=== PATIENT | female | born 1955 | race Caucasian/White ===

== ENCOUNTER 2017-05-03 20:48 | Emergency (ER) | payer BC, MEDICARE, SELFPAY ==
[2017-05-03 21:38] VITALS: BP 104/63; PULSE 71; RESP 20; TEMP 36.6; O2SAT 100; BMI 19.3
--- NOTE | 2017-05-03 21:42 | XR_ITS ---
XR forearm LT 2V HISTORY: ITS.REASON: FELL ON WOODEN TOY AT HOME ORDERING PHYSICIAN: Stacey Sung PATIENT AGE: 61 years COMPARISON: None FINDINGS: No obvious fracture, dislocation, lytic change or blastic change. Normal mineralization. Unremarkable soft tissues IMPRESSION: Negative forearm
--- NOTE | 2017-05-03 22:21 | HMH.EDUTC ---
[facility] [place] Clinical Impression: Wrist contusion Qualifiers: Encounter type: initial encounter Laterality: left Qualified Code(s): S60.212A - Contusion of left wrist, initial encounter Clinical Impression: (Ruled Out): Wrist sprain Disposition: Home, Self-Care Condition on Discharge: Good Instructions: How To Perform RICE (Rest, Ice, Compress, Elevate), Contusion, DI for Wrist Pain Additional Instructions: *RICE, Rest the extremity, Ice 15-20 minutes 3-4 times daily, Compress- wear the song wrap as discussed as much as possible to help reduce swelling and pain, Elevate the extremity when at rest *Song wrap is for support and help control swelling, use it except in the shower. Be sure that is not to tight but not to loose either *Elevate when resting *Ibuprofen 600-800mg every 6-8 hours as needed for pain an inflammation. If need something more can take Tylenol in between doses of Ibuprofen to help Immediately follow up for new or worsening of symptoms, or no noticeable improvement over the next 3-5 days Follow up with family doctor for referal to Orthopedics if warrented Referrals: Cornelio Chan [Primary Care Provider] - Time of Disposition: 22:26 Medical Decision Making - Medical Records Medical records reviewed: Yes: I reviewed the patient's medical records. Vital Signs: 05/03/17 21:38 Temperature 97.9 F Temperature Source Temporal Artery Scan Pulse Rate [Left] 71 Respiratory Rate 20 Blood Pressure [Left Arm] 104/63 Blood Pressure Mean [Left Arm] 76 Blood Pressure Source [Left Arm] Automatic Cuff Blood Pressure Position [Left Arm] Sitting 02 Sat by Pulse Oximetry 100 Oxygen Delivery Method Room Air Orders (Tests/Meds): ORDERS Category Date Time Status Forearm XR left 2 views [XR forearm LT 2V] Stat Exams 05/03/17 21:42 Taken - Radiology Data #1 Image(s): Forearm Image Reviewed: Yes I reviewed the patient's radiology image Preliminary Findings: No Fracture Seen - Steven Inquiry Pt receiving controlled substance: No Steven was queried for this patient: No - Reevaluation(s) Time: 22:24 (Patient state that she did not need any medication for pain) [facility] [place] - General Stated complaint: ao [id number] injured left arm Mode of Arrival: Ambulatory Source of Information: Patient Limitations: No Limitations Description of Symptoms (Recalled from Triage Doc. by RN): BRUISE ON RIGHT WRIST, TRIPPED FELL EARLIER HEENT Symptoms (Recalled from RN notes): No Resp Symptoms (Recalled from RN notes): No Skin Symptoms (Recalled from RN notes): No MS Symptoms (Recalled from RN notes): Yes Functional Status (Recalled from RN notes): N - History of Present Illness Provider Complaint: Patient state that she was walking through her house when she tripped and fell on wooden toy and now having pain and bruising to the inside of her left wrist area State that she was worried that she may have broken something so she came in to get checked out - Related Data Allergies Allergy/AdvReac Type Severity Reaction Status Date / Time Penicillins Allergy Verified 05/03/17 21:48 Penicillin Allergy Intermediate PATIENT Uncoded 05/03/17 21:48 THROAT SWELL AND DEVELOPS RASH - Worker's Comp Is this a Worker's Comp case?: No [facility] History I have reviewed the patient's past medical history: Yes - *Social History Smoking Status: Current every day smoker Tobacco Type: cigarettes Alcohol Intake: never - Psychiatric History Expresses thoughts of harming self/others: None Suicide Plan Description: No Plan ROS Obtained: Yes All systems reviewed & no additional complaints Physical Exam - General General appearance: alert, in no apparent distress - Respiratory Respiratory exam: Present: normal lung sounds bilaterally. Absent: respiratory distress - Cardiovascular Cardiovascular exam: Present: regular rate, normal rhythm. Absent: JVD - Expanded Upper Extremity Exam
--- NOTE | 2017-05-03 22:24 | ED_ITS ---
[facility] – [place] Clinical Impression: Wrist contusion Qualifiers: Encounter type: initial encounter Laterality: left Qualified Code(s): S60.212A - Contusion of left wrist, initial encounter Clinical Impression: (Ruled Out): Wrist sprain Disposition: Home, Self-Care Condition on Discharge: Good Instructions: How To Perform RICE (Rest, Ice, Compress, Elevate), Contusion, DI for Wrist Pain Additional Instructions: *RICE, Rest the extremity, Ice 15-20 minutes 3-4 times daily, Compress- wear the song wrap as discussed as much as possible to help reduce swelling and pain, Elevate the extremity when at rest *Song wrap is for support and help control swelling, use it except in the shower. Be sure that is not to tight but not to loose either *Elevate when resting *Ibuprofen 600-800mg every 6-8 hours as needed for pain an inflammation. If need something more can take Tylenol in between doses of Ibuprofen to help Immediately follow up for new or worsening of symptoms, or no noticeable improvement over the next 3-5 days Follow up with family doctor for referal to Orthopedics if warrented Referrals: Cornelio Chan [Primary Care Provider] - Time of Disposition: 22:26 Medical Decision Making - Medical Records Medical records reviewed: Yes: I reviewed the patient's medical records. Vital Signs: 05/03/17 21:38 Temperature 97.9 F Temperature Source Temporal Artery Scan Pulse Rate [Left] 71 Respiratory Rate 20 Blood Pressure [Left Arm] 104/63 Blood Pressure Mean [Left Arm] 76 Blood Pressure Source [Left Arm] Automatic Cuff Blood Pressure Position [Left Arm] Sitting 02 Sat by Pulse Oximetry 100 Oxygen Delivery Method Room Air Orders (Tests/Meds): ORDERS Category Date Time Status Forearm XR left 2 views [XR forearm LT 2V] Stat Exams 05/03/17 21:42 Taken - Radiology Data #1 Image(s): Forearm Image Reviewed: Yes I reviewed the patient's radiology image Preliminary Findings: No Fracture Seen - Steven Inquiry Pt receiving controlled substance: No Steven was queried for this patient: No - Reevaluation(s) Time: 22:24 (Patient state that she did not need any medication for pain) [facility] [place] HPI - General Stated complaint: ao [id number] injured left arm Mode of Arrival: Ambulatory Source of Information: Patient Limitations: No Limitations Description of Symptoms (Recalled from Triage Doc. by RN): BRUISE ON RIGHT WRIST , TRIPPED FELL EARLIER HEENT Symptoms (Recalled from RN notes): No Resp Symptoms (Recalled from RN notes): No Skin Symptoms (Recalled from RN notes): No MS Symptoms (Recalled from RN notes): Yes Functional Status (Recalled from RN notes): N - History of Present Illness Provider Complaint: Patient state that she was walking through her house when she tripped and fell on wooden toy and now having pain and bruising to the inside of her left wrist area State that she was worried that she may have broken something so she came in to get checked out - Related Data Allergies Allergy/AdvReac Type Severity Reaction Status Date / Time Penicillins Allergy Verified 05/03/17 21:48 Penicillin Allergy Intermediate PATIENT Uncoded 05/03/17 21:48 THROAT SWELL AND DEVELOPS RASH - Worker's Comp Is this a Worker's Comp case?: No H History I have reviewed the patient's pa
== END 2017-05-03 22:27 | disposition home or self-care (01) ==
PROVIDERS: Emergency Provider Nurse Practitioner; Family Provider Internal Medicine; PCP Internal Medicine
DX: S60.212A Contusion of left wrist, initial encounter (principal); W18.09XA Striking against other object with subsequent fall, initial encounter; Y93.9 Activity, unspecified; Y92.009 Unspecified place in unspecified non-institutional (private) residence as the place of occurrence of the external cause; F17.210 Nicotine dependence, cigarettes, uncomplicated; Z88.0 Allergy status to penicillin
CPT/HCPCS: 73090; 99202

== ENCOUNTER → 2017-07-31 14:19 | Outpatient (CLI) | payer BC, MEDICARE, SELFPAY ==
--- NOTE | 2017-07-31 14:26 | XR_ITS ---
XR foot RT min 3V HISTORY: Pain following injury ITS.REASON: S/P INJURY,HORSE STEPPED ON RT FOOT ORDERING PHYSICIAN: Cornelio Chan PATIENT AGE: 61 years COMPARISON: None FINDINGS: There is a mildly distracted fracture involving the distal phalanx of the second toe. It is uncertain as to where the injury occurred. This could represent an old ununited fracture or an acute mildly displaced fracture. Fracture fragments are distracted by approximately 2 mm with good alignment Please correlate with patient's area of pain and tenderness. IMPRESSION: Mildly distracted fracture of the distal phalanx of the second toe
--- NOTE | 2017-07-31 14:28 | XR_ITS ---
XR ankle RT min 3V HISTORY: Pain following injury ITS.REASON: S/P INJURY, HORSE STEPPED ON FOOT/ANKLE ORDERING PHYSICIAN: Cornelio Chan PATIENT AGE: 61 years COMPARISON: FINDINGS: No fracture or dislocation. No lytic or blastic change. There is normal mineralization.. The joint spaces are well-preserved. No significant degenerative/arthritic changes. No erosive changes evident. IMPRESSION: Negative ankle, no acute finding
== END ==
PROVIDERS: PCP Internal Medicine; Visit Provider Internal Medicine
DX: M79.671 Pain in right foot (principal); M25.571 Pain in right ankle and joints of right foot
CPT/HCPCS: 73610; 73630

== ENCOUNTER → 2017-12-15 15:48 | Outpatient (CLI) | payer BC, SELFPAY ==
--- NOTE | 2017-12-15 15:52 | XR_ITS ---
XR shoulder RT min 2V HISTORY: Posttraumatic pain ITS.REASON: S/P FALL 12/12 RT SHOULDER PAIN ORDERING PHYSICIAN: Cornelio Chan PATIENT AGE: 62 years Comparison: None FINDINGS: No fracture or dislocation. No lytic or blastic change. There is normal mineralization. The joint spaces are well-preserved. No significant degenerative/arthritic changes. No erosive changes evident. IMPRESSION: Negative, no acute finding
== END ==
PROVIDERS: PCP Internal Medicine; Visit Provider Internal Medicine
DX: M25.511 Pain in right shoulder (principal)
CPT/HCPCS: 73030

== ENCOUNTER → 2018-03-20 10:26 | Outpatient (CLI) | payer BC, SELFPAY | PROVIDERS: Visit Provider Internal Medicine | DX: L97.329 Non-pressure chronic ulcer of left ankle with unspecified severity (principal); L03.116 Cellulitis of left lower limb | CPT/HCPCS: 87070; 87077; 87186; 87205 ==

== ENCOUNTER → 2018-04-11 14:43 | Outpatient (CLI) | payer BC, SELFPAY | PROVIDERS: PCP Internal Medicine; Visit Provider Internal Medicine | DX: S91.001A Unspecified open wound, right ankle, initial encounter (principal); L08.9 Local infection of the skin and subcutaneous tissue, unspecified | CPT/HCPCS: 87070; 87077; 87186; 87205 ==

== ENCOUNTER 2018-08-31 15:31 | Inpatient (IN) | payer BC, MEDICARE, SELFPAY ==
[2018-08-31] VITALS (10 sets, daily range): BP systolic 91–131; BP diastolic 40–81; PULSE 80–129; RESP 18–38; TEMP 36.9–37.6; O2SAT 87–98; BMI 19.3; BMI 19.5
--- NOTE | 2018-08-31 15:47 | XR_ITS ---
XR chest 2V HISTORY: Dyspnea. Cough. Smoker. Patient on O2 at night. COPD ITS.REASON: sob ORDERING PHYSICIAN: Rashid Matias MD PATIENT AGE: 63 years Technique: PA and lateral chest COMPARISON: PA and lateral chest 420 04/26 and 11/16/2015 and May 2015 FINDINGS: Today's study compared to 05/29/2015 & July 2016 CXR. Hyperexpansion. Flattening diaphragm. COPD with Emphysematous changes background with mild fibrotic changes. There is increased mainly interstitial markings bilaterally on today's exam compared to previous studies. Slightly more evident central I suspect there is mild diffuse interstitial edema noting septal lines seen at the periphery of left lung base, more so than right. This may be on the basis of mild CHF or fluid overload.... A diffuse subtle interstitial infiltrate considered alternatively However in this context would note heart is not enlarged, upper normal in size but would suggest correlation with BNP. And/or consider possible echocardiogram for EF evaluation. No pleural effusions evident, only perhaps scant fluid outlining fissures. The mild prominence of central bronchovascular markings noted as well which could reflect element of bronchitis... No focal consolidation. Only question possible minimal streaky infiltrate right infrahilar region, towards RLL. If symptoms progress or do not improve,, recommend follow-up 2 view CXR. Chest wall impression T-spine unremarkable. .... IMPRESSION...... Is underlying COPD & emphysematous changes. Diffuse interstitial prominence seen today.-Suspect mild diffuse interstitial infiltrate or edema.. Subtle septal lines seen towards bases, could reflect mild vascular congestion/mild CHF. However the heart is not enlarged but suggest correlation with BNP. Mild prominence of central bronchovascular markings also noted With Question possible subtle minimal streaky infiltrate right infrahilar region towards RLL If respiratory symptoms do not improve or progress, follow-up 2 view CXR recommended
--- NOTE | 2018-08-31 15:48 | HMH.EDGENADL ---
ED Disposition Clinical Impression: Acute respiratory failure with hypoxia, COPD exacerbation Urinary tract infection Qualifiers: Urinary tract infection type: site unspecified Hematuria presence: without hematuria Qualified Code(s): N39.0 - Urinary tract infection, site not specified Acute bronchitis Qualifiers: Bronchitis organism: unspecified organism Qualified Code(s): J20.9 - Acute bronchitis, unspecified Disposition: Admitted As Inpatient Condition on Discharge: [facility] - Critical Care Critical Care Time: Yes Attestation: On 08/31/18, the high probability of a clinically significant, sudden or life threatening deterioration of the following system(s) required my full and direct attention, intervention and personal management. The time I documented below is in addition to time spent performing reported procedures but includes the following listed in this critical care notation. Vital system(s) involved:: Respiratory Failure My critical care processes included: Assessment & monitoring of V/S, Initial and Re-exams, Data Review/Interpretation, Coordinating Care, Medication Orders and management, Documentation Medical Decision Making - Steven Inquiry Pt receiving controlled substance: No Vital Signs: 08/31/18 15:41 08/31/18 15:46 08/31/18 16:29 Temperature 99.6 F Temperature Source Oral Pulse Rate 113 H Pulse Rate [Left Radial] 129 H Respiratory Rate 38 H Blood Pressure [Right Arm] 125/72 109/63 L Blood Pressure Mean [Right Arm] 89 78 Blood Pressure Source [Right Arm] Automatic Cuff Automatic Cuff Blood Pressure Position [Right Arm] Sitting Sitting 02 Sat by Pulse Oximetry 87 L 94 L 98 Oxygen Delivery Method Room Air Nasal Cannula Nasal Cannula Oxygen Flow Rate (LPM) 3 2 08/31/18 18:20 08/31/18 18:56 Temperature Temperature Source Pulse Rate Pulse Rate [Left Radial] 105 H 100 H Respiratory Rate Blood Pressure [Right Arm] 112/79 125/80 Blood Pressure Mean [Right Arm] 90 95 Blood Pressure Source [Right Arm] Automatic Cuff Automatic Cuff Blood Pressure Position [Right Arm] Sitting 02 Sat by Pulse Oximetry 96 94 L Oxygen Delivery Method Nasal Cannula Nasal Cannula Oxygen Flow Rate (LPM) 2 2 - Lab Data Lab Results 08/31/18 15:32: Total Bilirubin 0.5, Direct Bilirubin 0.2, Indirect Bilirubin 0.3, AST 9 L, ALT 17, Alkaline Phosphatase 111, Total Protein 6.9, Albumin 2.7 L 08/31/18 15:48: Specimen Source Left radial, O2 % 28%, ABG pH 7.36, ABG pCO2 55.2 H, ABG pO2 80.4, ABG HCO3 30.6 H, ABG Total CO2 32.3 H, ABG O2 Saturation 95, ABG Base Excess 5.2 H, Davie Test Acceptable 08/31/18 15:56: WBC 21.6 H*, RBC 4.95, Hgb 12.9, Hct 40.9, MCV 82.6, MCH 26.0 L, MCHC 31.5 L, RDW 14.6, Plt Count 283, MPV 8.0, Neut % (Auto) 91.8 H, Lymph % (Auto) 3.4 L, [place] % (Auto) 2.7, Eos % (Auto) 1.8, Baso % (Auto) 0.2, Neut # (Auto) 19.6 H, Lymph # (Auto) 0.7, [place] # (Auto) 0.6, Eos # (Auto) 0.4, Baso # (Auto) 0.0, Total Counted 100, Neutrophils % (Manual) 75, Band Neutrophils % 7.0, Lymphocytes % (Manual) 5 L, Atypical Lymphs % 3.0, Monocytes % (Manual) 6, Eosinophils % (Manual) 3, Metamyelocytes % 1.0, Platelet Estimate Normal, RBC Morphology Not Reportable, Hypochromasia 1+, Stomatocytes 1+ 08/31/18 15:56: Sodium 142, Potassium 3.9, Chloride 103, Carbon Dioxide 28, Anion Gap 14.9, BUN 16, Creatinine 0.69, Estimated Creat Clear 54, Estimated GFR 86, Est GFR ( Amer) 105, Glucose 95, Calcium 8.6, Troponin I 0.13 H 08/31/18 15:56: Lactate 1.4 08/31/18 16:44: Chlamy pneumoniae PCR Not detected, Adenovirus (PCR) Not detected, B. pertussis DNA (PCR) Not detected, Coronavirus OC43 (PCR) Not detected, Coronavirus HKU1 (PCR) Not detected, Coronavirus 229E (PCR) Not detected, Coronavirus NL63 (PCR) Not detected, Human Metapneumovir PCR Not detected, Influenza A (H1) PCR Not detected, Influ A (H1N1/09) PCR Not detected, Influenza A (H3) PCR Not detected, Influenza Type A (PCR) Not detected, Influenza Type B (PCR) Not detected,
[2018-08-31 16:17] LABS: Basophils % 0.2 % (0.1-2.0); Eosinophils # 0.4 K/mm3 (0.0-0.4); Eosinophils % 1.8 % (0.1-12.0); Hematocrit 40.9 % (37.0-47.0); Hemoglobin 12.9 g/dL (12.2-16.2); Lymphocytes # 0.7 K/mm3 (0.7-4.5); Lymphocytes % 3.4 % (10-50); Mean Corpuscular HGB Conc 31.5 g/dL (31.8-35.4); Mean Corpuscular Volume 82.6 fl (81-99); Monocytes # 0.6 K/mm3 (0.1-1.0); Monocytes % 2.7 % (1.7-9.3); Neutrophils # 19.6 K/mm3 (1.8-7.8); Neutrophils % 91.8 % (37.0-80.0); Platelet Count 283 K/mm3 (142-424); Red Blood Count 4.95 M/mm3 (4.20-5.40); Red Cell Distribution Width 14.6 % (11.5-17.5)
[2018-08-31 16:19] LABS: MANUAL DIFFERENTIAL MANUAL DIFFERENTIAL (MANUAL DIFF)
[2018-08-31 16:22] LABS: ABG Base Excess 5.2 mmol/L (-2.4-2.3); ABG HCO3 30.6 mmhg (22.0-26.0); ABG Oxygen Saturation 95 % (90-100); ABG PH 7.36 mmol/L (7.35-7.45); ABG PO2 80.4 mmhg (80-100); ABG TCO2 32.3 mmhg (23-27)
[2018-08-31 16:24] LABS: White Blood Count 21.6 K/mm3 (4.8-10.8)
[2018-08-31 16:25] LABS: Allen's Test Acceptable; Oxygen 28% %; Source Left Radial
[2018-08-31 16:27] LABS: ABG PCO2 55.2 mmhg (35.0-45.0)
[2018-08-31 16:32] LABS: Lactic Acid 1.4 mmol/L (0.4-2.0)
[2018-08-31 16:33] LABS: Anion Gap 14.9 mEq/L (5-15); Blood Urea Nitrogen 16 mg/dL (7-18); Calcium 8.6 mg/dL (8.5-10.1); Carbon Dioxide 28 mmol/L (21.0-32.0); Chloride 103 mmol/L (98-107); Creatinine Clearance Estimated 54 mL/min (50-200); Creatinine,Serum 0.69 mg/dL (0.55-1.02); Estimated Glomerular Filt Rate 86 ml/min (>60); GFR (African American) 105 ML/MIN (>60); Glucose 95 mg/dL (74-106); Potassium 3.9 mmoL/L (3.5-5.1); Sodium 142 mmol/L (136-145); Troponin I 0.13 ng/ml (0.00-0.06)
[2018-08-31 16:52] LABS: Adenovirus,PCR Not Detected (NotDetected); Bordetella Pertussis Not Detected (NotDetected); Chlamydophila Pneumoniae, PCR Not Detected (NotDetected); Coronavirus 229E Not Detected (NotDetected); Coronavirus NL63 Not Detected (NotDetected); Coronavirus OC43 Not Detected (NotDetected); Coronovirus HKU1,PCR Not Detected (NotDetected); Human Metapneumovirus Not Detected (NotDetected); Influenza A, PCR Not Detected (NotDetected); Influenza AH1, 2009 Not Detected (NotDetected); Influenza AH1, PCR Not Detected (NotDetected); Influenza AH3,PCR Not Detected (NotDetected); Influenza B, PCR Not Detected (NotDetected); Mycoplasma Pneumoniae, PCR Not Detected (NotDetected); Parainfluenza 1, PCR Not Detected (NotDetected); Parainfluenza 2, PCR Not Detected (NotDetected); Parainfluenza 3, PCR Not Detected (NotDetected); Parainfluenza 4, PCR Not Detected (NotDetected); Respiratory Syncytial Virus Not Detected (NotDetected); Rhinovirus/Enterovirus Not Detected (NotDetected)
[2018-08-31 16:55] LABS: Eosinophils % 3 % (0-3); Lymphocytes % 5 % (10-50); Monocytes % 6 % (2-9); Neutrophils % 75 % (42-76); Total Cells Counted 100
[2018-08-31 16:56] LABS: Hypochromasia 1+
[2018-08-31 16:57] LABS: Platelet Estimate Normal; Stomatocytes 1+
[2018-08-31 17:29] LABS: Microscopic, Urine URINE MICROSCOPIC (MICROSCOPIC)
[2018-08-31 17:31] LABS: Appearance,Urine SL CLOUDY (Clear); Blood, Urine Negative (Negative); Color,Urine DK YELLOW (Yellow); Glucose,Urine (UA) Negative (Negative); Ketones,Urine 3+ (Negative); Leukocyte Esterase,Urine Negative (Negative); Nitrate,Urine POSITIVE (Negative); Protein,Urine 2+ (Negative); Specific Gravity, Urine 1.025 (1.005-1.030)
[2018-08-31 17:46] LABS: Bilirubin,Urine 2+ (Negative)
[2018-08-31 17:46] LABS: Alanine Aminotransferase 17 U/L (12-78); Albumin Level 2.7 gm/dL (3.4-5.0); Alkaline Phosphatase 111 U/L (46-116); Aspartate Amino Transferase 9 U/L (15-37); Bilirubin,Direct 0.2 mg/dL (0.0-0.2); Bilirubin,Indirect 0.3 mg/dL (0.0-0.9); Bilirubin,Total 0.5 mg/dL (0.2-1.0); Total Protein,Serum 6.9 gm/dL (6.4-8.2)
[2018-08-31 18:04] LABS: Bacteria,Urine 4+ /lpf; Fine Granular Casts,Urine Occasional #/lpf (0); Mucus,Urine 3+ /lpf; Other Casts,Urine Occasional #/lpf (0); RBC,Urine Occasional #/hpf (0-3); Renal Epithelial Cells,Urine Occasional #/lpf (0)
--- NOTE | 2018-08-31 18:18 | PC.NURSE ---
Dr. Pinedo paged and returned call
--- NOTE | 2018-08-31 18:51 | PC.NURSE ---
report called to dianna banda
[2018-08-31 19:10] LABS: Troponin I 0.13 ng/ml (0.00-0.06)
--- NOTE | 2018-08-31 20:24 | PC.NURSE ---
LATE ENTRY: @ 2008 ARRIVED TO FLOOR, PER W/C, FROM ED
[2018-08-31 22:14] LABS: Troponin I 0.07 ng/ml (0.00-0.06)
[2018-09-01] VITALS: PULSE 80
--- NOTE | 2018-09-01 02:04 | PC.NURSE ---
Pt is a 63 year old white female admitted for Acute Resp failure, hypoxia, copd exacerbation. Pt is on 2 L 02 per NC. Resp has labored. SOA with exertion. Lung sounds had Wheezing throughout. Reports feeling short of air for several days and weak. Went to Dr Chan office and was sent to Hospital for low 02 Sat. States she is not in any pain. Has a rash related to Had been taking Macrobid for UTI. Had a reaction to Macrobid. Pt has not been up to restroom since being admitted, denies the need to urinate. Bad is soft and non tender, Bowel sounds x 4 quads. IV is patent, no s/sx of infiltration. Educated pt on Deep breathing exercises and use of call light. Bed locked in low position, side rails up x 2, call light within reach. Will continue to monitor.
[2018-09-01 04:00] VITALS: BP 110/73; PULSE 85; PULSE 87; RESP 19; TEMP 37.1; O2SAT 93
[2018-09-01 06:47] VITALS: PULSE 68; O2SAT 81
--- NOTE | 2018-09-01 07:25 | PC.NURSE ---
REPORTED TO Johnathon WORTHY
[2018-09-01 07:27] VITALS: BMI 19.8
[2018-09-01 07:47] VITALS: BP 121/76; PULSE 101; RESP 16; TEMP 36.8; O2SAT 91
--- NOTE | 2018-09-01 08:37 | HMH.HPDC ---
General - General Admission date:: 08/31/18 Discharge date: 09/01/18 *Admission Date: 08/31/18 *Chief complaint: Shortness of breath *History of present illness: Ms. Corona is a pleasant 63-year-old female with history of nighttime oxygen use, severe COPD, who recently saw her primary care due to worsening respiratory symptoms. States that she saw him yesterday and was sent from his office to the ER due to documented hypoxemia. Upon arriving to the ER was noted to have continued hypoxemia that resolved with 2 L nasal cannula. As well felt very fatigued, had productive cough, and was noted to have concern for early infiltrate on chest x-ray. Patient's labs also noted to have significant elevation in her white cell count. Was admitted to the hospital for sepsis, acute on chronic hypoxemic respiratory failure due to presumed pneumonia, and chronic hypercarbia. Initiated on antibiotics and steroids. [facility] History I have reviewed the patient's past medical history: Yes Medical History: Reports:: Anxiety, Chronic Obstructive Pulmonary Disease (COPD), Home Oxygen Denies:: Diabetes Mellitus Type 1, Diabetes Mellitus Type 2 *Have you ever received a pneumonia vaccine?: No *Have you received a flu vaccine this season?: No Other Medical History: Reports: Arthritis, Fibromyalgia, Thyroid Disease Other Surgeries: Yes: Appendectomy, Cancer Surgery (HX OF CERVICAL CANCER), Hysterectomy-Total Fractures: Yes - *Social History Educational Level: Completed High School Smoking Status: Current every day smoker Tobacco Type: cigarettes # Packs/Day (cigarettes): 2 Alcohol Intake: never *Occupational Status:: other Housing: house Household Members: spouse *Travel in the last 8 weeks: Inside the [facility] - Psychiatric History Expresses thoughts of harming self/others: None Suicide Plan Description: No Plan Pschychiatric History:: Reports:: Anxiety Family Hx:: Cancer, Diabetes Review of Systems - Review of Systems Review of systems:: pertinent systems reviewed and negative unless documented below Exam Vital signs and Labs for Last 24 Hours: Temp Pulse Resp BP Pulse Ox 98.3 F 101 H 16 121/76 91 L 09/01/18 07:47 09/01/18 07:47 09/01/18 07:47 09/01/18 07:47 09/01/18 07:47 Laboratory Results - last 24 hr 08/31/18 15:32: Total Bilirubin 0.5, Direct Bilirubin 0.2, Indirect Bilirubin 0.3, AST 9 L, ALT 17, Alkaline Phosphatase 111, Total Protein 6.9, Albumin 2.7 L 08/31/18 15:48: Specimen Source Left radial, O2 % 28%, ABG pH 7.36, ABG pCO2 55.2 H, ABG pO2 80.4, ABG HCO3 30.6 H, ABG Total CO2 32.3 H, ABG O2 Saturation 95, ABG Base Excess 5.2 H, Davie Test Acceptable 08/31/18 15:56: WBC 21.6 H*, RBC 4.95, Hgb 12.9, Hct 40.9, MCV 82.6, MCH 26.0 L, MCHC 31.5 L, RDW 14.6, Plt Count 283, MPV 8.0, Neut % (Auto) 91.8 H, Lymph % (Auto) 3.4 L, [place] % (Auto) 2.7, Eos % (Auto) 1.8, Baso % (Auto) 0.2, Neut # (Auto) 19.6 H, Lymph # (Auto) 0.7, [place] # (Auto) 0.6, Eos # (Auto) 0.4, Baso # (Auto) 0.0, Total Counted 100, Neutrophils % (Manual) 75, Band Neutrophils % 7.0, Lymphocytes % (Manual) 5 L, Atypical Lymphs % 3.0, Monocytes % (Manual) 6, Eosinophils % (Manual) 3, Metamyelocytes % 1.0, Platelet Estimate Normal, RBC Morphology Not Reportable, Hypochromasia 1+, Stomatocytes 1+ 08/31/18 15:56: Sodium 142, Potassium 3.9, Chloride 103, Carbon Dioxide 28, Anion Gap 14.9, BUN 16, Creatinine 0.69, Estimated Creat Clear 54, Estimated GFR 86, Est GFR ( Amer) 105, Glucose 95, Calcium 8.6, Troponin I 0.13 H 08/31/18 15:56: Lactate 1.4 08/31/18 16:44: Chlamy pneumoniae PCR Not detected, Adenovirus (PCR) Not detected, B. pertussis DNA (PCR) Not detected, Coronavirus OC43 (PCR) Not detected, Coronavirus HKU1 (PCR) Not detected, Coronavirus 229E (PCR) Not detected, Coronavirus NL63 (PCR) Not detected, Human Metapneumovir PCR Not detected, Influenza A (H1) PCR Not detected, Influ A (H1N1/09) PCR Not detected, Influenza A (H3) PCR Not detected, Influenza Type A (PCR) Not
--- NOTE | 2018-09-01 09:45 | HMH.PHAINT ---
DISCHARGE COUNSELING--DISCUSSED WITH PATIENT GOING HOME ON LEVAQUIN AND PREDNISONE. CALLED [facility] WHERE SCRIPT WAS SENT TO AND HAD THEM TRANSFER TO [facility] FOR PATIENT.
== END 2018-09-01 09:45 | disposition home or self-care (01) | DRG 189 ==
LOC: ER 18:33 → 2ND 18:35
PROVIDERS: Admitting Provider Internal Medicine Adolescent Medicine; Emergency Provider Emergency Medicine; PCP Internal Medicine; Visit Provider Internal Medicine Adolescent Medicine
DX: J96.22 Acute and chronic respiratory failure with hypercapnia (principal); N39.0 Urinary tract infection, site not specified; F17.210 Nicotine dependence, cigarettes, uncomplicated; F41.9 Anxiety disorder, unspecified; E07.9 Disorder of thyroid, unspecified; R21 Rash and other nonspecific skin eruption; J96.21 Acute and chronic respiratory failure with hypoxia; J44.9 Chronic obstructive pulmonary disease, unspecified; Z79.890 Hormone replacement therapy; Z88.0 Allergy status to penicillin; Z88.8 Allergy status to other drugs, medicaments and biological substances; Z79.52 Long term (current) use of systemic steroids; Z79.899 Other long term (current) drug therapy; Z99.81 Dependence on supplemental oxygen; Z85.41 Personal history of malignant neoplasm of cervix uteri; Z90.710 Acquired absence of both cervix and uterus
CPT/HCPCS: 36415; 71046; 80048; 80076; 81001; 82803; 83605; 84484; 85007; 85025; 87040; 87086; 87205; 87486; 87581; 87633; 87798; 93005; 94640; 94761; 96365; 96375; 99284; J1956; J2405

== ENCOUNTER → 2019-11-06 15:37 | Outpatient (CLI) | payer BC, MEDICARE, SELFPAY ==
--- NOTE | 2019-11-06 | XR_ITS ---
PROCEDURE: XR FOOT LT MIN 3V CLINICAL INDICATION: Persistent left ankle and left foot pain. Fall 3 weeks ago. COMPARISON: [id number] XR foot RT min 3V from 07/31/2017 FINDINGS: No fracture or dislocation. No lytic or blastic change. There is normal mineralization. The joint spaces are well-preserved. No significant degenerative/arthritic changes. No erosive changes evident. Other findings:Mild soft tissue swelling of the left ankle and mid/hindfoot.. IMPRESSION: 1. No demonstrated acute osseous injury or dislocation. 2. Mild soft tissue swelling of the ankle and hind/midfoot. Dictated by: Elyse Vega 11/06/2019 16:10 Electronically signed by Elyse Vega in [place] 11/06/2019 16:10
--- NOTE | 2019-11-06 | XR_ITS ---
PROCEDURE: XR ANKLE LT MIN 3V CLINICAL INDICATION: PERSISTING L ANKLE AND FOOT PAIN AFTER FALL 3 WKS AGO COMPARISON: ANKL3 ANKLE-LT-3 VIEWS from 12/09/2015 ANKL3 ANKLE-LT-3 VIEWS from 02/08/2016 FINDINGS: The visualized distal left tibia and fibula appears intact. Normal medial and lateral malleoli. The ankle mortise is anatomic. The talar dome and calcaneus appear intact. There is normal talonavicular and calcaneocuboid articulations. Soft tissue edema/swelling is seen of the ankle more over the lateral malleolus. IMPRESSION: 1. No demonstrated acute fracture or dislocation. 2. Soft tissue edema/swelling of the left ankle. Dictated by: Elyse Vega 11/06/2019 16:07 Electronically signed by Elyse Vega in [place] 11/06/2019 16:07
== END ==
PROVIDERS: PCP Internal Medicine; Visit Provider Internal Medicine
DX: M79.672 Pain in left foot (principal); M25.572 Pain in left ankle and joints of left foot
CPT/HCPCS: 73610; 73630

== ENCOUNTER → 2020-03-23 11:34 | Outpatient (CLI) | payer OTHER, SELFPAY ==
--- NOTE | 2020-03-23 11:42 | XR_ITS ---
PROCEDURE: XR CHEST 2V CLINICAL HISTORY: CHEST PAIN COMPARISON: CT CTAC CTA-CHEST from 12/23/2014 CR CXR CHEST(2 VIEWS-NOT PORTABLE) from 11/16/2015 CR CXR CHEST(2 VIEWS-NOT PORTABLE) from 07/29/2016 CR Chest from 08/31/2018 FINDINGS: The cardiomediastinal silhouette and pulmonary vascularity are within normal limits. The lungs are clear without infiltrates, suspicious nodules, or pleural effusions. No acute bony abnormalities. IMPRESSION: No acute findings. Dictated by: Davie Goff MD 03/23/2020 13:48 Davie Goff MD in [place] 03/23/2020 13:48
--- NOTE | 2020-03-23 11:45 | CT_ITS ---
PROCEDURE: CT ABDOMEN PELVIS WO CON CLINICAL INDICATION: ABD PAIN, ABD BRUISE/HEMATURIA Blunt trauma with injury and pain, contusion/abrasion or hematoma following injury COMPARISON: No exams were available for comparison TECHNIQUE: Axial images obtained with sagittal and coronal reformats. All CT scans at the facility use one or more dose reduction, viz: automated exposure control, ma/kV adjustment per patient size (including targeted exams where dose is matched to indication, i.e. head), or iterative reconstruction technique. FINDINGS: LOWER THORAX: There are mild atelectatic changes in the lung bases. There is mild coronary artery calcification. ABDOMEN & PELVIS: Evaluation of solid organs limited especially in the setting of trauma without IV contrast. The spleen, adrenal glands, pancreas, have an unremarkable appearance. There are 2 calcifications in the upper pole of the right kidney and may actually be within the cortex. There is a moderate amount of retained colonic feces. There is increased subcutaneous density within the anterior abdominal wall which is greater on the left. Part of the left abdominal wall laterally is excluded on the image. There is increased density noted just medial to this region suggesting hematoma/hemorrhage. There is a moderate amount of retained colonic feces. There is mildly distended urinary bladder. There are post hysterectomy changes. Reported prior appendectomy. There is mild anterolisthesis of L3 on L4 of 6 mm IMPRESSION: 1. Increased density within the left anterior abdominal wall consistent with contusion/hemorrhage. 2. Solid organ evaluation limited without IV contrast. No obvious acute finding. 3. Constipation Dictated by: Davie Goff MD 03/23/2020 12:44 Davie Goff MD in [facility] 03/23/2020 12:44
== END ==
PROVIDERS: PCP Internal Medicine; Visit Provider Internal Medicine
DX: R07.9 Chest pain, unspecified (principal); R10.9 Unspecified abdominal pain; S30.1XXA Contusion of abdominal wall, initial encounter; V89.2XXA Person injured in unspecified motor-vehicle accident, traffic, initial encounter
CPT/HCPCS: 71046; 74176

== ENCOUNTER → 2020-05-08 13:41 | Outpatient (CLI) | payer BC, SELFPAY ==
--- NOTE | 2020-05-08 14:23 | CT_ITS ---
PROCEDURE: CT HEAD/BRAIN WO/W CON CLINICAL INDICATION: POSTURAL INSTABILITY TRUNK LEANING TO LEFT SIDE Iso 320 COMPARISON: CT HDWO CT HEAD W/O CONTRAST from 12/22/2015 TECHNIQUE: IV Contrast: 100ML Isovue 370 Axial images obtained. All CT scans at the facility use one or more dose reduction, viz: automated exposure control, ma/kV adjustment per patient size (including targeted exams where dose is matched to indication, i.e. head), or iterative reconstruction technique. FINDINGS: No midline shift, mass effect, intracranial hemorrhage, hydrocephalus, or extra-axial fluid collection is evident. No enhancing lesions are evident. The calvarium has an unremarkable appearance. No mastoid effusion. No sinus air-fluid level IMPRESSION: Negative CT head without and with contrast Dictated by: Davie Goff MD 05/09/2020 07:13 Davie Goff MD in [facility] 05/09/2020 07:13
[2020-05-08 14:40] LABS: Blood Urea Nitrogen 13 mg/dl (7-17); Estimated Glomerular Filt Rate 85 ml/min (>60); GFR (African American) 103 ML/MIN (>60)
== END ==
PROVIDERS: PCP Internal Medicine; Visit Provider Internal Medicine
DX: R29.3 Abnormal posture (principal)
CPT/HCPCS: 36415; 70470; 82565; 84520; Q9967

== ENCOUNTER → 2020-08-19 15:27 | Outpatient (CLI) | payer BC, SELFPAY | PROVIDERS: Visit Provider Internal Medicine | DX: L97.321 Non-pressure chronic ulcer of left ankle limited to breakdown of skin (principal); L98.429 Non-pressure chronic ulcer of back with unspecified severity | CPT/HCPCS: 87070; 87077; 87205 ==

== ENCOUNTER 2020-08-28 11:18 | Inpatient (IN) | payer BC, SELFPAY ==
[2020-08-28] VITALS (12 sets, daily range): BP systolic 104–134; BP diastolic 58–77; PULSE 64–106; RESP 16–22; TEMP 36.4–36.9; O2SAT 94–100; BMI 24.7; BMI 23.5
--- NOTE | 2020-08-28 11:45 | XR_ITS ---
PROCEDURE: XR FOOT RT MIN 3V CLINICAL INDICATION: r/o osteo Pain and swelling COMPARISON: CR [id number] XR foot RT min 3V from 07/31/2017 CR XR FOOT LT MIN 3V from 11/06/2019 FINDINGS: No fracture or dislocation. No lytic or blastic change. There is normal mineralization. The joint spaces are well-preserved. No significant degenerative/arthritic changes. No erosive changes evident. Other findings:None. IMPRESSION: No acute findings. Dictated by: Davie Goff MD 08/28/2020 12:36 Davie Goff MD in [facility] 08/28/2020 12:36
--- NOTE | 2020-08-28 11:45 | XR_ITS ---
PROCEDURE: XR ELBOW LT MIN 3V CLINICAL INDICATION: r/o osteo Pain and swelling COMPARISON: No exams were available for comparison FINDINGS: No fracture or dislocation. No lytic or blastic change. There is normal mineralization. The joint spaces are well-preserved. No significant degenerative/arthritic changes. No erosive changes evident. Other findings:There is a lucency within the subcutaneous tissues along the dorsal and medial aspect of the elbow and may be due to a wound. Please correlate with physical exam. No underlying bony destruction. IMPRESSION: No acute bony findings. Suspect open wound along the dorsal and medial aspect of the elbow Dictated by: Davie Goff MD 08/28/2020 12:34 Davie Goff MD in [facility] 08/28/2020 12:34
--- NOTE | 2020-08-28 11:54 | XR_ITS ---
PROCEDURE: XR ANKLE RT MIN 3V CLINICAL INDICATION: infection COMPARISON: CR ANKL3 ANKLE-LT-3 VIEWS from 12/09/2015 CR ANKL3 ANKLE-LT-3 VIEWS from 02/08/2016 CR ANKCMRT XR ankle RT min 3V from 07/31/2017 CR XR ANKLE LT MIN 3V from 11/06/2019 FINDINGS: No fracture or dislocation. No lytic or blastic change. There is normal mineralization. The joint spaces are well-preserved. No significant degenerative/arthritic changes. No erosive changes evident. Other findings:Soft tissue gas is present along the lateral malleolar region and along the distal fibular area laterally suggesting open wounds. No underlying bony destruction IMPRESSION: Soft tissue swelling laterally with suspected open wounds Dictated by: Davie Goff MD 08/28/2020 12:35 Davie Goff MD in [facility] 08/28/2020 12:35
--- NOTE | 2020-08-28 11:54 | HMH.EDGENADL ---
ED Disposition Clinical Impression: Cellulitis, Acute anemia Disposition: Admitted As Inpatient Condition on Discharge: Good Instructions: DI for Skin Abscess Referrals: Cornelio Chan [Primary Care Provider] - - Critical Care Critical Care Time: No Attestation: On 08/28/20, the high probability of a clinically significant, sudden or life threatening deterioration of the following system(s) required my full and direct attention, intervention and personal management. The time I documented below is in addition to time spent performing reported procedures but includes the following listed in this critical care notation. Medical Decision Making - Medical Records Medical records reviewed: Yes: I reviewed the patient's medical records. - Steven Inquiry Pt receiving controlled substance: No Vital Signs: 08/28/20 11:19 Temperature 98.4 F Temperature Source Oral Pulse Rate [Right Radial] 106 H Respiratory Rate 22 Blood Pressure [Right Arm] 104/61 L Blood Pressure Mean [Right Arm] 75 02 Sat by Pulse Oximetry 95 Oxygen Delivery Method Nasal Cannula - Lab Data Lab Results 08/28/20 11:35: WBC 12.6 H, RBC 3.96 L, Hgb 7.4 L*, Hct 27.6 L, MCV 69.8 L, MCH 18.7 L, MCHC 26.8 L, RDW 19.4 H, Plt Count 366, MPV 7.9, Neut % (Auto) 93.6 H, Lymph % (Auto) 3.6 L, [place] % (Auto) 2.7, Eos % (Auto) 0.0 L, Baso % (Auto) 0.2, Neut # (Auto) 11.8 H, Lymph # (Auto) 0.4 L, [place] # (Auto) 0.3, Eos # (Auto) 0.0, Baso # (Auto) 0.0, Total Counted 100, Neutrophils % (Manual) 96 H, Lymphocytes % (Manual) 3 L, Monocytes % (Manual) 1 L, Platelet Estimate Normal, Hypochromasia 3+, Poikilocytosis 2+, Anisocytosis 2+, Microcytosis 2+, Stomatocytes 2+ 08/28/20 11:35: Sodium 140, Potassium 3.8, Chloride 97 L, Carbon Dioxide 36 H, Anion Gap 10.8, BUN 17, Creatinine 0.90, Estimated Creat Clear 65, Estimated GFR 63, Est GFR ( Amer) 77, Glucose 132 H, Calcium 8.3 L, Total Bilirubin 0.3, AST 25, ALT 21, Alkaline Phosphatase 113, C-Reactive Protein 105.2 H, Total Protein 6.9, Albumin 3.4 L, Globulin 3.5 H, Albumin/Globulin Ratio 1.0 L 08/28/20 11:35: Lactate 2.0 08/28/20 12:05: Stool Occult Blood Negative 08/28/20 12:27: Crossmatch (AHG) See Detail Result diagrams: 08/28/20 11:35 08/28/20 11:35 Orders (Tests/Meds): ED MEDICATIONS Generic Name Dose Route Start Last Admin Trade Name Freq PRN Reason Stop Dose Admin Acetaminophen 650 mg 08/28/20 12:38 Acetaminophen 325mg Tab PO 09/27/20 12:37 Q4HP PRN Fever or Mild Pain Hydrocodone Bitart/Acetaminophen 1 tab 08/28/20 12:38 Hydrocodone/Apap 5/325 Mg Tablet PO 09/27/20 12:37 Q4HP PRN Mild to Moderate Pain Sodium Chloride 250 mls @ 25 mls/hr 08/28/20 12:45 Sod Chlor 0.9% 250ml Bag IV 08/29/20 12:44 .Q10H KIERAN Ceftriaxone Sodium 1 gm/ 50 mls @ 100 mls/hr 08/28/20 12:45 Sodium Chloride IV 09/11/20 12:44 Q24H KIERAN Protocol Pantoprazole Sodium 40 mg 08/29/20 09:00 Pantoprazole 40mg Tablet PO 09/28/20 08:59 DAILY KIERAN Discontinued Medications Generic Name Dose Route Start Last Admin Trade Name Freq PRN Reason Stop Dose Admin Hydrocodone Bitart/Acetaminophen 1 tab 08/28/20 11:57 Hydrocodone/Apap 5/325 Mg Tablet PO 08/28/20 11:58 ONCE ONE Hydrocodone Bitart/Acetaminophen 1 tab 08/28/20 12:02 08/28/20 12:11 Apap/Hydrocodone 325mg/7.5mg Tab PO 08/28/20 12:03 1 tab ONCE ONE Administration ORDERS Category Date Time Status Transfuse RBC's [Red Blood Cells] Stat [facility] 08/28/20 12:27 Results Type and Screen Stat K 08/28/20 12:27 Results Basic Metabolic Panel [facility] 08/29/20 06:00 Ordered Complete Blood Count Auto Diff [facility] 08/29/20 06:00 Ordered Covid-19 Nasal PCR ([facility]) Routine Lab 08/28/20 12:15 Received Lipid Panel [facility] 08/29/20 06:00 Ordered Magnesium [facility] 08/29/20 06:00 Ordered Phosphorous [facility] 08/29/20 06:00 Ordered Blood Culture Stat Micro 08/28/20 12:27 Recei
[2020-08-28 12:03] LABS: Monocytes # 0.3 K/mm3 (0.1-1.0)
[2020-08-28 12:04] LABS: Chloride 97 mmol/L (98-107); Potassium 3.8 mmoL/L (3.5-5.1); Sodium 140 mmol/L (136-145)
[2020-08-28 12:07] LABS: Alanine Aminotransferase 21 U/L (12-78); Albumin Level 3.4 g/dl (3.5-5.0); Alkaline Phosphatase 113 U/L (38-126); Anion Gap 10.8 mEq/L (5-15); Aspartate Amino Transferase 25 U/L (14-36); Basophils % 0.2 % (0.1-2.0); Bilirubin,Total 0.3 mg/dl (0.2-1.3); Blood Urea Nitrogen 17 mg/dl (7-17); Carbon Dioxide 36 mmol/L (22.0-30.0); Creatinine Clearance Estimated 65 mL/min (50-200); Estimated Glomerular Filt Rate 63 ml/min (>60); GFR (African American) 77 ML/MIN (>60); Globulin 3.5 g/dL (1.3-3.2); Hematocrit 27.6 % (37.0-47.0); Hemoglobin 7.4 g/dL (12.2-16.2); Lymphocytes # 0.4 K/mm3 (0.7-4.5); Lymphocytes % 3.6 % (10-50); MANUAL DIFFERENTIAL MANUAL DIFFERENTIAL (MANUAL DIFF); Mean Corpuscular HGB Conc 26.8 g/dL (31.8-35.4); Mean Corpuscular Hemoglobin 18.7 pg (27.0-31.2); Mean Corpuscular Volume 69.8 fl (81-99); Mean Platelet Volume 7.9 fl (7.4-10.4); Monocytes % 2.7 % (1.7-9.3); Neutrophils # 11.8 K/mm3 (1.8-7.8); Neutrophils % 93.6 % (37.0-80.0); Platelet Count 366 K/mm3 (142-424); Red Blood Count 3.96 M/mm3 (4.20-5.40); Red Cell Distribution Width 19.4 % (11.5-17.5); Total Protein,Serum 6.9 g/dl (6.3-8.2); White Blood Count 12.6 K/mm3 (4.8-10.8)
[2020-08-28 12:08] LABS: Calcium 8.3 mg/dl (8.4-10.2); Glucose 132 mg/dl (74-100)
--- NOTE | 2020-08-28 12:08 | PC.NURSE ---
NOTIFIED OF CRITICAL HEMOGLOBIN
[2020-08-28 12:14] LABS: C-Reactive Protein 105.2 mg/L (0-4)
[2020-08-28 12:17] LABS: Anisocytosis 2+; Hypochromasia 3+; Lymphocytes % 3 % (10-50); Microcytosis 2+; Monocytes % 1 % (2-9); Neutrophils % 96 % (42-76); Platelet Estimate Normal; Poikilocytosis 2+; Stomatocytes 2+; Total Cells Counted 100
[2020-08-28 12:25] LABS: Occult Blood,Stool Negative (Negative)
--- NOTE | 2020-08-28 12:33 | PC.NURSE ---
MD Latham speaking w/ Dr Chan at this time.
--- NOTE | 2020-08-28 13:32 | PC.NURSE ---
LAB REPORTED TO FARNK TATUM THAT THE UNIT OF BLOOD WAS AVAILABLE. DAVINA TATUM MADE AWARE
--- NOTE | 2020-08-28 15:28 | P.CONPHA_ITS ---
[facility] Pharmacy VTE Monitoring - Patient Demographics Admission date: 08/28/20 Report Date: 08/28/20 Time: 15:28 Allergies/Adverse Reactions: Patient Allergies nitrofurantoin Allergy (Intermediate, Verified 08/28/20 15:27) Unknown allergy reaction Penicillins Allergy (Intermediate, Verified 08/28/20 15:27) Swelling of Lip/Tongue/Throat Height: 1.7 m Weight: 71.668 kg Patient Problems: Current Active Problems Cellulitis (Acute) Acute anemia (Acute) - VTE Risk Labs: VTE Related Lab Results Hgb 7.4 g/dL (12.2-16.2) L* 08/28/20 11:35 Hct 27.6 % (37.0-47.0) L 08/28/20 11:35 Plt Count 366 K/mm3 (142-424) 08/28/20 11:35 BUN 17 mg/dl (7-17) 08/28/20 11:35 Creatinine 0.90 mg/dl (0.52-1.04) 08/28/20 11:35 Estimated Creat Clear 65 mL/min (50-200) 08/28/20 11:35 - Prophylaxis VTE Prophylaxis Ordered?: Yes Types of VTE Prophylaxis: TEDS Knee High Location of Applied Device: Left Leg
--- NOTE | 2020-08-28 15:47 | HMH.PHAINT ---
MEDICATION RECONCILIATION COMPLETED ON PATIENT USING EXTERNAL FILL HISTORY FROM PHARMACY AND AYDEN REPORT. -TAMELA CORTEZD
--- NOTE | 2020-08-28 16:22 | PC.WOUNDNOTE ---
RT ankle LT ankle LT elbow LT buttock
[2020-08-28 16:47] LABS: Hemoglobin 7.9 g/dL (12.2-16.2)
--- NOTE | 2020-08-28 18:30 | PC.NURSE ---
DECREASED O2 TO 2L N/C
--- NOTE | 2020-08-28 18:46 | HMH.HP ---
*Admission Date: 08/28/20 *Chief complaint: Nonhealing Wounds *History of present illness: 65-year-old female patient presents [facility] with reports of purulent drainage from right lower extremity ulcer. She was instructed to come to emergency from home health nurse for increased drainage, redness and warmth. Home health nurses been tending to wounds and PCP has had frequent appointments evaluating nonhealing wounds with minocycline. She denies any nausea/vomiting/diarrhea, fever/chills/body aches, abdomen, chest pain, or increased shortness of breath she reports she is on oxygen at home 2 L per nasal cannula. She does report pain is dull and nonradiating. After reviewing her med list, ferrous sulfate was indicated which she denied taking. She did receive 1 unit of packed red blood cells. Lab work reveals elevated white count of 12.6, H/H 7.9/30, CRP 105 Sodium was 140, potassium 3.8, BUN 17, creatinine 0.90 Occult blood was negative, she denies observing any blood in urine or stool Blood cultures x2 and wound cultures obtained. In emergency room she received ceftriaxone IV 08/28/20 L Elbow, R Foot, R Ankle XR revealed no acute findings [facility] History I have reviewed the patient's past medical history: Yes Medical History: Reports:: Anxiety, Cancer (CERVICAL), Chronic Obstructive Pulmonary Disease (COPD), Home Oxygen Denies:: Diabetes Mellitus Type 1, Diabetes Mellitus Type 2 *Have you ever received a pneumonia vaccine?: No *Have you received a flu vaccine this season?: No Other Medical History: Reports: Anemia, Arthritis, Fibromyalgia, Thyroid Disease Other Surgeries: Yes: Appendectomy, Hysterectomy-Total Fractures: Yes - *Social History Last grade of school completed: High school graduate Smoking Status: Current every day smoker Tobacco Type: cigarettes # Packs/Day (cigarettes): 2 Alcohol Intake: never *Occupational Status:: disabled Housing: house Household Members: spouse, children *Travel in the last 8 weeks: None - Psychiatric History Pschychiatric History:: Reports:: Anxiety Family Hx:: Cancer, Diabetes Review of Systems - Review of Systems Review of systems:: pertinent systems reviewed and negative unless documented below - Constitutional Reports fatigue, Reports lack of energy, Denies anorexia - Eyes Denies blind spots, Denies change in vision - ENT Denies ear discharge, Denies facial pain - *Cardiovascular Reports shortness of breath, Denies chest pain - *Respiratory Reports cough, Reports shortness of breath, Denies chest congestion - *Gastrointestinal Denies abdominal pain, Denies change in bowel habits - *Musculoskeletal Reports joint swelling, Denies joint pain - Integumentary/Breasts Reports lesions, Reports skin ulcer, Reports sores, Reports wounds - *Neurologic Denies dizziness, Denies headache(s) - Psychiatric Denies difficulty concentrating, Denies panic attacks - Endocrine Denies cold intolerance, Denies heat intolerance - Hematologic/Lymphatic Denies easy bleeding, Denies easy bruising - Allergic/Immunologic Reports GI upset with certain foods, Denies tongue swelling Meds Home Medications Medication Instructions Recorded Confirmed Type alprazolam 1 mg tablet 0.5 - 1 mg PO TIDP PRN 08/03/17 08/28/20 History duloxetine 60 mg capsule,delayed 60 mg PO DAILY 08/03/17 08/28/20 History release linaclotide 145 mcg capsule 145 mcg PO DAILY 08/03/17 08/28/20 History methylprednisolone 4 mg tablet 4 mg PO DIRECTED 08/03/17 08/28/20 History montelukast 10 mg tablet 10 mg PO PM 08/03/17 08/28/20 History pregabalin 150 mg capsule 150 mg PO BID 08/03/17 08/28/20 History Levothyroxine Sodium [Synthroid 50 mcg PO DAILY 09/01/18 08/28/20 History 50mcg (0.05mg) tab] ARIPiprazole [Aripiprazole 10mg 10 mg PO DAILY 08/28/20 08/28/20 History Tablet] Albuterol Sulfate [Albuterol 2 puffs IH QIDP PRN 08/28/20 08/28/20 History Sulfate Hfa] D
--- NOTE | 2020-08-28 20:13 | PC.NURSE ---
JAIME SKINNER FROM PT WAS NOTIFIED OF WOUND EVAL.JAIME STATED WILL BE IN THE A.AM TO SEE PATIENT IN THE MORNING.
--- NOTE | 2020-08-28 22:02 | PC.NURSE ---
Correction to pain assessment: Assessment performed stated did not feel nauseated anymore should state Pt states Pain feels a little better, 4 .
[2020-08-29] VITALS (16 sets, daily range): BP systolic 96–116; BP diastolic 55–72; PULSE 79–93; RESP 16–24; TEMP 36.3–36.8; O2SAT 93–100; BMI 23.9
--- NOTE | 2020-08-29 04:11 | PC.NURSE ---
Patient admitted for BLE Cellulitis and ALESHA. Patient oriented times 3. Patient has many wounds, BLE ankles and Left buttock/sacral area. Patient required pain medication times 1. Will continue to monitor for any acute changes.
[2020-08-29 06:55] LABS: Basophils % 0.3 % (0.1-2.0); Eosinophils # 0.1 K/mm3 (0.0-0.4); Eosinophils % 0.8 % (0.1-12.0); Hematocrit 28.5 % (37.0-47.0); Lymphocytes % 17.9 % (10-50); Mean Corpuscular HGB Conc 27.2 g/dL (31.8-35.4); Mean Corpuscular Hemoglobin 19.8 pg (27.0-31.2); Mean Corpuscular Volume 72.9 fl (81-99); Mean Platelet Volume 7.6 fl (7.4-10.4); Monocytes # 0.5 K/mm3 (0.1-1.0); Monocytes % 4.8 % (1.7-9.3); Neutrophils # 8.4 K/mm3 (1.8-7.8); Neutrophils % 76.2 % (37.0-80.0); Platelet Count 312 K/mm3 (142-424); Red Cell Distribution Width 19.8 % (11.5-17.5)
[2020-08-29 07:09] LABS: Blood Urea Nitrogen 11 mg/dl (7-17); Calcium 7.8 mg/dl (8.4-10.2); Chloride 99 mmol/L (98-107); Chol/HDL Ratio 3.4 (1-3.5); Cholesterol 110 mg/dl (140-200); Creatinine Clearance Estimated 63 mL/min (50-200); Estimated Glomerular Filt Rate 101 ml/min (>60); GFR (African American) 122 ML/MIN (>60); Glucose 90 mg/dl (74-100); HDL Cholesterol 32 mg/dl (40-60); Magnesium 1.9 mg/dl (1.6-2.3); Phosphorous 3.1 mg/dl (2.5-4.5); Potassium 3.5 mmoL/L (3.5-5.1); Sodium 140 mmol/L (136-145); Triglycerides 97 mg/dl (30-150); VLDL Cholesterol 19 mg/dL (0-40)
[2020-08-29 07:14] LABS: Hemoglobin 7.7 g/dL (12.2-16.2)
[2020-08-29 07:20] LABS: Anion Gap 4.5 mEq/L (5-15); Carbon Dioxide > 40 mmol/L (22.0-30.0)
[2020-08-29 07:46] LABS: Direct LDL Cholesterol 56.98 mg/dL (100-129)
[2020-08-29 10:09] LABS: Basophils % 0.3 % (0.1-2.0); Eosinophils # 0.1 K/mm3 (0.0-0.4); Eosinophils % 0.9 % (0.1-12.0); Lymphocytes # 1.6 K/mm3 (0.7-4.5); Lymphocytes % 16.3 % (10-50); Mean Corpuscular HGB Conc 27.4 g/dL (31.8-35.4); Mean Corpuscular Hemoglobin 19.9 pg (27.0-31.2); Mean Corpuscular Volume 72.7 fl (81-99); Mean Platelet Volume 8.7 fl (7.4-10.4); Monocytes # 0.4 K/mm3 (0.1-1.0); Monocytes % 4.4 % (1.7-9.3); Neutrophils # 7.7 K/mm3 (1.8-7.8); Neutrophils % 78.1 % (37.0-80.0); Platelet Count 296 K/mm3 (142-424); Red Blood Count 3.99 M/mm3 (4.20-5.40); Red Cell Distribution Width 19.7 % (11.5-17.5); White Blood Count 9.9 K/mm3 (4.8-10.8)
[2020-08-29 10:11] LABS: Hemoglobin 7.9 g/dL (12.2-16.2)
[2020-08-29 10:15] LABS: Chloride 97 mmol/L (98-107); Sodium 138 mmol/L (136-145)
[2020-08-29 10:16] LABS: Potassium 3.4 mmoL/L (3.5-5.1)
[2020-08-29 10:18] LABS: Blood Urea Nitrogen 11 mg/dl (7-17); Creatinine Clearance Estimated 63 mL/min (50-200); Estimated Glomerular Filt Rate 85 ml/min (>60); GFR (African American) 102 ML/MIN (>60)
[2020-08-29 10:19] LABS: Anion Gap 5.4 mEq/L (5-15); Calcium 7.9 mg/dl (8.4-10.2); Carbon Dioxide 39 mmol/L (22.0-30.0); Glucose 113 mg/dl (74-100)
[2020-08-29 14:28] LABS: Hematocrit 25.6 % (37.0-47.0); Hemoglobin 8.4 g/dL (12.2-16.2)
--- NOTE | 2020-08-29 14:46 | HMH.ACPN2 ---
Internal Medicine - PN: Subj *Date: 08/29/20 *Time: 14:47 Interval history: Patient is a 65-year-old female, her primary is Dr. Chan. She has a complex history characterized by poorly healing skin lesions. He was transfused 2 units. Her initial hemoglobin was 7.4. Is a longstanding history of Medardo's disease, is on chronic prednisone treatment. She has several skin lesions, a total of 3 on her left buttock, 3 on her right ankle 1 on her left elbow 1 on her left ankle. Skin lesion on the right ankle associated with redness warmth and purulent drainage. 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 She is currently being treated with IV Rocephin. Physical therapy for wound management has been ordered. Patient has a history of COPD. Will reinstitute her nebulizer treatment. Exam Vital signs and Labs for Last 24 Hours: Temp Pulse Resp BP Pulse Ox 97.9 F 93 H 24 105/67 L 96 08/29/20 12:30 08/29/20 12:30 08/29/20 12:30 08/29/20 12:30 08/29/20 12:30 Laboratory Results - last 24 hr 08/28/20 12:27: Blood Type O Positive, Antibody Screen Negative, Crossmatch (AHG) See Detail 08/28/20 16:27: Hgb 7.9 L*, Hct 30.0 L 08/29/20 06:30: WBC 11.0 H, RBC 3.90 L, Hgb 7.7 L*, Hct 28.5 L, MCV 72.9 L, MCH 19.8 L, MCHC 27.2 L, RDW 19.8 H, Plt Count 312, MPV 7.6, Neut % (Auto) 76.2, Lymph % (Auto) 17.9, [place] % (Auto) 4.8, Eos % (Auto) 0.8, Baso % (Auto) 0.3, Neut # (Auto) 8.4 H, Lymph # (Auto) 2.0, [place] # (Auto) 0.5, Eos # (Auto) 0.1, Baso # (Auto) 0.0 08/29/20 06:30: Sodium 140, Potassium 3.5, Chloride 99, Carbon Dioxide > 40 H*, Anion Gap 4.5 L, BUN 11 D, Creatinine 0.60 D, Estimated Creat Clear 63, Estimated GFR 101, Est GFR ( Amer) 122 D, Glucose 90 D, Calcium 7.8 L, Phosphorus 3.1, Magnesium 1.9, Triglycerides 97, Cholesterol 110 L, LDL Cholesterol Direct 56.98 L, VLDL Cholesterol 19, HDL Cholesterol 32 L, Cholesterol/HDL Ratio 3.4 08/29/20 09:52: WBC 9.9, RBC 3.99 L, Hgb 7.9 L*, Hct 29.0 L, MCV 72.7 L, MCH 19.9 L, MCHC 27.4 L, RDW 19.7 H, Plt Count 296, MPV 8.7, Neut % (Auto) 78.1, Lymph % (Auto) 16.3, [place] % (Auto) 4.4, Eos % (Auto) 0.9, Baso % (Auto) 0.3, Neut # (Auto) 7.7, Lymph # (Auto) 1.6, [place] # (Auto) 0.4, Eos # (Auto) 0.1, Baso # (Auto) 0.0 08/29/20 09:52: Sodium 138, Potassium 3.4 L, Chloride 97 L, Carbon Dioxide 39 H, Anion Gap 5.4, BUN 11, Creatinine 0.70, Estimated Creat Clear 63, Estimated GFR 85, Est GFR ( Amer) 102, Glucose 113 H D, Calcium 7.9 L 08/29/20 14:18: Hgb 8.4 L, Hct 25.6 L I & O for Last 24 hours: Intake & Output 08/26/20 08/27/20 08/28/20 08/29/20 23:59 23:59 23:59 23:59 Intake Total 750 / 1250 2083 Balance 750 / 1250 2083 Weight 150 lb 152 lb 8 oz Microbiology Reports for the Last 24 Hours: Microbiology 08/28/20 11:35 Ankle,Right Gram Stain - Final 08/28/20 11:35 Ankle,Right Wound Culture - Preliminary Gram Positive Cocci 08/28/20 12:15 Nasopharyngeal Coronavirus COVID-19 PCR - Final - Constitutional chronically ill appearing - *Routine HEENT Exam Head: Present: normocephalic Eye: Present: EOMI, PERRL ENT: Present: mucous membranes moist - *Routine Neck Exam Present: supple. Absent: lymphadenopathy - *Routine Respiratory Exam Present: decreased breath sounds. Absent: accessory muscle use, wheezes - *Routine Cardiovascular Exam Present: RRR - *Routine Abdominal Exam Present: soft, normoactive bowel sounds. Absent: tenderness - *Routine Extremities Exam Absent: cyanosis, extremity cold to touch - *Routine Skin Exam Present: erythema, petechiae, warm, lesions, wounds, ecchymosis. Absent: intact, jaundice - *Routine Neurological Exam Present: alert, oriented X3 Assessment and Plan (1) Cellulitis Status: Acute Category: Medical Code(s): L03.90 - Cellulitis, unspecified (2) Acute anemia Status: Acute Category: Medical Code(s): D64.9 - Anemia, unspecified (3) Non-healing
--- NOTE | 2020-08-29 15:11 | HMH.PHACONS ---
- Pharmacy Consult Date: 08/29/20 Time: 15:11 Referring provider: DR. DANG Reason for Consult:: VANCOMYCIN DOSING Allergies and ADEs:: Allergies Allergy/AdvReac Type Severity Reaction Status Date / Time nitrofurantoin Allergy Intermediate Unknown Verified 08/28/20 15:27 allergy reaction Penicillins Allergy Intermediate Swelling Verified 08/28/20 15:27 of Lip/Tongue/Throat Home Medications:: Home Medications Medication Instructions Recorded Confirmed Type alprazolam 1 mg tablet 0.5 - 1 mg PO TIDP PRN 08/03/17 08/28/20 History duloxetine 60 mg capsule,delayed 60 mg PO DAILY 08/03/17 08/28/20 History release linaclotide 145 mcg capsule 145 mcg PO DAILY 08/03/17 08/28/20 History methylprednisolone 4 mg tablet 4 mg PO DIRECTED 08/03/17 08/28/20 History montelukast 10 mg tablet 10 mg PO PM 08/03/17 08/28/20 History pregabalin 150 mg capsule 150 mg PO BID 08/03/17 08/28/20 History Levothyroxine Sodium [Synthroid 50 mcg PO DAILY 09/01/18 08/28/20 History 50mcg (0.05mg) tab] ARIPiprazole [Aripiprazole 10mg 10 mg PO DAILY 08/28/20 08/28/20 History Tablet] Albuterol Sulfate [Albuterol 2 puffs IH QIDP PRN 08/28/20 08/28/20 History Sulfate Hfa] Diclofenac Sodium [Diclofenac 100 mg PO BIDP PRN 08/28/20 08/28/20 History Sodium ER] Estrogen,Shanell/Me-Testosterone 1 each PO DAILY 08/28/20 08/28/20 History [Estrogen-Methyltestos H.s. Tab] Furosemide [Furosemide 40MG tAB*] 80 mg PO DAILY 08/28/20 08/28/20 History Ipratropium/Albuterol Sulfate 3 ml IH QID 08/28/20 08/28/20 History [Duoneb 3mL neb] Nicotine [Nicotine Patch 21 mg TD DAILY 08/28/20 08/28/20 History 21mg/24hrs] Oxycodone HCl 10 mg PO Q6HP PRN 08/28/20 08/28/20 History Pantoprazole Sodium 40 mg PO DAILY 08/28/20 08/28/20 History Potassium Chloride 20 meq PO DAILY 08/28/20 08/28/20 History Tiotropium [place] [Spiriva 2 spray IH DAILY 08/28/20 08/28/20 History Respimat] Trazodone HCl [Desyrel 50mg tablet] 50 mg PO TID 08/28/20 08/28/20 History Height: 1.7 m Weight: 69.173 kg Laboratory Results:: Laboratory Results - last 24 hr 08/28/20 12:27: Blood Type O Positive, Antibody Screen Negative, Crossmatch (AHG) See Detail 08/28/20 16:27: Hgb 7.9 L*, Hct 30.0 L 08/29/20 06:30: WBC 11.0 H, RBC 3.90 L, Hgb 7.7 L*, Hct 28.5 L, MCV 72.9 L, MCH 19.8 L, MCHC 27.2 L, RDW 19.8 H, Plt Count 312, MPV 7.6, Neut % (Auto) 76.2, Lymph % (Auto) 17.9, [place] % (Auto) 4.8, Eos % (Auto) 0.8, Baso % (Auto) 0.3, Neut # (Auto) 8.4 H, Lymph # (Auto) 2.0, [place] # (Auto) 0.5, Eos # (Auto) 0.1, Baso # (Auto) 0.0 08/29/20 06:30: Sodium 140, Potassium 3.5, Chloride 99, Carbon Dioxide > 40 H*, Anion Gap 4.5 L, BUN 11 D, Creatinine 0.60 D, Estimated Creat Clear 63, Estimated GFR 101, Est GFR ( Amer) 122 D, Glucose 90 D, Calcium 7.8 L, Phosphorus 3.1, Magnesium 1.9, Triglycerides 97, Cholesterol 110 L, LDL Cholesterol Direct 56.98 L, VLDL Cholesterol 19, HDL Cholesterol 32 L, Cholesterol/HDL Ratio 3.4 08/29/20 09:52: WBC 9.9, RBC 3.99 L, Hgb 7.9 L*, Hct 29.0 L, MCV 72.7 L, MCH 19.9 L, MCHC 27.4 L, RDW 19.7 H, Plt Count 296, MPV 8.7, Neut % (Auto) 78.1, Lymph % (Auto) 16.3, [place] % (Auto) 4.4, Eos % (Auto) 0.9, Baso % (Auto) 0.3, Neut # (Auto) 7.7, Lymph # (Auto) 1.6, [place] # (Auto) 0.4, Eos # (Auto) 0.1, Baso # (Auto) 0.0 08/29/20 09:52: Sodium 138, Potassium 3.4 L, Chloride 97 L, Carbon Dioxide 39 H, Anion Gap 5.4, BUN 11, Creatinine 0.70, Estimated Creat Clear 63, Estimated GFR 85, Est GFR ( Amer) 102, Glucose 113 H D, Calcium 7.9 L 08/29/20 14:18: Hgb 8.4 L, Hct 25.6 L Medical History: Reports:: Anxiety, Cancer (CERVICAL), Chronic Obstructive Pulmonary Disease (COPD), Home Oxygen Denies:: Diabetes Mellitus Type 1, Diabetes Mellitus Type 2 Assessment and Plan (1) Cellulitis Status: Acute Category: Medical Code(s): L03.90 - Cellulitis, unspecified (2) Acute anemia Status: Acute Category: Medical Code(s): D64.9 - Anemia, u
--- NOTE | 2020-08-29 16:35 | PC.NURSE ---
Pt has been pleasant and cooperative this shift. A&O X4. Pt has complained of pain X2 thus far and has received [place] per MAR with favorable results. Pt is currently receiving O2 via NC @ 2 LPM with sats. >90%. Lungs CTA. No edema noted. RT ankle ulcer X3 noted and covered with dressing per PT. LT ankle ulceration open to air. LT elbow ulceration covered with Polymem. LT buttock ulcerations X3 covered with an Allevyn dressing. Pt ambulates to/from the bathroom and throughout the room independently. Pt voids clear, yellow urine without issue. No BM this shift. Appetite is fair and pt eats about 50% of all meals. Pt received 1 unit of PRBC's today. 20 G peripheral IV in the RT AC is patent and SL. VSS. Call light within reach. Will continue to monitor.
--- NOTE | 2020-08-29 18:11 | HMH.PTWOUND ---
Rehab Inpt Wound Evaluation Rehab IP Wound Evaluation Start: 08/28/20 19:35 Freq: ONCE Status: Active Protocol: Document 08/29/20 17:46 [email or web address] (Rec: 08/29/20 18:11 [email or web address] [id number]) Rehab PT Wound Assessment Patient Status Premedicated Prior to Dressing Change No Subjective Subjective Pt reports her wounds have been on going for months and years. Pt reports she has home health doing wound care for her. Pt reports wound on lateral RLE is very painful. Wound Left Lateral Buttock Wound Type Pressure Ulcer Wound Staging Stage II Query Text:Stage I - Unbroken, red skin, no blanching. Stage II - Skin broken, superficial skin loss involving epidermis alone or also dermis. Partial loss of skin layers. Stage III - Pressure area involves epidermis, dermis and subcutaneous tissue, full thickness skin loss. Stage IV - Pressure area involves epidermis, subcutaneous tissue, bone and other supportive tissue. Full thickness skin loss with extensive destruction of underlying tissue and structures. Wound Length (cm) 2 Wound Width (cm) 2 Wound Bed Appearance Yellow Percentage of Slough (%) 100 Percentage of Eschar (Yellow) (%) 100 Primary Dressing Absorbant Pad Comment optifoam sacrum Left Buttock Wound Type Pressure Ulcer Wound Staging Stage II Query Text:Stage I - Unbroken, red skin, no blanching. Stage II - Skin broken, superficial skin loss involving epidermis alone or also dermis. Partial loss of skin layers. Stage III - Pressure area involves epidermis, dermis and subcutaneous tissue, full thickness skin loss. Stage IV - Pressure area involves epidermis, subcutaneous tissue, bone and other supportive tissue. Full thickness skin loss with extensive destruction of underlying tissue and structures. Wound Length (cm) 3.0 Wound Width (cm) 3.0 Wound Bed Appearance Yellow Percentage of Slough (%) 100 Percentage of Eschar (Yellow) (%) 100 Surrounding Tissue Appearance [place] Primary Dressing Absorbant Pad Comment optifoam sacrum Left Elbow Wound Type Pressure Ulcer Wound Staging Stage III
[2020-08-30] VITALS (8 sets, daily range): BP systolic 101–119; BP diastolic 58–73; PULSE 64–93; RESP 17–19; TEMP 36.6–37.1; O2SAT 90–96; BMI 22.8
[2020-08-30 06:49] LABS: Basophils % 0.4 % (0.1-2.0); Eosinophils % 0.4 % (0.1-12.0); Hematocrit 31.9 % (37.0-47.0); Hemoglobin 9.2 g/dL (12.2-16.2); Lymphocytes # 1.8 K/mm3 (0.7-4.5); Lymphocytes % 19.6 % (10-50); Mean Corpuscular HGB Conc 28.7 g/dL (31.8-35.4); Mean Corpuscular Hemoglobin 20.7 pg (27.0-31.2); Mean Corpuscular Volume 72.2 fl (81-99); Mean Platelet Volume 7.4 fl (7.4-10.4); Monocytes # 0.4 K/mm3 (0.1-1.0); Monocytes % 4.4 % (1.7-9.3); Neutrophils # 6.9 K/mm3 (1.8-7.8); Neutrophils % 75.2 % (37.0-80.0); Platelet Count 314 K/mm3 (142-424); Red Blood Count 4.43 M/mm3 (4.20-5.40); Red Cell Distribution Width 19.8 % (11.5-17.5); White Blood Count 9.2 K/mm3 (4.8-10.8)
[2020-08-30 07:12] LABS: Alanine Aminotransferase 16 U/L (12-78); Albumin/Globulin Ratio 0.9 (1.1-1.8); Alkaline Phosphatase 94 U/L (38-126); Anion Gap 0.7 mEq/L (5-15); Aspartate Amino Transferase 24 U/L (14-36); Bilirubin,Total 0.4 mg/dl (0.2-1.3); Blood Urea Nitrogen 5 mg/dl (7-17); Calcium 8.3 mg/dl (8.4-10.2); Chloride 103 mmol/L (98-107); Creatinine Clearance Estimated 63 mL/min (50-200); Estimated Glomerular Filt Rate 101 ml/min (>60); GFR (African American) 122 ML/MIN (>60); Globulin 3.3 g/dL (1.3-3.2); Glucose 90 mg/dl (74-100); Potassium 3.7 mmoL/L (3.5-5.1); Sodium 140 mmol/L (136-145); Total Protein,Serum 6.3 g/dl (6.3-8.2)
[2020-08-30 07:22] LABS: Carbon Dioxide 40 mmol/L (22.0-30.0)
[2020-08-30 07:42] LABS: Thyroid Stimulating Hormone 3.93 uIU/mL (0.465-4.68)
[2020-08-30 08:17] LABS: Hemoglobin A1C 5.3 % (4.0-6.0)
--- NOTE | 2020-08-30 08:55 | CT_ITS ---
PROCEDURE INFORMATION: Exam: CT Right Lower Extremity Without Contrast, Ankle Exam date and time: 08/30/20 08:55 AM Age: 65 years old Clinical indication: Other: Open sores; Additional info: Possible osteomyelitis TECHNIQUE: Imaging protocol: CT of the Right lower extremity without contrast was performed. Exam focused on the ankle. Radiation optimization: All CT scans at this facility use at least one of these dose optimization techniques: automated exposure control; mA and/or kV adjustment per patient size (includes targeted exams where dose is matched to clinical indication); or iterative reconstruction. COMPARISON: CR XR ANKLE RT MIN 3V 08/28/20 11:55 AM FINDINGS: Bones/joints: No CT evidence of osteomyelitis or periostitis. No acute fracture or dislocation. Soft tissues: Cellulitis with some subcutaneous gas noted. Infection with a gas-forming organism is not excluded. IMPRESSION: 1. No CT evidence of osteomyelitis. 2. Cellulitis with some subcutaneous gas noted. Consider infection with a gas-forming organism versus multiple open wounds.
--- NOTE | 2020-08-30 08:55 | XR_ITS ---
PROCEDURE INFORMATION: Exam: XR Chest Exam date and time: 08/30/20 08:55 AM Age: 65 years old Clinical indication: Shortness of breath; Additional info: SOB TECHNIQUE: Imaging protocol: XR of the chest. Views: 1 view. COMPARISON: CR XR CHEST 2V 03/23/20 11:49 AM FINDINGS: Lungs: Minimal left lower lobe atelectasis near the costophrenic angle. Pleural spaces: Unremarkable. No pleural effusion. No pneumothorax. Heart/Mediastinum: Unremarkable. No cardiomegaly. Bones/joints: Unremarkable. IMPRESSION: Minimal left lower lobe atelectasis near the costophrenic angle.
--- NOTE | 2020-08-30 08:57 | HMH.ACPN2 ---
Internal Medicine - PN: Subj *Date: 08/31/20 *Time: 07:14 Interval history: feels better but still with sig reddness to rt ankle Exam Vital signs and Labs for Last 24 Hours: Temp Pulse Resp BP Pulse Ox 98.7 F 92 H 17 119/70 96 08/30/20 08:00 08/30/20 08:00 08/30/20 08:00 08/30/20 08:00 08/30/20 08:00 Laboratory Results - last 24 hr 08/28/20 12:27: Blood Type O Positive, Antibody Screen Negative, Crossmatch (AHG) See Detail 08/29/20 09:52: WBC 9.9, RBC 3.99 L, Hgb 7.9 L*, Hct 29.0 L, MCV 72.7 L, MCH 19.9 L, MCHC 27.4 L, RDW 19.7 H, Plt Count 296, MPV 8.7, Neut % (Auto) 78.1, Lymph % (Auto) 16.3, [place] % (Auto) 4.4, Eos % (Auto) 0.9, Baso % (Auto) 0.3, Neut # (Auto) 7.7, Lymph # (Auto) 1.6, [place] # (Auto) 0.4, Eos # (Auto) 0.1, Baso # (Auto) 0.0 08/29/20 09:52: Sodium 138, Potassium 3.4 L, Chloride 97 L, Carbon Dioxide 39 H, Anion Gap 5.4, BUN 11, Creatinine 0.70, Estimated Creat Clear 63, Estimated GFR 85, Est GFR ( Amer) 102, Glucose 113 H D, Calcium 7.9 L 08/29/20 14:18: Hgb 8.4 L, Hct 25.6 L 08/30/20 06:28: WBC 9.2, RBC 4.43, Hgb 9.2 L, Hct 31.9 L, MCV 72.2 L, MCH 20.7 L, MCHC 28.7 L, RDW 19.8 H, Plt Count 314, MPV 7.4, Neut % (Auto) 75.2, Lymph % (Auto) 19.6, [place] % (Auto) 4.4, Eos % (Auto) 0.4, Baso % (Auto) 0.4, Neut # (Auto) 6.9, Lymph # (Auto) 1.8, [place] # (Auto) 0.4, Eos # (Auto) 0.0, Baso # (Auto) 0.0 08/30/20 06:28: Sodium 140, Potassium 3.7, Chloride 103, Carbon Dioxide 40 H, Anion Gap 0.7 L, BUN 5 L D, Creatinine 0.60, Estimated Creat Clear 63, Estimated GFR 101, Est GFR ( Amer) 122, Glucose 90 D, Calcium 8.3 L, Total Bilirubin 0.4, AST 24, ALT 16, Alkaline Phosphatase 94, Total Protein 6.3, Albumin 3.0 L, Globulin 3.3 H, Albumin/Globulin Ratio 0.9 L, TSH 3.93 08/30/20 06:28: Hemoglobin A1c 5.3 I & O for Last 24 hours: Intake & Output 08/27/20 08/28/20 08/29/20 08/30/20 11:59 11:59 11:59 11:59 Intake Total 2324 / 2324 2361 / 2361 Balance 2324 / 2324 2361 / 2361 Weight 158 lb 152 lb 8 oz 152 lb 4 oz Microbiology Reports for the Last 24 Hours: Microbiology 08/28/20 11:35 Ankle,Right Gram Stain - Final 08/28/20 11:35 Ankle,Right Wound Culture - Final Staphylococcus aureus - Constitutional no acute distress - *Routine HEENT Exam Head: Present: normocephalic Eye: Present: EOMI, PERRL ENT: Present: mucous membranes dry - *Routine Neck Exam Present: supple - *Routine Respiratory Exam Present: rhonchi - *Routine Cardiovascular Exam Present: RRR, murmur - *Routine Abdominal Exam Present: soft - *Routine Extremities Exam Absent: calf tenderness - *Routine Skin Exam Present: intact - *Routine Neurological Exam Present: alert, CN II-XII intact - Routine Psychiatric Exam Present: normal affect Assessment and Plan (1) Cellulitis Status: Acute Category: Medical Code(s): L03.90 - Cellulitis, unspecified (2) Acute anemia Status: Acute Category: Medical Code(s): D64.9 - Anemia, unspecified (3) Non-healing non-surgical wound Status: Acute Category: Medical Code(s): T14.8XXA - Other injury of unspecified body region, initial encounter (4) Open ankle wound Status: Acute Category: Medical Code(s): S91.009A - Unspecified open wound, unspecified ankle, initial encounter (5) Pressure ulcer of left buttock, stage 2 Status: Acute Category: Medical Code(s): L89.322 - Pressure ulcer of left buttock, stage 2 (6) Wound, open, elbow Status: Acute Category: Medical Code(s): S51.009A - Unspecified open wound of unspecified elbow, initial encounter (7) Penetrating ankle wound Status: Acute Category: Medical Code(s): S91.039A - Puncture wound without foreign body, unspecified ankle, initial encounter
[2020-08-30 09:29] LABS: Erythrocyte Sedimentation Rate 115 mm/hr (0-30)
[2020-08-30 09:33] LABS: Procalcitonin 0.057 ng/mL (0.0-2.0)
--- NOTE | 2020-08-30 16:51 | PC.NURSE ---
updated picture of rt ankle taken on 08/30/20
--- NOTE | 2020-08-30 17:31 | PC.NURSE ---
Pt has slept majority of this shift. Dressing change performed to pt's rt ankle, buttocks, and lt elbow after her shower. Pt has been on RA majority of this shift w/ o2 sats >95%. Pt has c/o rt ankle pain x1 this shift. Pt medicated per JUN w/ favorable results. No other acute changes or complaints at this time. Will continue to monitor.
[2020-08-31] VITALS (20 sets, daily range): BP systolic 108–145; BP diastolic 58–94; PULSE 75–113; RESP 17–20; TEMP 36.6–37.3; O2SAT 91–99; BMI 22.6
--- NOTE | 2020-08-31 | XR_ITS ---
PROCEDURE: XR ANKLE RT MIN 3V CLINICAL INDICATION: Post op I D COMPARISON: CR ANKL3 ANKLE-LT-3 VIEWS from 02/08/2016 CR ANKCMRT XR ankle RT min 3V from 07/31/2017 CR XR ANKLE LT MIN 3V from 11/06/2019 CR XR ANKLE RT MIN 3V from 08/28/2020 FINDINGS: Status post debridement of the soft tissues in the right lower leg laterally with soft tissue gas and bandage artifact noted. No bony abnormalities. The joint spaces are well-preserved. No significant degenerative/arthritic changes. No erosive changes evident. Other findings:None. IMPRESSION: Status post debridement right lower extremity laterally Dictated by: Davie Goff MD 09/01/2020 12:51 Davie Goff MD in [place] 09/01/2020 12:51
--- NOTE | 2020-08-31 03:51 | PC.NURSE ---
During assessment it was noted that patient did not have an IV in place. When asked what happened to her IV she stated I took it out when I took a shower. New 20g placed in LFA.
[2020-08-31 07:37] LABS: Anion Gap 6.7 mEq/L (5-15); Blood Urea Nitrogen 2 mg/dl (7-17); Calcium 8.1 mg/dl (8.4-10.2); Carbon Dioxide 29 mmol/L (22.0-30.0); Chloride 106 mmol/L (98-107); Creatinine Clearance Estimated 59 mL/min (50-200); Estimated Glomerular Filt Rate 101 ml/min (>60); GFR (African American) 122 ML/MIN (>60); Glucose 69 mg/dl (74-100); Potassium 3.7 mmoL/L (3.5-5.1); Sodium 138 mmol/L (136-145)
[2020-08-31 07:47] LABS: Basophils # 0.1 K/mm3 (0-0.2); Basophils % 0.7 % (0.1-2.0); Eosinophils # 0.1 K/mm3 (0.0-0.4); Eosinophils % 0.7 % (0.1-12.0); Hematocrit 32.6 % (37.0-47.0); Hemoglobin 9.3 g/dL (12.2-16.2); Lymphocytes # 2.2 K/mm3 (0.7-4.5); Lymphocytes % 24.7 % (10-50); Mean Corpuscular HGB Conc 28.4 g/dL (31.8-35.4); Mean Corpuscular Hemoglobin 20.5 pg (27.0-31.2); Mean Corpuscular Volume 72.3 fl (81-99); Mean Platelet Volume 7.3 fl (7.4-10.4); Monocytes # 0.5 K/mm3 (0.1-1.0); Monocytes % 5.3 % (1.7-9.3); Neutrophils % 68.6 % (37.0-80.0); Platelet Count 329 K/mm3 (142-424); Red Blood Count 4.51 M/mm3 (4.20-5.40); Red Cell Distribution Width 20.3 % (11.5-17.5); White Blood Count 8.8 K/mm3 (4.8-10.8)
--- NOTE | 2020-08-31 08:10 | HMH.ORTHOCON ---
*Admission Date: 08/28/20 *Reason for consult:: Right ankle ulcer, gas *History of present illness: Ms. Corona is a 65-year-old female who presented to ED for right ankle pain and cellulitis. Her PCP is Dr. Chan who has been managing her outpatient with minocycline. She does have home health care come once weekly. Reports since Monday an increase in pain and nausea. Denies fever chills, shortness of breath and chest pain this morning. [facility] History I have reviewed the patient's past medical history: Yes Medical History: Reports:: Anxiety, Cancer (CERVICAL), Chronic Obstructive Pulmonary Disease (COPD), Home Oxygen Denies:: Diabetes Mellitus Type 1, Diabetes Mellitus Type 2 *Have you ever received a pneumonia vaccine?: No *Have you received a flu vaccine this season?: No Other Medical History: Reports: Anemia, Arthritis, Fibromyalgia, Thyroid Disease Other Surgeries: Yes: Appendectomy, Cancer Surgery (HX OF CERVICAL CANCER), Hysterectomy-Total Fractures: Yes - *Social History Last grade of school completed: High school graduate Smoking Status: Current every day smoker Tobacco Type: cigarettes # Packs/Day (cigarettes): 2 Alcohol Intake: never *Occupational Status:: disabled Housing: house Household Members: spouse, children *Travel in the last 8 weeks: None - Psychiatric History Pschychiatric History:: Reports:: Anxiety Family Hx:: Cancer, Diabetes Review of Systems - Review of Systems Review of systems:: pertinent systems reviewed and negative unless documented below - Constitutional Reports weakness, Denies chills - Eyes Denies blind spots - ENT Denies abnormal hearing - *Cardiovascular Denies chest pain, Denies shortness of breath - *Respiratory Denies shortness of breath - *Gastrointestinal Reports nausea, Denies vomiting - *Genitourinary Denies abnormal periods - *Musculoskeletal Reports radiating pain into limb - Integumentary/Breasts Reports hair loss, Reports skin ulcer, Reports wounds (right ankle ulcer) - *Neurologic Denies dizziness, Denies headache(s) - Psychiatric Denies behavioral changes - Hematologic/Lymphatic Reports easy bruising - Allergic/Immunologic Reports GI upset with certain foods Meds Home Medications Medication Instructions Recorded Confirmed Type alprazolam 1 mg tablet 0.5 - 1 mg PO TIDP PRN 08/03/17 08/28/20 History duloxetine 60 mg capsule,delayed 60 mg PO DAILY 08/03/17 08/28/20 History release linaclotide 145 mcg capsule 145 mcg PO DAILY 08/03/17 08/28/20 History methylprednisolone 4 mg tablet 4 mg PO DIRECTED 08/03/17 08/28/20 History montelukast 10 mg tablet 10 mg PO PM 08/03/17 08/28/20 History pregabalin 150 mg capsule 150 mg PO BID 08/03/17 08/28/20 History Levothyroxine Sodium [Synthroid 50 mcg PO DAILY 09/01/18 08/28/20 History 50mcg (0.05mg) tab] ARIPiprazole [Aripiprazole 10mg 10 mg PO DAILY 08/28/20 08/28/20 History Tablet] Albuterol Sulfate [Albuterol 2 puffs IH QIDP PRN 08/28/20 08/28/20 History Sulfate Hfa] Diclofenac Sodium [Diclofenac 100 mg PO BIDP PRN 08/28/20 08/28/20 History Sodium ER] Estrogen,[place]/Me-Testosterone 1 each PO DAILY 08/28/20 08/28/20 History [Estrogen-Methyltestos H.s. Tab] Furosemide [Furosemide 40MG tAB*] 80 mg PO DAILY 08/28/20 08/28/20 History Ipratropium/Albuterol Sulfate 3 ml IH QID 08/28/20 08/28/20 History [Duoneb 3mL neb] Nicotine [Nicotine Patch 21 mg TD DAILY 08/28/20 08/28/20 History 21mg/24hrs] Oxycodone HCl 10 mg PO Q6HP PRN 08/28/20 08/28/20 History Pantoprazole Sodium 40 mg PO DAILY 08/28/20 08/28/20 History Potassium Chloride 20 meq PO DAILY 08/28/20 08/28/20 History Tiotropium [place] [Spiriva 2 spray IH DAILY 08/28/20 08/28/20 History Respimat] Trazodone HCl [Desyrel 50mg tablet] 50 mg PO TID 08/28/20 08/28/20 History Allergies Allergy/AdvReac Type Severity Reaction Status Date / Time nitrofurantoin Allergy Intermediate Unknown Verified 08/28/20 15
--- NOTE | 2020-08-31 08:12 | ECG_ITS ---
APPROVED REPORT Exam: Resting ECG HR:71 bpm ECG Measurements Heart Rate 71 AXES VA 180 P QRSd 74 QRS 60 QT 376 T 37 QTc 408 Conclusion Normal sinus rhythm Normal ECG Electronically signed by : Troy Barrett, 09/05/2020 07:38:11
--- NOTE | 2020-08-31 09:46 | HMH.ACPN2 ---
Internal Medicine - PN: Subj *Date: 08/31/20 *Time: 08:00 Interval history: pt laying in bed. states she feels ok Exam Vital signs and Labs for Last 24 Hours: Temp Pulse Resp BP Pulse Ox 99.2 F 89 19 119/72 91 L 08/31/20 08:00 08/31/20 08:00 08/31/20 08:00 08/31/20 08:00 08/31/20 08:00 Laboratory Results - last 24 hr 08/31/20 07:21: WBC 8.8, RBC 4.51, Hgb 9.3 L, Hct 32.6 L, MCV 72.3 L, MCH 20.5 L, MCHC 28.4 L, RDW 20.3 H, Plt Count 329, MPV 7.3 L, Neut % (Auto) 68.6, Lymph % (Auto) 24.7, [place] % (Auto) 5.3, Eos % (Auto) 0.7, Baso % (Auto) 0.7, Neut # (Auto) 6.0, Lymph # (Auto) 2.2, [place] # (Auto) 0.5, Eos # (Auto) 0.1, Baso # (Auto) 0.1 08/31/20 07:21: Sodium 138, Potassium 3.7, Chloride 106, Carbon Dioxide 29 D, Anion Gap 6.7, BUN 2 L D, Creatinine 0.60, Estimated Creat Clear 59, Estimated GFR 101, Est GFR ( Amer) 122, Glucose 69 L, Calcium 8.1 L I & O for Last 24 hours: Intake & Output 08/28/20 08/29/20 08/30/20 08/31/20 11:59 11:59 11:59 11:59 Intake Total 2324 / 2324 2361 / 2361 240 / 240 Balance 2324 / 2324 2361 / 2361 240 / 240 Weight 158 lb 152 lb 8 oz 145 lb 3.984 oz 144 lb 2 oz Microbiology Reports for the Last 24 Hours: Microbiology 08/28/20 12:27 Blood Blood Culture - Preliminary NO GROWTH AFTER 48 HOURS 08/28/20 12:27 Blood Blood Culture - Preliminary NO GROWTH AFTER 48 HOURS 08/28/20 11:35 Ankle,Right Gram Stain - Final 08/28/20 11:35 Ankle,Right Wound Culture - Final Staphylococcus aureus - Constitutional no acute distress, chronically ill appearing - *Routine HEENT Exam Head: Present: normocephalic Eye: Present: PERRL ENT: Present: mucous membranes moist - *Routine Neck Exam Present: supple. Absent: lymphadenopathy - *Routine Respiratory Exam Present: CTA bilaterally - *Routine Cardiovascular Exam Present: RRR - *Routine Abdominal Exam Present: soft, normoactive bowel sounds. Absent: tenderness - *Routine Extremities Exam Absent: cyanosis, clubbing, edema Comments: dressing to rt foot, edema and redness - *Routine Skin Exam Present: warm, wounds. Absent: rash Comments: stage 2 pressure ulcer to buttocks and dressing to rt foot. swelling to foot - *Routine Neurological Exam Present: alert - Routine Psychiatric Exam Present: normal affect Assessment and Plan (1) Cellulitis Status: Acute Category: Medical Code(s): L03.90 - Cellulitis, unspecified (2) Acute anemia Status: Acute Category: Medical Code(s): D64.9 - Anemia, unspecified (3) Non-healing non-surgical wound Status: Acute Category: Medical Code(s): T14.8XXA - Other injury of unspecified body region, initial encounter (4) Open ankle wound Status: Acute Category: Medical Code(s): S91.009A - Unspecified open wound, unspecified ankle, initial encounter (5) Pressure ulcer of left buttock, stage 2 Status: Acute Category: Medical Code(s): L89.322 - Pressure ulcer of left buttock, stage 2 (6) Wound, open, elbow Status: Acute Category: Medical Code(s): S51.009A - Unspecified open wound of unspecified elbow, initial encounter (7) Penetrating ankle wound Status: Acute Category: Medical Code(s): S91.039A - Puncture wound without foreign body, unspecified ankle, initial encounter - Assessment and plan all Dx Assessment and Plan for all problems:: rounded with dr leno and all orders per dr leon podiatry consult- surgery plans for today for I&D per staff ss consult for post care
--- NOTE | 2020-08-31 10:56 | SW/DCPLANNER ---
I spoke with this patients this morning regarding plans once patient is medically stable for discharge. stated that she resides at home with him and plan is to return home once medically stable for discharge. [facility] for [facility] health services and would like to resume services at time of discharge. was completing dressing changes the days that home health was not in attendance. stated that daughter could also be avaiable to assist at home if needed. Patient will have surgery today. I will continue to follow up with this patient/family until medically stable for discharge.
[2020-08-31 15:52] LABS: Vancomycin,Trough 9.6 ug/mL (5.0-10.0)
--- NOTE | 2020-08-31 16:03 | HMH.PHACONS ---
- Pharmacy Consult Date: 08/31/20 Time: 16:03 Referring provider: DR. DANG Reason for Consult:: VANCOMYCIN TROUGH LEVEL Allergies and ADEs:: Allergies Allergy/AdvReac Type Severity Reaction Status Date / Time nitrofurantoin Allergy Intermediate Unknown Verified 08/28/20 15:27 allergy reaction Penicillins Allergy Intermediate Swelling Verified 08/28/20 15:27 of Lip/Tongue/Throat Home Medications:: Home Medications Medication Instructions Recorded Confirmed Type alprazolam 1 mg tablet 0.5 - 1 mg PO TIDP PRN 08/03/17 08/28/20 History duloxetine 60 mg capsule,delayed 60 mg PO DAILY 08/03/17 08/28/20 History release linaclotide 145 mcg capsule 145 mcg PO DAILY 08/03/17 08/28/20 History methylprednisolone 4 mg tablet 4 mg PO DIRECTED 08/03/17 08/28/20 History montelukast 10 mg tablet 10 mg PO PM 08/03/17 08/28/20 History pregabalin 150 mg capsule 150 mg PO BID 08/03/17 08/28/20 History Levothyroxine Sodium [Synthroid 50 mcg PO DAILY 09/01/18 08/28/20 History 50mcg (0.05mg) tab] ARIPiprazole [Aripiprazole 10mg 10 mg PO DAILY 08/28/20 08/28/20 History Tablet] Albuterol Sulfate [Albuterol 2 puffs IH QIDP PRN 08/28/20 08/28/20 History Sulfate Hfa] Diclofenac Sodium [Diclofenac 100 mg PO BIDP PRN 08/28/20 08/28/20 History Sodium ER] Estrogen,[place]an[place]/Me-Testosterone 1 each PO DAILY 08/28/20 08/28/20 History [Estrogen-Methyltestos H.s. Tab] Furosemide [Furosemide 40MG tAB*] 80 mg PO DAILY 08/28/20 08/28/20 History Ipratropium/Albuterol Sulfate 3 ml IH QID 08/28/20 08/28/20 History [Duoneb 3mL neb] Nicotine [Nicotine Patch 21 mg TD DAILY 08/28/20 08/28/20 History 21mg/24hrs] Oxycodone HCl 10 mg PO Q6HP PRN 08/28/20 08/28/20 History Pantoprazole Sodium 40 mg PO DAILY 08/28/20 08/28/20 History Potassium Chloride 20 meq PO DAILY 08/28/20 08/28/20 History Tiotropium [place] [Spiriva 2 spray IH DAILY 08/28/20 08/28/20 History Respimat] Trazodone HCl [Desyrel 50mg tablet] 50 mg PO TID 08/28/20 08/28/20 History Height: 1.7 m Weight: 65.374 kg Laboratory Results:: Laboratory Results - last 24 hr 08/31/20 07:21: WBC 8.8, RBC 4.51, Hgb 9.3 L, Hct 32.6 L, MCV 72.3 L, MCH 20.5 L, MCHC 28.4 L, RDW 20.3 H, Plt Count 329, MPV 7.3 L, Neut % (Auto) 68.6, Lymph % (Auto) 24.7, [place] % (Auto) 5.3, Eos % (Auto) 0.7, Baso % (Auto) 0.7, Neut # (Auto) 6.0, Lymph # (Auto) 2.2, [place] # (Auto) 0.5, Eos # (Auto) 0.1, Baso # (Auto) 0.1 08/31/20 07:21: Sodium 138, Potassium 3.7, Chloride 106, Carbon Dioxide 29 D, Anion Gap 6.7, BUN 2 L D, Creatinine 0.60, Estimated Creat Clear 59, Estimated GFR 101, Est GFR ( Amer) 122, Glucose 69 L, Calcium 8.1 L 08/31/20 14:58: Vancomycin Trough 9.6 Medical History: Reports:: Anxiety, Cancer (CERVICAL), Chronic Obstructive Pulmonary Disease (COPD), Home Oxygen Denies:: Diabetes Mellitus Type 1, Diabetes Mellitus Type 2 Assessment and Plan (1) Cellulitis Status: Acute Category: Medical Code(s): L03.90 - Cellulitis, unspecified (2) Acute anemia Status: Acute Category: Medical Code(s): D64.9 - Anemia, unspecified (3) Non-healing non-surgical wound Status: Acute Category: Medical Code(s): T14.8XXA - Other injury of unspecified body region, initial encounter (4) Open ankle wound Status: Acute Category: Medical Code(s): S91.009A - Unspecified open wound, unspecified ankle, initial encounter (5) Pressure ulcer of left buttock, stage 2 Status: Acute Category: Medical Code(s): L89.322 - Pressure ulcer of left buttock, stage 2 (6) Wound, open, elbow Status: Acute Category: Medical Code(s): S51.009A - Unspecified open wound of unspecified elbow, initial encounter (7) Penetrating ankle wound Status: Acute Category: Medical Code(s): S91.039A - Puncture wound without foreign body, unspecified ankle, initial encounter - Assessment and plan all Dx Assessment and Plan for all problems:: Pharmacokinetic d
--- NOTE | 2020-08-31 17:15 | PC.NURSE ---
Pt has rested in bed majority of this shift. Pt has been incontinent of bowel and bladder multiple times this shift. Pt has remained on RA t/o this shift. No other acute changes or complaints at this time.
--- NOTE | 2020-08-31 17:28 | HMH.OPNOTE ---
Date of procedure: 08/31/20 Pre-op Diagnosis:: 1. Right ankle pressure ulcer, stage 4 2. Right ankle pressure ulcer, unstageable 3. RLE gas 4. RLE cellulitis Post-op Diagnosis:: Same Procedure performed:: 1. Right ankle incision and drainage 2. Right wound irrigation and debridement 3. Right ankle deep wound cultures x2 Surgeon:: Verna Guerrero DPM DATA COMMUNICATIONS TECHNICIAN:: Other (Kimberley Mays) Anesthesia: GETA, local (20cc 0.5% marcaine plain) Estimated blood loss (mL): 20 Clinical Note:: Patient is a 65-year-old female who was admitted 08/28/2020 for cellulitis and multiple wounds including right ankle, sacral and elbow. She has been receiving would go home health services once weekly and is under the care of Dr. Chan outpatient. She was on minocycline. Radiographs of the right ankle/foot 08/28/20 were reviewed and discussed with the patient. X-rays show no obvious evidence of osteomyelitis. CT scan right ankle 08/30/2020 showed no evidence of osteomyelitis. There was cellulitis with some subcutaneous gas noted. Consider infection with a gas-forming organism versus multiple open wounds. We discussed conservative versus surgical treatment options. Conservative treatment options include local wound care, oral and IV antibiotics, local wound care and off-loading. We discussed surgical intervention for incision and drainage of the right ankle wound. Patient also understands that they could have wound healing complications including delayed healing and infection. We discussed that if the wound does not heal, it is possible that they may need more wound debridement, bone resection and is at risk for loss of ankle/loss of leg. We discussed the risks and benefits in great detail. Other surgical risks include: prolonged pain and swelling, further infection requiring oral or IV antibiotics, delay in healing of soft tissue or bone, nerve or blood vessel damage, CRPS/RSD, DVT, anesthesia complications, and even . All questions answered. Patient verbalized understanding. Consent obtained. Labs, 08/31/20: WBC 9.2, ESR 115, CRP 106, Ha1c 5.3%, glucose 69 08/28/20, right ankle wound culture: MSSA (S. aureus) Operative findings:: Pre debridement: Right ankle ulcer x2. Palpable pedal pulses b/l. Thick yellow toenails x10. RLE edema and erythema around the ulcers extending to calf. The larger ulcer noted to right lateral ankle has yellow, necrotic slough with purulent drainage noted. Wound base ~3x3, with undermining 1.0cm. Base is 80% yellow, 20% necrotic. It extends thru skin, subq, involves deep fascia, full thickness. Anteriorly there was skin sloughing and blistering noted. The more distal ulcer over fibula is round, 100% yellow wound base and ~1x1x0.3cm. It extends thru skin, involves subq, but not into deep fasica or bone. Post debridement: Utilizing a 15 blade, forceps and curette wounds were sharply excisionally full-thickness through skin, subcu into and involving the deep fascia 1) right lateral ankle ulcer: bleeding 100% granular wound, measures 3.8 x 2.2 x 1.8 cm. This wound did extend full-thickness into/including deep fascia and to the level of the fibula. It also had undermining 10 cm superior along the peroneal tendon. 2) right anterior ankle ulcer: skin sloughing, blistering, with bluish color changes. The wound was 100% granular and measured to 0.5 x 1.5 x 3.2 cm. This wound also did extend full-thickness into/including deep fascia and to the level of the fibula. The tissue was slough and shredding easily. It had undermining superior 10 cm along the peroneal tendon and was continuous, connected to the lateral wound. There was a 2 cm skin bridge over the area between the anterior and lateral ulcer. 3) right distal fibula ulcer: round, punched out appearance. Wound was 50% granular, 50% yellow fibrotic tissue and measured 0.8 x 0.8 x 0.1 cm through skin, subcutaneous tissue into/including deep fascia. It did not extend to the distal fibula bone. There was undermining
--- NOTE | 2020-08-31 17:36 | HMH.ANESCL ---
[facility] Anesthesia Checklist - Patient Identification Patient Identification: Arm Band - Structural Data Admitted From: Home Planned Operative Procedure/s: I & D ankle Consent for Planned Operative Procedure(s) Verified: Yes - NPO Status Verified Time NPO: 06:00 (Tea) - Airway Assessment C-Spine Mobility Assessed: Yes TMJ Mobility Assessed: Yes Dentition: Edentulous - Neurological Assessment Level of Consciousness: Awake Hx Seizures: No Numbness or tingling in extremities: No - Anesthesia Plan Anesthesia Risk discussed: Yes Anesthesia Plan: Verified ASA Class: III Anesthesia Type: General [facility] History I have reviewed the patient's past medical history: Yes Medical History: Reports:: Anxiety, Cancer (CERVICAL), Chronic Obstructive Pulmonary Disease (COPD), Home Oxygen Denies:: Diabetes Mellitus Type 1, Diabetes Mellitus Type 2 *Have you ever received a pneumonia vaccine?: No *Have you received a flu vaccine this season?: No Other Medical History: Reports: Anemia, Arthritis, Fibromyalgia, Thyroid Disease Anesthesia experience/problems:: none Other Surgeries: Yes: Appendectomy, Cancer Surgery (HX OF CERVICAL CANCER), Hysterectomy-Total Fractures: Yes - *Social History Last grade of school completed: High school graduate Smoking Status: Current every day smoker Tobacco Type: cigarettes # Packs/Day (cigarettes): 2 Alcohol Intake: never Substance Use Type: denies use *Occupational Status:: disabled Housing: house Household Members: spouse, children *Travel in the last 8 weeks: None - Psychiatric History Pschychiatric History:: Reports:: Anxiety Family Hx:: Cancer, Diabetes
--- NOTE | 2020-08-31 18:34 | P.PN_ITS ---
[facility] Anesthesia Record Part I Intake, IV Amount: 200 Estimated blood loss (mL): 20 Urine output (mL): 0 Blood Pressure: 145/91 SaO2: 99 Pulse Rate: 113 Respiratory Rate: 20 Temperature: 98.5 F Patient is:: Drowsy, Oral/Nasal airway Stable to PACU at:: 18:30
--- NOTE | 2020-08-31 20:30 | PC.NURSE ---
Pt returned from Sx at 1935 in no acute distress. Patient on MAC vitals, initial VSS. Patient had I/D to RLE ankle which is covered in MODESTA bandage. As reported by RN, dressing underneath consists of Beta Soaked Gauze, ABD and Kerlex. Patient also has 1 small wound to L ankle and 3 dime sized shaped places on Buttock (R). Patient also has generalized redness and bruising both BUE and BLE. Will continue to monitor for any acute changes.
[2020-09-01] VITALS (20 sets, daily range): BP systolic 90–134; BP diastolic 51–82; PULSE 95–116; RESP 12–19; TEMP 36.6–37.6; O2SAT 91–96; BMI 22.4
--- NOTE | 2020-09-01 05:17 | PC.NURSE ---
Pt resting comfortably, however only slept for a couple of hours. Patient alert and oriented X 4 and in no acute distress. VSS throughout the night. Patient administered Abx (Vanc) X 1. Patient requested Pain Rx X 1 this shift. RLE MODESTA bandage CDI. Pt NPO until after Dr. Guerrero sees patient. Will continue to monitor for any acute changes
--- NOTE | 2020-09-01 07:12 | P.PN_ITS ---
[facility] Anesthesia Record Part II Discharge Time: 19:00 Destination: Second Floor PACU nurse assessment reviewed?: Yes Patient Condition:: Good Anesthesia Complications:: None Swallowing reflex intact?: Yes Cyanosis?: No Blood Pressure: 115/79 Pulse Rate: 99 Temperature: 98.5 F Mental Status: Alert & Oriented Pain level:: 0 Nausea and/or vomitting:: None Intake, IV Amount: 200
[2020-09-01 07:24] LABS: Basophils # 0.1 K/mm3 (0-0.2); Basophils % 0.5 % (0.1-2.0); Eosinophils # 0.1 K/mm3 (0.0-0.4); Eosinophils % 0.5 % (0.1-12.0); Hematocrit 33.4 % (37.0-47.0); Hemoglobin 9.5 g/dL (12.2-16.2); Lymphocytes # 1.5 K/mm3 (0.7-4.5); Lymphocytes % 13.3 % (10-50); Mean Corpuscular HGB Conc 28.4 g/dL (31.8-35.4); Mean Corpuscular Hemoglobin 20.6 pg (27.0-31.2); Mean Corpuscular Volume 72.6 fl (81-99); Mean Platelet Volume 7.9 fl (7.4-10.4); Monocytes # 0.5 K/mm3 (0.1-1.0); Monocytes % 4.6 % (1.7-9.3); Neutrophils % 81.1 % (37.0-80.0); Platelet Count 365 K/mm3 (142-424); Red Cell Distribution Width 20.1 % (11.5-17.5); White Blood Count 11.1 K/mm3 (4.8-10.8)
[2020-09-01 07:30] LABS: Anion Gap 13.7 mEq/L (5-15); Blood Urea Nitrogen 4 mg/dl (7-17); Calcium 8.1 mg/dl (8.4-10.2); Carbon Dioxide 20 mmol/L (22.0-30.0); Chloride 104 mmol/L (98-107); Creatinine Clearance Estimated 59 mL/min (50-200); Estimated Glomerular Filt Rate 101 ml/min (>60); GFR (African American) 122 ML/MIN (>60); Potassium 3.7 mmoL/L (3.5-5.1); Sodium 134 mmol/L (136-145)
[2020-09-01 07:40] LABS: Glucose 46 mg/dl (74-100)
--- NOTE | 2020-09-01 08:45 | HMH.ORTHPN ---
Subjective Date: 09/01/20 Time: 07:35 Principal diagnosis: RLE cellulitis, necrotizing fasciitis Interval history: Patient underwent right ankle incision and drainage with wound debridement yesterday 08/31/2020. Patient reports that and pain to the right lower extremity today. After long discussion with the patient and her , patient is on long-term steroids for [place]'s disease. Patient has had the wound over the distal fibula for several months to years. reports the more proximal ankle/calf blistering discoloration and ulceration began last week. Patient thinks she got bit by a spider. Patient reports nausea and lack of appetite as well as increased pain. Suspect necrotizing fasciitis, secondary to spider bite. PN: Obj Ex Vital signs: Temp Pulse Resp BP Pulse Ox 99.6 F 95 H 17 131/73 94 L 09/01/20 07:35 09/01/20 07:35 09/01/20 07:35 09/01/20 07:35 09/01/20 07:35 - Constitutional no acute distress - Routine HEENT Exam Head: Present: normocephalic Eye: Present: EOMI ENT: Present: mucous membranes moist - Routine Neck Exam Present: supple - Routine Respiratory Exam Absent: respiratory distress - Routine Cardiovascular Exam Present: RRR - Routine Abdominal Exam Present: soft - Routine Extremities Exam Present: edema, pulses intact, tenderness - Detailed Lower Extremity Exam Leg image: 1 - 1) right lateral ankle ulcer: bleeding 100% granular wound, measures 3.8 x 2.2 x 1.8 cm. This wound did extend full-thickness into/including deep fascia and to the level of the fibula. It also had undermining 10 cm superior along the peroneal tendon. 2) right anterior ankle ulcer: skin sloughing, blistering, with bluish color changes. The wound was 100% granular and measured to 0.5 x 1.5 x 3.2 cm. This wound also did extend full-thickness into/including deep fascia and to the level of the fibula. The tissue was slough and shredding easily. It had undermining superior 10 cm along the peroneal tendon and was continuous, connected to the lateral wound. There was a 2 cm skin bridge over the area between the anterior and lateral ulcer. 3) right distal fibula ulcer: round, punched out appearance. Wound was 50% granular, 50% yellow fibrotic tissue and measured 0.8 x 0.8 x 0.1 cm through skin, subcutaneous tissue into/including deep fascia. It did not extend to the distal fibula bone. There was undermining posterior superior 4 cm. Concern for lack of tissue over the deep fascia and bone. Today area appears more dark, ayers and blue. There is minimal tissue, almost like the subq and deep fascia has liquefied. Patient has very thin fragile skin. Progress Note: A&P (1) Cellulitis Status: Acute (2) Acute anemia Status: Acute (3) Non-healing non-surgical wound Status: Acute (4) Open ankle wound Status: Acute (5) Pressure ulcer of left buttock, stage 2 Status: Acute (6) Wound, open, elbow Status: Acute (7) Penetrating ankle wound Status: Acute (8) Necrotizing fasciitis of ankle and foot Status: Acute Assessment and Plan for All Diagnoses:: 08/31/20, S/p Right ankle incision and drainage, Right wound irrigation and debridement, Right ankle deep wound cultures x2 POD #1 08/28/20, right ankle wound culture: MSSA (S. aureus) Intra-op specimens, 08/31/20: Right ankle deep wound cultures x2: pending Right distal fibula tissue pathology: pending Overall the patient is still having 10 out of 10 pain. New ulcers have new or worsening necrotic brown-parker and blue tissue. The layers appear liquefactive like the subcu and deep fascial layers are barely present. After discussion with the patient and her , she is on chronic steroid therapy secondary to [place]'s disease. They suspected a bit by a spider last week which could account for the new and worsening ulcer and blistering to that area. High brigitte
--- NOTE | 2020-09-01 08:50 | HMH.ACPN2 ---
Internal Medicine - PN: Subj *Date: 09/01/20 *Time: 17:46 Interval history: 65-year-old female patient sitting up in bed resting quietly with eyes closed she awakens easily easily to verbal stimuli. A right ankle incision and drainage with wound debridement was performed yesterday 08/31/2020. She denies any complaints during the night, reports pain is at a tolerable level. She does have dressing to right lower extremity and right ankle as well as pain dressing to her coccyx area. Discussed with patient's , he reports patient wears attends at home and has been incontinent for a while, he denies any knowledge of any urinary problems in her history. Patient denies any burning, frequency/urgency, lower abdominal pain, orders, or discharge. Podiatry is planning for patient to return to surgery for I&D Exam Vital signs and Labs for Last 24 Hours: Temp Pulse Resp BP Pulse Ox 99.6 F 95 H 17 131/73 94 L 09/01/20 07:35 09/01/20 07:35 09/01/20 07:35 09/01/20 07:35 09/01/20 07:35 Laboratory Results - last 24 hr 08/31/20 14:58: Vancomycin Trough 9.6 09/01/20 06:48: C-Reactive Protein 151.0 H 09/01/20 06:48: WBC 11.1 H D, RBC 4.60, Hgb 9.5 L, Hct 33.4 L, MCV 72.6 L, MCH 20.6 L, MCHC 28.4 L, RDW 20.1 H, Plt Count 365, MPV 7.9, Neut % (Auto) 81.1 H, Lymph % (Auto) 13.3, [place] % (Auto) 4.6, Eos % (Auto) 0.5, Baso % (Auto) 0.5, Neut # (Auto) 9.0 H, Lymph # (Auto) 1.5, [place] # (Auto) 0.5, Eos # (Auto) 0.1, Baso # (Auto) 0.1 09/01/20 06:48: Sodium 134 L, Potassium 3.7, Chloride 104, Carbon Dioxide 20 L D, Anion Gap 13.7, BUN 4 L D, Creatinine 0.60, Estimated Creat Clear 59, Estimated GFR 101, Est GFR ( Amer) 122, Glucose 46 L D, Calcium 8.1 L I & O for Last 24 hours: Intake & Output 08/29/20 08/30/20 08/31/20 09/01/20 23:59 23:59 23:59 23:59 Intake Total 2984 / 3458 1071 / 1071 557 / 557 687 / 687 Balance 2984 / 3458 1071 / 1071 557 / 557 687 / 687 Weight 152 lb 8 oz 145 lb 3.984 oz 144 lb 2 oz 143 lb 1 oz Microbiology Reports for the Last 24 Hours: Microbiology 08/31/20 17:45 Ankle,Right Gram Stain - Final - Constitutional no acute distress, chronically ill appearing - *Routine HEENT Exam Head: Present: normocephalic Eye: Present: EOMI ENT: Present: mucous membranes moist - *Routine Neck Exam Present: trachea midline. Absent: tracheal deviation - *Routine Respiratory Exam Present: decreased breath sounds. Absent: accessory muscle use - *Routine Cardiovascular Exam Present: RRR - *Routine Abdominal Exam Present: soft, normoactive bowel sounds. Absent: tenderness, rigid - *Routine Extremities Exam Present: edema. Absent: cyanosis, calf tenderness - *Routine Skin Exam Present: erythema, dry, warm, wounds. Absent: intact, cyanosis Comments: Dressing to right lower extremity/ankle C/D/I Dressing to coccyx intact - *Routine Neurological Exam Present: alert, pronator drift. Absent: motor deficit Assessment and Plan (1) Cellulitis Status: Acute Category: Medical Code(s): L03.90 - Cellulitis, unspecified (2) Acute anemia Status: Acute Category: Medical Code(s): D64.9 - Anemia, unspecified (3) Non-healing non-surgical wound Status: Acute Category: Medical Code(s): T14.8XXA - Other injury of unspecified body region, initial encounter (4) Open ankle wound Status: Acute Category: Medical Code(s): S91.009A - Unspecified open wound, unspecified ankle, initial encounter (5) Pressure ulcer of left buttock, stage 2 Status: Acute Category: Medical Code(s): L89.322 - Pressure ulcer of left buttock, stage 2 (6) Wound, open, elbow Status: Acute Category: Medical Code(s): S51.009A - Unspecified open wound of unspecified elbow, initial encounter (7) Penetrating ankle wound Status: Acute Category: Medical Code(s): S91.039A - Puncture wound without foreign body, unspecified ankle, initial encounter (8) Necrotizing fasciitis of ankle a
[2020-09-01 09:04] LABS: Erythrocyte Sedimentation Rate 56 mm/hr (0-30)
[2020-09-01 09:19] LABS: Intact Parathyroid Hormone 39.2 pg/mL (7.5-53.5)
--- NOTE | 2020-09-01 13:44 | P.PN_ITS ---
[facility] Anesthesia Record Part I Intake, IV Amount: 1,000 Estimated blood loss (mL): 50 Urine output (mL): 0 Blood Pressure: 134/82 SaO2: 95 Pulse Rate: 106 Respiratory Rate: 12 Temperature: 97.8 F Patient is:: Awake, Stable Stable to PACU at:: 13:35
--- NOTE | 2020-09-01 13:47 | HMH.OPNOTE ---
Date of procedure: 09/01/20 Pre-op Diagnosis:: 1. Right ankle necrotizing fasciitis 2. Right ankle gas infection 3. Right lower extremity cellulitis Post-op Diagnosis:: Same Procedure performed:: 1. Right medial ankle incision and drainage 2. Right distal leg/ankle debridement of non-viable soft tissue Surgeon:: Verna Guerrero DPM SALES ACCOUNT DIRECTOR:: Oscar Peacock Anesthesia: GETA, local (30cc 0.5% marcaine plain) Estimated blood loss (mL): 30 Clinical Note:: 08/31/20, S/p Right ankle incision and drainage, Right wound irrigation and debridement, Right ankle deep wound cultures x2 POD #1 08/28/20, right ankle wound culture: MSSA (S. aureus) Intra-op specimens, 08/31/20: Right ankle deep wound cultures x2: pending Right distal fibula tissue pathology: pending Overall the patient is still having 10 out of 10 pain. New ulcers have new or worsening necrotic brown-parker and blue tissue. The layers appear liquefactive like the subcu and deep fascial layers are barely present. After discussion with the patient and her , she is on chronic steroid therapy secondary to [place]'s disease. They suspected a bit by a spider last week which could account for the new and worsening ulcer and blistering to that area. High suspicion for necrotizing fasciitis secondary to spider bite. We discussed conservative versus surgical treatment options. Conservative treatment options include local wound care, oral and IV antibiotics, local wound care and off-loading. High likelihood of recurrent deep infection if unable to close or cover the wound. Would likely benefit from a wound VAC but concerned that the wound VAC would further pull and cause tearing/blistering of the surrounding skin. We discussed surgical intervention for incision and drainage of the right ankle wound. Discussed repeat aggressive surgical debridement. Patient also understands that they could have wound healing complications including delayed healing and infection. We discussed that if the wound does not heal, it is possible that they may need more wound debridement, bone resection and is at risk for loss of ankle/loss of leg. We discussed the risks and benefits in great detail. Other surgical risks include: prolonged pain and swelling, further infection requiring oral or IV antibiotics, delay in healing of soft tissue or bone, nerve or blood vessel damage, CRPS/RSD, DVT, anesthesia complications, and even . All questions answered. Patient verbalized understanding. Consent obtained. Operative findings:: Right lower extremity edema slightly improved but cellulitis still noted. The ulcerations were unchanged however the underlying subcutaneous tissue and deep fascia was starting to liquefy. It was stringy and discolored black, parker and blue. This had progressed since this morning's dressing change. There was more undermining to all sites with worsening blistering and discoloration of the skin. With a 15 blade and forceps, debridement sharply excisionally around all ulcerations, the nonviable soft tissue was debrided full-thickness through skin, subcutaneous tissue, deep fascia, retinaculum over the muscles of the peroneus longus, peroneus brevis, anterior tibial and the extensor muscles. The tendon of the tibialis anterior, extensors and peroneals were noted and debrided as well. The infection infection and necrotizing fasciitis extended all the way to the muscle and tendons including them down to the level of the fibula and tibia. All layers included. There did not appear to be any necrosis or involvement of the fibula or tibia bone. There was one long linear incision located dorsal lateral over the distal leg and ankle, it measured 24 x 7 x 1.3 cm. There was undermining superiorly along the peroneal tendons about 10 cm. Incision and drainage performed thru a separate incision over the medial ankle. This separate incision made medially over the ankle full-thickness sharply with 15 blade and forceps through skin subcutaneous t
--- NOTE | 2020-09-01 15:31 | HMH.CONS ---
*Admission Date: 08/28/20 *Reason for consult:: Urinary incontinence *History of present illness: Ms. Corona is a 65-year-old female who presented to ED for right ankle pain and cellulitis. Her PCP is Dr. Chan who has been managing her outpatient with minocycline. She does have home health care come once weekly. Reports since Monday an increase in pain and nausea. Denies fever chills, shortness of breath and chest pain this morning. Patient is a 65-year-old white female referred from Dr. Ewing for urinary incontinence. Patient had ankle surgery earlier today and is still a little groggy from her procedure and is a little difficult to obtain reliable answers to my questions but she does states she has had some urinary incontinence for some time and it seems to be of the urgency type. She states she wears pads but is not sure how many per day. She is not sure if she is taken previous medication for the problem. Her home meds do not list any anticholinergic medication at present. [facility] History Medical History: Reports:: Anxiety, Cancer (CERVICAL), Chronic Obstructive Pulmonary Disease (COPD), Home Oxygen Denies:: Diabetes Mellitus Type 1, Diabetes Mellitus Type 2, Seizures *Have you ever received a pneumonia vaccine?: No *Have you received a flu vaccine this season?: No Other Medical History: Reports: Anemia, Arthritis, Fibromyalgia, Thyroid Disease Anesthesia experience/problems:: none Other Surgeries: Yes: Appendectomy, Cancer Surgery (HX OF CERVICAL CANCER), Hysterectomy-Total Fractures: Yes - *Social History Last grade of school completed: High school graduate Smoking Status: Current every day smoker Tobacco Type: cigarettes # Packs/Day (cigarettes): 2 Alcohol Intake: never Substance Use Type: denies use *Occupational Status:: disabled Housing: house Household Members: spouse, children *Travel in the last 8 weeks: None - Psychiatric History Pschychiatric History:: Reports:: Anxiety Family Hx:: Cancer, Diabetes Review of Systems - *Neurologic Reports weakness, Denies abnormal hearing, Denies behavioral changes, Denies dizziness, Denies headache(s) Meds Home Medications Medication Instructions Recorded Confirmed Type alprazolam 1 mg tablet 0.5 - 1 mg PO TIDP PRN 08/03/17 08/28/20 History duloxetine 60 mg capsule,delayed 60 mg PO DAILY 08/03/17 08/28/20 History release linaclotide 145 mcg capsule 145 mcg PO DAILY 08/03/17 08/28/20 History methylprednisolone 4 mg tablet 4 mg PO DIRECTED 08/03/17 08/28/20 History montelukast 10 mg tablet 10 mg PO PM 08/03/17 08/28/20 History pregabalin 150 mg capsule 150 mg PO BID 08/03/17 08/28/20 History Levothyroxine Sodium [Synthroid 50 mcg PO DAILY 09/01/18 08/28/20 History 50mcg (0.05mg) tab] ARIPiprazole [Aripiprazole 10mg 10 mg PO DAILY 08/28/20 08/28/20 History Tablet] Albuterol Sulfate [Albuterol 2 puffs IH QIDP PRN 08/28/20 08/28/20 History Sulfate Hfa] Diclofenac Sodium [Diclofenac 100 mg PO BIDP PRN 08/28/20 08/28/20 History Sodium ER] Estrogen,Shanell/Me-Testosterone 1 each PO DAILY 08/28/20 08/28/20 History [Estrogen-Methyltestos H.s. Tab] Furosemide [Furosemide 40MG tAB*] 80 mg PO DAILY 08/28/20 08/28/20 History Ipratropium/Albuterol Sulfate 3 ml IH QID 08/28/20 08/28/20 History [Duoneb 3mL neb] Nicotine [Nicotine Patch 21 mg TD DAILY 08/28/20 08/28/20 History 21mg/24hrs] Oxycodone HCl 10 mg PO Q6HP PRN 08/28/20 08/28/20 History Pantoprazole Sodium 40 mg PO DAILY 08/28/20 08/28/20 History Potassium Chloride 20 meq PO DAILY 08/28/20 08/28/20 History Tiotropium [place] [Spiriva 2 spray IH DAILY 08/28/20 08/28/20 History Respimat] Trazodone HCl [Desyrel 50mg tablet] 50 mg PO TID 08/28/20 08/28/20 History Allergies Allergy/AdvReac Type Severity Reaction Status Date / Time nitrofurantoin Allergy Intermediate Unknown Verified 08/28/20 15:27 allergy reaction Penicillins Allergy Intermediate Swelling Verified 08/28/20 15:
--- NOTE | 2020-09-01 15:59 | PC.NURSE ---
Pt is alert and oriented x4. Faint wheezes noted to RUL. She remains on RA with O2 sats > 92%. She is s/p right ankle washout w/I&D. Dressing has small amount of serosanguineous drainage. RLE place on chux to catch drainage. Appetite is poor with patient refusing her meals. Zofran administered for nausea and importance of nutrition discussed with patient. Pt is incontinent and wears a brief. No acute changes since morning assessment.
[2020-09-01 18:53] LABS: POC Glucose,Bedside 216 (70-110)
[2020-09-02] VITALS (32 sets, daily range): BP systolic 83–122; BP diastolic 45–75; PULSE 79–112; RESP 12–27; TEMP 36.4–38.3; O2SAT 91–100; BMI 22.3
--- NOTE | 2020-09-02 03:17 | PC.NURSE ---
No acute changes overnight. Pt c/o pain in RLE x1, [place] given per mar. RLE drsg intact, with a small amount of serosanguineous drainage. Pt has been incontinent this shift, brief in place. Lungs CTA, on room air. Sats in the high 90s. Zofran given per nausea x1 with favorable results. IV patent. VSS, call light in reach, no concerns at this time.
[2020-09-02 04:39] LABS: Chloride 104 mmol/L (98-107)
[2020-09-02 04:40] LABS: Basophils % 0.5 % (0.1-2.0); Eosinophils % 0.1 % (0.1-12.0); Hematocrit 27.9 % (37.0-47.0); Lymphocytes # 1.2 K/mm3 (0.7-4.5); Lymphocytes % 12.5 % (10-50); Mean Corpuscular HGB Conc 28.6 g/dL (31.8-35.4); Mean Corpuscular Hemoglobin 20.6 pg (27.0-31.2); Mean Corpuscular Volume 72.1 fl (81-99); Mean Platelet Volume 8.6 fl (7.4-10.4); Monocytes # 0.5 K/mm3 (0.1-1.0); Monocytes % 5.3 % (1.7-9.3); Neutrophils # 7.5 K/mm3 (1.8-7.8); Neutrophils % 81.6 % (37.0-80.0); Platelet Count 311 K/mm3 (142-424); Red Blood Count 3.87 M/mm3 (4.20-5.40); Red Cell Distribution Width 20.4 % (11.5-17.5); Sodium 132 mmol/L (136-145); White Blood Count 9.2 K/mm3 (4.8-10.8)
[2020-09-02 04:43] LABS: Blood Urea Nitrogen 2 mg/dl (7-17); Calcium 7.4 mg/dl (8.4-10.2); Carbon Dioxide 21 mmol/L (22.0-30.0); Creatinine Clearance Estimated 59 mL/min (50-200); Estimated Glomerular Filt Rate 125 ml/min (>60); GFR (African American) 151 ML/MIN (>60); Glucose 95 mg/dl (74-100)
[2020-09-02 04:48] LABS: C-Reactive Protein 193.9 mg/L (0-4)
[2020-09-02 05:13] LABS: Erythrocyte Sedimentation Rate > 140 mm/hr (0-30)
[2020-09-02 05:23] LABS: Vancomycin,Trough 8.1 ug/mL (5.0-10.0)
--- NOTE | 2020-09-02 08:40 | PC.NURSE ---
Blood delayed due to assisting Supriya Fuller APRN with consent for surgery and taking pics for chart. Blood started at 0820, Mary from surgery here to take patient to OR at 0835;
--- NOTE | 2020-09-02 08:56 | HMH.ACPN2 ---
Internal Medicine - PN: Subj *Date: 09/02/20 *Time: 11:15 Exam Vital signs and Labs for Last 24 Hours: Temp Pulse Resp BP Pulse Ox 99.2 F 106 H 16 107/63 L 93 L 09/02/20 08:35 09/02/20 08:35 09/02/20 08:35 09/02/20 08:35 09/02/20 08:35 Laboratory Results - last 24 hr 09/01/20 06:48: ESR 56 H 09/01/20 06:48: PTH Intact 39.2 09/01/20 08:07: POC Glucose 216 H 09/02/20 04:25: ESR > 140 H 09/02/20 04:25: C-Reactive Protein 193.9 H 09/02/20 04:25: Vancomycin Trough 8.1 09/02/20 04:25: WBC 9.2, RBC 3.87 L, Hgb 8.0 L, Hct 27.9 L, MCV 72.1 L, MCH 20.6 L, MCHC 28.6 L, RDW 20.4 H, Plt Count 311, MPV 8.6, Neut % (Auto) 81.6 H, Lymph % (Auto) 12.5, [place] % (Auto) 5.3, Eos % (Auto) 0.1, Baso % (Auto) 0.5, Neut # (Auto) 7.5, Lymph # (Auto) 1.2, [place] # (Auto) 0.5, Eos # (Auto) 0.0, Baso # (Auto) 0.0 09/02/20 04:25: Sodium 132 L, Potassium 3.0 L, Chloride 104, Carbon Dioxide 21 L, Anion Gap 10.0, BUN 2 L D, Creatinine 0.50 L, Estimated Creat Clear 59, Estimated GFR 125, Est GFR ( Amer) 151 D, Glucose 95 D, Calcium 7.4 L 09/02/20 05:42: Blood Type O Positive, Antibody Screen Negative, Crossmatch (AHG) See Detail I & O for Last 24 hours: Intake & Output 08/30/20 08/31/20 09/01/20 09/02/20 23:59 23:59 23:59 23:59 Intake Total 1071 / 1071 557 / 557 1961 / 1961 1230 / 1230 Balance 1071 / 1071 557 / 557 1961 1230 / 1230 Weight 145 lb 3.984 oz 144 lb 2 oz 143 lb 1 oz 142 lb 6 oz Microbiology Reports for the Last 24 Hours: Microbiology 08/31/20 17:45 Ankle,Right Gram Stain - Final 08/31/20 17:45 Ankle,Right Wound Culture - Preliminary NO GROWTH AFTER 24 HOURS - Constitutional chronically ill appearing - *Routine HEENT Exam Head: Present: normocephalic Eye: Present: EOMI ENT: Present: mucous membranes moist - *Routine Neck Exam Present: trachea midline. Absent: tracheal deviation - *Routine Respiratory Exam Present: CTA bilaterally. Absent: accessory muscle use - *Routine Cardiovascular Exam Present: RRR - *Routine Abdominal Exam Present: soft, normoactive bowel sounds. Absent: tenderness, firm - *Routine Extremities Exam Present: edema. Absent: cyanosis, calf tenderness - *Routine Skin Exam Present: dry, wounds. Absent: cyanosis Comments: Drsg RLE C/D/I Coccyx Stg II w/ drsg C/D/I - *Routine Neurological Exam Present: alert. Absent: motor deficit, pronator drift - Routine Psychiatric Exam Present: normal affect. Absent: auditory hallucinations, visual hallucinations Assessment and Plan (1) Cellulitis Status: Acute Category: Medical Code(s): L03.90 - Cellulitis, unspecified (2) Acute anemia Status: Acute Category: Medical Code(s): D64.9 - Anemia, unspecified (3) Non-healing non-surgical wound Status: Acute Category: Medical Code(s): T14.8XXA - Other injury of unspecified body region, initial encounter (4) Open ankle wound Status: Acute Category: Medical Code(s): S91.009A - Unspecified open wound, unspecified ankle, initial encounter (5) Pressure ulcer of left buttock, stage 2 Status: Acute Category: Medical Code(s): L89.322 - Pressure ulcer of left buttock, stage 2 (6) Wound, open, elbow Status: Acute Category: Medical Code(s): S51.009A - Unspecified open wound of unspecified elbow, initial encounter (7) Penetrating ankle wound Status: Acute Category: Medical Code(s): S91.039A - Puncture wound without foreign body, unspecified ankle, initial encounter (8) Necrotizing fasciitis of ankle and foot Status: Acute Category: Medical Code(s): M72.6 - Necrotizing fasciitis - Assessment and plan all Dx Assessment and Plan for all problems:: Rounded with Dr. Gutierrez, all orders per Dr. Gutierrez: 1. Podiatry taking patient back to the OR for debridement 2. Continue current medical regimen
--- NOTE | 2020-09-02 10:31 | HMH.PHACONS ---
- Pharmacy Consult Date: 09/02/20 Time: 10:31 Referring provider: DR. DANG Reason for Consult:: VANCOMYCIN TROUGH LEVEL AND INTERVAL CHANGE Allergies and ADEs:: Allergies Allergy/AdvReac Type Severity Reaction Status Date / Time nitrofurantoin Allergy Intermediate Unknown Verified 08/28/20 15:27 allergy reaction Penicillins Allergy Intermediate Swelling Verified 08/28/20 15:27 of Lip/Tongue/Throat Home Medications:: Home Medications Medication Instructions Recorded Confirmed Type alprazolam 1 mg tablet 0.5 - 1 mg PO TIDP PRN 08/03/17 08/28/20 History duloxetine 60 mg capsule,delayed 60 mg PO DAILY 08/03/17 08/28/20 History release linaclotide 145 mcg capsule 145 mcg PO DAILY 08/03/17 08/28/20 History methylprednisolone 4 mg tablet 4 mg PO DIRECTED 08/03/17 08/28/20 History montelukast 10 mg tablet 10 mg PO PM 08/03/17 08/28/20 History pregabalin 150 mg capsule 150 mg PO BID 08/03/17 08/28/20 History Levothyroxine Sodium [Synthroid 50 mcg PO DAILY 09/01/18 08/28/20 History 50mcg (0.05mg) tab] ARIPiprazole [Aripiprazole 10mg 10 mg PO DAILY 08/28/20 08/28/20 History Tablet] Albuterol Sulfate [Albuterol 2 puffs IH QIDP PRN 08/28/20 08/28/20 History Sulfate Hfa] Diclofenac Sodium [Diclofenac 100 mg PO BIDP PRN 08/28/20 08/28/20 History Sodium ER] Estrogen,Shanell/Me-Testosterone 1 each PO DAILY 08/28/20 08/28/20 History [Estrogen-Methyltestos H.s. Tab] Furosemide [Furosemide 40MG tAB*] 80 mg PO DAILY 08/28/20 08/28/20 History Ipratropium/Albuterol Sulfate 3 ml IH QID 08/28/20 08/28/20 History [Duoneb 3mL neb] Nicotine [Nicotine Patch 21 mg TD DAILY 08/28/20 08/28/20 History 21mg/24hrs] Oxycodone HCl 10 mg PO Q6HP PRN 08/28/20 08/28/20 History Pantoprazole Sodium 40 mg PO DAILY 08/28/20 08/28/20 History Potassium Chloride 20 meq PO DAILY 08/28/20 08/28/20 History Tiotropium [place] [Spiriva 2 spray IH DAILY 08/28/20 08/28/20 History Respimat] Trazodone HCl [Desyrel 50mg tablet] 50 mg PO TID 08/28/20 08/28/20 History Height: 1.7 m Weight: 64.58 kg Laboratory Results:: Laboratory Results - last 24 hr 09/01/20 08:07: POC Glucose 216 H 09/02/20 04:25: ESR > 140 H 09/02/20 04:25: C-Reactive Protein 193.9 H 09/02/20 04:25: Vancomycin Trough 8.1 09/02/20 04:25: WBC 9.2, RBC 3.87 L, Hgb 8.0 L, Hct 27.9 L, MCV 72.1 L, MCH 20.6 L, MCHC 28.6 L, RDW 20.4 H, Plt Count 311, MPV 8.6, Neut % (Auto) 81.6 H, Lymph % (Auto) 12.5, [place] % (Auto) 5.3, Eos % (Auto) 0.1, Baso % (Auto) 0.5, Neut # (Auto) 7.5, Lymph # (Auto) 1.2, [place] # (Auto) 0.5, Eos # (Auto) 0.0, Baso # (Auto) 0.0 09/02/20 04:25: Sodium 132 L, Potassium 3.0 L, Chloride 104, Carbon Dioxide 21 L, Anion Gap 10.0, BUN 2 L D, Creatinine 0.50 L, Estimated Creat Clear 59, Estimated GFR 125, Est GFR ( Amer) 151 D, Glucose 95 D, Calcium 7.4 L 09/02/20 05:42: Blood Type O Positive, Antibody Screen Negative, Crossmatch (AHG) See Detail Medical History: Reports:: Anxiety, Cancer (CERVICAL), Chronic Obstructive Pulmonary Disease (COPD), Home Oxygen Denies:: Diabetes Mellitus Type 1, Diabetes Mellitus Type 2, Seizures Assessment and Plan (1) Cellulitis Status: Acute Category: Medical Code(s): L03.90 - Cellulitis, unspecified (2) Acute anemia Status: Acute Category: Medical Code(s): D64.9 - Anemia, unspecified (3) Non-healing non-surgical wound Status: Acute Category: Medical Code(s): T14.8XXA - Other injury of unspecified body region, initial encounter (4) Open ankle wound Status: Acute Category: Medical Code(s): S91.009A - Unspecified open wound, unspecified ankle, initial encounter (5) Pressure ulcer of left buttock, stage 2 Status: Acute Category: Medical Code(s): L89.322 - Pressure ulcer of left buttock, stage 2 (6) Wound, open, elbow Status: Acute Category: Medical Code(s): S51.009A - Unspecified open wound of unspecified elbow, initial encounter (7) Penetrat
--- NOTE | 2020-09-02 11:03 | HMH.ANESI ---
[facility] Anesthesia Record Part I Intake, IV Amount: 1,000 Estimated blood loss (mL): 50 Urine output (mL): 0 Blood Pressure: 122/67 SaO2: 94 Pulse Rate: 94 Respiratory Rate: 13 Temperature: 97.5 F Patient is:: Drowsy, Oral/Nasal airway Stable to PACU at:: 11:00
--- NOTE | 2020-09-02 11:25 | PC.NURSE ---
0905-pt in operating room at this time, blood being transfused during procedure, see anetesia record/progress notes for details
--- NOTE | 2020-09-02 11:31 | HMH.OPNOTE ---
Date of procedure: 09/02/20 Pre-op Diagnosis:: 1. Right ankle necrotizing fasciitis 2. Right ankle gas infection 3. Right lower extremity cellulitis Post-op Diagnosis:: Same Procedure performed:: 1. Right ankle incision and drainage 2. Right distal leg/ankle debridement of non-viable soft tissue 3. Right LE fasciotomy 4. Right fibula bone biospy Surgeon:: Verna Guerrero DPM ANALYTICAL TECHNICIAN:: Other (Kimberley Islas) Anesthesia: GETA, local (20cc 0.5% marcaine plain) Estimated blood loss (mL): 50 Clinical Note:: Patient had initial I&D and debridement 08/31/2020 with subsequent repeated debridement yesterday for necrotizing fasciitis of the right lower extremity. Overall the patient is still having 10 out of 10 pain. There is new skin discoloration and blistering along with worsening necrotic brown-parker and blue tissue. The layers appear liquefactive like the subcu and deep fascial layers are barely present. Suspected a bit by a spider last week which could account for the new and worsening ulcer and blistering to that area. High suspicion for necrotizing fasciitis secondary to spider bite. We discussed conservative versus surgical treatment options. Conservative treatment options include local wound care, oral and IV antibiotics, local wound care and off-loading. High likelihood of recurrent deep infection if unable to close or cover the wound. Would likely benefit from a wound VAC but concerned that the wound VAC would further pull and cause tearing/blistering of the surrounding skin. We discussed surgical intervention for incision and drainage of the right ankle wound and continued debridement. Discussed repeat aggressive surgical debridement. Patient also understands that they could have wound healing complications including delayed healing and infection. We discussed that if the wound does not heal, it is possible that they may need more wound debridement, bone resection and is at risk for loss of ankle/loss of leg. We discussed the risks and benefits in great detail. Other surgical risks include: prolonged pain and swelling, further infection requiring oral or IV antibiotics, delay in healing of soft tissue or bone, nerve or blood vessel damage, CRPS/RSD, DVT, anesthesia complications, and even . All questions answered. Patient verbalized understanding. Consent obtained. Operative findings:: 09/02/20: Worsening discoloration with blistering. Progression of necrotic liquified tissue including muscles, tendon. Almost no subcutaneous tissue left due to the infection. Extensor tendon non-viable at musclotendinous junction. Exposed fibula and tibia. Continue progression of dusky necrotic skin and sloughing more proximal. Incision extended to just inferior to the tibial tuberosity. Once again sharp excisional debridement with 15 blade and forceps full-thickness through nonviable skin, soft tissue including subcutaneous tissue, deep fascia, retinaculum over the muscles of the peroneus longus, peroneus brevis, anterior tibial and the extensor muscles. Incision made in the posterior ankle capsule approximately 2 x 0.2 x 0.5 cm deep. A pocket of purulence noted to the posterior ankle with purulent malodorous drainage. The infection and necrotizing fasciitis extended all the way to the muscle and tendons including them down to the level of the fibula and tibia. All layers included. There did not appear to be any necrosis or involvement of the fibula or tibia bone. Fibula biopsy obtained. The long linear incision located dorsal lateral over the distal leg and ankle was extended and now measures 42 x 8 x 1.5 cm. The wound was full-thickness circumferentially around the ankle 18 cm. Modifier 22, 58. The case both 09/01/2020 and 09/02/2020 took over 1-2 hours longer than normal wound debridement due to the extent of necrotizing fasciitis and soft tissue destruction. Discussed plan of care with primary team. Given the patient's comorbidities, need for blood transfusion
--- NOTE | 2020-09-02 11:40 | HMH.DCSUM ---
General - General Admission date:: 08/28/20 Discharge date: 09/02/20 HPI HPI: 65-year-old female patient presents [facility] with reports of purulent drainage from right lower extremity ulcer. She was instructed to come to emergency from home health nurse for increased drainage, redness and warmth. Home health nurses been tending to wounds and PCP has had frequent appointments evaluating nonhealing wounds with minocycline. She denies any nausea/vomiting/diarrhea, fever/chills/body aches, abdomen, chest pain, or increased shortness of breath she reports she is on oxygen at home 2 L per nasal cannula. She does report pain is dull and nonradiating. After reviewing her med list, ferrous sulfate was indicated which she denied taking. She did receive 1 unit of packed red blood cells. Lab work reveals elevated white count of 12.6, H/H 7.9/30, CRP 105 Sodium was 140, potassium 3.8, BUN 17, creatinine 0.90 Occult blood was negative, she denies observing any blood in urine or stool Blood cultures x2 and wound cultures obtained. In emergency room she received ceftriaxone IV 08/28/20 L Elbow, R Foot, R Ankle XR revealed no acute findings Hospital Course Hospital Course: 65-year-old female patient presents [facility] ED with reports of purulent drainage from right lower extremity ulcer. She was instructed to come to emergency from home health nurse for increased drainage, redness and warmth. Home health nurses been tending to wounds and PCP has had frequent appointments evaluating nonhealing wounds with minocycline. She denies any nausea/vomiting/diarrhea, fever/chills/body aches, abdomen, chest pain, or increased shortness of breath she reports she is on oxygen at home 2 L per nasal cannula. She does report pain is dull and nonradiating. After reviewing her med list, ferrous sulfate was indicated which she denied taking. She did receive 1 unit of packed red blood cells. 08/30/[address]: FINDINGS: Bones/joints: No CT evidence of osteomyelitis or periostitis. No acute fracture or dislocation. Soft tissues: Cellulitis with some subcutaneous gas noted. Infection with a gas-forming organism is not excluded. IMPRESSION: 1. No CT evidence of osteomyelitis. 2. Cellulitis with some subcutaneous gas noted. Consider infection with a gas-forming organism versus multiple open wounds. Electronically signed by Kumar Keyes MD 08/31/20 Podiatry Operative Note: Right ankle incision and drainage: 10 cc of half percent Marcaine plain were infiltrated in regional ankle block. Attention was directed to the right lateral ankle where edema and erythema was noted surrounding pressure ulceration. Utilizing a 15 blade, a linear incision was made over the distal lateral fibula wound site. Incision carried through skin, subcutaneous tissue and deep fascia but not into bone. No shan purulence or malodor expressed from the site. There was pitting edema and serous drainage expressed. Deep wound culture taken from the site. Next hemostat used to explore the area. See operative findings. Right ankle wound/ulcer debridement: Next utilizing 15 blade, forceps and sharp curette the 3 wounds were sharply excisionally debrided full-thickness. See operative findings for measurements. The skin, tissue and peroneal tendons and muscles were very fragile like Saran wrap and easily torn when trying to debride the area. Blistering and bluish discoloration noted anytime the skin had pressure applied to it. It did not appear to be a necrotizing fasciitis. Patient did have a adequate bleeding to all the wounds. The anterior and lateral ankle ulcer did probe through deep fascia to the level of the bone. Due to the depth of the ulcer it was felt appropriate to take a bone biopsy to evaluate for osteomyelitis. A piece of the distal fibula was attempted to be removed but the bar was hard in texture. A piece of fibula could not be a
--- NOTE | 2020-09-02 11:53 | PC.NURSE ---
Completion vitals documented by myself for Jay Jay Mckeon RN ([id number] & [id number])
[2020-09-02 11:57] LABS: Hematocrit 31.6 % (37.0-47.0)
--- NOTE | 2020-09-02 13:20 | PC.NURSE ---
1133-lab at bedside 1139-detailed report called to KEITH Campbell 1144-pt transported to 2nd floor room 204 via hospital bed w/artis rails up per Keith Adams and KEITH Moran with bed locked in lowest position and left in care of KEITH Campbell, vss, family at bedside, pt stable
[2020-09-02 13:28] LABS: Hemoglobin 9.2 g/dL (12.2-16.2)
[2020-09-02 16:26] LABS: Hematocrit 29.3 % (37.0-47.0); Hemoglobin 8.9 g/dL (12.2-16.2)
--- NOTE | 2020-09-02 22:40 | PC.NURSE ---
[place] [facility] called to check on what antibiotics patient was on and when they were given.
== END 2020-09-02 17:42 | disposition short-term general hospital (02) | DRG 463 ==
LOC: ER 12:57 → 2ND 15:45
PROVIDERS: Family Medicine; Nurse Practitioner Family; Podiatrist; Admitting Provider Emergency Medicine; Emergency Provider Emergency Medicine; PCP Internal Medicine; Visit Provider Emergency Medicine
PROC: 0JBQ0ZZ Excision of Right Foot Subcutaneous Tissue and Fascia, Open Approach (ICD-10-PCS; principal; 2020-08-31 14:45)
PROC: 0QBJ0ZZ Excision of Right Fibula, Open Approach (ICD-10-PCS; principal; 2020-09-01 12:00)
DX: M72.6 Necrotizing fasciitis (principal); L89.514 Pressure ulcer of right ankle, stage 4; L03.115 Cellulitis of right lower limb; L97.919 Non-pressure chronic ulcer of unspecified part of right lower leg with unspecified severity; E27.1 Primary adrenocortical insufficiency; Z85.41 Personal history of malignant neoplasm of cervix uteri; F17.220 Nicotine dependence, chewing tobacco, uncomplicated; M19.90 Unspecified osteoarthritis, unspecified site; M79.7 Fibromyalgia; Z88.0 Allergy status to penicillin; J44.9 Chronic obstructive pulmonary disease, unspecified; Z99.81 Dependence on supplemental oxygen; Z20.822 Contact with and (suspected) exposure to COVID-19; D64.9 Anemia, unspecified; S91.009A Unspecified open wound, unspecified ankle, initial encounter; L89.322 Pressure ulcer of left buttock, stage 2; S51.009A Unspecified open wound of unspecified elbow, initial encounter; S91.03 Puncture wound without foreign body of ankle; Z88.1 Allergy status to other antibiotic agents; L89.510 Pressure ulcer of right ankle, unstageable; Z79.52 Long term (current) use of systemic steroids; A49.01 Methicillin susceptible Staphylococcus aureus infection, unspecified site; R32 Unspecified urinary incontinence
CPT/HCPCS: 11043 ×3; 11044 ×2; 27705; 20245; 36415; 71045; 73080; 73610; 73630; 73700; 80048; 80053; 80061; 80202; 82272; 82962; 83036; 83605; 83735; 83970; 84100; 84145; 84443; 85007; 85014; 85018; 85025; 85651; 86140; 86850; 87040; 87070; 87075; 87077; 87186; 87205; 93005; 94640; 94760; 96365; 96367; 99284; G0328; J1956; J2405; J3370; P9016; U0003

== ENCOUNTER 2020-09-28 15:10 | Emergency (ER) | payer BC, SELFPAY ==
[2020-09-28 15:11] VITALS: BP 99/64; PULSE 118; RESP 12; TEMP 37; O2SAT 99; BMI 22.1
--- NOTE | 2020-09-28 15:17 | ECG_ITS ---
APPROVED REPORT Exam: Resting ECG HR:116 bpm ECG Measurements Heart Rate 116 AXES [place] 134 P 43 QRSd 72 QRS 53 QT 334 T 30 QTc 464 Conclusion Sinus tachycardia Otherwise normal ECG Electronically signed by : Troy Barrett, 09/30/2020 17:40:05
--- NOTE | 2020-09-28 15:33 | XR_ITS ---
PROCEDURE: XR CHEST PORTABLE CLINICAL HISTORY: hypoxia COMPARISON: CT CTAC CTA-CHEST from 12/23/2014 CR Chest from 08/31/2018 CR XR CHEST 2V from 03/23/2020 CR XR CHEST PORTABLE from 08/30/2020 FINDINGS: The cardiomediastinal silhouette and pulmonary vascularity are within normal limits. COPD. PICC line is present from a right upper extremity approach with the tip in the region the SVC. There is a 16 mm vague opacity in the left midlung laterally overlying the 3rd rib. This is nonspecific and could be due to a area of infiltrate or developing nodule. 2 small lucencies are present in this region. An abscess would be included in the differential diagnosis. No acute bony abnormalities. IMPRESSION: Developing nodular opacity in the left mid upper lung zone with 2 central lucencies. An area of focal consolidation, abscess, or developing neoplastic nodule is considered. Consider chest CT with contrast for further evaluation Dictated by: Davie Goff MD 09/28/2020 17:09 Davie Goff MD in OV 09/28/2020 17:09
--- NOTE | 2020-09-28 15:33 | HMH.EDGENADL ---
ED Disposition Clinical Impression: Chronic respiratory failure with hypoxia Rib fractures Qualifiers: Encounter type: initial encounter Fracture type: closed Laterality: bilateral Qualified Code(s): S22.43XA - Multiple fractures of ribs, bilateral, initial encounter for closed fracture Disposition: Home, Self-Care Condition on Discharge: Good Referrals: Provider,Referral, [Referring] - 3 days (PCP in 2 to 3 days) Time of Disposition: 19:44 - Critical Care Critical Care Time: No Attestation: On 09/28/20, the high probability of a clinically significant, sudden or life threatening deterioration of the following system(s) required my full and direct attention, intervention and personal management. The time I documented below is in addition to time spent performing reported procedures but includes the following listed in this critical care notation. Medical Decision Making - Medical Records Medical records reviewed: Yes: I reviewed the patient's medical records. - Steven Inquiry Pt receiving controlled substance: No Vital Signs: 09/28/20 15:11 09/28/20 15:49 09/28/20 16:00 Temperature 98.6 F Temperature Source Oral Pulse Rate 114 H 115 H Pulse Rate [Right] 118 H Respiratory Rate 12 12 14 Blood Pressure 96/66 L 97/67 L Blood Pressure [Left Arm] 99/64 L Blood Pressure Mean [Left Arm] 75 02 Sat by Pulse Oximetry 99 94 L 92 L Oxygen Delivery Method Oxygen Flow Rate (LPM) 09/28/20 16:30 Temperature Temperature Source Pulse Rate 104 H Pulse Rate [Right] Respiratory Rate 12 Blood Pressure 93/56 L Blood Pressure [Left Arm] Blood Pressure Mean [Left Arm] 02 Sat by Pulse Oximetry 97 Oxygen Delivery Method Nasal Cannula Oxygen Flow Rate (LPM) 2 - Lab Data Lab results reviewed: Yes: I reviewed the patient's lab results. Lab Results 09/28/20 15:46: WBC 8.7, RBC 3.58 L, Hgb 8.2 L, Hct 27.4 L, MCV 76.6 L, MCH 23.0 L, MCHC 30.1 L, RDW 20.6 H, Plt Count 375, MPV 8.6, Neut % (Auto) 74.2, Lymph % (Auto) 17.3, [place] % (Auto) 5.8, Eos % (Auto) 2.0, Baso % (Auto) 0.6, Neut # (Auto) 6.4, Lymph # (Auto) 1.5, [place] # (Auto) 0.5, Eos # (Auto) 0.2, Baso # (Auto) 0.1 09/28/20 15:46: Sodium 136, Potassium 3.6, Chloride 98, Carbon Dioxide 33 H, Anion Gap 8.6, BUN 6 L, Creatinine 0.50 L, Estimated Creat Clear 58, Estimated GFR 125, Est GFR ( Amer) 151, Glucose 116 H, Calcium 8.3 L, Total Bilirubin 0.3, AST 25, ALT 8 L, Alkaline Phosphatase 71, Total Protein 6.5, Albumin 3.0 L, Globulin 3.5 H, Albumin/Globulin Ratio 0.9 L Result diagrams: 09/28/20 15:46 09/28/20 15:46 Orders (Tests/Meds): ED MEDICATIONS Discontinued Medications Generic Name Dose Route Start Last Admin Trade Name Freq PRN Reason Stop Dose Admin Iopamidol 70 ml 09/28/20 18:43 09/28/20 18:49 Iopamidol-370 (76%);100ml Bottle IV 09/28/20 18:44 70 ml ONCE ONE Administration Sodium Chloride 10 ml 09/28/20 18:43 09/28/20 18:49 Sodium Chloride 0.9% 10ml Syr (Rad Only) IV 09/28/20 18:44 10 ml ONCE ONE Administration Sodium Chloride 50 ml 09/28/20 18:51 09/28/20 18:55 0.9 % Sodium Chloride 50 Ml Vial IV 09/28/20 18:52 50 ml ONCE ONE Administration - Radiology Data #1 Image(s): Chest Image Reviewed: Yes I have reviewed radiologist's interpretation Preliminary Findings: Abnormal Abnormal finding; nodule versus possible abscess. Recommended CT with contrast - CT Data CT Scan: Chest Time Received: 19:[address] Reviewed: Yes: I have viewed the radiologist's interpretation Preliminary Findings: Abnormal Findings Narrative: Multiple rib fractures in various stages of healing. - ECG Data Tracing #1 Sinus tachycardia, 116 bpm, no ST elevation or depression, no ectopy, normal intervals. ECG initial impression date: 09/28/20 ECG initial impression time: 15:20 Medical Decision Narrative: 65yo F evaluated for sudden hypoxia. Patient's O2 saturations have improved upon arriva
[2020-09-28 15:49] VITALS: BP 96/66; PULSE 114; RESP 12; O2SAT 94
[2020-09-28 16:00] VITALS: BP 97/67; PULSE 115; RESP 14; O2SAT 92
[2020-09-28 16:02] LABS: Basophils # 0.1 K/mm3 (0-0.2); Basophils % 0.6 % (0.1-2.0); Eosinophils # 0.2 K/mm3 (0.0-0.4); Hematocrit 27.4 % (37.0-47.0); Hemoglobin 8.2 g/dL (12.2-16.2); Lymphocytes # 1.5 K/mm3 (0.7-4.5); Lymphocytes % 17.3 % (10-50); Mean Corpuscular HGB Conc 30.1 g/dL (31.8-35.4); Mean Corpuscular Volume 76.6 fl (81-99); Mean Platelet Volume 8.6 fl (7.4-10.4); Monocytes # 0.5 K/mm3 (0.1-1.0); Monocytes % 5.8 % (1.7-9.3); Neutrophils # 6.4 K/mm3 (1.8-7.8); Neutrophils % 74.2 % (37.0-80.0); Platelet Count 375 K/mm3 (142-424); Red Blood Count 3.58 M/mm3 (4.20-5.40); Red Cell Distribution Width 20.6 % (11.5-17.5); White Blood Count 8.7 K/mm3 (4.8-10.8)
[2020-09-28 16:12] LABS: Chloride 98 mmol/L (98-107); Sodium 136 mmol/L (136-145)
[2020-09-28 16:13] LABS: Potassium 3.6 mmoL/L (3.5-5.1)
[2020-09-28 16:15] LABS: Alanine Aminotransferase 8 U/L (12-78); Albumin/Globulin Ratio 0.9 (1.1-1.8); Alkaline Phosphatase 71 U/L (38-126); Anion Gap 8.6 mEq/L (5-15); Aspartate Amino Transferase 25 U/L (14-36); Bilirubin,Total 0.3 mg/dl (0.2-1.3); Blood Urea Nitrogen 6 mg/dl (7-17); Calcium 8.3 mg/dl (8.4-10.2); Carbon Dioxide 33 mmol/L (22.0-30.0); Creatinine Clearance Estimated 58 mL/min (50-200); Estimated Glomerular Filt Rate 125 ml/min (>60); GFR (African American) 151 ML/MIN (>60); Globulin 3.5 g/dL (1.3-3.2); Glucose 116 mg/dl (74-100); Total Protein,Serum 6.5 g/dl (6.3-8.2)
[2020-09-28 16:30] VITALS: BP 93/56; PULSE 104; RESP 12; O2SAT 97
--- NOTE | 2020-09-28 18:08 | CT_ITS ---
PROCEDURE INFORMATION: Exam: CTA Chest With Contrast Exam date and time: 09/28/2020 6:08 PM Age: 65 years old Clinical indication: Abnormal findings; Abnormal radiologic exam of lung or chest; Patient HX: Abnormal chest x-ray; Additional info: Abnormal cxr TECHNIQUE: Imaging protocol: Computed tomographic angiography of the chest with contrast. 3D rendering (Not supervised by radiologist): MIP and/or 3D reconstructed images were created by the technologist. Radiation optimization: All CT scans at this facility use at least one of these dose optimization techniques: automated exposure control; mA and/or kV adjustment per patient size (includes targeted exams where dose is matched to clinical indication); or iterative reconstruction. Contrast material: ISOVUE 370; Contrast volume: 70 ml; Contrast route: INTRAVENOUS (IV); COMPARISON: [facility] CTA-CHEST 12/23/2014 11:41 AM FINDINGS: Pulmonary arteries: No acute pulmonary emboli. Aorta: No thoracic aortic aneurysm. No evidence of acute dissection in the chest. A few calcified atherosclerotic plaques. Thyroid: Heterogeneous thyroid enhancement, small rim enhancing 1.1 cm left thyroid nodule with central hypodensity, series 2, image 28 and coronal series 601, image 30. Lungs: Prominent pulmonary emphysema, greatest in the lung apices. Patchy areas of peripheral interstitial scarring and subsegmental atelectasis, greatest in the posterior lower lungs. No focal consolidation or mass. Pleural spaces: Unremarkable. No significant pleural effusion. No pneumothorax. Heart: Mild cardiomegaly, trace pericardial fluid, no significant pericardial effusion. RV/LV ratio approximate 0.75, within normal limits. No significant reflux of contrast into the IVC or hepatic veins to confirm right heart strain. Lymph nodes: No significantly enlarged lymph nodes by short axis criteria. Kidneys and ureters: Tiny nonobstructing right upper pole renal calculus, with overlying renal cortical thinning/scarring, coronal series 601, image 57. Bones/joints: Mild spinal degenerative changes, multilevel disc narrowing, slight spondylosis and kyphosis. Anterior left 2nd rib fracture deformity of indeterminate age, possibly recent. A subacute anterior left 3rd rib fracture deformity with surrounding callus formation, likely accounting for the nodular opacity seen on previous chest x-ray, see axial series 3, image 53. There is milder anterior left 4th rib fracture with a small amount of callus series 3, image 67, and a fracture of the anterior tip of left 5th rib series 3, image 85. Cortical irregularity at the tips of the remainder of visualized lower left ribs, (6-10) is also suspicious for older trauma, this is asymmetric compared with most of the lower right ribs. There is also deformity of the anterior tip of the right 6th rib which appears likely old healed trauma. Soft tissues: There are no soft tissue masses or fluid collections. IMPRESSION: 1. No acute pulmonary emboli. 2. No thoracic aortic aneurysm or evidence of dissection in the chest. 3. There are multiple bilateral rib fracture deformities of varying ages. Anterior left 3rd rib fracture deformity appears subacute with surrounding callus formation, likely accounting for the 16 mm opacity reported projected over the left lung and 3rd rib on the earlier chest x-ray. Fracture deformities involve the anterior left 2nd through 10th ribs and anterior right 6th rib. 4. No pleural effusion or pneumothorax. 5. Extensive emphysematous changes in the lungs. Interstitial scarring and subsegmental atelectasis greatest in the posterior lower lungs. No focal consolidation
[2020-09-28 20:11] VITALS: BP 100/59; PULSE 101; RESP 14; TEMP 37; O2SAT 97
--- NOTE | 2020-09-29 08:32 | PC.NURSE ---
CALLED PT REGARDING RE READ OF CHEST CT. SPOKE WITH PT'S . INFORMED THAT PT NEEDS TO RETURN TO ED FOR EVAL DUE TO PE. STATES THEY ARE ON THEIR WAY TO WOUND CARE. INFORMED THAT PT CAN BE SEEN IN ED AT . ACKNOWLEDGES UNDERSTANDING.
== END 2020-09-28 20:12 | disposition home or self-care (01) ==
PROVIDERS: Emergency Provider Family Medicine; PCP Internal Medicine
DX: J96.21 Acute and chronic respiratory failure with hypoxia (principal); S22.43XA Multiple fractures of ribs, bilateral, initial encounter for closed fracture; J44.9 Chronic obstructive pulmonary disease, unspecified; Z99.81 Dependence on supplemental oxygen; M79.7 Fibromyalgia; Z85.41 Personal history of malignant neoplasm of cervix uteri; Z88.0 Allergy status to penicillin; Z79.899 Other long term (current) drug therapy
CPT/HCPCS: 71045; 71275; 80053; 85025; 93005; 99282; Q9967

== ENCOUNTER 2020-10-04 22:03 | Inpatient (IN) | payer BC, MEDICARE, SELFPAY ==
[2020-10-04 22:28] VITALS: BP 96/69; PULSE 128; RESP 24; TEMP 39.8; O2SAT 89; BMI 22.1
--- NOTE | 2020-10-04 22:35 | ECG_ITS ---
APPROVED REPORT Exam: Resting ECG HR:123 bpm ECG Measurements Heart Rate 123 AXES IL 130 P 57 QRSd 70 QRS 75 QT 294 T 35 QTc 420 Conclusion Sinus tachycardia Otherwise normal ECG Electronically signed by : Troy Barrett, 10/05/2020 17:31:55
[2020-10-04 22:53] LABS: ABG Base Excess 3.4 mmol/L (-2.4-2.3); ABG HCO3 27.1 mmhg (22.0-26.0); ABG Oxygen Saturation 87 % (90-100); ABG PCO2 38.2 mmhg (35.0-45.0); ABG PH 7.47 mmol/L (7.35-7.45); ABG PO2 51.8 mmhg (80-100); ABG TCO2 28.2 mmhg (23-27)
[2020-10-04 22:54] LABS: Allen's Test Patient Unable; Oxygen 3LPM %; Source Right Radial
--- NOTE | 2020-10-04 22:56 | XR_ITS ---
PROCEDURE INFORMATION: Exam: XR Chest Exam date and time: 10/04/2020 10:56 PM Age: 65 years old Clinical indication: Fever and shortness of breath; Patient HX: Fever, SOA TECHNIQUE: Imaging protocol: XR of the chest. Views: 1 view. COMPARISON: CR XR CHEST PORTABLE 09/28/2020 3:59 PM FINDINGS: Tubes, catheters and devices: Right-sided subclavian PICC line tip in the SVC. Lungs: Interstitial opacities in both lungs concerning for mild pneumonia. These findings are most pronounced in bilateral lower lobes. Pleural spaces: Unremarkable. No pleural effusion. No pneumothorax. Heart/Mediastinum: Unremarkable. No cardiomegaly. Bones/joints: Unremarkable. IMPRESSION: Interstitial pneumonia in the lower lobes.
--- NOTE | 2020-10-04 23:01 | HMH.EDGENADL ---
ED Disposition Clinical Impression: Necrotizing fasciitis of ankle and foot Sepsis Qualifiers: Sepsis type: sepsis due to unspecified organism Sepsis acute organ dysfunction status: unspecified Qualified Code(s): A41.9 - Sepsis, unspecified organism Pneumonia Qualifiers: Pneumonia type: due to unspecified organism Laterality: bilateral Lung location: unspecified part of lung Qualified Code(s): J18.9 - Pneumonia, unspecified organism Disposition: Admitted as Observation Condition on Discharge: Serious Time of Disposition: 02:08 - Critical Care Critical Care Time: Yes Attestation: On 10/04/20, the high probability of a clinically significant, sudden or life threatening deterioration of the following system(s) required my full and direct attention, intervention and personal management. The time I documented below is in addition to time spent performing reported procedures but includes the following listed in this critical care notation. Total Critical Care Time: 35 Vital system(s) involved:: Circulatory Failure, Respiratory Failure, Shock (Septic) My critical care processes included: Assessment & monitoring of V/S, Initial and Re-exams, Data Review/Interpretation, Coordinating Care, Medication Orders and management, Documentation Medical Decision Making - Medical Records Medical records reviewed: Yes: I reviewed the patient's medical records. - Steven Inquiry Pt receiving controlled substance: No Vital Signs: 10/04/20 22:28 10/05/20 00:31 10/05/20 00:35 Temperature 103.6 F H 102.2 F H Temperature Source Rectal Rectal Pulse Rate 126 H 121 H Pulse Rate [Right] 128 H Respiratory Rate 24 Blood Pressure 90/56 L Blood Pressure [Right Arm] 96/69 L Blood Pressure Mean Blood Pressure Mean [Right Arm] 78 Blood Pressure Source [Right Arm] Automatic Cuff Blood Pressure Position [Right Arm] Supine 02 Sat by Pulse Oximetry 89 L 93 L 93 L Oxygen Delivery Method Nasal Cannula Oxygen Flow Rate (LPM) 2 10/05/20 01:00 10/05/20 01:15 10/05/20 01:25 Temperature Temperature Source Pulse Rate 123 H 119 H 108 H Pulse Rate [Right] Respiratory Rate Blood Pressure 84/51 L 81/53 L 93/56 L Blood Pressure [Right Arm] Blood Pressure Mean Blood Pressure Mean [Right Arm] Blood Pressure Source [Right Arm] Blood Pressure Position [Right Arm] 02 Sat by Pulse Oximetry 95 94 L 96 Oxygen Delivery Method Nasal Cannula Nasal Cannula Nasal Cannula Oxygen Flow Rate (LPM) 3 3 3 10/05/20 01:30 10/05/20 02:00 10/05/20 02:30 Temperature Temperature Source Pulse Rate 108 H 103 H 99 H Pulse Rate [Right] Respiratory Rate Blood Pressure 94/55 L 99/56 L 93/54 L Blood Pressure [Right Arm] Blood Pressure Mean 69 61 Blood Pressure Mean [Right Arm] Blood Pressure Source [Right Arm] Blood Pressure Position [Right Arm] 02 Sat by Pulse Oximetry 97 100 99 Oxygen Delivery Method Nasal Cannula Oxygen Flow Rate (LPM) 3 10/05/20 02:36 10/05/20 03:00 10/05/20 03:30 Temperature Temperature Source Pulse Rate 95 H 96 H 93 H Pulse Rate [Right] Respiratory Rate Blood Pressure 92/57 L 101/61 L 108/70 L Blood Pressure [Right Arm] Blood Pressure Mean 66 70 82 Blood Pressure Mean [Right Arm] Blood Pressure Source [Right Arm] Blood Pressure Position [Right Arm] 02 Sat by Pulse Oximetry 99 100 95 Oxygen Delivery Method Oxygen Flow Rate (LPM) 2 2 10/05/20 04:00 10/05/20 04:30 Temperature 98.3 F Temperature Source Oral Pulse Rate 95 H 92 H Pulse Rate [Right] Respiratory Rate 18 Blood Pressure 98/60 L 91/54 L Blood Pressure [Right Arm] Blood Pressure Mean 72 Blood Pressure Mean [Right Arm] Blood Pressure Source [Right Arm] Blood Pressure Position [Right Arm] 02 Sat by Pulse Oximetry 94 L Oxygen Delivery Method Nasal Cannula Oxygen Flow Rate (LPM) 3 - Lab Data Lab Results 10/04/20 22:30: WBC 19.8 H, RBC 4.35, Hgb 1
[2020-10-04 23:08] LABS: Basophils # 0.1 K/mm3 (0-0.2); Basophils % 0.6 % (0.1-2.0); Eosinophils # 0.1 K/mm3 (0.0-0.4); Eosinophils % 0.3 % (0.1-12.0); Hematocrit 34.6 % (37.0-47.0); Hemoglobin 10.2 g/dL (12.2-16.2); Lymphocytes # 4.8 K/mm3 (0.7-4.5); Mean Corpuscular HGB Conc 29.6 g/dL (31.8-35.4); Mean Corpuscular Hemoglobin 23.5 pg (27.0-31.2); Mean Corpuscular Volume 79.4 fl (81-99); Mean Platelet Volume 7.1 fl (7.4-10.4); Monocytes # 1.1 K/mm3 (0.1-1.0); Monocytes % 5.8 % (1.7-9.3); Neutrophils # 13.7 K/mm3 (1.8-7.8); Neutrophils % 69.3 % (37.0-80.0); Platelet Count 585 K/mm3 (142-424); Red Blood Count 4.35 M/mm3 (4.20-5.40); Red Cell Distribution Width 22.5 % (11.5-17.5); White Blood Count 19.8 K/mm3 (4.8-10.8)
[2020-10-04 23:09] LABS: MANUAL DIFFERENTIAL MANUAL DIFFERENTIAL (MANUAL DIFF)
[2020-10-04 23:11] LABS: Alanine Aminotransferase 12 U/L (12-78); Albumin Level 2.9 g/dl (3.5-5.0); Albumin/Globulin Ratio 0.9 (1.1-1.8); Alkaline Phosphatase 63 U/L (38-126); Anion Gap 11.3 mEq/L (5-15); Aspartate Amino Transferase 24 U/L (14-36); Bilirubin,Total 0.4 mg/dl (0.2-1.3); Blood Urea Nitrogen 7 mg/dl (7-17); Calcium 8.3 mg/dl (8.4-10.2); Carbon Dioxide 30 mmol/L (22.0-30.0); Chloride 98 mmol/L (98-107); Creatinine Clearance Estimated 58 mL/min (50-200); Estimated Glomerular Filt Rate 125 ml/min (>60); GFR (African American) 151 ML/MIN (>60); Globulin 3.4 g/dL (1.3-3.2); Glucose 133 mg/dl (74-100); Potassium 3.3 mmoL/L (3.5-5.1); Sodium 136 mmol/L (136-145); Total Protein,Serum 6.3 g/dl (6.3-8.2)
[2020-10-04 23:12] LABS: Lactic Acid 2.4 mmol/L (0.7-2.1)
[2020-10-04 23:16] LABS: C-Reactive Protein 64.3 mg/L (0-4)
[2020-10-04 23:25] LABS: Lymphocytes % 26 % (10-50); Monocytes % 8 % (2-9); Neutrophils % 63 % (42-76); Platelet Estimate Slight Increase; Total Cells Counted 100
[2020-10-04 23:26] LABS: Anisocytosis 2+; Hypochromasia 2+; Microcytosis 1+; Spherocytes 1+; Stomatocytes 1+
[2020-10-04 23:30] LABS: Procalcitonin 0.142 ng/mL (0.0-2.0)
[2020-10-04 23:32] LABS: Erythrocyte Sedimentation Rate 33 mm/hr (0-30)
[2020-10-05] VITALS (24 sets, daily range): BP systolic 81–112; BP diastolic 51–70; PULSE 80–126; RESP 18–20; TEMP 36.8–39; O2SAT 90–100; BMI 22.1
--- NOTE | 2020-10-05 01:03 | PC.NURSE ---
calling [facility] @ this time
[2020-10-05 01:18] LABS: Microscopic, Urine URINE MICROSCOPIC (MICROSCOPIC)
--- NOTE | 2020-10-05 01:19 | PC.NURSE ---
Vanco dose Confirmed with [facility]
[2020-10-05 01:25] LABS: Appearance,Urine SL CLOUDY (Clear); Bilirubin,Urine Negative (Negative); Blood, Urine Negative (Negative); Color,Urine YELLOW (Yellow); Glucose,Urine (UA) Negative (Negative); Ketones,Urine Negative (Negative); Leukocyte Esterase,Urine Negative (Negative); Nitrate,Urine Negative (Negative); PH,Urine 5.5 (5.0-8.5); Protein,Urine Negative (Negative); Urobilinogen,Urine 0.2 EU/dl (0.2)
--- NOTE | 2020-10-05 01:36 | PC.NURSE ---
paula dumont on phone with [facility]
[2020-10-05 01:38] LABS: Bacteria,Urine Trace /lpf; Mucus,Urine 2+ /lpf
[2020-10-05 01:50] LABS: Coronavirus 19, PCR Not Detected (NotDetected); Influenza A, PCR Not Detected (NotDetected); Influenza B, PCR Not Detected (NotDetected)
--- NOTE | 2020-10-05 01:50 | PC.NURSE ---
called [facility] and they have no beds
--- NOTE | 2020-10-05 01:52 | PC.NURSE ---
called [facility] no bed available
[2020-10-05 03:03] LABS: Reflex Lactic Add Lactic Reflex
[2020-10-05 03:49] LABS: Lactic Acid Follow Up (RFLX 1) 1.7 mmol/L (0.7-2.1)
--- NOTE | 2020-10-05 03:51 | PC.NURSE ---
paged dr vicente @ this time
--- NOTE | 2020-10-05 03:55 | PC.NURSE ---
Dr Urias speaking with Dr Fernandez for Admission
--- NOTE | 2020-10-05 04:56 | PC.NURSE ---
PT. ARRIVED TO [facility] VIA [facility]RET[facility]ER AT [phone].
--- NOTE | 2020-10-05 06:01 | PC.NURSE ---
pt wound was redressed using sterile procedure.
--- NOTE | 2020-10-05 06:37 | PC.WOUNDNOTE ---
RLE, no drainage noted, drsg changed sterile.
--- NOTE | 2020-10-05 06:39 | PC.WOUNDNOTE ---
redness and open areas on coccyx and ila area
--- NOTE | 2020-10-05 08:08 | HMH.PHACONS ---
- Pharmacy Consult Date: 10/05/20 Time: 08:08 Referring provider: DR. COLLINS Reason for Consult:: VANCOMYCIN DOSING Allergies and ADEs:: Allergies Allergy/AdvReac Type Severity Reaction Status Date / Time nitrofurantoin Allergy Intermediate Unknown Verified 08/28/20 15:27 allergy reaction Penicillins Allergy Intermediate Swelling Verified 08/28/20 15:27 of Lip/Tongue/Throat Home Medications:: Home Medications Medication Instructions Recorded Confirmed Type alprazolam 1 mg tablet 1 mg PO QID PRN 08/03/17 10/05/20 History duloxetine 60 mg capsule,delayed 60 mg PO DAILY 08/03/17 10/05/20 History release linaclotide 145 mcg capsule 290 mcg PO DAILY PRN 08/03/17 10/05/20 History montelukast 10 mg tablet 10 mg PO PM 08/03/17 10/05/20 History pregabalin 150 mg capsule 150 mg PO BID 08/03/17 10/05/20 History Levothyroxine Sodium [Synthroid 50 mcg PO DAILY 09/01/18 10/05/20 History 50mcg (0.05mg) tab] ARIPiprazole [Aripiprazole 10mg 10 mg PO DAILY 08/28/20 10/05/20 History Tablet] Albuterol Sulfate [Albuterol 2 puffs IH QIDP PRN 08/28/20 10/05/20 History Sulfate Hfa] Furosemide [Furosemide 40MG tAB*] 80 mg PO DAILY PRN 08/28/20 10/05/20 History Ipratropium/Albuterol Sulfate 3 ml IH QID PRN 08/28/20 10/05/20 History [Duoneb 3mL neb] Nicotine [Nicotine Patch 21 mg TD DAILY 08/28/20 10/05/20 History 21mg/24hrs] Oxycodone HCl 10 mg PO Q6HP PRN 08/28/20 10/05/20 History Pantoprazole Sodium 40 mg PO DAILY 08/28/20 10/05/20 History Potassium Chloride 20 meq PO DAILY PRN 08/28/20 10/05/20 History Tiotropium [place] [Spiriva 2 spray IH DAILY 08/28/20 10/05/20 History Respimat] Trazodone HCl [Desyrel 50mg tablet] 100 mg PO HS 08/28/20 10/05/20 History Apixaban [Eliquis 5mg Tablet] 10 mg PO BID 10/05/20 10/05/20 History Cyanocobalamin (Vitamin B-12) 2,000 mcg PO DAILY 10/05/20 10/05/20 History [Vitamin B-12 1000mcg Tablet] Hydrocortisone [Cortef] 15 mg PO DAILY 10/05/20 10/05/20 History Iron [Iron 18mg Tab] 325 mg PO DAILY 10/05/20 10/05/20 History methocarbamoL [Methocarbamol 500mg 500 mg PO TID 10/05/20 10/05/20 History Tablet] Height: 1.7 m Weight: 63.957 kg Laboratory Results:: Laboratory Results - last 24 hr 10/04/20 22:30: WBC 19.8 H, RBC 4.35, Hgb 10.2 L, Hct 34.6 L, MCV 79.4 L, MCH 23.5 L, MCHC 29.6 L, RDW 22.5 H, Plt Count 585 H, MPV 7.1 L, Neut % (Auto) 69.3, Lymph % (Auto) 24.0, [place] % (Auto) 5.8, Eos % (Auto) 0.3, Baso % (Auto) 0.6, Neut # (Auto) 13.7 H, Lymph # (Auto) 4.8 H, [place] # (Auto) 1.1 H, Eos # (Auto) 0.1, Baso # (Auto) 0.1, Total Counted 100, Neutrophils % (Manual) 63, Lymphocytes % (Manual) 26, Atypical Lymphs % 3.0, Monocytes % (Manual) 8, Platelet Estimate Slight increase, RBC Morphology Not Reportable, Hypochromasia 2+, Anisocytosis 2+, Microcytosis 1+, Spherocytes 1+, Stomatocytes 1+, ESR 33 H 10/04/20 22:30: Sodium 136, Potassium 3.3 L, Chloride 98, Carbon Dioxide 30, Anion Gap 11.3, BUN 7, Creatinine 0.50 L, Estimated Creat Clear 58, Estimated GFR 125, Est GFR ( Amer) 151, Glucose 133 H, Calcium 8.3 L, Total Bilirubin 0.4, AST 24, ALT 12, Alkaline Phosphatase 63, C-Reactive Protein 64.3 H, Total Protein 6.3, Albumin 2.9 L, Globulin 3.4 H, Albumin/Globulin Ratio 0.9 L, Procalcitonin 0.142 10/04/20 22:30: Lactate 2.4 H 10/04/20 22:30: SARS-CoV-2 (PCR) Not detected, Influenza A Untype (PCR) Not detected, Influenza Type B (PCR) Not detected 10/04/20 22:45: Specimen Source Right radial, O2 % 3lpm, ABG pH 7.47 H, ABG pCO2 38.2, ABG pO2 51.8 L, ABG HCO3 27.1 H, ABG Total CO2 28.2 H, ABG O2 Saturation 87 L*, ABG Base Excess 3.4 H, Davie Test Patient unable 10/05/20 01:15: Urine Color Yellow, Urine Appearance Sl cloudy, Urine pH 5.5, Ur Specific [place] 1.020, Urine Protein Negative, Urine Glucose (UA) Negative, Urine Ketones Negative, Urine Blood Negative, Urine Nitrate Negative, Urine Bilirubin Negative, Urine Urobilinogen 0.2, Ur Leukocyte Esterase Negativ
[2020-10-05 08:19] LABS: Adenovirus F 40/41, stool Not Detected (NotDetected); Astrovirus Not Detected (NotDetected); Campylobacter Not Detected (NotDetected); Clostridium Difficile A/B, PCR Not Detected (NotDetected); Cryptosporidium Not Detected (NotDetected); Cyclospora Cayetanesis Not Detected (NotDetected); Entamoeba histolytica Not Detected (NotDetected); Enteroaggregative E coli Not Detected (NotDetected); Enteropathogenic E coli Not Detected (NotDetected); Enterotoxigenic E coli Not Detected (NotDetected); Giardia lamblia Not Detected (NotDetected); Norovirus Not Detected (NotDetected); Plesimonas Shigalloides, PCR Not Detected (NotDetected); Rotavirus A Not Detected (NotDetected); Salmonella, PCR Not Detected (NotDetected); Sapovirus Not Detected (NotDetected); Shiga-like toxin E coli Not Detected (NotDetected); Shigella Enterovasive E coli Not Detected (NotDetected); Vibrio Cholerae Not Detected (NotDetected); Vibrio, PCR Not Detected (NotDetected); Yersinia Entercolitica, PCR Not Detected (NotDetected)
[2020-10-05 08:42] LABS: Basophils # 0.1 K/mm3 (0-0.2); Basophils % 0.5 % (0.1-2.0); Eosinophils # 0.1 K/mm3 (0.0-0.4); Eosinophils % 0.5 % (0.1-12.0); Hematocrit 26.1 % (37.0-47.0); Lymphocytes # 2.4 K/mm3 (0.7-4.5); Lymphocytes % 18.9 % (10-50); Mean Corpuscular HGB Conc 31.2 g/dL (31.8-35.4); Mean Corpuscular Hemoglobin 24.1 pg (27.0-31.2); Mean Corpuscular Volume 77.4 fl (81-99); Mean Platelet Volume 7.9 fl (7.4-10.4); Monocytes % 7.9 % (1.7-9.3); Neutrophils # 9.1 K/mm3 (1.8-7.8); Neutrophils % 72.2 % (37.0-80.0); Platelet Count 474 K/mm3 (142-424); Red Blood Count 3.37 M/mm3 (4.20-5.40); Red Cell Distribution Width 23.2 % (11.5-17.5); White Blood Count 12.6 K/mm3 (4.8-10.8)
[2020-10-05 08:43] LABS: Chloride 103 mmol/L (98-107)
[2020-10-05 08:44] LABS: Potassium 3.2 mmoL/L (3.5-5.1); Sodium 137 mmol/L (136-145)
[2020-10-05 08:45] LABS: Hemoglobin 8.1 g/dL (12.2-16.2)
[2020-10-05 08:47] LABS: Anion Gap 7.2 mEq/L (5-15); Blood Urea Nitrogen 6 mg/dl (7-17); Calcium 7.7 mg/dl (8.4-10.2); Carbon Dioxide 30 mmol/L (22.0-30.0); Creatinine Clearance Estimated 58 mL/min (50-200); Estimated Glomerular Filt Rate 161 ml/min (>60); GFR (African American) 195 ML/MIN (>60); Glucose 112 mg/dl (74-100)
--- NOTE | 2020-10-05 09:25 | HMH.HP ---
*Admission Date: 10/05/20 *Chief complaint: Fever *History of present illness: Ms. Corona is a 65-year-old female patient with a history of recent necrotizing fasciitis requiring 5 surgeries since August 2020. She had been discharged from and was doing wound care when she became short of breath and had to be readmitted to [facility]. She was found to have pulmonary emboli in the right lung and was hospitalized for about a week. She was discharged 09/02/2020. Her states she was doing well until last evening after awakening from a nap and found to have a temperature of 103. Thus he brought her to [facility] for further evaluation and treatment. Following his narrative from the ER note: Medical Decision Narrative: In summary this is a 65-year-old female presenting to the emergency department with fever and generalized malaise. Clinically stable on arrival. She is febrile to 102 Fahrenheit. Given oral Tylenol. Concern for soft tissue infection, bacteremia, sepsis, pneumonia, urinary tract infection. Will obtain CBC, CMP, procalcitonin, ESR, CRP, venous lactic acid, urinalysis, chest x-ray. Initial laboratory results concerning for elevated white count. Lactic acid elevated at 2.4. X-ray concerning for pneumonia. Patient is receiving continuous infusion of cefepime. Given one-time dose of vancomycin. Receiving 30 cc/kg IV fluid bolus. [facility] consulted for admission. Spoke with Dr. Olvera at 01:30. She agreed with admission. However, there are not progressive or TCU beds available. Patient placed on the bed wait list. On reassessment. Blood pressure improved. Now 106 systolic. Patient mentating appropriately. Tachycardia improved to 105. Will admit for further management. General Adult HPI - General Chief complaint: Fever Stated complaint: fever, blood clots in lung Time Seen by Provider: 10/04/20 23:01 Mode of Arrival: Wheelchair Limitations: No Limitations Description of Symptoms (Recalled from ER Triage Doc. by RN): Pt was released from [facility] yesterday for PE's and a surgical debridement of right lower ext necrotizing fasciitis. Today she came in because of fever and even with home O2 @ 2 L/M her O2 sats were in the 80's. Pt has PICC line to right upper arm with continuous infusion of Cefepime. - History of Present Illness HPI narrative: 65-year-old female presenting to the emergency department with fever. Took a nap this afternoon. When she woke up felt generally unwell. took her temperature and found her to be febrile at 101 Fahrenheit. She is on PICC line antibiotics for a soft tissue infection of the right lower extremity. Has had multiple debridements. Was recently hospitalized at [facility] in [place], discharged yesterday. Was diagnosed with bilateral pulmonary emboli. She was started on blood thinners. No dysuria. No cough. No abdominal pain. No dysuria. does wound changes in the right lower extremity. Has noticed some dark coloration and bleeding. No drainage. The above is per ER documentation. This a.m. repeat labs show white blood cell count of 12,600 with a hemoglobin of 8.1 hematocrit of 26.1. Blood chemistries show sodium of 137, potassium is 3.2. BUN is 6 with a creatinine of 0.4. Urinalysis appears negative. ABGs show pH of 7.47 PCO2 of 38.2 PO2 of 51.8 and bicarb of 27.1 and O2 sat of 87%. This is on oxygen at 3 L/min.Chest x-ray reveals interstitial pneumonia in the lower lobes. Patient arrived to her room about 5 AM. She has but had very little sleep. Her is at her bedside.Temperature now is 99. O2 sats are 94% on nasal cannula O2 at 3 L/min. Patient denies chest pain and feels her breathing is okay on the oxygen at present. [facility] History Medical History: Reports:: Anxiety, Chronic Obstructive Pulmonary Disease (COPD), Gastroesophageal Reflux Disease(GERD), Home Oxygen, Lung Disease, Pulmonary Embolism Denies:: Cancer, Di
--- NOTE | 2020-10-05 09:50 | XR_ITS ---
PROCEDURE: XR FOOT RT MIN 3V CLINICAL INDICATION: Hx Nec Fasciitis COMPARISON: CR [id number] XR foot RT min 3V from 07/31/2017 CR XR FOOT LT MIN 3V from 11/06/2019 CR XR FOOT RT MIN 3V from 08/28/2020 FINDINGS: No fracture or dislocation. No lytic or blastic change. There is normal mineralization. The joint spaces are well-preserved. No significant degenerative/arthritic changes. No erosive changes evident. Other findings:None. IMPRESSION: No acute findings. Dictated by: Davie Goff MD 10/05/2020 13:59 Davie Goff MD in [place] 10/05/2020 13:59
--- NOTE | 2020-10-05 09:51 | XR_ITS ---
PROCEDURE: XR ANKLE RT MIN 3V CLINICAL INDICATION: Hx Nec Fasciitis COMPARISON: CR ANKCMRT XR ankle RT min 3V from 07/31/2017 CR XR ANKLE LT MIN 3V from 11/06/2019 CR XR ANKLE RT MIN 3V from 08/28/2020 CR XR ANKLE RT MIN 3V from 08/31/2020 FINDINGS: No fracture or dislocation. No lytic or blastic change. There is normal mineralization. The joint spaces are well-preserved. No significant degenerative/arthritic changes. No erosive changes evident. Other findings:Soft tissue swelling and soft tissue gas has improved at the distal leg anteriorly and laterally. There is a defect within the soft tissues at this region consistent with a wound. No bony destructive changes are evident. IMPRESSION: Improvement in soft tissue swelling and soft tissue gas along the distal leg anteriorly and laterally. Dictated by: Davie Goff MD 10/05/2020 13:58 Davie Goff MD in [place] 10/05/2020 13:58
--- NOTE | 2020-10-05 10:57 | HMH.ORTHOCON ---
*Admission Date: 10/05/20 *Reason for consult:: Right ankle necrotizing fasciitis *History of present illness: Ms. Corona is a 65-year-old female patient with a history of recent necrotizing fasciitis requiring 5 surgeries since August 2020. She had been discharged from and was doing wound care when she became short of breath and had to be readmitted to [facility]. She was found to have pulmonary emboli in the right lung and was hospitalized for about a week. She was discharged 09/02/2020. Her states she was doing well until last evening after awakening from a nap and found to have a temperature of 103. Thus he brought her to [facility] for further evaluation and treatment. Podiatry consulted. Patient reports doing daily dressing changes at home with wound gel and Amarilys. She has a follow-up at 10/15/2020 and a follow-up with plastics in November. She reports no new signs of infection from the wound site. Reports pain to the right leg. She is wearing a right ankle boot. [facility] History I have reviewed the patient's past medical history: Yes Medical History: Reports:: Anxiety, Chronic Obstructive Pulmonary Disease (COPD), Gastroesophageal Reflux Disease(GERD), Home Oxygen, Lung Disease, Pulmonary Embolism Denies:: Cancer, Diabetes Mellitus Type 1, Diabetes Mellitus Type 2, MRSA, Seizures *Have you ever received a pneumonia vaccine?: No *Have you received a flu vaccine this season?: No Other Medical History: Reports: Anemia, Arthritis, Cataracts, Fibromyalgia, Hypothyroidism, Thyroid Disease Other Surgeries: Yes: Appendectomy, Cancer Surgery (HX OF CERVICAL CANCER), Hysterectomy-Total, Other (5 surgeries on right lower extremity for necrotizing fasciitis.) Amputation: No Fractures: Yes - *Social History Last grade of school completed: GED Smoking Status: Former smoker Tobacco Type: cigarettes # Packs/Day (cigarettes): 2 Alcohol Intake: never Substance Use Type: denies use *Occupational Status:: disabled Housing: house Household Members: spouse, children *Travel in the last 8 weeks: None - Psychiatric History Pschychiatric History:: Reports:: Anxiety Family Hx:: Diabetes, Heart Attack Review of Systems - Review of Systems Review of systems:: pertinent systems reviewed and negative unless documented below - Constitutional Reports malaise, Reports weakness, Denies chills - Eyes Denies blind spots - ENT Reports dry mouth - *Cardiovascular Reports shortness of breath - *Respiratory Reports shortness of breath - *Gastrointestinal Denies abdominal pain, Denies vomiting - *Genitourinary Denies abnormal periods - *Musculoskeletal Reports decreased muscle mass, Reports deformity, Reports limited joint movement, Reports radiating pain into limb - Integumentary/Breasts Reports hair loss - *Neurologic Reports abnormal walking, Denies dizziness, Denies headache(s), Denies numbness Meds Home Medications Medication Instructions Recorded Confirmed Type alprazolam 1 mg tablet 0.5 - 1 mg PO TIDP PRN 08/03/17 10/05/20 History duloxetine 60 mg capsule,delayed 60 mg PO DAILY 08/03/17 10/05/20 History release montelukast 10 mg tablet 10 mg PO PM 08/03/17 10/05/20 History pregabalin 150 mg capsule 150 mg PO BID 08/03/17 10/05/20 History Levothyroxine Sodium [Synthroid 50 mcg PO DAILY 09/01/18 10/05/20 History 50mcg (0.05mg) tab] ARIPiprazole [Aripiprazole 10mg 10 mg PO DAILY 08/28/20 10/05/20 History Tablet] Albuterol Sulfate [Albuterol 2 puffs IH QIDP PRN 08/28/20 10/05/20 History Sulfate Hfa] Furosemide [Furosemide 40MG tAB*] 80 mg PO DAILYP PRN 08/28/20 10/05/20 History Ipratropium/Albuterol Sulfate 3 ml IH QID 08/28/20 10/05/20 History [Duoneb 3mL neb] Nicotine [Nicotine Patch 21 mg TD DAILY 08/28/20 10/05/20 History 21mg/24hrs] Oxycodone HCl 10 mg PO Q6HP PRN 08/28/20 10/05/20 History Pantoprazole Sodium 40 mg PO DAILY 08/28/20 10/05/20 History Potassium Ch
--- NOTE | 2020-10-05 11:09 | HMH.PHAVTE ---
[facility] Pharmacy VTE Monitoring - Patient Demographics Admission date: 10/05/20 Report Date: 10/05/20 Time: 11:09 Allergies/Adverse Reactions: Patient Allergies nitrofurantoin Allergy (Intermediate, Verified 08/28/20 15:27) Unknown allergy reaction Penicillins Allergy (Intermediate, Verified 08/28/20 15:27) Swelling of Lip/Tongue/Throat Height: 1.7 m Weight: 63.957 kg Patient Problems: Current Active Problems Acute on chronic respiratory failure with hypoxemia (Acute) Acute anemia (Acute) Necrotizing fasciitis of ankle and foot (Chronic) Pneumonia (Acute) Hypothyroidism (Chronic) Sepsis (Acute) - VTE Risk Labs: VTE Related Lab Results Hgb 8.1 g/dL (12.2-16.2) L D 10/05/20 08:22 Hct 26.1 % (37.0-47.0) L 10/05/20 08:22 Plt Count 474 K/mm3 (142-424) H 10/05/20 08:22 BUN 6 mg/dl (7-17) L 10/05/20 08:22 Creatinine 0.40 mg/dl (0.52-1.04) L 10/05/20 08:22 Estimated Creat Clear 58 mL/min (50-200) 10/05/20 08:22 Was VTE Risk Assessment Performed: Yes VTE Risk Level: Moderate Risk - Prophylaxis VTE Prophylaxis Ordered?: Yes Types of VTE Prophylaxis: Pharmacological Pharmacologic Type: Other (ELIQUIS)
--- NOTE | 2020-10-05 11:57 | HMH.PHAINT ---
MEDICATION RECONCILIATION COMPLETED ON PATIENT USING EXTERNAL FILL HISTORY FROM PHARMACY, INTERVIEW WITH PATIENT'S SPOUSE, AND CALL TO [facility] IN [place]. -TAMELA CORTEZD
--- NOTE | 2020-10-05 16:20 | PC.NURSE ---
picc line dressing changed at this time
--- NOTE | 2020-10-05 19:23 | PC.NURSE ---
ksenia has had an okay day. has rested off and on. complaints of pain off and on through out day in leg. remains on 3l. no beds at [facility] at this time. dressing remains dry and intact. returned ball of cefepime to family. no other complaints.
[2020-10-06] VITALS (30 sets, daily range): BP systolic 91–112; BP diastolic 52–66; PULSE 79–120; RESP 13–20; TEMP 36.4–37.3; O2SAT 91–97; BMI 22.1
--- NOTE | 2020-10-06 06:18 | PC.NURSE ---
AT 2200 PT. WANTED RLE BOOT TO BE REMOVED SO SHE COULD SLEEP; EDUCATED PT. ABOUT IMPORTANCE OF LEAVING BOOT ON, PT. STILL INSISTED ON TAKING IT OFF SAYING I DO THIS AT HOME . BOOT REMAINS OFF. DSG C/D/I. REDNESS TO BUTTOCKS NOTED; CREAM APPLIED AND T/R Q2H. NO C/O N/V OR SOA. PT. C/O PAIN TO RLE; TX PER JUN.
--- NOTE | 2020-10-06 08:12 | HMH.ORTHPN ---
Subjective Date: 10/06/20 Time: 07:45 Principal diagnosis: Right ankle wound Interval history: Patient is resting comfortably in bed. She reports feeling overall better than yesterday. Reports some discomfort to the right ankle. PN: Obj Ex Vital signs: Temp Pulse Resp BP Pulse Ox 98.1 F 93 H 17 112/66 93 L 10/06/20 04:00 10/06/20 06:10 10/06/20 04:00 10/06/20 04:00 10/06/20 06:10 - Constitutional no acute distress - Routine HEENT Exam Head: Present: normocephalic Eye: Present: EOMI ENT: Present: mucous membranes moist - Routine Neck Exam Present: supple - Routine Respiratory Exam Absent: respiratory distress - Routine Abdominal Exam Present: soft - Routine Extremities Exam Present: pulses intact - Detailed Lower Extremity Exam Leg image: 1 - Unchanged from yesterday. Right leg has sutures clean dry and intact to the proximal and distal aspect of the incision. The wound is 100% granular. No exposed bone noted. The wound extends from proximal leg below knee to dorsal lateral foot. There is exposed TA and extensor tendons anteriorly. No purulence malodor or drainage noted. Diffuse ankle pain. Wound sharply excisionally debrided with currette thru subq and into/including tendons (extenor tendon, tibialis anterior tendon). Wound was ~[id number]. - Urinary Catheter Management [place] Cath placed during this visit: no Progress Note: A&P (1) Hypothyroidism Status: Chronic (2) Necrotizing fasciitis of ankle and foot Status: Chronic (3) Pneumonia Status: Acute (4) Sepsis Status: Acute (5) Acute anemia Status: Acute (6) Acute on chronic respiratory failure with hypoxemia Status: Acute (7) Wound of right lower extremity Status: Acute Assessment and Plan for All Diagnoses:: S/p right leg wound debridement and incision/drainage x 5 surgeries Right ankle and foot x-rays evaluated by myself. Report noted. Right foot FINDINGS: No fracture or dislocation. No lytic or blastic change. There is normal mineralization. The joint spaces are well-preserved. No significant degenerative arthritic changes. No erosive changes evident. Other findings: None. IMPRESSION: No acute findings. Right ankle FINDINGS: No fracture or dislocation. No lytic or blastic change. There is normal mineralization. The joint spaces are well preserved. No significant degenerative/arthritic changes. No erosive changes evident. Other findings: Soft tissue swelling and soft tissue gas has improved at the distal leg anteriorly and laterally. There is a defect within the soft tissues at this region consistent with a wound. No bony destructive changes are evident. IMPRESSION: Improvement in soft tissue swelling and soft tissue gas along the distal leg anteriorly and laterally. 1. Wound unchanged from yesterday. No new SOI. No changes to current treatment plan. 2. Continue wound gel, Amarilys, non-adherent (adpatic, vasoline gauze), dry sterile dressing daily. 3. No plans for surgical intervention. 4. Has f/u with [facility] next week 10/15/20 and f/u with Plastics for wound coverage options in 11/10/20. 5. She needs to f/u with wound care and plastics upon discharge for further treatment of right leg wound.
[2020-10-06 09:08] LABS: Basophils % 0.4 % (0.1-2.0); Eosinophils # 0.1 K/mm3 (0.0-0.4); Eosinophils % 1.4 % (0.1-12.0); Hematocrit 25.3 % (37.0-47.0); Lymphocytes # 1.9 K/mm3 (0.7-4.5); Lymphocytes % 23.2 % (10-50); Mean Corpuscular HGB Conc 30.1 g/dL (31.8-35.4); Mean Corpuscular Hemoglobin 24.1 pg (27.0-31.2); Mean Corpuscular Volume 80.1 fl (81-99); Mean Platelet Volume 6.8 fl (7.4-10.4); Monocytes # 0.6 K/mm3 (0.1-1.0); Monocytes % 7.1 % (1.7-9.3); Neutrophils # 5.7 K/mm3 (1.8-7.8); Neutrophils % 67.8 % (37.0-80.0); Platelet Count 467 K/mm3 (142-424); Red Blood Count 3.16 M/mm3 (4.20-5.40); Red Cell Distribution Width 23.1 % (11.5-17.5); White Blood Count 8.3 K/mm3 (4.8-10.8)
--- NOTE | 2020-10-06 09:10 | HMH.ACPN2 ---
Internal Medicine - PN: Subj *Date: 10/06/20 *Time: 09:10 Interval history: Patient states she had a good day yesterday. She did rest during the night. Her is at bedside and confirms this. She denies shortness of breath and chest pain. Nurses report tachycardia and felt may be due to albuterol. Will change to Xopenex. Dr. Guerrero is in the room and has just completed dressing change on the right lower extremity. She is pleased with appearance of the wound. Exam Vital signs and Labs for Last 24 Hours: Temp Pulse Resp BP Pulse Ox 98.1 F 93 H 17 112/66 93 L 10/06/20 04:00 10/06/20 06:10 10/06/20 04:00 10/06/20 04:00 10/06/20 06:10 Laboratory Results - last 24 hr 10/05/20 08:14: Stl Aeromonas (PCR) Not detected, Stl C. cayetanensis PCR Not detected, Stool Rotavirus (PCR) Not detected, Stl Adenov F 40/41 PCR Not detected, Stool Astrovirus (PCR) Not detected, Stool Campylobacter PCR Not detected, Stl C.difficile Tox PCR Not detected, Stool Cryptosporidium PCR Not detected, Stl E.coli Shiga Tox PCR Not detected, Stool E coli O157 PCR Not detected, Stl Enterotoxigenic E PCR Not detected, Stool EPEC (PCR) Not detected, Stool EAEC (PCR) Not detected, Stl E. histolytica PCR Not detected, Stool Giardia Lamblia PCR Not detected, Stool Salmonella PCR Not detected, Stool Sapovirus (PCR) Not detected, Stl P. shigelloides PCR Not detected, Stl Shigella/EIEC PCR Not detected, St Y.enterocolitica PCR Not detected, Stool Vibrio (PCR) Not detected, Stl Vibrio cholerae PCR Not detected, Stl Norovirus GI/GII PCR Not detected I & O for Last 24 hours: Intake & Output 10/03/20 10/04/20 10/05/20 10/06/20 11:59 11:59 11:59 11:59 Intake Total 3730 / 3730 1080 / 1080 Output Total 600 / 600 400 / 400 Balance 3130 / 3130 680 / 680 Weight 141 lb 141 lb 0.017 oz - Constitutional no acute distress - *Routine Respiratory Exam Present: crackles (Scattered in the right base and a left upper and lower lobes.), diminished air movement (On the right.) - *Routine Cardiovascular Exam Present: RRR (Sinus tach at 110 on the monitor.) - *Routine Abdominal Exam Present: soft, normoactive bowel sounds. Absent: tenderness - *Routine Extremities Exam Present: edema (Trace left lower leg.) Comments: New dressing on right lower leg clean and dry. - *Routine Neurological Exam Present: alert, oriented X3 Assessment and Plan (1) Hypothyroidism Status: Chronic Category: Medical Code(s): E03.9 - Hypothyroidism, unspecified (2) Necrotizing fasciitis of ankle and foot Status: Chronic Category: Medical Code(s): M72.6 - Necrotizing fasciitis (3) Pneumonia Status: Acute Qualifiers: Pneumonia type: due to unspecified organism Laterality: bilateral Lung location: unspecified part of lung Qualified Code(s): J18.9 - Pneumonia, unspecified organism Category: Medical Code(s): J18.9 - Pneumonia, unspecified organism (4) Sepsis Status: Acute Qualifiers: Sepsis type: sepsis due to unspecified organism Sepsis acute organ dysfunction status: unspecified Qualified Code(s): A41.9 - Sepsis, unspecified organism Category: Medical Code(s): A41.9 - Sepsis, unspecified organism (5) Acute anemia Status: Acute Category: Medical Code(s): D64.9 - Anemia, unspecified (6) Acute on chronic respiratory failure with hypoxemia Status: Acute Category: Medical Code(s): J96.21 - Acute and chronic respiratory failure with hypoxia (7) Wound of right lower extremity Status: Acute Category: Medical Code(s): S81.801A - Unspecified open wound, right lower leg, initial encounter (8) Pulmonary embolism on right Status: Acute Category: Medical Code(s): I26.99 - Other pulmonary embolism without acute cor pulmonale - Assessment and plan all Dx Assessment and Plan for all problems:: We will change albuterol to Xopenex scheduled. Continue with current antibiotics. Await bed
[2020-10-06 09:11] LABS: Chloride 106 mmol/L (98-107); Potassium 3.1 mmoL/L (3.5-5.1); Sodium 139 mmol/L (136-145)
[2020-10-06 09:14] LABS: Blood Urea Nitrogen 10 mg/dl (7-17); Calcium 7.8 mg/dl (8.4-10.2); Creatinine Clearance Estimated 58 mL/min (50-200); Estimated Glomerular Filt Rate 161 ml/min (>60); GFR (African American) 195 ML/MIN (>60); Glucose 129 mg/dl (74-100)
[2020-10-06 09:28] LABS: Hemoglobin 7.6 g/dL (12.2-16.2)
--- NOTE | 2020-10-06 09:29 | PC.NURSE ---
mic from lab called and stated that patient hgb was 7.6. name of patient and birthdate was repeated and verified with lab. critical reported to md on floor at this time.
--- NOTE | 2020-10-06 18:10 | PC.NURSE ---
patient has had an okay day. encouragement to turn to keep bottom from getting any redder. drinking very well and appetite is good. has been between 2-3l on nasal cannula. rings out as needed. dressing per podiatry has not required reenforceing. one unit of blood so far was tolerated well. vitals have been stable.
--- NOTE | 2020-10-06 18:12 | PC.NURSE ---
280ml of blood was given total with first unit.
--- NOTE | 2020-10-06 19:22 | PC.NURSE ---
patient still in need of 1 unit of blood. next shift aware
[2020-10-06 20:54] LABS: Anion Gap 8.1 mEq/L (5-15); Carbon Dioxide 28 mmol/L (22.0-30.0)
[2020-10-07] VITALS: BP 94/64; PULSE 79; PULSE 80; RESP 18; TEMP 36.7; O2SAT 94
--- NOTE | 2020-10-07 03:16 | PC.NURSE ---
No acute changes this shift. Pt is A/O X4, on 2L NC and tolerates well. Pt was given one unit of blood this shift with no reaction. Voids per neri draining clear, yellow urine. Dressing on RLE is C/D/I. Pt complained of pain this shift admin meds per MAR with relief. Pt is able to make needs known to staff. Call light within reach, no concerns at this time.
[2020-10-07 03:31] VITALS: PULSE 90
[2020-10-07 03:48] LABS: Vancomycin,Trough 6.3 ug/mL (5.0-10.0)
[2020-10-07 06:20] VITALS: PULSE 70; PULSE 74; O2SAT 98
--- NOTE | 2020-10-07 07:15 | SW/DCPLANNER ---
Addendum entered by [facility] 10/07/20 12:01: Jacey with [facility] has stated that care will be resumed tomorrow. Lidia with [facility] has stated that she has reviewed order to resume and will follow up with patient today. Addendum entered by [facility] 10/07/20 09:54: Tere with [facility] has stated that bed will be delivered to patients home today. Addendum entered by [facility] 10/07/20 09:42: This patient will discharge home today. Patient currently receives IV antibiotics at home under [facility] of home health. Patient has also requested a hospital bed for home at time of discharge. Patient currently has home O2 thru [facility]. I will notify Lidia with [facility] that this patient will discharge home today. I will also fax all patient information to [facility] to resume home health services. Patient information/order for hospital bed has been faxed to [facility]. Original Note: Patient currently receives home IV antibiotics and is established with [facility]. Patients is present at home and assist with administration of home IV antibiotics. I will continue to follow up with patient/[facility] and [facility].
[2020-10-07 07:51] LABS: Basophils % 0.5 % (0.1-2.0); Eosinophils # 0.2 K/mm3 (0.0-0.4); Eosinophils % 2.2 % (0.1-12.0); Hematocrit 34.1 % (37.0-47.0); Lymphocytes # 2.1 K/mm3 (0.7-4.5); Lymphocytes % 29.6 % (10-50); Mean Corpuscular HGB Conc 30.3 g/dL (31.8-35.4); Mean Corpuscular Hemoglobin 25.1 pg (27.0-31.2); Mean Corpuscular Volume 82.7 fl (81-99); Mean Platelet Volume 7.7 fl (7.4-10.4); Monocytes # 0.5 K/mm3 (0.1-1.0); Monocytes % 6.8 % (1.7-9.3); Neutrophils # 4.4 K/mm3 (1.8-7.8); Platelet Count 403 K/mm3 (142-424); Red Blood Count 4.13 M/mm3 (4.20-5.40); Red Cell Distribution Width 21.2 % (11.5-17.5); White Blood Count 7.2 K/mm3 (4.8-10.8)
[2020-10-07 08:00] VITALS: BP 98/61; PULSE 94; RESP 16; TEMP 36.6; O2SAT 91; O2SAT 98
[2020-10-07 08:02] LABS: Chloride 106 mmol/L (98-107); Sodium 140 mmol/L (136-145)
[2020-10-07 08:03] LABS: Potassium 3.5 mmoL/L (3.5-5.1)
[2020-10-07 08:05] LABS: Blood Urea Nitrogen 8 mg/dl (7-17); Creatinine Clearance Estimated 58 mL/min (50-200); Estimated Glomerular Filt Rate 161 ml/min (>60); GFR (African American) 195 ML/MIN (>60)
[2020-10-07 08:06] LABS: Anion Gap 7.5 mEq/L (5-15); Calcium 8.3 mg/dl (8.4-10.2); Carbon Dioxide 30 mmol/L (22.0-30.0); Glucose 97 mg/dl (74-100); Hemoglobin 10.4 g/dL (12.2-16.2)
--- NOTE | 2020-10-07 08:13 | HMH.ACPN2 ---
Internal Medicine - PN: Subj *Date: 10/07/20 *Time: 08:13 Interval history: Patient states she is feeling well this morning. She denies any shortness of breath or chest pain. She states she slept well last night and she ate all of her breakfast this morning. She still has some pain in her right leg. Dr. Guerrero has been changing the dressings. Exam Vital signs and Labs for Last 24 Hours: Temp Pulse Resp BP Pulse Ox 98.0 F 90 18 94/64 L 94 L 10/07/20 00:00 10/07/20 03:31 10/07/20 00:00 10/07/20 00:00 10/07/20 00:00 Laboratory Results - last 24 hr 10/06/20 08:58: WBC 8.3 D, RBC 3.16 L, Hgb 7.6 L*, Hct 25.3 L, MCV 80.1 L, MCH 24.1 L, MCHC 30.1 L, RDW 23.1 H, Plt Count 467 H, MPV 6.8 L, Neut % (Auto) 67.8, Lymph % (Auto) 23.2, [place] % (Auto) 7.1, Eos % (Auto) 1.4, Baso % (Auto) 0.4, Neut # (Auto) 5.7, Lymph # (Auto) 1.9, [place] # (Auto) 0.6, Eos # (Auto) 0.1, Baso # (Auto) 0.0 10/06/20 08:58: Sodium 139, Potassium 3.1 L, Chloride 106, Carbon Dioxide 28, Anion Gap 8.1, BUN 10 D, Creatinine 0.40 L, Estimated Creat Clear 58, Estimated GFR 161, Est GFR ( Amer) 195, Glucose 129 H, Calcium 7.8 L 10/06/20 11:16: Blood Type O Positive, Antibody Screen Negative, Crossmatch (AHG) See Detail 10/07/20 03:00: Vancomycin Trough 6.3 10/07/20 07:37: WBC 7.2, RBC 4.13 L D, Hgb 10.4 L D, Hct 34.1 L, MCV 82.7, MCH 25.1 L, MCHC 30.3 L, RDW 21.2 H, Plt Count 403, MPV 7.7, Neut % (Auto) 61.0, Lymph % (Auto) 29.6, [place] % (Auto) 6.8, Eos % (Auto) 2.2, Baso % (Auto) 0.5, Neut # (Auto) 4.4, Lymph # (Auto) 2.1, [place] # (Auto) 0.5, Eos # (Auto) 0.2, Baso # (Auto) 0.0 10/07/20 07:37: Sodium 140, Potassium 3.5, Chloride 106, Carbon Dioxide 30, Anion Gap 7.5, BUN 8, Creatinine 0.40 L, Estimated Creat Clear 58, Estimated GFR 161, Est GFR ( Amer) 195, Glucose 97 D, Calcium 8.3 L I & O for Last 24 hours: Intake & Output 10/04/20 10/05/20 10/06/20 10/07/20 11:59 11:59 11:59 11:59 Intake Total 3730 / 3730 1320 / 1320 1610 / 1610 Output Total 600 / 600 400 / 400 1900 / 1900 Balance 3130 / 3130 920 / 920 -290 / -290 Weight 141 lb 141 lb 0.017 oz Microbiology Reports for the Last 24 Hours: Microbiology 10/04/20 22:30 Blood Blood Culture - Preliminary NO GROWTH AFTER 48 HOURS 10/04/20 22:30 Blood Blood Culture - Preliminary NO GROWTH AFTER 48 HOURS - Constitutional no acute distress - *Routine Respiratory Exam Present: crackles - *Routine Cardiovascular Exam Present: RRR - *Routine Abdominal Exam Present: soft, normoactive bowel sounds. Absent: tenderness - *Routine Extremities Exam Absent: cyanosis, clubbing, edema Comments: Right foot with dressing and brace in place - *Routine Neurological Exam Present: alert, oriented X3 Assessment and Plan (1) Hypothyroidism Status: Chronic Category: Medical Code(s): E03.9 - Hypothyroidism, unspecified (2) Necrotizing fasciitis of ankle and foot Status: Chronic Category: Medical Code(s): M72.6 - Necrotizing fasciitis (3) Pneumonia Status: Acute Qualifiers: Pneumonia type: due to unspecified organism Laterality: bilateral Lung location: unspecified part of lung Qualified Code(s): J18.9 - Pneumonia, unspecified organism Category: Medical Code(s): J18.9 - Pneumonia, unspecified organism (4) Sepsis Status: Acute Qualifiers: Sepsis type: sepsis due to unspecified organism Sepsis acute organ dysfunction status: unspecified Qualified Code(s): A41.9 - Sepsis, unspecified organism Category: Medical Code(s): A41.9 - Sepsis, unspecified organism (5) Acute anemia Status: Acute Category: Medical Code(s): D64.9 - Anemia, unspecified (6) Acute on chronic respiratory failure with hypoxemia Status: Acute Category: Medical Code(s): J96.21 - Acute and chronic respiratory failure with hypoxia (7) Wound of right lower extremity Status: Acute Ca
--- NOTE | 2020-10-07 09:22 | PC.NURSE ---
PT will need a hospital bed d/t having a medical condition which requires positioniing of hte body in ways not feasible w/ an ordinary bed.
--- NOTE | 2020-10-07 09:47 | HMH.PHAINT ---
DISCHARGE COUNSELING COMPLETED ON PATIENT. DULOXETINE DOSE CHANGED TO 30MG DAILY AND PATIENT IS TO START ON ZYVOX 600MG BID. BOTH OF THESE PRESCRIPTIONS WERE SENT TO [facility] IN [place]. PATIENT IS TO CONTINUE OTHER MEDICATIONS. TOLD PATIENT'S THAT THE LOWER DOSE OF ELIQUIS WILL START ON 10/10/20 FOR PE TREATMENT. PATIENT AND PATIENT'S SPOUSE VERBALIZED UNDERSTANDING. NO QUESTIONS AT THIS TIME. -JESUS OLMOS, TAMELAD
[2020-10-07 10:20] VITALS: PULSE 97; PULSE 98; O2SAT 95
--- NOTE | 2020-10-07 11:03 | PC.NURSE ---
Awaiting return of pt's to given discharge teaching.
--- NOTE | 2020-10-07 11:24 | PC.NURSE ---
Discharge education provided. Home health services to resume upon returning home. 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 Dressing on RLE C/D/I. @ bedside as well, verbalized understanding. DC home @ [id number]
--- NOTE | 2020-10-09 15:34 | HMH.DCSUM ---
General - General Admission date:: 10/05/20 Discharge date: 10/07/20 HPI HPI: Ms. Corona is a 65-year-old female patient with a history of recent necrotizing fasciitis requiring 5 surgeries since August 2020. She had been discharged from and was doing wound care when she became short of breath and had to be readmitted to [facility]. She was found to have pulmonary emboli in the right lung and was hospitalized for about a week. She was discharged 09/02/2020. Her states she was doing well until last evening after awakening from a nap and found to have a temperature of 103. Thus he brought her to [facility] for further evaluation and treatment. Following his narrative from the ER note: 65-year-old female presenting to the emergency department with fever. Took a nap this afternoon. When she woke up felt generally unwell. took her temperature and found her to be febrile at 101 Fahrenheit. She is on PICC line antibiotics for a soft tissue infection of the right lower extremity. Has had multiple debridements. Was recently hospitalized at [facility] in [place], discharged yesterday. Was diagnosed with bilateral pulmonary emboli. She was started on blood thinners. No dysuria. No cough. No abdominal pain. No dysuria. does wound changes in the right lower extremity. Has noticed some dark coloration and bleeding. No drainage. Medical Decision Narrative: In summary this is a 65-year-old female presenting to the emergency department with fever and generalized malaise. Clinically stable on arrival. She is febrile to 102 Fahrenheit. Given oral Tylenol. Concern for soft tissue infection, bacteremia, sepsis, pneumonia, urinary tract infection. Will obtain CBC, CMP, procalcitonin, ESR, CRP, venous lactic acid, urinalysis, chest x-ray. Initial laboratory results concerning for elevated white count. Lactic acid elevated at 2.4. X-ray concerning for pneumonia. Patient is receiving continuous infusion of cefepime. Given one-time dose of vancomycin. Receiving 30 cc/kg IV fluid bolus. [facility] consulted for admission. Spoke with Dr. Olvera at 01:30. She agreed with admission. However, there are not progressive or TCU beds available. Patient placed on the bed wait list. On reassessment. Blood pressure improved. Now 106 systolic. Patient mentating appropriately. Tachycardia improved to 105. Will admit for further management. Pt was released from [facility] yesterday for PE's and a surgical debridement of right lower ext necrotizing fasciitis. Today she came in because of fever and even with home O2 @ 2 L/M her O2 sats were in the 80's. Pt has PICC line to right upper arm with continuous infusion of Cefepime. (The above is per ER documentation.) This a.m. repeat labs show white blood cell count of 12,600 with a hemoglobin of 8.1 hematocrit of 26.1. Blood chemistries show sodium of 137, potassium is 3.2. BUN is 6 with a creatinine of 0.4. Urinalysis appears negative. ABGs show pH of 7.47 PCO2 of 38.2 PO2 of 51.8 and bicarb of 27.1 and O2 sat of 87%. She is on oxygen at 3 L/min. Chest x-ray reveals interstitial pneumonia in the lower lobes. Patient arrived to her room about 5 AM. She has had very little sleep. Her is at her bedside. Temperature now is 99. O2 sats are 94% on nasal cannula O2 at 3 L/min. Patient denies chest pain and feels her breathing is okay on the oxygen at present. Hospital Course Hospital Course: The patient was continued on cefepime through her PICC line and she was also started on vancomycin as well . Stool studies were ordered and were negative. Dr. Guerrero was consulted. She ordered right ankle and foot x-rays. There was no fracture or dislocation and there was normal mineralization. The soft tissue swelling and soft tissue gas had improved in the distal leg anteriorly and laterally. The wound was debrided at the bedside and Dr. Yolanda barnes
== END 2020-10-07 11:27 | disposition home health service (06) | DRG 871 ==
LOC: ER 10-05 01:16 → 2ND 10-05 04:03
PROVIDERS: Nurse Practitioner Family; Admitting Provider Family Medicine; Emergency Provider Emergency Medicine; PCP Internal Medicine; Visit Provider Family Medicine
DX: A41.9 Sepsis, unspecified organism (principal); I26.99 Other pulmonary embolism without acute cor pulmonale; J96.21 Acute and chronic respiratory failure with hypoxia; M72.6 Necrotizing fasciitis; J18.9 Pneumonia, unspecified organism; R65.21 Severe sepsis with septic shock; J44.0 Chronic obstructive pulmonary disease with (acute) lower respiratory infection; E03.9 Hypothyroidism, unspecified; K21.9 Gastro-esophageal reflux disease without esophagitis; Z99.81 Dependence on supplemental oxygen; Z79.01 Long term (current) use of anticoagulants; Z79.899 Other long term (current) drug therapy; D64.9 Anemia, unspecified; F41.9 Anxiety disorder, unspecified; F17.210 Nicotine dependence, cigarettes, uncomplicated; M19.90 Unspecified osteoarthritis, unspecified site; Z88.1 Allergy status to other antibiotic agents; Z88.0 Allergy status to penicillin; M79.7 Fibromyalgia
CPT/HCPCS: 36415; 71045; 73610; 73630; 80048; 80053; 80202; 81001; 82803; 83605; 84145; 85007; 85025; 85651; 86140; 86850; 87040; 87507; 93005; 94640; 94761; 96365; 96366; 96367; 96375; 99284; J3370; P9016; U0003

== ENCOUNTER → 2020-10-14 09:35 | Outpatient (CLI) | payer MEDICARE, BC, SELFPAY ==
[2020-10-14 09:47] LABS: Basophils # 0.1 K/mm3 (0-0.2); Basophils % 1.2 % (0.1-2.0); Eosinophils # 0.1 K/mm3 (0.0-0.4); Eosinophils % 1.2 % (0.1-12.0); Hematocrit 37.4 % (37.0-47.0); Hemoglobin 11.5 g/dL (12.2-16.2); Lymphocytes # 2.2 K/mm3 (0.7-4.5); Lymphocytes % 33.3 % (10-50); Mean Corpuscular HGB Conc 30.8 g/dL (31.8-35.4); Mean Corpuscular Hemoglobin 25.2 pg (27.0-31.2); Mean Corpuscular Volume 81.9 fl (81-99); Mean Platelet Volume 7.2 fl (7.4-10.4); Monocytes # 0.4 K/mm3 (0.1-1.0); Monocytes % 5.9 % (1.7-9.3); Neutrophils # 3.9 K/mm3 (1.8-7.8); Neutrophils % 58.4 % (37.0-80.0); Platelet Count 293 K/mm3 (142-424); Red Blood Count 4.56 M/mm3 (4.20-5.40); Red Cell Distribution Width 20.2 % (11.5-17.5); White Blood Count 6.7 K/mm3 (4.8-10.8)
[2020-10-14 09:53] LABS: Chloride 101 mmol/L (98-107); Potassium 3.4 mmoL/L (3.5-5.1); Sodium 141 mmol/L (136-145)
[2020-10-14 09:55] LABS: Blood Urea Nitrogen 8 mg/dl (7-17); Estimated Glomerular Filt Rate 125 ml/min (>60); GFR (African American) 151 ML/MIN (>60)
[2020-10-14 09:56] LABS: Alanine Aminotransferase 20 U/L (12-78); Albumin Level 3.2 g/dl (3.5-5.0); Albumin/Globulin Ratio 0.9 (1.1-1.8); Alkaline Phosphatase 75 U/L (38-126); Anion Gap 9.4 mEq/L (5-15); Aspartate Amino Transferase 32 U/L (14-36); Bilirubin,Total 0.2 mg/dl (0.2-1.3); Calcium 8.8 mg/dl (8.4-10.2); Carbon Dioxide 34 mmol/L (22.0-30.0); Globulin 3.6 g/dL (1.3-3.2); Glucose 99 mg/dl (74-100); Total Protein,Serum 6.8 g/dl (6.3-8.2)
[2020-10-14 10:09] LABS: C-Reactive Protein 15.6 mg/L (0-4)
== END ==
PROVIDERS: Visit Provider Internal Medicine Infectious Disease
DX: M72.6 Necrotizing fasciitis (principal)
CPT/HCPCS: 80053; 82565; 84520; 85025; 86140

== ENCOUNTER 2020-12-18 14:01 | Emergency (ER) | payer BC, MEDICARE, SELFPAY ==
[2020-12-18 15:27] VITALS: BP 117/70; PULSE 83; RESP 16; TEMP 37.1; O2SAT 95; BMI 23.5
--- NOTE | 2020-12-18 15:58 | HMH.EDUTC ---
[facility] [place] Disposition Clinical Impression: Exposure to COVID-19 virus, Viral syndrome, COPD exacerbation Disposition: Home, Self-Care Condition on Discharge: Good Instructions: Chronic Obstructive Pulmonary Disease, DI for Chronic Obstructive Pulmonary Disease, DI for COVID-19 (Suspected or Confirmed ), Preventing the Spread of Coronavirus Discharge Instructions Additional Instructions: Drink plenty of fluids. Take tylenol or ibuprofen for pain or fever. Take the medications as directed. Follow up with your regular doctor. GO TO THE ER FOR ANY WORSENING SYMPTOMS Quarantine until you know the results of your covid-19 test. If it is positive, the health department should call you and give you further instructions about your length of Quarantine and other things. Notify your school or workplace of your results and follow their instructions regarding return to work/school. Call your doctor and make sure they know that you are sick. Prescriptions: dexAMETHasone [Decadron] 6 mg PO DAILY 6 Days #6 tab Transmission Status: Received by [facility] Benzonatate [Tessalon Perle 100mg Cap] 100 mg PO TIDP PRN #30 cap PRN Reason: Cough Transmission Status: Received by [id number] - [employer] [facility] Azithromycin [Z-Kieran 250mg Tab*] 250 mg PO UD DOSE PK #6 tab Transmission Status: Received by [id number] - [employer] [facility] Referrals: Cornelio Chan [Primary Care Provider] - Time of Disposition: 16:01 Medical Decision Making - Medical Records Medical records reviewed: No: I reviewed the patient's medical records. - Steven Inquiry Pt receiving controlled substance: No Vital Signs: 12/18/20 15:27 12/18/20 16:13 Temperature 98.8 F 98.8 F Temperature Source Oral Pulse Rate 83 Pulse Rate [Left] 83 Respiratory Rate 16 16 Blood Pressure 117/70 Blood Pressure [Right Arm] 117/70 Blood Pressure Mean [Right Arm] 85 02 Sat by Pulse Oximetry 95 Oxygen Delivery Method Nasal Cannula Oxygen Flow Rate (LPM) 3 [facility] [place] HPI - General Stated complaint: covid test Time Seen by Provider: 12/18/20 16:00 Mode of Arrival: Ambulatory Limitations: No Limitations Description of Symptoms (Recalled from Triage Doc. by RN): pt was exposed to covid on 12/13. pt c/o fever, congestion, wheezing and coughing. HEENT Symptoms (Recalled from RN notes): Yes (congestion) Resp Symptoms (Recalled from RN notes): Yes (wheezing and cough) Skin Symptoms (Recalled from RN notes): No MS Symptoms (Recalled from RN notes): No Functional Status (Recalled from RN notes): fever - History of Present Illness Provider Complaint: She c/o cough and chest congestion. She was exposed to covid-19 4 days ago. - Related Data Home Medications Medication Instructions Recorded Confirmed alprazolam 1 mg tablet 0.5 - 1 mg PO TIDP PRN 08/03/17 10/05/20 montelukast 10 mg tablet 10 mg PO PM 08/03/17 10/05/20 pregabalin 150 mg capsule 150 mg PO BID 08/03/17 10/05/20 Levothyroxine Sodium [Synthroid 50 mcg PO DAILY 09/01/18 10/05/20 50mcg (0.05mg) tab] ARIPiprazole [Aripiprazole 10mg 10 mg PO DAILY 08/28/20 10/05/20 Tablet] Albuterol Sulfate [Albuterol 2 puffs IH QIDP PRN 08/28/20 10/05/20 Sulfate Hfa] Furosemide [Furosemide 40MG tAB*] 80 mg PO DAILYP PRN 08/28/20 10/05/20 Ipratropium/Albuterol Sulfate 3 ml IH QID 08/28/20 10/05/20 [Duoneb 3mL neb] Nicotine [Nicotine Patch 21 mg TD DAILY 08/28/20 10/05/20 21mg/24hrs] Oxycodone HCl 10 mg PO Q6HP PRN 08/28/20 10/05/20 Pantoprazole Sodium 40 mg PO DAILY 08/28/20 10/05/20 Potassium Chloride 20 meq PO DAILYP PRN 08/28/20 10/05/20 Tiotropium [place] [Spiriva 2 spray IH DAILY 08/28/20 10/05/20 Respimat] Trazodone HCl [Desyrel 50mg tablet] 100 mg PO HS 08/28/20 10/05/20 Apixaban [Eliquis 5mg Tablet] 10 mg PO BID 10/05/20 10/05/20 Cefepime HCl [Maxipime 2gm Vial] 6 gm IV Q24H 10/05/20 10/05/20 Cyanocobalamin (Vitamin B-12) 2,000 mcg PO DAILY 10/05/20 10/05/20
[2020-12-18 16:13] VITALS: BP 117/70; PULSE 83; RESP 16; TEMP 37.1
== END 2020-12-18 16:14 | disposition home or self-care (01) ==
PROVIDERS: Emergency Provider Nurse Practitioner Family; PCP Internal Medicine
DX: U07.1 COVID-19 (principal); B34.9 Viral infection, unspecified; J44.1 Chronic obstructive pulmonary disease with (acute) exacerbation; K21.9 Gastro-esophageal reflux disease without esophagitis; Z87.891 Personal history of nicotine dependence
CPT/HCPCS: 99202; C9803; G0463; U0003; U0005

== ENCOUNTER → 2020-12-22 14:11 | Outpatient (CLI) | payer BC, MEDICARE, SELFPAY ==
[2020-12-22] VITALS (8 sets, daily range): BP systolic 95–133; BP diastolic 64–89; PULSE 74–89; RESP 18–20; TEMP 36.7–37.1; O2SAT 92–95
== END ==
PROVIDERS: PCP Internal Medicine; Visit Provider Internal Medicine
DX: U07.1 COVID-19 (principal)
CPT/HCPCS: 96365

== ENCOUNTER → 2021-01-25 13:49 | Outpatient (CLI) | payer BC, MEDICARE, SELFPAY ==
[2021-01-25 14:15] LABS: Basophils % 0.3 % (0.1-2.0); Eosinophils # 0.2 K/mm3 (0.0-0.4); Eosinophils % 1.6 % (0.1-12.0); Hematocrit 37.1 % (37.0-47.0); Lymphocytes # 1.2 K/mm3 (0.7-4.5); Lymphocytes % 8.9 % (10-50); Mean Corpuscular HGB Conc 29.6 g/dL (31.8-35.4); Mean Corpuscular Hemoglobin 28.6 pg (27.0-31.2); Mean Corpuscular Volume 96.5 fl (81-99); Mean Platelet Volume 7.5 fl (7.4-10.4); Monocytes # 0.3 K/mm3 (0.1-1.0); Monocytes % 2.2 % (1.7-9.3); Neutrophils # 11.3 K/mm3 (1.8-7.8); Neutrophils % 86.9 % (37.0-80.0); Platelet Count 268 K/mm3 (142-424); Red Blood Count 3.85 M/mm3 (4.20-5.40); Red Cell Distribution Width 14.2 % (11.5-17.5)
[2021-01-25 14:38] LABS: MANUAL DIFFERENTIAL MANUAL DIFFERENTIAL (MANUAL DIFF)
[2021-01-25 19:49] LABS: Lymphocytes % 4 % (10-50); Monocytes % 5 % (2-9); Neutrophils % 91 % (42-76); Platelet Estimate Normal; Total Cells Counted 100
[2021-01-25 19:50] LABS: Hypochromasia 2+
== END ==
PROVIDERS: Visit Provider Internal Medicine
DX: K62.5 Hemorrhage of anus and rectum (principal)
CPT/HCPCS: 36415; 85007; 85025

== ENCOUNTER → 2021-02-11 14:28 | Outpatient (CLI) | payer BC, MEDICARE, SELFPAY ==
[2021-02-11 14:48] LABS: Basophils # 0.1 K/mm3 (0-0.2); Basophils % 0.5 % (0.1-2.0); Eosinophils # 0.1 K/mm3 (0.0-0.4); Eosinophils % 1.1 % (0.1-12.0); Hematocrit 37.2 % (37.0-47.0); Hemoglobin 11.1 g/dL (12.2-16.2); Lymphocytes # 1.4 K/mm3 (0.7-4.5); Lymphocytes % 11.3 % (10-50); Mean Corpuscular HGB Conc 29.9 g/dL (31.8-35.4); Mean Corpuscular Hemoglobin 27.5 pg (27.0-31.2); Mean Corpuscular Volume 91.9 fl (81-99); Mean Platelet Volume 8.1 fl (7.4-10.4); Monocytes # 0.3 K/mm3 (0.1-1.0); Monocytes % 2.3 % (1.7-9.3); Neutrophils # 10.3 K/mm3 (1.8-7.8); Neutrophils % 84.8 % (37.0-80.0); Platelet Count 383 K/mm3 (142-424); Red Blood Count 4.04 M/mm3 (4.20-5.40); Red Cell Distribution Width 14.4 % (11.5-17.5); White Blood Count 12.1 K/mm3 (4.8-10.8)
[2021-02-11 15:27] LABS: Chloride 98 mmol/L (98-107); Sodium 142 mmol/L (136-145)
[2021-02-11 15:30] LABS: Alanine Aminotransferase 16 U/L (12-78); Albumin Level 3.5 g/dl (3.5-5.0); Albumin/Globulin Ratio 1.1 (1.1-1.8); Alkaline Phosphatase 105 U/L (38-126); Aspartate Amino Transferase 19 U/L (14-36); Blood Urea Nitrogen 15 mg/dl (7-17); Calcium 8.5 mg/dl (8.4-10.2); Carbon Dioxide 34 mmol/L (22.0-30.0); Estimated Glomerular Filt Rate 101 ml/min (>60); GFR (African American) 122 ML/MIN (>60); Globulin 3.1 g/dL (1.3-3.2); Glucose 168 mg/dl (74-100); Total Protein,Serum 6.6 g/dl (6.3-8.2)
[2021-02-11 15:32] LABS: Bilirubin,Total < 0.1 mg/dl (0.2-1.3)
== END ==
PROVIDERS: Visit Provider Internal Medicine
DX: R31.9 Hematuria, unspecified (principal); K92.1 Melena
CPT/HCPCS: 36415; 80053; 85025

== ENCOUNTER 2021-04-27 16:39 | Inpatient (IN) | payer BC, SELFPAY ==
--- NOTE | 2021-04-27 16:49 | XR_ITS ---
PROCEDURE INFORMATION: Exam: XR Right Hip Exam date and time: 04/27/2021 4:49 PM Age: 65 years old Clinical indication: Hip pain; Right hip; Additional info: Fall TECHNIQUE: Imaging protocol: XR Right hip. Views: 2 or 3 views hip with pelvis when performed. COMPARISON: CT ABDOMEN PELVIS WO CON 03/23/2020 12:11 PM FINDINGS: Bones/joints: Osteopenia. Acute right femur neck fracture; there is proximal and lateral displacement of the distal femur fracture fragment, and varus angulation at the fracture site. The femur head remains normally aligned at the hip joint.There are no underlying lytic skeletal lesions seen. Minimal degenerative changes of the hips with slight superior hip joint space narrowing. Pelvic bones otherwise appear intact. Soft tissues: Soft tissue swelling at the right hip. Likely hip joint effusion. Vasculature: Multiple rounded calcifications in the lower pelvis bilaterally are probably phleboliths, less likely would be urinary tract stones. IMPRESSION: Acute angulated and mildly displaced right femur neck fracture.
[2021-04-27 17:13] VITALS: BP 134/92; PULSE 92; RESP 20; O2SAT 91; BMI 35.5
--- NOTE | 2021-04-27 17:27 | HMH.EDUTC ---
[facility] [place] Disposition Clinical Impression: Hip fracture Qualifiers: Encounter type: initial encounter Fracture type: closed Laterality: right Qualified Code(s): S72.001A - Fracture of unspecified part of neck of right femur, initial encounter for closed fracture Disposition: Admitted As Inpatient Condition on Discharge: Good Medical Decision Making - Steven Inquiry Pt receiving controlled substance: No Steven was queried for this patient: No Vital Signs: 04/27/21 17:13 04/27/21 18:13 04/27/21 20:00 Temperature 98 F 98.3 F Temperature Source Oral Oral Pulse Rate Pulse Rate [Right] 92 H 78 100 H Respiratory Rate 20 16 16 Blood Pressure Blood Pressure [Right Arm] 134/92 H 121/68 109/64 L Blood Pressure Mean [Right Arm] 106 85 79 Blood Pressure Source [Right Arm] Automatic Cuff Automatic Cuff Blood Pressure Position [Right Arm] Sitting Sitting 02 Sat by Pulse Oximetry 91 L 98 90 L Oxygen Delivery Method Room Air Room Air Room Air 04/27/21 20:03 Temperature 98 F Temperature Source Pulse Rate 78 Pulse Rate [Right] Respiratory Rate 16 Blood Pressure 121/68 Blood Pressure [Right Arm] Blood Pressure Mean [Right Arm] Blood Pressure Source [Right Arm] Blood Pressure Position [Right Arm] 02 Sat by Pulse Oximetry Oxygen Delivery Method - Lab Data Lab Results 04/27/21 18:50: WBC 6.7, RBC 4.89, Hgb 13.9, Hct 43.2, MCV 88.3, MCH 28.4, MCHC 32.2, RDW 15.3, Plt Count 260, MPV 8.3, Neut % (Auto) 64.2, Lymph % (Auto) 28.4, [place] % (Auto) 5.8, Eos % (Auto) 1.1, Baso % (Auto) 0.5, Neut # (Auto) 4.3, Lymph # (Auto) 1.9, [place] # (Auto) 0.4, Eos # (Auto) 0.1, Baso # (Auto) 0.0 04/27/21 18:50: PT 11.4, INR 1.01, APTT 27.1 04/27/21 18:50: Sodium 139, Potassium 3.8, Chloride 100, Carbon Dioxide 35 H, Anion Gap 7.8, BUN 19 H, Creatinine 0.70, Estimated Creat Clear 4, Estimated GFR 85, Est GFR ( Amer) 102, Glucose 85, Calcium 8.8, Total Bilirubin 0.3, AST 22, ALT 13, Alkaline Phosphatase 82, Total Protein 7.4, Albumin 3.8, Globulin 3.6 H, Albumin/Globulin Ratio 1.1 04/27/21 18:50: SARS-CoV-2 (PCR) Not detected, Influenza A Untype (PCR) Not detected, Influenza Type B (PCR) Not detected 04/27/21 19:16: Urine Color Dk yellow, Urine Appearance Cloudy, Urine pH 8.0, Ur Specific Diagonal 1.015, Urine Protein 2+, Urine Glucose (UA) Negative, Urine Ketones Negative, Urine Blood 2+, Urine Nitrate Positive, Urine Bilirubin Negative, Urine Urobilinogen 2.0, Ur Leukocyte Esterase 1+ A, Urine RBC 10-20, Urine WBC Tntc A, Ur Squamous Epith Cells Occasional, Triple Phos Crystals 1+, Urine Bacteria 4+ A Result diagrams: 04/27/21 18:50 04/27/21 18:50 Orders (Tests/Meds): ED MEDICATIONS Generic Name Dose Route Start Last Admin Trade Name Freq PRN Reason Stop Dose Admin Alprazolam 0.5 mg 04/27/21 19:52 04/27/21 21:05 Alprazolam 1mg Tablet PO 05/27/21 19:51 0.5 mg TIDP PRN Administration Anxiety Aripiprazole 10 mg 04/28/21 09:00 Aripiprazole 10mg Tablet PO 05/28/21 08:59 DAILY KIERAN Duloxetine HCl 30 mg 04/28/21 09:00 Duloxetine 30mg Capsule. PO 05/28/21 08:59 DAILY KIERAN Ceftriaxone Sodium 1 gm/ 50 mls @ 100 mls/hr 04/27/21 20:15 04/27/21 21:24 Sodium Chloride IV 05/11/21 20:14 100 mls/hr Q24H KIERAN Administration Levothyroxine Sodium 50 mcg 04/28/21 09:00 Levothyroxine 50mcg (0.05mg) Tab PO 05/28/21 08:59 DAILY KIERAN Montelukast Sodium 10 mg 04/28/21 18:00 Montelukast Sodium 10mg Tab PO 05/28/21 17:59 PM KIERAN Morphine Sulfate 4 mg 04/27/21 19:52 04/27/21 21:07 Morphine 4mg/Ml Syringe IV 05/27/21 19:51 4 mg Q4HP PRN Administration Severe Pain Non-Formulary Medication 5 mg 04/27/21 19:52 Hydrocortisone [Cortef] PO 05/27/21 19:51 DIRECTED KIERAN Non-Formulary Medication 20 meq 04/27/21 19:52 Potassium Chloride PO DAILYP PRN taken with lasix Non-Formulary Medication 150 mg 04/27/21 21:00 04/27/21 21:05 Pregab
--- NOTE | 2021-04-27 17:42 | PC.NURSE ---
PATIENT SENT TO ER PER Nicole CABRERA APRN FOR FURTHER EVALUATION. REPORT GIVEN TO Jacki TURNER RN
--- NOTE | 2021-04-27 17:59 | HMH.EDGENADL ---
ED Disposition Clinical Impression: Hip fracture Qualifiers: Encounter type: initial encounter Fracture type: closed Laterality: right Qualified Code(s): S72.001A - Fracture of unspecified part of neck of right femur, initial encounter for closed fracture Disposition: Admitted As Inpatient Condition on Discharge: Fair - Critical Care Critical Care Time: No Attestation: On 04/27/21, the high probability of a clinically significant, sudden or life threatening deterioration of the following system(s) required my full and direct attention, intervention and personal management. The time I documented below is in addition to time spent performing reported procedures but includes the following listed in this critical care notation. Medical Decision Making - Steven Inquiry Pt receiving controlled substance: Yes Steven was queried for this patient: No Risks and benefits of using a controlled substance: were not discussed with pt by me Vital Signs: 04/27/21 17:13 04/27/21 18:13 Temperature 98 F Temperature Source Oral Pulse Rate [Right] 92 H 78 Respiratory Rate 20 16 Blood Pressure [Right Arm] 134/92 H 121/68 Blood Pressure Mean [Right Arm] 106 85 Blood Pressure Source [Right Arm] Automatic Cuff Blood Pressure Position [Right Arm] Sitting Sitting 02 Sat by Pulse Oximetry 91 L 98 Oxygen Delivery Method Room Air Room Air - Lab Data Lab Results 04/27/21 18:50: WBC 6.7, RBC 4.89, Hgb 13.9, Hct 43.2, MCV 88.3, MCH 28.4, MCHC 32.2, RDW 15.3, Plt Count 260, MPV 8.3, Neut % (Auto) 64.2, Lymph % (Auto) 28.4, [place] % (Auto) 5.8, Eos % (Auto) 1.1, Baso % (Auto) 0.5, Neut # (Auto) 4.3, Lymph # (Auto) 1.9, [place] # (Auto) 0.4, Eos # (Auto) 0.1, Baso # (Auto) 0.0 04/27/21 18:50: PT 11.4, INR 1.01, APTT 27.1 04/27/21 18:50: Sodium 139, Potassium 3.8, Chloride 100, Carbon Dioxide 35 H, Anion Gap 7.8, BUN 19 H, Creatinine 0.70, Estimated Creat Clear 4, Estimated GFR 85, Est GFR ( Amer) 102, Glucose 85, Calcium 8.8, Total Bilirubin 0.3, AST 22, ALT 13, Alkaline Phosphatase 82, Total Protein 7.4, Albumin 3.8, Globulin 3.6 H, Albumin/Globulin Ratio 1.1 Result diagrams: 04/27/21 18:50 04/27/21 18:50 Orders (Tests/Meds): ED MEDICATIONS Discontinued Medications Generic Name Dose Route Start Last Admin Trade Name Daniel PRN Reason Stop Dose Admin Morphine Sulfate 4 mg 04/27/21 18:15 04/27/21 18:39 Morphine 4mg/Ml Syringe IV 04/27/21 18:16 4 mg ONCE ONE Administration Ondansetron HCl 4 mg 04/27/21 18:15 04/27/21 18:39 Ondansetron 4mg/2ml Vial IV 04/27/21 18:16 4 mg ONCE ONE Administration ORDERS Category Date Time Status Consult to Orthopedic Surgery [CONS] Stat Cons 04/27/21 18:15 Ordered Rapid PCR Covid and Flu A/B Stat Lab 04/27/21 18:50 Received Urinalysis (cathed specimen) Stat Lab 04/27/21 18:13 Ordered - ECG Data Tracing #1 EKG interpreted by Rashid Matias MD: Rhythm: sinus Rate: 80 [place]: normal Ectopy: none Conduction: normal ST Segment Changes: none T Wave Changes: none Q Waves: none No evidence of acute ischemia or injury Normal electrocardiogram - Physician Consults Physician Consulted: Josh Time: 18:10 Reason -: Orthopedic Eval/Care Comment/Response: N.p.o. after midnight General Adult HPI - General Stated complaint: AO 0113 fell R Hip Time Seen by Provider: 04/27/21 17:59 Mode of Arrival: Ambulatory Source of Information: Patient Limitations: No Limitations Description of Symptoms (Recalled from ER Triage Doc. by RN): PATIENT C/O PAIN IN RIGHT HIP AFTER FALLING ON IT ON 04/22/20. SHE STATES SHE HAS NOT BEEN ABLE TO RAISE HER LEG SINCE THE FALL AND IS HAVING DIFFICULTY WALKING - History of Present Illness HPI narrative: Sent from the urgent treatment center for right hip fracture. States that she fell on 04/22/2021. She uses a walker and was trying to get something out of the refrigerator, but dropped it. When she bent over to try to pick i
[2021-04-27 18:13] VITALS: BP 121/68; PULSE 78; RESP 16; TEMP 36.6; O2SAT 98
--- NOTE | 2021-04-27 18:13 | XR_ITS ---
PROCEDURE INFORMATION: Exam: XR Chest Exam date and time: 04/27/2021 6:13 PM Age: 65 years old Clinical indication: Screening exam; Other screening; Patient HX: Patient is in er with hip fracture, possible surgical case, pre-op cxr. ; Additional info: Hip FX TECHNIQUE: Imaging protocol: XR of the chest. Views: 1 view. Portable AP supine exam 6:26 p.m. COMPARISON: CR XR CHEST PORTABLE 10/04/2020 11:25 PM FINDINGS: Lungs: No acute pulmonary findings. No pulmonary consolidation. Lung volumes within normal limits. Pleural spaces: Unremarkable. No significant pleural effusion. No pneumothorax. Heart/Mediastinum: Cardiac silhouette is probably within upper limits normal considering portable AP technique. Vasculature: Calcified plaque in the aortic arch. Bones/joints: Mild spinal degenerative changes. IMPRESSION: No acute findings.
--- NOTE | 2021-04-27 18:49 | PC.NURSE ---
covid swab sent to lab
[2021-04-27 18:51] LABS: Coronavirus 19, PCR Not Detected (NotDetected); Influenza A, PCR Not Detected (NotDetected); Influenza B, PCR Not Detected (NotDetected)
[2021-04-27 18:58] LABS: Basophils % 0.5 % (0.1-2.0); Eosinophils # 0.1 K/mm3 (0.0-0.4); Eosinophils % 1.1 % (0.1-12.0); Hematocrit 43.2 % (37.0-47.0); Hemoglobin 13.9 g/dL (12.2-16.2); Lymphocytes # 1.9 K/mm3 (0.7-4.5); Lymphocytes % 28.4 % (10-50); Mean Corpuscular HGB Conc 32.2 g/dL (31.8-35.4); Mean Corpuscular Hemoglobin 28.4 pg (27.0-31.2); Mean Corpuscular Volume 88.3 fl (81-99); Mean Platelet Volume 8.3 fl (7.4-10.4); Monocytes # 0.4 K/mm3 (0.1-1.0); Monocytes % 5.8 % (1.7-9.3); Neutrophils # 4.3 K/mm3 (1.8-7.8); Neutrophils % 64.2 % (37.0-80.0); Platelet Count 260 K/mm3 (142-424); Red Blood Count 4.89 M/mm3 (4.20-5.40); Red Cell Distribution Width 15.3 % (11.5-17.5); White Blood Count 6.7 K/mm3 (4.8-10.8)
[2021-04-27 19:12] LABS: Activated Partial Thrombo Time 27.1 seconds (22.8-30.6); INR 1.01 (0.9-1.1); Prothrombin Time 11.4 seconds (10.1-12.5)
--- NOTE | 2021-04-27 19:12 | ECG_ITS ---
APPROVED REPORT Exam: Resting ECG HR:80 bpm ECG Measurements Heart Rate 80 AXES WY 153 P 54 QRSd 80 QRS 43 QT 389 T 33 QTc 425 Conclusion SINUS RHYTHM NORMAL ECG UNCONFIRMED REPORT Electronically signed by : Troy Barrett MD 04/28/2021 22:23:31
[2021-04-27 19:17] LABS: Alanine Aminotransferase 13 U/L (12-78); Albumin Level 3.8 g/dl (3.5-5.0); Anion Gap 7.8 mEq/L (5-15); Aspartate Amino Transferase 22 U/L (14-36); Bilirubin,Total 0.3 mg/dl (0.2-1.3); Blood Urea Nitrogen 19 mg/dl (7-17); Calcium 8.8 mg/dl (8.4-10.2); Carbon Dioxide 35 mmol/L (22.0-30.0); Chloride 100 mmol/L (98-107); Estimated Glomerular Filt Rate 85 ml/min (>60); GFR (African American) 102 ML/MIN (>60); Globulin 3.6 g/dL (1.3-3.2); Glucose 85 mg/dl (74-100); Potassium 3.8 mmoL/L (3.5-5.1); Sodium 139 mmol/L (136-145); Total Protein,Serum 7.4 g/dl (6.3-8.2)
[2021-04-27 19:18] LABS: Albumin/Globulin Ratio 1.1 (1.1-1.8); Alkaline Phosphatase 82 U/L (38-126)
[2021-04-27 19:32] LABS: Microscopic,Cath URINE MICROSCOPIC (MICROSCOPIC)
[2021-04-27 19:34] LABS: Appearance,Urine/Cath CLOUDY (Clear); Bilirubin,Cath Negative (Negative); Blood, Urine/Cath 2+ (Negative); Color,Urine/Cath DK YELLOW (Yellow); Glucose,Urine/Cath (UA) Negative (Negative); Ketones,Urine/Cath Negative (Negative); Leukocyte Esterase,Cath 1+ (Negative); Nitrate,Cath POSITIVE (Negative); Protein,Urine/Cath 2+ (Negative); Specific Gravity, Urine/Cath 1.015 (1.005-1.030)
[2021-04-27 19:40] VITALS: BMI 32.2
[2021-04-27 19:50] LABS: Bacteria,Urine/Cath 4+ /lpf; Squamous Epithelial Ur./Cath Occasional #/hpf (0-5); WBC,Urine/Cath TNTC #/hpf (0-3)
[2021-04-27 20:00] VITALS: BP 109/64; PULSE 100; RESP 16; TEMP 36.8; O2SAT 90
[2021-04-27 20:03] VITALS: BP 121/68; PULSE 78; RESP 16; TEMP 36.6; O2SAT 98
--- NOTE | 2021-04-27 20:17 | PC.NURSE ---
patient up to floor via wheelchair @ this time
[2021-04-27 20:30] VITALS: PULSE 100; O2SAT 90
[2021-04-28] VITALS (18 sets, daily range): BP systolic 86–126; BP diastolic 60–92; PULSE 84–125; RESP 12–20; TEMP 36.5–43; O2SAT 1–97; BMI 32.2
--- NOTE | 2021-04-28 04:53 | PC.NURSE ---
pt has complained of enrique two times this shift and was treated per JUN, on 399 O2 found to be around 80%, pt had no complaints of SOA, 2L NC placed on patient at this time and sats quickly returned to the mid 's, neri in place, pt also has boot and dressing in place on right lower leg that she has asked to be left on until she is seen by the doctor
--- NOTE | 2021-04-28 07:00 | CA_ITS ---
APPROVED REPORT EXAM: Comprehensive 2D, Doppler, and color-flow Echocardiogram Compliance Counsel: RIAN Barton, RVS Ht: 5 ft 5 in Wt: 174lbs BSA: 1.86 BP: 000/00 mmHg Indications: Pre-OP Right hip Fracture, COPD, Levy'sDisease, Exsmoker 2D Dimensions Aortic Root 2.84 cm LA Volume 23.70 mL Left Atrium 3.17 cm LA Volume Index 12.381958 mL/m2 (M/F) 16-34 LVOT 1.99 cm (M/F) 1.5-2.5 M-Mode Dimensions RVDd 1.93 cm (0.9-2.6) LA Diam 3.42 cm (1.9-4.0) LVDd 5.51 cm (3.5-5.7) Ao Diam 3.12 cm (2.0-3.7) LVDs 3.40 cm (3.5-5.7) IVSd 0.79 cm (0.6-1.1) PWd 1.00 cm (0.6-1.1) EF (Teich) 68.00% EPSs 0.79 cm FS 38.30% EDV (Teich) 148.00 mL TAPSE 2.02 (<1.7) ESV (Teich) 47.40 mL LV Diastology E Decel Time 227.00 (160-240 msec) E/A Ratio 0.86 MED E' 6.90 (< 7 cm/sec) MED A' 13.40 cm/s E'/MED E' Ratio 10.75 (>14) LAT E' 13.00 (<10 cm/sec) LAT A' 9.20 cm/s E/LAT E' Ratio 5.71 (>14) Aortic Valve LVOT Max 120.00 (70-110 cm/s) LVOT VTI 19.71 cm AoV Peak Octavio. 151.00 (50-130 cm/s) AO Peak GR. 9.10 mmHg AO Mean GR. 5.10 (<5 mmHg) AO VTI 23.17 (18-25 cm) JORGE (VTI) 2.65 (2.5-4.5 cm2) Mitral Valve MV E Max Octavio. 74.00 (40-130 cm/s) MV A Velocity 86.00 (40-130 cm/s) E/A Ratio 0.86 MV Decel. Time 227.00 (160-240 ms) MV Mean Gr. 1.40 (<2mmHg) MV PHT 66.00 ms Pulmonary Valve PV Peak Velocity 87.00 (50-150 cm/s) Left Ventricle Technically difficult study because of the patient factors and poor acoustic windows. Left atrium is mildly enlarged left ventricle is normal size, visually estimated ejection fraction 50% with no obvious regional wall motion abnormality, endocardial surfaces are poorly visualized, diastolic parameters are inconclusive. Right Ventricle Right atrium and right ventricle are normal size and contractility. Aortic Valve Aortic valve is minimally thickened and fibrosed there is no aortic stenosis or aortic insufficiency. Mitral Valve Mitral valve grossly normal, there is trace mitral regurgitation. Tricuspid Valve Tricuspid valve grossly normal, there is trace tricuspid regurgitation, tricuspid regurgitation jet velocity is inadequate for calculation of the right ventricular systolic pressure. Pulmonic Valve Pulmonic valve is poorly visualized. Great Vessels Aortic root is normal size. Inferior vena cava is not well visualized. Pericardium No significant pericardial effusion noted. Conclusion 1. Normal left ventricular size, visually estimated ejection fraction 50% with no regional wall motion abnormality, endocardial surfaces are poorly visualized, diastolic parameters are inconclusive. 2. Trace mitral and tricuspid regurgitation. 3. No significant pericardial effusion noted. 4. Inferior vena cava is poorly visualized. Electronically signed by : Brice Evangelista MD 04/28/2021 19:23:22
--- NOTE | 2021-04-28 07:30 | HMH.PHAVTE ---
[facility] Pharmacy VTE Monitoring - Patient Demographics Admission date: 04/28/21 Report Date: 04/28/21 Time: 07:30 Allergies/Adverse Reactions: Patient Allergies nitrofurantoin Allergy (Intermediate, Verified 04/27/21 20:51) Unknown allergy reaction Penicillins Allergy (Intermediate, Verified 04/27/21 20:51) Swelling of Lip/Tongue/Throat Height: 1.65 m Weight: 87.725 kg Patient Problems: Current Active Problems Hip fracture (Acute) - VTE Risk Labs: VTE Related Lab Results Hgb 13.9 g/dL (12.2-16.2) 04/27/21 18:50 Hct 43.2 % (37.0-47.0) 04/27/21 18:50 Plt Count 260 K/mm3 (142-424) 04/27/21 18:50 PT 11.4 seconds (10.1-12.5) 04/27/21 18:50 INR 1.01 (0.9-1.1) 04/27/21 18:50 APTT 27.1 seconds (22.8-30.6) 04/27/21 18:50 BUN 19 mg/dl (7-17) H 04/27/21 18:50 Creatinine 0.70 mg/dl (0.52-1.04) 04/27/21 18:50 Estimated Creat Clear 4 mL/min (50-200) 04/27/21 18:50 Was VTE Risk Assessment Performed: Yes VTE Score: 11 VTE Risk Level: Moderate Risk Clinical Trial Participant: No - Prophylaxis VTE Prophylaxis Ordered?: Yes Types of VTE Prophylaxis: TEDS Knee High
[2021-04-28 09:10] LABS: Creatinine Clearance Estimated 80 mL/min (50-200)
--- NOTE | 2021-04-28 09:15 | HMH.PHAINT ---
VERIFIED HOME MEDICATIONS WITH PHARMACY
--- NOTE | 2021-04-28 10:40 | HMH.HP ---
*Admission Date: 04/28/21 *Chief complaint: hip fracture *History of present illness: 65-year-old female who was admitted to the acute inpatient service on 04/27/2021 from the [facility] ED. 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 She states that she fell and immediately had right hip pain. Since her injury, she states that she has not been able to walk or bear weight on her right hip. She presented to the [facility] on 04/27/2020 because she states that her hip pain was not improving. Upon evaluation in the [facility] and [facility] ED, she was found to have a right femur neck fracture. Upon evaluation today, the patient continues to report right hip pain. She states that her pain is well controlled at rest and with oral pain medication but is worse with any attempted movements of the right hip/leg. At baseline the patient states that she uses a walker to ambulate and wears a boot on her right foot. She has a history of necrotizing fasciitis and has underwent several surgeries on her right foot/ankle since August 2020, including a failed skin graft and removal of three tendons. Her chronic right foot wound has been managed by [facility] in [place]; she also receives home health services for wound care. Her past medical history is also significant for Medardo's disease, COPD, and fibromyalgia. She is a former smoker. She denies chest pain, shortness of breath, fever, chills, rigors, loss of consciousness, distal numbness/tingling, or any other symptoms at this time.per ortho [facility] History I have reviewed the patient's past medical history: Yes Medical History: Reports:: Anxiety, Cancer (Ovarian), Chronic Obstructive Pulmonary Disease (COPD), Gastroesophageal Reflux Disease(GERD), Home Oxygen, Lung Disease, Pulmonary Embolism Denies:: Diabetes Mellitus Type 1, Diabetes Mellitus Type 2, MRSA, Seizures *Have you ever received a pneumonia vaccine?: No *Have you received a flu vaccine this season?: No Other Medical History: Reports: Anemia, Arthritis, Cataracts, Fibromyalgia, Hypothyroidism, Thyroid Disease Laterality Cases: Bilateral: Cataract Other Surgeries: Yes: Appendectomy, Cancer Surgery (HX OF CERVICAL CANCER), Hysterectomy-Total, Other (7 surgeries on right lower extremity for necrotizing fasciitis.) Amputation: No Fractures: Yes - *Social History Smoking Status: Former smoker Tobacco Type: cigarettes # Packs/Day (cigarettes): 2 Alcohol Intake: never Substance Use Type: denies use *Occupational Status:: disabled Housing: house Household Members: spouse *Travel in the last 8 weeks: None - Psychiatric History Pschychiatric History:: Reports:: Anxiety Family Hx:: No significant family history Review of Systems - Review of Systems Review of systems:: pertinent systems reviewed and negative unless documented below - Constitutional Denies chills - Eyes Denies change in vision - ENT Denies change in voice - *Cardiovascular Denies chest pain with activity - *Respiratory Denies chest congestion - *Gastrointestinal Denies abdominal pain - *Genitourinary Denies abnormal vaginal bleeding - *Musculoskeletal Reports joint pain, Reports limited joint movement, Reports other - Integumentary/Breasts Denies hair loss - *Neurologic Denies headache(s) - Psychiatric Denies lack of enjoyment - Endocrine Denies excessive sweating - Hematologic/Lymphatic Denies easy bruising Meds Home Medications Medication Instructions Recorded Confirmed Type alprazolam 1 mg tablet 1 mg PO TIDP PRN 08/03/17 04/28/21 History montelukast 10 mg tablet 10 mg PO PM 08/03/17 04/27/21 History pregabalin 150 mg capsule 150 mg PO BID 08/03/17 04/27/21 History Levothyroxine Sodium [Synthroid 50 mcg PO DAILY 09/01/18 04/27/21 History 50mcg (0.05mg) tab] ARIPiprazole [Aripiprazole 10mg 10
--- NOTE | 2021-04-28 12:41 | HMH.ORTHOCON ---
*Admission Date: 04/28/21 <Madonna Ann - 04/28/21 12:46> *Reason for consult:: right hip fracture <Madonna Ann - 04/28/21 12:46> *History of present illness: Patient fell in her kitchen about 6 days ago injuring the right hip; she says she did not come to the hospital until yesterday for fear of COVID. Patient had limited mobility prior to the fall secondary to her right foot problems and uses a walker to mobilize with. Her medical history includes [place]'s disease, fibromyalgia, anxiety, Cancer (Ovarian), Chronic Obstructive Pulmonary Disease (COPD), Gastroesophageal Reflux Disease(GERD) and pulmonary Embolism. She is on long-term oral glucocorticoid treatment and previously was on home oxygen therapy. <Júnior Moreno De Guzman - 04/28/21 15:41> Patient is a 65-year-old female who was admitted to the acute inpatient service on 04/27/2021 from the [facility] ED. The patient reports that she fell in her kitchen on 04/22/2021 while trying to pick and shovel man something she dropped from her refrigerator. She states that she fell and immediately had right hip pain. Since her injury, she states that she has not been able to walk or bear weight on her right hip. She presented to the [facility] on 04/27/2020 because she states that her hip pain was not improving. Upon evaluation in the [facility] and [facility] ED, she was found to have a right femur neck fracture. Upon evaluation today, the patient continues to report right hip pain. She states that her pain is well controlled at rest and with oral pain medication but is worse with any attempted movements of the right hip/leg. At baseline the patient states that she uses a walker to ambulate and wears a boot on her right foot. She has a history of necrotizing fasciitis and has underwent several surgeries on her right foot/ankle since August 2020, including a failed skin graft and removal of three tendons. Her chronic right foot wound has been managed by [facility] in [place]; she also receives home health services for wound care. Her past medical history is also significant for [place]'s disease, COPD, and fibromyalgia. She is a former smoker. She denies chest pain, shortness of breath, fever, chills, rigors, loss of consciousness, distal numbness/tingling, or any other symptoms at this time. <Madonna Ann 04/28/21 14:10> [facility] History I have reviewed the patient's past medical history: Yes <Júnior Moreno 04/28/21 15:41> Yes <Madonna Ann 04/28/21 12:46> Medical History: Reports:: Anxiety, Cancer (Ovarian), Chronic Obstructive Pulmonary Disease (COPD), Gastroesophageal Reflux Disease(GERD), Home Oxygen, Lung Disease, Pulmonary Embolism Denies:: Diabetes Mellitus Type 1, Diabetes Mellitus Type 2, MRSA, Seizures <Madonna Ann 04/28/21 12:46> *Have you ever received a pneumonia vaccine?: No <Madonna Ann 04/28/21 12:46> *Have you received a flu vaccine this season?: No <Madonna Ann 04/28/21 12:46> Other Medical History: Reports: Anemia, Arthritis, Cataracts, Fibromyalgia, Hypothyroidism, Thyroid Disease <Madonna Ann 04/28/21 12:46> Laterality Cases: Bilateral: Cataract <Madonna Ann 04/28/21 12:46> Other Surgeries: Yes: Appendectomy, Cancer Surgery (HX OF CERVICAL CANCER), Hysterectomy-Total, Other (7 surgeries on right lower extremity for necrotizing fasciitis.) <Madonna Ann 04/28/21 12:46> Amputation: No <Madonna Ann 04/28/21 12:46> Fractures: Yes <Madonna Ann 04/28/21 12:46> - *Social History Smoking Status: Former smoker <Madonna Ann 04/28/21 12:46> Tobacco Type: cigarettes <Madonna Ann 04/28/21 12:46> # Packs/Day (cigarettes): 2 <Madonna Ann 04/28/21 12:46> Alcohol Intake: never <Madonna Ann 04/28/21 12:46> Substance Use Type: denies use <Madonna Ann 04/28/21 12:46> *Occupational Status:: disabled <Humberto Ann
--- NOTE | 2021-04-28 14:18 | P.PN_ITS ---
[facility] Anesthesia Checklist - Patient Identification Patient Identification: Arm Band - Structural Data Admitted From: Inpatient Planned Operative Procedure/s: Tyree arthroplasty - R Consent for Planned Operative Procedure(s) Verified: Yes - NPO Status Verified Time NPO: 00:00 - Airway Assessment C-Spine Mobility Assessed: Yes TMJ Mobility Assessed: Yes Dentition: Edentulous - Neurological Assessment Level of Consciousness: Awake Hx Seizures: No Numbness or tingling in extremities: No - Anesthesia Plan Anesthesia Risk discussed: Yes Anesthesia Plan: Verified ASA Class: III Anesthesia Type: General [facility] History I have reviewed the patient's past medical history: Yes Medical History: Reports:: Anxiety, Cancer (Ovarian), Chronic Obstructive Pulmonary Disease (COPD), Gastroesophageal Reflux Disease(GERD), Home Oxygen, Lung Disease, Pulmonary Embolism Denies:: Diabetes Mellitus Type 1, Diabetes Mellitus Type 2, MRSA, Seizures *Have you ever received a pneumonia vaccine?: No *Have you received a flu vaccine this season?: No Other Medical History: Reports: Anemia, Arthritis, Cataracts, Fibromyalgia, Hypothyroidism, Thyroid Disease, Other (Castile's dz) Anesthesia experience/problems:: None Laterality Cases: Bilateral: Cataract Other Surgeries: Yes: Appendectomy, Cancer Surgery (HX OF CERVICAL CANCER), Hysterectomy-Total, Other (7 surgeries on right lower extremity for necrotizing fasciitis.) Amputation: No Fractures: Yes - *Social History Smoking Status: Former smoker Tobacco Type: cigarettes # Packs/Day (cigarettes): 2 Alcohol Intake: never Substance Use Type: denies use *Occupational Status:: disabled Housing: house Household Members: spouse *Travel in the last 8 weeks: None - Psychiatric History Pschychiatric History:: Reports:: Anxiety Family Hx:: No significant family history
--- NOTE | 2021-04-28 20:12 | XR_ITS ---
PROCEDURE INFORMATION: Exam: XR Right Hip Exam date and time: 04/28/2021 8:12 PM Age: 65 years old Clinical indication: Device placement; Prior surgery; Surgery date: Post-operative (0-2 days); Surgery type: Total right hip surgery; Additional info: Md order TECHNIQUE: Imaging protocol: XR Right hip. Views: 2 or 3 views hip with pelvis when performed. COMPARISON: CR XR HIP RT 2-3V W/PELVIS 04/27/2021 4:50 PM FINDINGS: Bones/joints: Status post right hip arthroplasty with noncemented femoral stem and somewhat horizontal orientation to the acetabular cup with a lateral inclination measured at approximately 35 degrees. No periprosthetic fracture. Soft tissues: Innumerable rounded densities overlying the right hip soft tissues. IMPRESSION: Status post right hip arthroplasty as above.
--- NOTE | 2021-04-28 20:14 | HMH.ANESI ---
[facility] Anesthesia Record Part I Intake, IV Amount: 1,400 Estimated blood loss (mL): 300 Urine output (mL): 200 Blood Pressure: 114/68 SaO2: 97 Pulse Rate: 112 Respiratory Rate: 13 Temperature: 98.2 F Patient is:: Awake Stable to PACU at:: 20:08
--- NOTE | 2021-04-28 20:31 | SUR.PHASEI ---
2024- radiology in at this time to take post procedure xrays
--- NOTE | 2021-04-28 20:43 | SUR.PHASEI ---
2019- pt has had heart rates in the 120's range, hong aware of this and does not want to treat at this time 2036- detailed report called to solo ling on same day surgery center floor at this time.
--- NOTE | 2021-04-28 20:50 | PC.NURSE ---
patient up to floor from surgery at this time
--- NOTE | 2021-04-28 21:13 | HMH.OPNOTE ---
Date of procedure: 04/28/21 Pre-op Diagnosis:: Displaced subcapital femoral neck fracture, right hip Post-op Diagnosis:: Same Procedure performed:: Uncemented bipolar hemiarthroplasty, right hip Surgeon:: Júnior Moreno MD Commercial Appraiser(s):: Madonna nAn PA-C LLAMA FARMER:: Kimberley Islas Anesthesia: GETA Estimated blood loss (mL): 300 Clinical Note:: Patient is a 65-year-old female who sustained a displaced intracapsular fracture neck of right femur following a mechanical fall at home about 6 days ago. A hemiarthroplasty is indicated to relieve pain and restore function. The operation is clinically indicated and is the standard of care for this type of fracture. Please refer to orthopedic consult note for full details. Operative findings:: Displaced sub capital femoral neck fracture of the right hip as noted on the preoperative hip x-rays. The articular cartilage of the acetabulum is well preserved without evidence of significant arthritis. The proximal femur bone quality is soft/osteoporotic. Operative note:: On the day of the procedure the patient and her met on the floor, and a physical examination was performed. The operating side and site were marked and initialed by me. I reviewed the diagnosis, natural history and management options in detail including both the nonsurgical and surgical. Given the nature of the fracture, I have recommended surgery in the form of a hemiarthroplasty of the right hip. I have discussed the procedure, risks and benefits, alternatives, potential complications and expected outcomes with patient and her . The complications discussed include but are not limited to infection, injury to nerves and blood vessels, DVT and PE, femur fracture, limb length inequality, dislocation, implant failure, loosening, acetabular wear, osteolysis, periprosthetic femur fracture, heterotopic ossification, abductor weakness and a limp, incomplete relief of pain, incomplete return of function or motion, likely need for further surgery in future including revision, anesthetic/medical complications including heart attack, stroke, transfusion reactions and even . We discussed how any of these events can be devastating. We have discussed nonsurgical alternatives as well. We also discussed the postoperative course including the rehab and physical therapy required. Patient understood the risks, agreed to proceed with surgery, signed the consent form and no guarantees or assurances were given or implied. The patient was brought to the operating room and a general anesthesia was administered by the physical security engineer. The patient was then transferred onto the operating table and positioned in the left lateral decubitus position with the right hip facing upwards. All the bony prominences were well-padded. The right lower extremity was then prepped and draped in the usual sterile fashion. The entire operative team used isolation suits and room traffic was controlled. The surgical landmarks and incision was marked over the skin with a marking pen. Ioban sterile drape was used to cover the operative site and isolate the perineum completely from the operative field. Administration of prophylactic IV antibiotics (Ancef and vancomycin) was confirmed with the physical security engineer. A preprocedure timeout was performed as per hospital protocol. A posterior approach was used to the hip joint. An electrocautery was used for hemostasis. The skin incision was made centering over the posterior border of the greater trochanter extending posteriorly in a curvilinear fashion across the buttock. The dissection was carried through subcutaneous tissue down to the fascia jose. The fascia jose and gluteus fascia were split and a Charnley retractor was placed. The trochanteric bursa was then removed with blunt dissection. The sciatic nerve was identified and kept out of the harm's way throughout the rest of the procedure. The hip was then internally rotated and the fat over the external rota
[2021-04-29] VITALS (9 sets, daily range): BP systolic 88–135; BP diastolic 58–84; PULSE 99–125; RESP 14–21; TEMP 36.4–37.5; O2SAT 91–98; BMI 32.2
--- NOTE | 2021-04-29 05:30 | PC.NURSE ---
Spoke with Dr. Moreno at this time regarding order for Anceph with pt allergy to penicillin. orders to continue to give anceph at this time, read back and verified.
[2021-04-29 07:56] LABS: Basophils # 0.1 K/mm3 (0-0.2); Basophils % 0.6 % (0.1-2.0); Eosinophils % 0.1 % (0.1-12.0); Hematocrit 32.7 % (37.0-47.0); Hemoglobin 10.4 g/dL (12.2-16.2); Lymphocytes # 2.4 K/mm3 (0.7-4.5); Lymphocytes % 21.4 % (10-50); Mean Corpuscular HGB Conc 31.8 g/dL (31.8-35.4); Mean Corpuscular Hemoglobin 28.9 pg (27.0-31.2); Mean Corpuscular Volume 90.7 fl (81-99); Mean Platelet Volume 9.1 fl (7.4-10.4); Monocytes # 0.7 K/mm3 (0.1-1.0); Monocytes % 5.9 % (1.7-9.3); Neutrophils # 8.2 K/mm3 (1.8-7.8); Platelet Count 288 K/mm3 (142-424); Red Cell Distribution Width 15.6 % (11.5-17.5); White Blood Count 11.4 K/mm3 (4.8-10.8)
[2021-04-29 08:00] LABS: Alanine Aminotransferase 22 U/L (12-78); Anion Gap 9.9 mEq/L (5-15); Aspartate Amino Transferase 30 U/L (14-36); Bilirubin,Total 0.2 mg/dl (0.2-1.3); Blood Urea Nitrogen 17 mg/dl (7-17); Calcium 8.4 mg/dl (8.4-10.2); Carbon Dioxide 29 mmol/L (22.0-30.0); Chloride 101 mmol/L (98-107); Creatinine Clearance Estimated 80 mL/min (50-200); Estimated Glomerular Filt Rate 101 ml/min (>60); GFR (African American) 122 ML/MIN (>60); Globulin 2.8 g/dL (1.3-3.2); Glucose 148 mg/dl (74-100); Potassium 3.9 mmoL/L (3.5-5.1); Sodium 136 mmol/L (136-145); Total Protein,Serum 5.8 g/dl (6.3-8.2)
[2021-04-29 08:01] LABS: Albumin/Globulin Ratio 1.1 (1.1-1.8); Alkaline Phosphatase 59 U/L (38-126)
--- NOTE | 2021-04-29 08:01 | HMH.ANESII ---
[facility] Anesthesia Record Part II Discharge Time: 20:38 Destination: Surgical Day Care (OP Surgery) PACU nurse assessment reviewed?: Yes Patient Condition:: Good Anesthesia Complications:: None Swallowing reflex intact?: Yes Cyanosis?: No Blood Pressure: 118/84 Pulse Rate: 115 Temperature: 98.3 F Mental Status: Alert & Oriented Pain level:: 0 Nausea and/or vomitting:: None Intake, IV Amount: 0
--- NOTE | 2021-04-29 08:51 | HMH.ORTHPN ---
Subjective Date: 04/29/21 <Madonna Ann - 04/29/21 09:01> Time: 08:30 <Madonna Ann - 04/29/21 09:01> Principal diagnosis: s/p right hip bipolar hemiarthroplasty <Madonna Ann - 04/29/21 09:01> Interval history: Patient is a 65-year-old female who underwent an uneventful right hip bipolar hemiarthroplasty yesterday 04/28/2021. Today the patient is postop day #1. This morning she is lying comfortably in the bed and her is at the bedside. The patient reports that she is doing well this morning. She does report right hip pain that she states is well controlled with pain medication. She states that she is eating and drinking well and denies any nausea or vomiting. She has not yet been up to ambulate. She denies fever, chills, rigors, chest pain, shortness of breath, distal tingling/numbness, or any other symptoms at this time. Her past medical history is significant for [place]'s disease, fibromyalgia, anxiety, ovarian cancer, Chronic Obstructive Pulmonary Disease (COPD), Gastroesophageal Reflux Disease (GERD), and pulmonary embolism. She is on long-term oral glucocorticoid treatment and previously was on home oxygen therapy. <Madonna Ann - 04/29/21 09:10> PN: Obj Ex Vital signs: Temp Pulse Resp BP Pulse Ox 97.8 F 101 H 21 101/58 L 92 L 04/29/21 16:00 04/29/21 16:00 04/29/21 16:00 04/29/21 16:00 04/29/21 16:00 <Júnior Moreno - 04/29/21 20:15> Temp Pulse Resp BP Pulse Ox 98.3 F 115 H 18 118/84 96 04/29/21 08:02 04/29/21 08:02 04/28/21 20:38 04/29/21 08:02 04/28/21 20:38 <Madonna Ann - 04/29/21 09:01> - Constitutional no acute distress, obese, cooperative <Madonna Ann - 04/29/21 09:01> - Routine HEENT Exam Head: Present: normocephalic, atraumatic <SethMadonna 04/29/21 09:01> Eye: Present: EOMI, PERRL <AnnMadonna 04/29/21 09:01> ENT: Present: mucous membranes moist <AnnMadonna 04/29/21 09:01> - Routine Neck Exam Present: supple, full ROM, trachea midline. Absent: JVD, lymphadenopathy <SethMadonna 04/29/21 09:01> - Routine Respiratory Exam Absent: accessory muscle use, respiratory distress <SethMadonna 04/29/21 09:01> Comments: Symmetric chest movement, able to speak in complete sentences <SethMadonna 04/29/21 09:01> - Routine Cardiovascular Exam Present: RRR. Absent: JVD <SethMadonna 04/29/21 09:01> Comments: Normal peripheral pulses <SethMadonna 04/29/21 09:01> - Routine Abdominal Exam Present: soft. Absent: tenderness <AnnMadonna 04/29/21 09:01> - Routine Extremities Exam Present: pulses intact, normal capillary refill. Absent: calf tenderness <AnnMadonna 04/29/21 09:01> Comments: Upon examination of the lower extremities: The limb lengths are equal. Upon examination the right hip: Dressings present over the right hip are clean, dry, and intact. No evidence of any bleeding or drainage noted. Attempted movements of the right hip/leg are painful as to be expected at this stage. Thigh and calf are soft and nontender; Homans' sign is negative. No clinical evidence of DVT noted. Distal neurovascular status is intact; sensation to light touch is grossly intact throughout. Patient is actively mobilizing the knee, ankle, and toes. Postoperative check x-ray is satisfactory. <SethMadonna 04/29/21 09:01> - Routine Skin Exam Present: intact, warm, normal turgor. Absent: erythema, jaundice <SethMadonna 04/29/21 09:01> - Routine Neurological Exam Present: alert, oriented X3, moving all extremities, normal tone, normal speech. Absent: sensory deficit, motor deficit, altered mental status <Madonna Ann 04/29/21 09:01> - Routine Psychiatric Exam Present: normal affect, cooperative <Madonna Ann - 04/29/21 09:01> - Urinary Catheter Management Keene Cath placed during this visit: no <Júnior Moreno - 04/29/
--- NOTE | 2021-04-29 09:57 | HMH.OTEV ---
OT Inpatient Evaluation Rehab OT IP Evaluation Start: 04/28/21 20:22 Freq: ONCE Status: Complete Protocol: Document 04/29/21 09:45 JEAN CLAUDESONA (Rec: 04/29/21 09:57 TEJAL [id number]) Rehab OT IP Assessment Subjective History 65-year-old female who was admitted to the acute inpatient service on 04/27/2021 from the [facility]. The patient reports that she fell in her kitchen on 04/22/2021 while trying to burr picker something she dropped from her refrigerator. She states that she fell and immediately had right hip pain. Since her injury, she states that she has not been able to walk or bear weight on her right hip. She presented to the [facility] on 04/27 because she states that her hip pain was not improving . Upon evaluation in the [facility] and [facility]iatric ED, she was found to have a right femur neck fracture. Upon evaluation today, the patient continues to report right hip pain. She states that her pain is well controlled at rest and with oral pain medication but is worse with any attempted movements of the right hip/leg . At baseline the patient states that she uses a walker to ambulate and wears a boot on her right foot. She has a history of necrotizing fasciitis and has underwent several surgeries on her right foot/ankle since August 2020, including a failed skin graft and removal of three tendons. Her chronic right foot wound has been managed by [facility] in [place]; she also receives home health services for wound care. Her
--- NOTE | 2021-04-29 10:23 | SW/DCPLANNER ---
Addendum entered by Madiha Monique 05/04/21 13:41: Iron w/ [facility] has stated that information/order has been reviewed and services will start this week for this patient. Addendum entered by Madiha Monique 05/04/21 10:17: I spoke with this patient again today regarding discharge plans. Patient stated that only facilities that she is interested in for placement is: [facility] (no beds), [facility] (no beds) and [facility] (not accepting admissions). I explained the option of [facility] and patient is not interested and is wanting to return home with home health services. I will set patient up with [facility] this AM. Patient also stated that she has all DME needed at home: rolling walker, wheel chair, hospital bed and BSC. Patients concurs with discharge plan. Patient will discharge today. Addendum entered by Madiha Monique 05/03/21 12:00: I spoke with Iron from [facility]: patient is not medically stable for discharge at this time but plans to discharge home and resume home health services. I will continue to update [facility]. Addendum entered by Madiha Monique 04/29/21 11:36: PT/OT has recommended SNF level of care at time of discharge. I spoke with patient regarding placement: patient is adamant to return home with her and home health services. Patient stated that she has a rolling walker, bedside commode, wheelchair and hospital bed at home. I will continue to follow up with this patient until medically stable for discharge. Original Note: This patient is currently established with [facility]. I did speak w/ Iron wRadha Ballesteros and she has stated that they will pick this patient up once medically stable for discharge. I will follow up with patient once PT/OT evaluation is completed. Discharge date is unknown at this time.
--- NOTE | 2021-04-29 10:39 | HMH.ACPN2 ---
Internal Medicine - PN: Subj *Date: 04/29/21 *Time: 20:24 Interval history: 65-year-old female patient sitting in bed quietly she denies any chest pain or shortness of breath during the night. She reports her pain was controlled during the night as well. Elastoplast dressing clean dry and intact right hip, there is a dressing to right lower extremity/ankle clean/dry/intact also. Exam Vital signs and Labs for Last 24 Hours: Temp Pulse Resp BP Pulse Ox 98.3 F 115 H 16 118/84 94 L 04/29/21 08:02 04/29/21 08:02 04/29/21 08:00 04/29/21 08:02 04/29/21 08:00 Laboratory Results - last 24 hr 04/28/21 13:00: Blood Type O Positive, Antibody Screen Negative 04/29/21 07:07: Sodium 136, Potassium 3.9, Chloride 101, Carbon Dioxide 29, Anion Gap 9.9, BUN 17, Creatinine 0.60, Estimated Creat Clear 80, Estimated GFR 101, Est GFR ( Amer) 122, Glucose 148 H, Calcium 8.4, Total Bilirubin 0.2, AST 30 D, ALT 22 D, Alkaline Phosphatase 59, Total Protein 5.8 L, Albumin 3.0 L, Globulin 2.8, Albumin/Globulin Ratio 1.1 04/29/21 07:07: WBC 11.4 H D, RBC 3.60 L D, Hgb 10.4 L, Hct 32.7 L, MCV 90.7, MCH 28.9, MCHC 31.8, RDW 15.6, Plt Count 288, MPV 9.1, Neut % (Auto) 72.0, Lymph % (Auto) 21.4, Brantley % (Auto) 5.9, Eos % (Auto) 0.1, Baso % (Auto) 0.6, Neut # (Auto) 8.2 H, Lymph # (Auto) 2.4, Brantley # (Auto) 0.7, Eos # (Auto) 0.0, Baso # (Auto) 0.1 I & O for Last 24 hours: Intake & Output 04/26/21 04/27/21 04/28/21 04/29/21 23:59 23:59 23:59 23:59 Intake Total 1450 / 1450 0 / 0 Output Total 300 / 900 600 / 600 Balance 1150 / 550 -600 / -600 Weight 193 lb 6.4 oz 193 lb 5.526 oz 193 lb 5.526 oz Microbiology Reports for the Last 24 Hours: Microbiology 04/27/21 19:16 Urine,Catheterized Urine Culture - Preliminary Gram Negative Rods - Constitutional no acute distress - *Routine HEENT Exam Head: Present: normocephalic Eye: Present: EOMI ENT: Present: mucous membranes moist - *Routine Neck Exam Present: trachea midline. Absent: tracheal deviation - *Routine Respiratory Exam Present: CTA bilaterally. Absent: accessory muscle use - *Routine Cardiovascular Exam Present: RRR - *Routine Abdominal Exam Present: soft, normoactive bowel sounds. Absent: tenderness, firm - *Routine Extremities Exam Present: edema, pulses intact. Absent: cyanosis, clubbing, full ROM, calf tenderness - *Routine Skin Exam Present: dry, warm, wounds. Absent: cyanosis, erythema Comments: Elastoplast dressing to right hip is clean/dry/intact Dressing to right lower extremity/ankle clean/dry/intact - *Routine Neurological Exam Present: alert, oriented X3. Absent: motor deficit - Routine Psychiatric Exam Present: normal affect, normal thought process. Absent: auditory hallucinations Assessment and Plan (1) History of ankle surgery Status: Acute Category: Surgical Code(s): Z98.890 - Other specified postprocedural states (2) Hip fracture Status: Acute Qualifiers: Encounter type: initial encounter Fracture type: closed Laterality: right Qualified Code(s): S72.001A - Fracture of unspecified part of neck of right femur, initial encounter for closed fracture Category: Medical Code(s): S72.009A - Fracture of unspecified part of neck of unspecified femur, initial encounter for closed fracture (3) Non-healing non-surgical wound Status: Acute Category: Medical Code(s): T14.8XXA - Other injury of unspecified body region, initial encounter (4) Necrotizing fasciitis of ankle and foot Status: Chronic Category: Medical Code(s): M72.6 - Necrotizing fasciitis - Assessment and plan all Dx Assessment and Plan for all problems:: Rounded with Orders per Dr. Carl: 1. Continue current medical regimen 2. Plan for discharge
--- NOTE | 2021-04-29 11:26 | HMH.PTEV ---
Physical Therapy Evaluation Rehab PT IP Evaluation Start: 04/28/21 20:22 Freq: ONCE Status: Active Protocol: Document 04/29/21 11:21 PHORNE (Rec: 04/29/21 11:26 PHORNE [id number]) Subjective/History History History 65 yowf adm to [facility] after ground level fall at hoem with R femur fx, now S/P R hip hemiarthroplasty. She reports she lives with her spouse and is generally independent with all mobility using a RW at baseline. No steps to enter the home. She does have prior R ankle injury due to necrotizing fasciitis with multiple surgeries which limits her mobility at baseline. Subjective Subjective Pt c/o soreness in the R hip this am. Rehab PT IP Eval Objective Appearance Patient Behavior Appropriate Patient Orientation Person,Place,Time Difficulty following instructions none Speech Pattern Clear Ambulation Patient Able to Ambulate Yes Ambulation Observation IP General Gait Pattern Observation Antalgic Gait,Shuffling Step, Decrease Stride Lngth (R), Decrease Stride Lngth (L) Ambulation Distance (feet) 2 Ambulation Assistive Device Rolling Walker Ambulation Ability Minimal x 1 (25% assist) Balance Ability to Arise Able, uses arms to help Sitting Balance Steady, safe Standing Balance Steady, wide stance Dynamic Sitting Balance Ability Good Dynamic Standing Balance Ability Fair Transfers Bed Transfer Ability Minimal x 1 (25% assist) Chair Transfer Ability Minimal x 1 (25% assist) Sit to Stand Bed Transfer Ability Moderate x 1 (50% assist) Sit to Stand Chair Transfer Ability Moderate x 1 (50% assist) ROM RLE PT ROM Status ABN Abnormal ROM Comment R ankle NT due to prior injury MMT RLE PT MMT ABN Abnormal MMT Grade R hip 2/5 grossly, R ankle 0/5 Rehab PT IP prob,goals,plan Problems Date of Evaluation: 04/29/21 PT IP Problems Bed Mobility,Transfers,Gait, Self care Rehab Potential Rehab Potential Good Plan PT Intervention Plan Bed Mobility,Transfers,Gait, Self care,Therapeutic Exercise PT Plan Frequency BID Duration LOS Discha
[2021-04-30] VITALS: BP 122/68; PULSE 124; RESP 18; TEMP 37.6; O2SAT 92
[2021-04-30 04:00] VITALS: BP 121/63; PULSE 122; RESP 18; TEMP 38.8; O2SAT 95
[2021-04-30 05:34] VITALS: BMI 32.2
[2021-04-30 06:32] LABS: Basophils # 0.1 K/mm3 (0-0.2); Basophils % 0.7 % (0.1-2.0); Eosinophils % 0.1 % (0.1-12.0); Hematocrit 28.1 % (37.0-47.0); Lymphocytes # 2.2 K/mm3 (0.7-4.5); Lymphocytes % 20.1 % (10-50); Mean Corpuscular HGB Conc 31.5 g/dL (31.8-35.4); Mean Corpuscular Hemoglobin 28.2 pg (27.0-31.2); Mean Corpuscular Volume 89.5 fl (81-99); Mean Platelet Volume 8.8 fl (7.4-10.4); Monocytes # 0.6 K/mm3 (0.1-1.0); Monocytes % 5.4 % (1.7-9.3); Neutrophils % 73.8 % (37.0-80.0); Platelet Count 279 K/mm3 (142-424); Red Blood Count 3.14 M/mm3 (4.20-5.40); White Blood Count 10.8 K/mm3 (4.8-10.8)
[2021-04-30 06:43] LABS: Hemoglobin 8.9 g/dL (12.2-16.2)
[2021-04-30 07:05] LABS: Anion Gap 5.5 mEq/L (5-15); Blood Urea Nitrogen 9 mg/dl (7-17); Calcium 8.2 mg/dl (8.4-10.2); Carbon Dioxide 32 mmol/L (22.0-30.0); Chloride 98 mmol/L (98-107); Creatinine Clearance Estimated 80 mL/min (50-200); Estimated Glomerular Filt Rate 125 ml/min (>60); GFR (African American) 151 ML/MIN (>60); Glucose 118 mg/dl (74-100); Potassium 3.5 mmoL/L (3.5-5.1); Sodium 132 mmol/L (136-145)
[2021-04-30 08:00] VITALS: BP 133/84; PULSE 100; RESP 18; TEMP 37.4; O2SAT 93
--- NOTE | 2021-04-30 09:19 | HMH.ORTHPN ---
Subjective Date: 04/30/21 Time: 08:45 Principal diagnosis: s/p right hip bipolar hemiarthroplasty Interval history: Patient is a 65-year-old female who underwent an uneventful right hip bipolar hemiarthroplasty on 04/28/2021. Today the patient is postop day #2. This morning she is lying comfortably in bed. The patient reports that she is doing well this morning. She does continue to report right hip pain. She states that she is eating and drinking well and denies any nausea or vomiting. She reports that she ambulated twice yesterday with the assistance of physical therapy and that this went well. She denies fever, chills, rigors, chest pain, palpitations, shortness of breath, distal tingling/numbness, or any other symptoms at this time. Her past medical history is significant for Medardo's disease, fibromyalgia, anxiety, ovarian cancer, Chronic Obstructive Pulmonary Disease (COPD), Gastroesophageal Reflux Disease (GERD), and pulmonary embolism. She is on long-term oral glucocorticoid treatment and previously was on home oxygen therapy. PN: Obj Ex Vital signs: Temp Pulse Resp BP Pulse Ox 99.3 F 100 H 18 133/84 93 L 04/30/21 08:00 04/30/21 08:00 04/30/21 08:00 04/30/21 08:00 04/30/21 08:00 - Constitutional no acute distress, obese, cooperative - Routine HEENT Exam Head: Present: normocephalic, atraumatic Eye: Present: EOMI, PERRL ENT: Present: mucous membranes moist - Routine Neck Exam Present: supple, full ROM, trachea midline. Absent: JVD - Routine Respiratory Exam Absent: accessory muscle use, respiratory distress Comments: Symmetric chest movement, able to speak in complete sentences - Routine Cardiovascular Exam Present: RRR. Absent: JVD Comments: Normal peripheral pulses - Routine Abdominal Exam Present: soft. Absent: tenderness - Routine Extremities Exam Present: pulses intact, normal capillary refill. Absent: calf tenderness Comments: Upon examination of the lower extremities: The limb lengths are equal. The surgical incision is healing well. No induration, erythema, drainage, bleeding, or other signs of infection noted. There is a Dermabond Prineo dressing in place. The right hip and proximal femur are tender to palpation. Attempted movements of the right hip are painful as to be expected at this stage. Thigh and calf are soft and nontender; Homans' sign is negative. No clinical evidence of DVT noted. Distal neurovascular status is intact. Sensation to light touch is grossly intact throughout. Patient is actively mobilizing the knee, ankle, and toes. Dressing present over the right foot/ankle is clean, dry, and intact. - Routine Skin Exam Present: intact, warm, normal turgor. Absent: jaundice - Routine Neurological Exam Present: alert, oriented X3, normal tone, normal speech. Absent: sensory deficit, motor deficit, altered mental status - Routine Psychiatric Exam Present: normal affect, cooperative - Urinary Catheter Management [place] Cath placed during this visit: no Urethral indwelling: No Progress Note: A&P (1) History of ankle surgery Status: Acute (2) Hip fracture Status: Acute (3) Non-healing non-surgical wound Status: Acute (4) Necrotizing fasciitis of ankle and foot Status: Chronic Assessment and Plan for All Diagnoses:: I have discussed the clinical findings and progress with the patient. Overall she is doing well from an orthopedic standpoint and can be discharged when medically appropriate. I changed her surgical dressings today and the surgical incision appears clean, dry, and healthy. No evidence of bleeding, drainage, or other signs of infection noted. A sterile bordered gauze dressing was reapplied over her incision. She has a Dermabond Prineo dressing in place, I have given the patient appropriate care instructions for her Dermabond Prineo dressing. Continue PT/OT and standard precautions for a posterior approach to the hip
--- NOTE | 2021-04-30 09:46 | P.PN_ITS ---
Internal Medicine - PN: Subj *Date: 04/30/21 *Time: 09:46 Exam Vital signs and Labs for Last 24 Hours: Temp Pulse Resp BP Pulse Ox 99.3 F 100 H 18 133/84 93 L 04/30/21 08:00 04/30/21 08:00 04/30/21 08:00 04/30/21 08:00 04/30/21 08:00 Laboratory Results - last 24 hr 04/30/21 06:15: WBC 10.8, RBC 3.14 L, Hgb 8.9 L D, Hct 28.1 L, MCV 89.5, MCH 28.2, MCHC 31.5 L, RDW 16.0, Plt Count 279, MPV 8.8, Neut % (Auto) 73.8, Lymph % (Auto) 20.1, [place] % (Auto) 5.4, Eos % (Auto) 0.1, Baso % (Auto) 0.7, Neut # (Auto) 8.0 H, Lymph # (Auto) 2.2, [place] # (Auto) 0.6, Eos # (Auto) 0.0, Baso # (Auto) 0.1 04/30/21 06:15: Sodium 132 L, Potassium 3.5, Chloride 98, Carbon Dioxide 32 H, Anion Gap 5.5, BUN 9 D, Creatinine 0.50 L, Estimated Creat Clear 80, Estimated GFR 125, Est GFR ( Amer) 151 D, Glucose 118 H D, Calcium 8.2 L I & O for Last 24 hours: Intake & Output 04/27/21 04/28/21 04/29/21 04/30/21 23:59 23:59 23:59 23:59 Intake Total 1450 / 1450 600 / 700 340 / 340 Output Total 300 / 900 600 / 600 Balance 1150 / 550 0 / 100 340 / 340 Weight 87.725 kg 87.7 kg 87.7 kg 87.7 kg Microbiology Reports for the Last 24 Hours: Microbiology 04/27/21 19:16 Urine,Catheterized Urine Culture - Final Proteus mirabilis Assessment and Plan (1) History of ankle surgery Status: Acute Category: Surgical Code(s): Z98.890 - Other specified postprocedural states (2) Hip fracture Status: Acute Qualifiers: Encounter type: initial encounter Fracture type: closed Laterality: right Qualified Code(s): S72.001A - Fracture of unspecified part of neck of right femur, initial encounter for closed fracture Category: Medical Code(s): S72.009A - Fracture of unspecified part of neck of unspecified femur, initial encounter for closed fracture (3) Non-healing non-surgical wound Status: Acute Category: Medical Code(s): T14.8XXA - Other injury of unspecified body region, initial encounter (4) Necrotizing fasciitis of ankle and foot Status: Chronic Category: Medical Code(s): M72.6 - Necrotizing fasciitis The patient's infection will respond to the chosen ABx?: Yes (PROTEUS IN URINE, SUSCEPTIBLE) Is the patient receiving the right drug, dose, and route?: Yes Could a more targeted ABx be ordered?: No
[2021-04-30 11:30] VITALS: BP 137/77; PULSE 110; RESP 18; TEMP 37.9; O2SAT 91
--- NOTE | 2021-04-30 12:12 | XR_ITS ---
FINAL REPORT CLINICAL HISTORY: fever FINDINGS: The heart size is normal. The mediastinum is normal. There is no focal infiltrate or edema. There are no pleural effusions. There is no pneumothorax. There is no osseous abnormality. IMPRESSION: No acute cardiopulmonary process Reviewed, Interpreted and Dictated by Jose David Patterson III, MD Transcribed by Jonh Hsu Authenticated by Jose David Patterson III, MD on 04/30/2021 01:05:08 PM [facility]
--- NOTE | 2021-04-30 12:56 | HMH.ACPN2 ---
Internal Medicine - PN: Subj *Date: 04/30/21 *Time: 09:00 Interval history: pt states doing well. ortho pa at bedside states hip incision c/d/i no redness or drainage Exam Vital signs and Labs for Last 24 Hours: Temp Pulse Resp BP Pulse Ox 100.3 F H 110 H 18 137/77 91 L 04/30/21 11:30 04/30/21 11:30 04/30/21 11:30 04/30/21 11:30 04/30/21 11:30 Laboratory Results - last 24 hr 04/30/21 06:15: WBC 10.8, RBC 3.14 L, Hgb 8.9 L D, Hct 28.1 L, MCV 89.5, MCH 28.2, MCHC 31.5 L, RDW 16.0, Plt Count 279, MPV 8.8, Neut % (Auto) 73.8, Lymph % (Auto) 20.1, [place] % (Auto) 5.4, Eos % (Auto) 0.1, Baso % (Auto) 0.7, Neut # (Auto) 8.0 H, Lymph # (Auto) 2.2, [place] # (Auto) 0.6, Eos # (Auto) 0.0, Baso # (Auto) 0.1 04/30/21 06:15: Sodium 132 L, Potassium 3.5, Chloride 98, Carbon Dioxide 32 H, Anion Gap 5.5, BUN 9 D, Creatinine 0.50 L, Estimated Creat Clear 80, Estimated GFR 125, Est GFR ( Amer) 151 D, Glucose 118 H D, Calcium 8.2 L I & O for Last 24 hours: Intake & Output 04/28/21 04/29/21 04/30/21 05/01/21 11:59 11:59 11:59 11:59 Intake Total 50 / 50 1520 / 1520 820 / 820 240 / 240 Output Total 300 / 300 600 / 600 Balance -250 / -250 920 / 920 820 / 820 240 / 240 Weight 193 lb 6.4 oz 193 lb 5.526 oz 193 lb 5.526 oz Microbiology Reports for the Last 24 Hours: Microbiology 04/27/21 19:16 Urine,Catheterized Urine Culture - Final Proteus mirabilis - Constitutional no acute distress, chronically ill appearing - *Routine HEENT Exam Head: Present: normocephalic Eye: Present: PERRL ENT: Present: mucous membranes moist - *Routine Neck Exam Present: supple. Absent: lymphadenopathy - *Routine Respiratory Exam Present: CTA bilaterally - *Routine Cardiovascular Exam Present: RRR - *Routine Abdominal Exam Present: soft, normoactive bowel sounds. Absent: tenderness - *Routine Extremities Exam Absent: cyanosis, clubbing, edema Comments: dressing to rt ankle c/d/i - *Routine Skin Exam Present: warm, wounds. Absent: rash Comments: dressing to rt ankle - *Routine Neurological Exam Present: alert, oriented X3 Assessment and Plan (1) History of ankle surgery Status: Acute Category: Surgical Code(s): Z98.890 - Other specified postprocedural states (2) Hip fracture Status: Acute Qualifiers: Encounter type: initial encounter Fracture type: closed Laterality: right Qualified Code(s): S72.001A - Fracture of unspecified part of neck of right femur, initial encounter for closed fracture Category: Medical Code(s): S72.009A - Fracture of unspecified part of neck of unspecified femur, initial encounter for closed fracture (3) Non-healing non-surgical wound Status: Acute Category: Medical Code(s): T14.8XXA - Other injury of unspecified body region, initial encounter (4) Necrotizing fasciitis of ankle and foot Status: Chronic Category: Medical Code(s): M72.6 - Necrotizing fasciitis - Assessment and plan all Dx Assessment and Plan for all problems:: rounded with dr leon all orders per dr leon check for source of fever blood cx. chest xray wound eval of ankle
[2021-04-30 13:14] LABS: Adenovirus,PCR Not Detected (NotDetected); Bordetella Pertussis Not Detected (NotDetected); Chlamydophila Pneumoniae, PCR Not Detected (NotDetected); Coronavirus 229E Not Detected (NotDetected); Coronavirus NL63 Not Detected (NotDetected); Coronavirus OC43 Not Detected (NotDetected); Coronovirus HKU1,PCR Not Detected (NotDetected); Human Metapneumovirus Not Detected (NotDetected); Influenza A, PCR Not Detected (NotDetected); Influenza AH1, 2009 Not Detected (NotDetected); Influenza AH1, PCR Not Detected (NotDetected); Influenza AH3,PCR Not Detected (NotDetected); Influenza B, PCR Not Detected (NotDetected); Mycoplasma Pneumoniae, PCR Not Detected (NotDetected); Parainfluenza 1, PCR Not Detected (NotDetected); Parainfluenza 2, PCR Not Detected (NotDetected); Parainfluenza 3, PCR Not Detected (NotDetected); Parainfluenza 4, PCR Not Detected (NotDetected); Respiratory Syncytial Virus Not Detected (NotDetected); Rhinovirus/Enterovirus Not Detected (NotDetected)
--- NOTE | 2021-04-30 14:17 | HMH.ORTHPN ---
Subjective Date: 04/30/21 <Madonna Ann - 04/30/21 14:18> Time: 02:00 <Madonna Ann 04/30/21 14:18> Principal diagnosis: s/p right hip bipolar hemiarthroplasty <Madonna Ann 04/30/21 14:38> Interval history: Patient is a 65-year-old female who underwent an uneventful right hip bipolar hemiarthroplasty on 04/28/2021. Today the patient is postop day #2. This afternoon she is sitting in a chair at the bedside and her is with her. She does continue to report right hip pain. She states that she is eating and drinking well and denies any nausea or vomiting. She denies chills, rigors, chest pain, palpitations, shortness of breath, distal tingling/numbness, or any other symptoms at this time. Her past medical history is significant for Rice's disease, fibromyalgia, anxiety, ovarian cancer, Chronic Obstructive Pulmonary Disease (COPD), Gastroesophageal Reflux Disease (GERD), and pulmonary embolism. She is on long-term oral glucocorticoid treatment and previously was on home oxygen therapy. <Madonna Ann - 04/30/21 14:38> PN: Obj Ex Vital signs: Temp Pulse Resp BP Pulse Ox 99.1 F 120 H 18 119/59 L 90 L 04/30/21 15:09 04/30/21 15:09 04/30/21 15:09 04/30/21 15:09 04/30/21 15:09 <Júnior Moreno - 04/30/21 16:56> Temp Pulse Resp BP Pulse Ox 100.3 F H 110 H 18 137/77 91 L 04/30/21 11:30 04/30/21 11:30 04/30/21 11:30 04/30/21 11:30 04/30/21 11:30 <Madonna Ann 04/30/21 14:18> - Constitutional no acute distress, obese, cooperative <Madonna Ann 04/30/21 14:18> - Routine HEENT Exam Head: Present: normocephalic, atraumatic <Madonna Ann 04/30/21 14:18> Eye: Present: EOMI, PERRL <Madonna Ann 04/30/21 14:18> ENT: Present: mucous membranes moist <Madonna Ann 04/30/21 14:18> - Routine Neck Exam Present: supple, full ROM, trachea midline. Absent: JVD <Madonna Ann 04/30/21 14:18> - Routine Respiratory Exam Absent: accessory muscle use, respiratory distress <Madonna Ann 04/30/21 14:18> Comments: Symmetric chest movement, able to speak in complete sentences <Madonna Ann 04/30/21 14:18> - Routine Cardiovascular Exam Present: RRR. Absent: JVD <Madonna Ann 04/30/21 14:18> Comments: normal peripheral pulses <Madonna Ann 04/30/21 14:18> - Routine Abdominal Exam Present: soft. Absent: tenderness <Madonna Ann 04/30/21 14:18> - Routine Extremities Exam Present: pulses intact, normal capillary refill <Madonna Ann 04/30/21 14:18> Comments: Upon examination of the lower extremities: The limb lengths are equal. Dressings present over the right hip are clean, dry, and intact. No evidence of bleeding or drainage noted. The right hip and proximal femur are tender to palpation. Attempted movements of the right hip are painful as to be expected at this stage. Thigh and calf are soft and nontender; Homans' sign is negative. No clinical evidence of DVT noted. Distal neurovascular status is intact. Sensation to light touch is grossly intact throughout. Dressing present over the right foot/ankle is clean, dry, and intact. Upon removal of the dressing, there is a large, chronic, open wound present over the anterolateral aspect of the right foot/ankle. The wound is covered in healthy appearing pink granulation tissue. No necrosis, erythema, purulent drainage, or induration noted. Distal neurovascular status is intact. Patient is actively mobilizing the toes. <Madonna Ann 04/30/21 14:55> - Routine Skin Exam Present: intact, warm, normal turgor. Absent: gangrene, ecchymosis <Madonna Ann 04/30/21 14:26> - Routine Neurological Exam Present: alert, oriented X3, moving all extremities, normal tone, normal speech. Absent: sensory deficit, motor deficit, altered mental status <Madonna Ann - 04/30/21 14:26> - Routine Psychiatric Exam Present: normal affect, cooperative <[place]ia
[2021-04-30 15:09] VITALS: BP 119/59; PULSE 120; RESP 18; TEMP 37.3; O2SAT 90
--- NOTE | 2021-04-30 15:10 | PC.NURSE ---
patient has done okay. fever elevated, required a max assist to get back to bed. dressing to ankle changed by ortho and pt. several complaints of pain requiring pain medication. vitals have been stable. has been incontinent of urine.
[2021-04-30 20:00] VITALS: BP 113/62; PULSE 114; RESP 20; TEMP 38.2; O2SAT 90
[2021-05-01] VITALS: BP 122/75; PULSE 111; RESP 21; TEMP 37.9; O2SAT 94
[2021-05-01 04:00] VITALS: BP 140/58; PULSE 121; RESP 16; TEMP 37.8; O2SAT 90
--- NOTE | 2021-05-01 06:22 | PC.NURSE ---
pt has remained on room air t/o shift, has complained of pain one time this shift and was treated with PO meds first and then IV when no relief was achieved, pt has been incontinent of bowel and bladder t/o shift
[2021-05-01 06:38] LABS: Basophils # 0.1 K/mm3 (0-0.2); Eosinophils % 0.1 % (0.1-12.0); Monocytes # 0.6 K/mm3 (0.1-1.0)
[2021-05-01 06:43] LABS: Basophils % 0.5 % (0.1-2.0); Lymphocytes # 1.7 K/mm3 (0.7-4.5); Mean Corpuscular HGB Conc 31.2 g/dL (31.8-35.4); Mean Corpuscular Hemoglobin 28.5 pg (27.0-31.2); Mean Corpuscular Volume 91.1 fl (81-99); Mean Platelet Volume 8.4 fl (7.4-10.4); Monocytes % 4.7 % (1.7-9.3); Neutrophils # 10.8 K/mm3 (1.8-7.8); Neutrophils % 81.7 % (37.0-80.0); Platelet Count 269 K/mm3 (142-424); Red Blood Count 2.79 M/mm3 (4.20-5.40); Red Cell Distribution Width 15.8 % (11.5-17.5); White Blood Count 13.2 K/mm3 (4.8-10.8)
[2021-05-01 06:44] LABS: Hematocrit 25.4 % (37.0-47.0); Hemoglobin 7.9 g/dL (12.2-16.2)
[2021-05-01 06:53] LABS: Anion Gap 7.1 mEq/L (5-15); Blood Urea Nitrogen 8 mg/dl (7-17); Carbon Dioxide 31 mmol/L (22.0-30.0); Chloride 95 mmol/L (98-107); Creatinine Clearance Estimated 80 mL/min (50-200); Estimated Glomerular Filt Rate 101 ml/min (>60); GFR (African American) 122 ML/MIN (>60); Glucose 101 mg/dl (74-100); Potassium 3.1 mmoL/L (3.5-5.1); Sodium 130 mmol/L (136-145)
[2021-05-01 08:00] VITALS: BP 108/70; PULSE 114; RESP 18; TEMP 37.4; O2SAT 90
--- NOTE | 2021-05-01 09:02 | HMH.ACPN2 ---
Internal Medicine - PN: Subj *Date: 05/01/21 *Time: 09:02 Interval history: Patient is running low-grade fevers, T-max 100.7. Cultures are pending. Urine culture is growing a Proteus just sensitive to Rocephin. Chest x-ray shows no acute disease. Orthopedic notes are reviewed, technical issues noted. Patient has a history of necrotizing fasciitis with multiple surgeries on the right foot. Dressings were taken down today and the foot examined. There is healthy appearing granulation tissue along the right anterior lateral aspect of the ankle. There is no purulence, the wound bleeds well with dressing change, distal perfusion appears adequate. Contralateral foot is well perfused and without skin changes. Given the ongoing low-grade temperatures we will expand antibiotic coverage to add vancomycin. Her hemoglobin is 7.9 today, we will continue to observe. She is awake and alert would be anxious to go home. Exam Vital signs and Labs for Last 24 Hours: Temp Pulse Resp BP Pulse Ox 99.3 F 114 H 18 108/70 L 90 L 05/01/21 08:00 05/01/21 08:00 05/01/21 08:00 05/01/21 08:00 05/01/21 08:00 Laboratory Results - last 24 hr 04/30/21 13:04: Chlamy pneumoniae PCR Not detected, Adenovirus (PCR) Not detected, B. pertussis DNA (PCR) Not detected, Coronavirus OC43 (PCR) Not detected, Coronavirus HKU1 (PCR) Not detected, Coronavirus 229E (PCR) Not detected, Coronavirus NL63 (PCR) Not detected, Human Metapneumovir PCR Not detected, Influenza A (H1) PCR Not detected, Influ A (H1N1/09) PCR Not detected, Influenza A (H3) PCR Not detected, Influenza Type A (PCR) Not detected, Influenza Type B (PCR) Not detected, M. pneumoniae (PCR) Not detected, Parainfluenza 1 (PCR) Not detected, Parainfluenza 2 (PCR) Not detected, Parainfluenza 3 (PCR) Not detected, Parainfluenza 4 (PCR) Not detected, RSV (PCR) Not detected, Entero/Rhino (PCR) Not detected 05/01/21 05:59: WBC 13.2 H, RBC 2.79 L, Hgb 7.9 L D, Hct 25.4 L, MCV 91.1, MCH 28.5, MCHC 31.2 L, RDW 15.8, Plt Count 269, MPV 8.4, Neut % (Auto) 81.7 H, Lymph % (Auto) 13.0, [place] % (Auto) 4.7, Eos % (Auto) 0.1, Baso % (Auto) 0.5, Neut # (Auto) 10.8 H, Lymph # (Auto) 1.7, [place] # (Auto) 0.6, Eos # (Auto) 0.0, Baso # (Auto) 0.1 05/01/21 05:59: Sodium 130 L, Potassium 3.1 L, Chloride 95 L, Carbon Dioxide 31 H, Anion Gap 7.1, BUN 8, Creatinine 0.60, Estimated Creat Clear 80, Estimated GFR 101, Est GFR ( Amer) 122, Glucose 101 H, Calcium 8.0 L I & O for Last 24 hours: Intake & Output 04/28/21 04/29/21 04/30/21 05/01/21 23:59 23:59 23:59 23:59 Intake Total 1450 / 1450 600 / 700 820 / 820 1070 / 1070 Output Total 300 / 900 600 / 600 Balance 1150 / 550 0 / 100 820 / 820 1070 / 1070 Weight 193 lb 5.526 oz 193 lb 5.526 oz 193 lb 5.526 oz Microbiology Reports for the Last 24 Hours: Microbiology 04/27/21 19:16 Urine,Catheterized Urine Culture - Final Proteus mirabilis - Constitutional no acute distress, chronically ill appearing - *Routine HEENT Exam Head: Present: normocephalic Eye: Present: EOMI, PERRL ENT: Present: mucous membranes moist - *Routine Neck Exam Present: supple. Absent: lymphadenopathy - *Routine Respiratory Exam Present: CTA bilaterally - *Routine Cardiovascular Exam Present: RRR - *Routine Abdominal Exam Present: soft, normoactive bowel sounds. Absent: tenderness - *Routine Extremities Exam Present: tenderness. Absent: cyanosis, calf tenderness - *Routine Skin Exam Present: warm, wounds. Absent: jaundice - *Routine Neurological Exam Present: alert, oriented X3, vision grossly intact, hearing grossly intact. Absent: altered mental status Assessment and Plan (1) History of ankle surgery Status: Acute Category: Surgical Code(s): Z98.890 - Other specified postprocedural states (2) Hip fracture Status: Acute Qualifiers: Encounter type: initial encounter Fracture type: closed Laterality: right Q
--- NOTE | 2021-05-01 09:28 | HMH.PHACONS ---
- Pharmacy Consult Date: 05/01/21 Time: 09:28 Referring provider: DR. DANG Reason for Consult:: VANCOMYCIN DOSING Allergies and ADEs:: Allergies Allergy/AdvReac Type Severity Reaction Status Date / Time nitrofurantoin Allergy Intermediate Unknown Verified 04/27/21 20:51 allergy reaction Penicillins Allergy Intermediate Swelling Verified 04/27/21 20:51 of Lip/Tongue/Throat Home Medications:: Home Medications Medication Instructions Recorded Confirmed Type alprazolam 1 mg tablet 1 mg PO TIDP PRN 08/03/17 04/28/21 History montelukast 10 mg tablet 10 mg PO PM 08/03/17 04/27/21 History pregabalin 150 mg capsule 150 mg PO BID 08/03/17 04/27/21 History Levothyroxine Sodium [Synthroid 50 mcg PO DAILY 09/01/18 04/27/21 History 50mcg (0.05mg) tab] ARIPiprazole [Aripiprazole 10mg 10 mg PO DAILY 08/28/20 04/27/21 History Tablet] Oxycodone HCl 10 mg PO Q6HP PRN 08/28/20 04/27/21 History Pantoprazole Sodium 40 mg PO DAILY 08/28/20 04/28/21 History Potassium Chloride 20 meq PO DAILYP PRN 08/28/20 04/27/21 History Tiotropium [place] [Spiriva 2 spray IH DAILY 08/28/20 04/27/21 History Respimat] Trazodone HCl [Desyrel 50mg tablet] 100 mg PO HS 08/28/20 04/27/21 History Hydrocortisone [Cortef] 5 mg PO DIRECTED 10/05/20 04/27/21 History Duloxetine HCl 30 mg PO DAILY 04/27/21 04/27/21 History Diclofenac Sodium [Diclofenac 1 tab PO BID 04/28/21 04/28/21 History Sodium ER] Nicotine [Nicotine Patch 1 patch TOPICAL DAILY 04/28/21 04/28/21 History 21mg/24hrs] Height: 1.65 m Weight: 87.7 kg Laboratory Results:: Laboratory Results - last 24 hr 04/30/21 13:04: Chlamy pneumoniae PCR Not detected, Adenovirus (PCR) Not detected, B. pertussis DNA (PCR) Not detected, Coronavirus OC43 (PCR) Not detected, Coronavirus HKU1 (PCR) Not detected, Coronavirus 229E (PCR) Not detected, Coronavirus NL63 (PCR) Not detected, Human Metapneumovir PCR Not detected, Influenza A (H1) PCR Not detected, Influ A (H1N1/09) PCR Not detected, Influenza A (H3) PCR Not detected, Influenza Type A (PCR) Not detected, Influenza Type B (PCR) Not detected, M. pneumoniae (PCR) Not detected, Parainfluenza 1 (PCR) Not detected, Parainfluenza 2 (PCR) Not detected, Parainfluenza 3 (PCR) Not detected, Parainfluenza 4 (PCR) Not detected, RSV (PCR) Not detected, Entero/Rhino (PCR) Not detected 05/01/21 05:59: WBC 13.2 H, RBC 2.79 L, Hgb 7.9 L D, Hct 25.4 L, MCV 91.1, MCH 28.5, MCHC 31.2 L, RDW 15.8, Plt Count 269, MPV 8.4, Neut % (Auto) 81.7 H, Lymph % (Auto) 13.0, [place] % (Auto) 4.7, Eos % (Auto) 0.1, Baso % (Auto) 0.5, Neut # (Auto) 10.8 H, Lymph # (Auto) 1.7, [place] # (Auto) 0.6, Eos # (Auto) 0.0, Baso # (Auto) 0.1 05/01/21 05:59: Sodium 130 L, Potassium 3.1 L, Chloride 95 L, Carbon Dioxide 31 H, Anion Gap 7.1, BUN 8, Creatinine 0.60, Estimated Creat Clear 80, Estimated GFR 101, Est GFR ( Amer) 122, Glucose 101 H, Calcium 8.0 L Medical History: Reports:: Anxiety, Cancer (Ovarian), Chronic Obstructive Pulmonary Disease (COPD), Gastroesophageal Reflux Disease(GERD), Home Oxygen, Lung Disease, Pulmonary Embolism Denies:: Diabetes Mellitus Type 1, Diabetes Mellitus Type 2, MRSA, Seizures Assessment and Plan (1) History of ankle surgery Status: Acute Category: Surgical Code(s): Z98.890 - Other specified postprocedural states (2) Hip fracture Status: Acute Qualifiers: Encounter type: initial encounter Fracture type: closed Laterality: right Qualified Code(s): S72.001A - Fracture of unspecified part of neck of right femur, initial encounter for closed fracture Category: Medical Code(s): S72.009A - Fracture of unspecified part of neck of unspecified femur, initial encounter for closed fracture (3) Non-healing non-surgical wound Status: Acute Category: Medical Code(s): T14.8XXA - Other injury of unspecified body region, initial encounter (4) Necrotizing fasciitis of ankle and foot Status: Chronic Category: Medi
[2021-05-01 12:00] VITALS: TEMP 37.5
[2021-05-01 16:00] VITALS: BP 98/58; PULSE 104; RESP 107; TEMP 37.2; O2SAT 93
[2021-05-01 20:00] VITALS: BP 102/61; PULSE 91; RESP 18; TEMP 37.3; O2SAT 94
[2021-05-02] VITALS (16 sets, daily range): BP systolic 93–122; BP diastolic 52–87; PULSE 78–99; RESP 16–20; TEMP 36.7–37.5; O2SAT 90–95
[2021-05-02 08:58] LABS: Basophils # 0.1 K/mm3 (0-0.2); Basophils % 0.5 % (0.1-2.0); Eosinophils # 0.1 K/mm3 (0.0-0.4); Hemoglobin 7.6 g/dL (12.2-16.2); Lymphocytes # 1.9 K/mm3 (0.7-4.5); Lymphocytes % 15.9 % (10-50); Mean Corpuscular HGB Conc 31.9 g/dL (31.8-35.4); Mean Corpuscular Hemoglobin 28.2 pg (27.0-31.2); Mean Corpuscular Volume 88.3 fl (81-99); Mean Platelet Volume 8.9 fl (7.4-10.4); Monocytes # 0.6 K/mm3 (0.1-1.0); Neutrophils # 9.3 K/mm3 (1.8-7.8); Neutrophils % 77.6 % (37.0-80.0); Platelet Count 331 K/mm3 (142-424); Red Blood Count 2.71 M/mm3 (4.20-5.40); Red Cell Distribution Width 15.6 % (11.5-17.5); White Blood Count 11.9 K/mm3 (4.8-10.8)
[2021-05-02 09:08] LABS: Chloride 99 mmol/L (98-107); Sodium 134 mmol/L (136-145)
[2021-05-02 09:11] LABS: Anion Gap 8.9 mEq/L (5-15); Blood Urea Nitrogen 6 mg/dl (7-17); Carbon Dioxide 29 mmol/L (22.0-30.0); Creatinine Clearance Estimated 80 mL/min (50-200); Estimated Glomerular Filt Rate 101 ml/min (>60); GFR (African American) 122 ML/MIN (>60)
[2021-05-02 09:12] LABS: Calcium 7.7 mg/dl (8.4-10.2); Glucose 116 mg/dl (74-100)
[2021-05-02 09:28] LABS: Potassium 2.9 mmoL/L (3.5-5.1)
--- NOTE | 2021-05-02 09:47 | HMH.ACPN2 ---
Internal Medicine - PN: Subj *Date: 05/02/21 *Time: 09:47 Interval history: Patient looks much brighter this morning. She is 92% on room air. T-max overnight 99.5. Patient is noted to be anemic at 7.6. This has been trending down. Transfused today. We will also replace potassium. Culture showed a Proteus mirabilis sensitive to Rocephin. We expanded antibiotic coverage with vancomycin. She is up in the chair, alert, talkative. Much improved from yesterday No melanotic stool or hematemesis is noted Exam Vital signs and Labs for Last 24 Hours: Temp Pulse Resp BP Pulse Ox 99.3 F 99 H 20 100/53 L 92 L 05/02/21 04:00 05/02/21 04:00 05/02/21 04:00 05/02/21 04:00 05/02/21 04:00 Laboratory Results - last 24 hr 05/02/21 08:11: WBC 11.9 H, RBC 2.71 L, Hgb 7.6 L, Hct 24.0 L, MCV 88.3, MCH 28.2, MCHC 31.9, RDW 15.6, Plt Count 331, MPV 8.9, Neut % (Auto) 77.6, Lymph % (Auto) 15.9, [place] % (Auto) 5.0, Eos % (Auto) 1.0, Baso % (Auto) 0.5, Neut # (Auto) 9.3 H, Lymph # (Auto) 1.9, [place] # (Auto) 0.6, Eos # (Auto) 0.1, Baso # (Auto) 0.1 05/02/21 08:11: Sodium 134 L, Potassium 2.9 L*, Chloride 99, Carbon Dioxide 29, Anion Gap 8.9, BUN 6 L, Creatinine 0.60, Estimated Creat Clear 80, Estimated GFR 101, Est GFR ( Amer) 122, Glucose 116 H, Calcium 7.7 L I & O for Last 24 hours: Intake & Output 04/29/21 04/30/21 05/01/21 05/02/21 23:59 23:59 23:59 23:59 Intake Total 600 / 700 820 / 820 2347 / 2467 120 / 120 Output Total 600 / 600 Balance 0 / 100 820 / 820 2347 / 2467 120 / 120 Weight 193 lb 5.526 oz 193 lb 5.526 oz - Constitutional no acute distress, chronically ill appearing - *Routine HEENT Exam Head: Present: normocephalic Eye: Present: EOMI, PERRL ENT: Present: mucous membranes moist - *Routine Neck Exam Present: supple. Absent: lymphadenopathy - *Routine Respiratory Exam Present: CTA bilaterally - *Routine Cardiovascular Exam Present: RRR - *Routine Abdominal Exam Present: soft, normoactive bowel sounds. Absent: tenderness - *Routine Extremities Exam Present: pallor. Absent: cyanosis, clubbing, edema, extremity cold to touch - *Routine Skin Exam Present: warm, lesions. Absent: jaundice, rash - *Routine Neurological Exam Present: alert, oriented X3, normal speech. Absent: altered mental status Assessment and Plan (1) History of ankle surgery Status: Acute Category: Surgical Code(s): Z98.890 - Other specified postprocedural states (2) Hip fracture Status: Acute Qualifiers: Encounter type: initial encounter Fracture type: closed Laterality: right Qualified Code(s): S72.001A - Fracture of unspecified part of neck of right femur, initial encounter for closed fracture Category: Medical Code(s): S72.009A - Fracture of unspecified part of neck of unspecified femur, initial encounter for closed fracture (3) Non-healing non-surgical wound Status: Acute Category: Medical Code(s): T14.8XXA - Other injury of unspecified body region, initial encounter (4) Necrotizing fasciitis of ankle and foot Status: Chronic Category: Medical Code(s): M72.6 - Necrotizing fasciitis (5) Anemia Status: Acute Qualifiers: Anemia type: unspecified type Qualified Code(s): D64.9 - Anemia, unspecified Category: Medical Code(s): D64.9 - Anemia, unspecified - Assessment and plan all Dx Assessment and Plan for all problems:: We will transfuse 2 units today. Will replenish depleted potassium. We will continue current antibiotic coverage
--- NOTE | 2021-05-02 18:39 | PC.NURSE ---
Pt has done fine this shift. Pt has had x3 large loose, pasty BM's this shift. Pt has been incontinent of urine and bowels. 1st unit of blood transfusing at this time. No s/s of blood transfusion reactions noted. Pt currently resting w/ eyes closed at this time. No other acute changes or complaints, will continue to monitor.
[2021-05-02 22:31] LABS: Vancomycin,Trough 11.5 ug/mL (5.0-10.0)
[2021-05-03] VITALS (14 sets, daily range): BP systolic 89–121; BP diastolic 47–72; PULSE 70–94; RESP 16–18; TEMP 36.7–37.5; O2SAT 91–95
[2021-05-03 02:50] LABS: Vancomycin,Peak 37.6 ug/ml (11-39)
[2021-05-03 04:50] LABS: Hematocrit 28.8 % (37.0-47.0); Hemoglobin 9.4 g/dL (12.2-16.2)
--- NOTE | 2021-05-03 08:20 | HMH.PHACONS ---
- Pharmacy Consult Date: 05/03/21 Time: 08:21 Referring provider: DR YUNG Reason for Consult:: VANCOMYCIN DOSING Allergies and ADEs:: Allergies Allergy/AdvReac Type Severity Reaction Status Date / Time nitrofurantoin Allergy Intermediate Unknown Verified 04/27/21 20:51 allergy reaction Penicillins Allergy Intermediate Swelling Verified 04/27/21 20:51 of Lip/Tongue/Throat Home Medications:: Home Medications Medication Instructions Recorded Confirmed Type alprazolam 1 mg tablet 1 mg PO TIDP PRN 08/03/17 04/28/21 History montelukast 10 mg tablet 10 mg PO PM 08/03/17 04/27/21 History pregabalin 150 mg capsule 150 mg PO BID 08/03/17 04/27/21 History Levothyroxine Sodium [Synthroid 50 mcg PO DAILY 09/01/18 04/27/21 History 50mcg (0.05mg) tab] ARIPiprazole [Aripiprazole 10mg 10 mg PO DAILY 08/28/20 04/27/21 History Tablet] Oxycodone HCl 10 mg PO Q6HP PRN 08/28/20 04/27/21 History Pantoprazole Sodium 40 mg PO DAILY 08/28/20 04/28/21 History Potassium Chloride 20 meq PO DAILYP PRN 08/28/20 04/27/21 History Tiotropium [place] [Spiriva 2 spray IH DAILY 08/28/20 04/27/21 History Respimat] Trazodone HCl [Desyrel 50mg tablet] 100 mg PO HS 08/28/20 04/27/21 History Hydrocortisone [Cortef] 5 mg PO DIRECTED 10/05/20 04/27/21 History Duloxetine HCl 30 mg PO DAILY 04/27/21 04/27/21 History Diclofenac Sodium [Diclofenac 1 tab PO BID 04/28/21 04/28/21 History Sodium ER] Nicotine [Nicotine Patch 1 patch TOPICAL DAILY 04/28/21 04/28/21 History 21mg/24hrs] Height: 1.65 m Weight: 87.7 kg Laboratory Results:: Laboratory Results - last 24 hr 05/02/21 08:11: WBC 11.9 H, RBC 2.71 L, Hgb 7.6 L, Hct 24.0 L, MCV 88.3, MCH 28.2, MCHC 31.9, RDW 15.6, Plt Count 331, MPV 8.9, Neut % (Auto) 77.6, Lymph % (Auto) 15.9, [place] % (Auto) 5.0, Eos % (Auto) 1.0, Baso % (Auto) 0.5, Neut # (Auto) 9.3 H, Lymph # (Auto) 1.9, [place] # (Auto) 0.6, Eos # (Auto) 0.1, Baso # (Auto) 0.1 05/02/21 08:11: Sodium 134 L, Potassium 2.9 L*, Chloride 99, Carbon Dioxide 29, Anion Gap 8.9, BUN 6 L, Creatinine 0.60, Estimated Creat Clear 80, Estimated GFR 101, Est GFR ( Amer) 122, Glucose 116 H, Calcium 7.7 L 05/02/21 10:20: Blood Type O Positive, Antibody Screen Negative, Crossmatch (AHG) See Detail 05/02/21 22:00: Vancomycin Trough 11.5 H 05/03/21 02:05: Vancomycin Peak 37.6 05/03/21 04:30: Hgb 9.4 L D, Hct 28.8 L Medical History: Reports:: Anxiety, Cancer (Ovarian), Chronic Obstructive Pulmonary Disease (COPD), Gastroesophageal Reflux Disease(GERD), Home Oxygen, Lung Disease, Pulmonary Embolism Denies:: Diabetes Mellitus Type 1, Diabetes Mellitus Type 2, MRSA, Seizures Assessment and Plan (1) History of ankle surgery Status: Acute Category: Surgical Code(s): Z98.890 - Other specified postprocedural states (2) Hip fracture Status: Acute Qualifiers: Encounter type: initial encounter Fracture type: closed Laterality: right Qualified Code(s): S72.001A - Fracture of unspecified part of neck of right femur, initial encounter for closed fracture Category: Medical Code(s): S72.009A - Fracture of unspecified part of neck of unspecified femur, initial encounter for closed fracture (3) Non-healing non-surgical wound Status: Acute Category: Medical Code(s): T14.8XXA - Other injury of unspecified body region, initial encounter (4) Necrotizing fasciitis of ankle and foot Status: Chronic Category: Medical Code(s): M72.6 - Necrotizing fasciitis (5) Anemia Status: Acute Qualifiers: Anemia type: unspecified type Qualified Code(s): D64.9 - Anemia, unspecified Category: Medical Code(s): D64.9 - Anemia, unspecified - Assessment and plan all Dx Assessment and Plan for all problems:: VANCOMYCIN 1250 MG IV Q12H CONTINUED BASED ON TROUGH OF 11.5 MCG/ML (05/02/21 @ 2200) AND PEAK OF 37.6 MCG/ML (05/03/21 @ 0205).
--- NOTE | 2021-05-03 08:58 | HMH.ORTHOCON ---
*Admission Date: 04/28/21 *Reason for consult:: Right ankle *History of present illness: Patient has a right ankle wound. Podiatry consulted to evaluate for new infection in the face of a fever. Patient did have a hip fracture ORIF 04/28/2021. On 08/31/2020 patient had necrotizing fasciitis secondary to a spider bite with multiple debridements by myself prior to her being transferred to for further treatment and evaluation. Patient is not actively under the care of [facility] podiatry. I not seen patient in 10/06/2020. She is currently under the care of wound care and plastics. She is getting home health care once weekly for wet-to-dry dressing changes. plastics was attempting to do graft coverage for her right ankle wound. Madonna Ann orthopedic PA evaluated wound Monday and there were no new signs of infection. Dietary saw patient today for debridement. No new signs of infection to the wound. Patient resting comfortably denies pain to the right ankle. [facility] History I have reviewed the patient's past medical history: Yes Medical History: Reports:: Anxiety, Cancer (Ovarian), Chronic Obstructive Pulmonary Disease (COPD), Gastroesophageal Reflux Disease(GERD), Home Oxygen, Lung Disease, Pulmonary Embolism Denies:: Diabetes Mellitus Type 1, Diabetes Mellitus Type 2, MRSA, Seizures *Have you ever received a pneumonia vaccine?: No *Have you received a flu vaccine this season?: No Other Medical History: Reports: Anemia, Arthritis, Cataracts, Fibromyalgia, Hypothyroidism, Thyroid Disease, Other ([place]'s dz) Anesthesia experience/problems:: None Laterality Cases: Bilateral: Cataract Other Surgeries: Yes: Appendectomy, Cancer Surgery (HX OF CERVICAL CANCER), Hysterectomy-Total, Other (7 surgeries on right lower extremity for necrotizing fasciitis.) Amputation: No Fractures: Yes - *Social History Smoking Status: Former smoker Tobacco Type: cigarettes # Packs/Day (cigarettes): 2 Alcohol Intake: never Substance Use Type: denies use *Occupational Status:: disabled Housing: house Household Members: spouse *Travel in the last 8 weeks: None - Psychiatric History Pschychiatric History:: Reports:: Anxiety Family Hx:: No significant family history Review of Systems - Review of Systems Review of systems:: pertinent systems reviewed and negative unless documented below - Constitutional Reports fatigue, Denies chills - Eyes Denies blind spots - ENT Denies abnormal hearing - *Cardiovascular Denies chest pain - *Respiratory Denies cough - *Gastrointestinal Denies abdominal pain - *Genitourinary Denies abnormal periods - *Musculoskeletal Reports joint swelling, Reports radiating pain into limb (right hip) - Integumentary/Breasts Reports wounds (right ankle) - *Neurologic Reports abnormal walking, Denies abnormal hearing, Denies abnormal movements, Denies abnormal speech, Denies confusion, Denies dizziness, Denies headache(s), Denies loss of vision, Denies numbness, Denies sensory deficit, Denies tingling, Denies dizziness, Denies weakness Meds Home Medications Medication Instructions Recorded Confirmed Type alprazolam 1 mg tablet 1 mg PO TIDP PRN 08/03/17 04/28/21 History montelukast 10 mg tablet 10 mg PO PM 08/03/17 04/27/21 History pregabalin 150 mg capsule 150 mg PO BID 08/03/17 04/27/21 History Levothyroxine Sodium [Synthroid 50 mcg PO DAILY 09/01/18 04/27/21 History 50mcg (0.05mg) tab] ARIPiprazole [Aripiprazole 10mg 10 mg PO DAILY 08/28/20 04/27/21 History Tablet] Oxycodone HCl 10 mg PO Q6HP PRN 08/28/20 04/27/21 History Pantoprazole Sodium 40 mg PO DAILY 08/28/20 04/28/21 History Potassium Chloride 20 meq PO DAILYP PRN 08/28/20 04/27/21 History Tiotropium [place] [Spiriva 2 spray IH DAILY 08/28/20 04/27/21 History Respimat] Trazodone HCl [Desyrel 50mg tablet] 100 mg PO HS 08/28/20 04/27/21 History Hydrocortisone [Cortef] 5 mg PO DIRECTED 10/05/20 04/27/21 History Duloxeti
--- NOTE | 2021-05-03 09:06 | HMH.ORTHPN ---
Subjective Date: 05/03/21 <Madonna Ann - 05/03/21 09:07> Time: 08:45 <Madonna Ann - 05/03/21 09:07> Principal diagnosis: s/p right hip bipolar hemiarthroplasty <Madonna Ann - 05/03/21 09:27> Interval history: Patient is a 65-year-old female who underwent an uneventful right hip bipolar hemiarthroplasty on 04/28/2021. Today the patient is postop day #5. This morning she is lying comfortably in bed and her is at the bedside. She does continue to report right hip pain but states that it continues to improve each day and is well controlled with pain medication. She states that she is eating and drinking well and denies any nausea or vomiting. She reports that she has been ambulating with the assistance of physical therapy and this is going well. She denies chills, rigors, chest pain, palpitations, shortness of breath, distal tingling/numbness, or any other symptoms at this time. Her past medical history is significant for [place]'s disease, fibromyalgia, anxiety, ovarian cancer, Chronic Obstructive Pulmonary Disease (COPD), Gastroesophageal Reflux Disease (GERD), and pulmonary embolism. She is on long-term oral glucocorticoid treatment and previously was on home oxygen therapy. Postoperatively the patient developed low-grade fevers; acute care progress notes reviewed. Over the weekend, she was started on vancomycin in addition to Rocephin to increase antibiotic coverage for her UTI. Chest x-ray and blood cultures negative. The patient was also found to be anemic and 2 units of blood were transfused. This morning the patient reports that she is feeling much better and is eager to go home. <Madonna Ann - 05/03/21 13:52> PN: Obj Ex Vital signs: Temp Pulse Resp BP Pulse Ox 98.6 F 80 18 101/57 L 95 05/03/21 04:00 05/03/21 04:00 05/03/21 04:00 05/03/21 04:00 05/03/21 04:00 <Júnior Moreno - 05/03/21 15:47> Temp Pulse Resp BP Pulse Ox 98.6 F 80 18 101/57 L 95 05/03/21 04:00 05/03/21 04:00 05/03/21 04:00 05/03/21 04:00 05/03/21 04:00 <SethMadonna 05/03/21 09:07> - Constitutional no acute distress, obese, cooperative <SethMadonna 05/03/21 09:24> - Routine HEENT Exam Head: Present: normocephalic, atraumatic <SethMadonna 05/03/21 09:24> Eye: Present: EOMI, PERRL <SethMadonna 05/03/21 09:24> ENT: Present: mucous membranes moist <SethMadonna 05/03/21 09:24> - Routine Neck Exam Present: supple, full ROM, trachea midline. Absent: JVD <SethMadonna 05/03/21 09:24> - Routine Respiratory Exam Absent: accessory muscle use, respiratory distress <SethMadonna 05/03/21 09:24> Comments: Symmetric chest movement, able to speak in complete sentences <SethMadonna 05/03/21 09:24> - Routine Cardiovascular Exam Present: RRR. Absent: JVD <SethMadonna 05/03/21 09:24> Comments: Normal peripheral pulses <SethMadonna 05/03/21 09:24> - Routine Abdominal Exam Present: soft. Absent: tenderness <SethMadonna 05/03/21 09:24> - Routine Extremities Exam Present: pulses intact, normal capillary refill. Absent: calf tenderness, tenderness <SethMadonna 05/03/21 09:24> Comments: Upon examination of the lower extremities: The surgical incision is healing well. No induration, erythema, drainage, bleeding, or other signs of infection noted. The right hip and proximal femur are mildly tender to palpation. Attempted movements of the right hip are painful as to be expected at this stage. Thigh and calf are soft and nontender; Homans' sign is negative. No clinical evidence of DVT noted. Distal neurovascular status is intact. Sensation to light touch is grossly intact throughout. Patient is actively mobilizing the knee, foot, and toes. Dressings present over the right foot/ankle are clean, dry, and intact. <Madonna Ann - 05/03/21 09:24> - Routine Skin Exam Present: intact, warm, normal turgor.
[2021-05-03 09:08] LABS: MANUAL DIFFERENTIAL MANUAL DIFFERENTIAL (MANUAL DIFF)
[2021-05-03 09:12] LABS: Basophils # 0.1 K/mm3 (0-0.2); Basophils % 0.6 % (0.1-2.0); Eosinophils # 0.2 K/mm3 (0.0-0.4); Eosinophils % 1.9 % (0.1-12.0); Hematocrit 29.8 % (37.0-47.0); Hemoglobin 9.6 g/dL (12.2-16.2); Lymphocytes % 23.9 % (10-50); Mean Corpuscular HGB Conc 32.2 g/dL (31.8-35.4); Mean Corpuscular Hemoglobin 29.1 pg (27.0-31.2); Mean Corpuscular Volume 90.5 fl (81-99); Mean Platelet Volume 9.4 fl (7.4-10.4); Monocytes # 0.4 K/mm3 (0.1-1.0); Monocytes % 4.4 % (1.7-9.3); Neutrophils # 5.7 K/mm3 (1.8-7.8); Neutrophils % 69.2 % (37.0-80.0); Platelet Count 334 K/mm3 (142-424); White Blood Count 8.2 K/mm3 (4.8-10.8)
[2021-05-03 09:24] LABS: Chloride 102 mmol/L (98-107); Sodium 137 mmol/L (136-145)
[2021-05-03 09:27] LABS: Blood Urea Nitrogen 6 mg/dl (7-17); Creatinine Clearance Estimated 80 mL/min (50-200); Estimated Glomerular Filt Rate 125 ml/min (>60); GFR (African American) 151 ML/MIN (>60)
[2021-05-03 09:28] LABS: Calcium 7.5 mg/dl (8.4-10.2); Carbon Dioxide 28 mmol/L (22.0-30.0); Glucose 125 mg/dl (74-100)
[2021-05-03 09:31] LABS: Eosinophils % 3 % (0-3); Lymphocytes % 26 % (10-50); Monocytes % 4 % (2-9); Neutrophils % 67 % (42-76); Platelet Estimate Normal; Total Cells Counted 100
[2021-05-03 09:32] LABS: Poikilocytosis 1+
[2021-05-03 09:33] LABS: Anisocytosis 1+
--- NOTE | 2021-05-03 10:32 | HMH.DCSUM ---
General - General Admission date:: 04/27/21 Discharge date: 05/03/21 HPI HPI: 65-year-old female who was admitted to the acute inpatient service on 04/27/2021 from the [facility] ED. The patient reports that she fell in her kitchen on 04/22/2021 while trying to seed cone picker something she dropped from her refrigerator. She states that she fell and immediately had right hip pain. Since her injury, she states that she has not been able to walk or bear weight on her right hip. She presented to the [facility] on 04/27/2020 because she states that her hip pain was not improving. Upon evaluation in the [facility] and [facility] ED, she was found to have a right femur neck fracture. Upon evaluation today, the patient continues to report right hip pain. She states that her pain is well controlled at rest and with oral pain medication but is worse with any attempted movements of the right hip/leg. At baseline the patient states that she uses a walker to ambulate and wears a boot on her right foot. She has a history of necrotizing fasciitis and has underwent several surgeries on her right foot/ankle since August 2020, including a failed skin graft and removal of three tendons. Her chronic right foot wound has been managed by [facility] in [place]; she also receives home health services for wound care. Her past medical history is also significant for [place]'s disease, COPD, and fibromyalgia. She is a former smoker. She denies chest pain, shortness of breath, fever, chills, rigors, loss of consciousness, distal numbness/tingling, or any other symptoms at this time.per ortho Objective Vital signs: Temp Pulse Resp BP Pulse Ox 98.6 F 80 18 101/57 L 95 05/03/21 04:00 05/03/21 04:00 05/03/21 04:00 05/03/21 04:00 05/03/21 04:00 Results Labs on day of discharge: Labs from last 24 hours 05/03/21 05/03/21 05/03/21 04:30 04:30 04:30 WBC 8.2 D RBC 3.30 L Hgb 9.6 L 9.4 L D Hct 29.8 L 28.8 L MCV 90.5 MCH 29.1 MCHC 32.2 RDW 15.0 Plt Count 334 MPV 9.4 Neut % (Auto) 69.2 Lymph % (Auto) 23.9 [place] % (Auto) 4.4 Eos % (Auto) 1.9 Baso % (Auto) 0.6 Neut # (Auto) 5.7 Lymph # (Auto) 2.0 [place] # (Auto) 0.4 Eos # (Auto) 0.2 Baso # (Auto) 0.1 Total Counted 100 Neutrophils % (Manual) 67 Lymphocytes % (Manual) 26 Monocytes % (Manual) 4 Eosinophils % (Manual) 3 Platelet Estimate Normal Poikilocytosis 1+ Anisocytosis 1+ Sodium 137 Potassium 3.0 L Chloride 102 Carbon Dioxide 28 Anion Gap 10.0 BUN 6 L Creatinine 0.50 L Estimated Creat Clear 80 Estimated GFR 125 Est GFR ( Amer) 151 D Glucose 125 H Calcium 7.5 L Vancomycin Peak Vancomycin Trough Blood Type Antibody Screen Crossmatch ([facility]) 05/03/21 05/02/21 05/02/21 02:05 22:00 10:20 WBC RBC Hgb Hct MCV MCH MCHC RDW Plt Count MPV Neut % (Auto) Lymph % (Auto) [place] % (Auto) Eos % (Auto) Baso % (Auto) Neut # (Auto) Lymph # (Auto) [place] # (Auto) Eos # (Auto) Baso # (Auto) Total Counted Neutrophils % (Manual) Lymphocytes % (Manual) Monocytes % (Manual) Eosinophils % (Manual) Platelet Estimate Poikilocytosis Anisocytosis Sodium Potassium Chloride Carbon Dioxide Anion Gap BUN Creatinine Estimated Creat Clear Estimated GFR Est GFR ( Amer) Glucose Calcium Vancomycin Peak 37.6 Vancomycin Trough 11.5 H Blood Type O Positive Antibody Screen Negative Crossmatch ([facility]) See Detail Preliminary micro results at discharge 04/30/21 13:04 Blood Culture - Preliminary Blood NO GROWTH AFTER 48 HOURS 04/30/21 13:04 Blood Culture - Preliminary Blood NO GROWTH AFTER 48 HOURS DS: Diagnosis - Discharge Diagn
--- NOTE | 2021-05-03 10:37 | HMH.ACPN2 ---
Internal Medicine - PN: Subj *Date: 05/03/21 *Time: 08:40 Interval history: pt states she does not want to go anywhere for rehab unless its [facility], if not then she wants to go home. Exam Vital signs and Labs for Last 24 Hours: Temp Pulse Resp BP Pulse Ox 98.6 F 80 18 101/57 L 95 05/03/21 04:00 05/03/21 04:00 05/03/21 04:00 05/03/21 04:00 05/03/21 04:00 Laboratory Results - last 24 hr 05/02/21 10:20: Blood Type O Positive, Antibody Screen Negative, Crossmatch (AHG) See Detail 05/02/21 22:00: Vancomycin Trough 11.5 H 05/03/21 02:05: Vancomycin Peak 37.6 05/03/21 04:30: Hgb 9.4 L D, Hct 28.8 L 05/03/21 04:30: WBC 8.2 D, RBC 3.30 L, Hgb 9.6 L, Hct 29.8 L, MCV 90.5, MCH 29.1, MCHC 32.2, RDW 15.0, Plt Count 334, MPV 9.4, Neut % (Auto) 69.2, Lymph % (Auto) 23.9, [place] % (Auto) 4.4, Eos % (Auto) 1.9, Baso % (Auto) 0.6, Neut # (Auto) 5.7, Lymph # (Auto) 2.0, [place] # (Auto) 0.4, Eos # (Auto) 0.2, Baso # (Auto) 0.1, Total Counted 100, Neutrophils % (Manual) 67, Lymphocytes % (Manual) 26, Monocytes % (Manual) 4, Eosinophils % (Manual) 3, Platelet Estimate Normal, Poikilocytosis 1+, Anisocytosis 1+ 05/03/21 04:30: Sodium 137, Potassium 3.0 L, Chloride 102, Carbon Dioxide 28, Anion Gap 10.0, BUN 6 L, Creatinine 0.50 L, Estimated Creat Clear 80, Estimated GFR 125, Est GFR ( Amer) 151 D, Glucose 125 H, Calcium 7.5 L I & O for Last 24 hours: Intake & Output 04/30/21 05/01/21 05/02/2122 11:59 11:59 11:59 11:59 Intake Total 820 / 820 1550 / 1550 1637 / 1637 860 / 860 Balance 820 / 820 1550 / 1550 1637 / 1637 860 / 860 Weight 193 lb 5.526 oz Microbiology Reports for the Last 24 Hours: Microbiology 04/30/21 13:04 Blood Blood Culture - Preliminary NO GROWTH AFTER 48 HOURS 04/30/21 13:04 Blood Blood Culture - Preliminary NO GROWTH AFTER 48 HOURS - Constitutional no acute distress, chronically ill appearing - *Routine HEENT Exam Head: Present: normocephalic Eye: Present: PERRL ENT: Present: mucous membranes moist - *Routine Neck Exam Present: supple. Absent: lymphadenopathy - *Routine Respiratory Exam Present: CTA bilaterally - *Routine Cardiovascular Exam Present: RRR - *Routine Abdominal Exam Present: soft, normoactive bowel sounds. Absent: tenderness - *Routine Extremities Exam Comments: incision c/d/i, no redness or drainage - *Routine Skin Exam Present: wounds Comments: incision no redness, or drainage ankle wound no redness or pus - *Routine Neurological Exam Present: alert, oriented X3 Assessment and Plan (1) History of ankle surgery Status: Acute Category: Surgical Code(s): Z98.890 - Other specified postprocedural states (2) Hip fracture Status: Acute Qualifiers: Encounter type: initial encounter Fracture type: closed Laterality: right Qualified Code(s): S72.001A - Fracture of unspecified part of neck of right femur, initial encounter for closed fracture Category: Medical Code(s): S72.009A - Fracture of unspecified part of neck of unspecified femur, initial encounter for closed fracture (3) Non-healing non-surgical wound Status: Acute Category: Medical Code(s): T14.8XXA - Other injury of unspecified body region, initial encounter (4) Necrotizing fasciitis of ankle and foot Status: Chronic Category: Medical Code(s): M72.6 - Necrotizing fasciitis (5) Anemia Status: Acute Qualifiers: Anemia type: unspecified type Qualified Code(s): D64.9 - Anemia, unspecified Category: Medical Code(s): D64.9 - Anemia, unspecified (6) Diarrhea Status: Acute Category: Medical Code(s): R19.7 - Diarrhea, unspecified (7) Hypothyroidism Status: Chronic Category: Medical Code(s): E03.9 - Hypothyroidism, unspecified - Assessment and plan all Dx Assessment and Plan for all problems:: rounded with dr leon all orders per dr alcaraz
--- NOTE | 2021-05-03 13:43 | DIET.NUTRFU ---
RD saw Patient today to encourage protein intake to aid in wound healing. She did consume 100% of protein and pudding on lunch tray. Reviewed high protein foods and provided a handout. Also recommended a MVI to provide her additional vitamin C and zinc to promote healing.
--- NOTE | 2021-05-03 16:19 | PC.NURSE ---
patient has done well this shift. did get up to chair. has been incontinent of urine but at this time no stools noted. patient has had a brief on. noted order to dc neri however patient did not have a neri in place upon assessment. did report critical potassium immediately after receiving results to wayne chinchilla no new orders at that time. rings out as needed. has complained of a bit of pain. dressing changed on foot by podiatry. dr batista placed new boarder gauze on incision (hip) and stated to change it as needed. no other complaints noted. appetite has been okay. eager to go home. did require a two assist to stand and turn with transfers. damian henry.
--- NOTE | 2021-05-04 06:27 | PC.NURSE ---
A&OX4. TOLERATING RA WELL. HAS C/O R HIP PAIN X2 THIS SHIFT. TX PER JUN. ON REASSESSMENT, PT RESTING IN BED. PT HAS REMAINED INCONTINENT T/O SHIFT. PT KEPT CLEAN AND DRY, FULL BED CHANGE PROVIDED. NO BM THUS FAR. HIP ADDUCTOR IN PLACE T/O SHIFT. PT REMAINS X2 ASSIST. VSS WILL CONTINUE TO MONITOR.
[2021-05-04 07:17] VITALS: BP 105/67; PULSE 74; RESP 16; TEMP 36.8; O2SAT 92
[2021-05-04 08:00] VITALS: BP 135/62; PULSE 93; RESP 17; TEMP 36.9; O2SAT 98
[2021-05-04 08:04] LABS: MANUAL DIFFERENTIAL MANUAL DIFFERENTIAL (MANUAL DIFF)
[2021-05-04 08:19] LABS: Basophils % 0.5 % (0.1-2.0); Eosinophils # 0.1 K/mm3 (0.0-0.4); Eosinophils % 2.2 % (0.1-12.0); Hematocrit 30.5 % (37.0-47.0); Hemoglobin 9.5 g/dL (12.2-16.2); Lymphocytes # 1.8 K/mm3 (0.7-4.5); Lymphocytes % 27.6 % (10-50); Mean Corpuscular HGB Conc 31.3 g/dL (31.8-35.4); Mean Corpuscular Hemoglobin 28.6 pg (27.0-31.2); Mean Corpuscular Volume 91.3 fl (81-99); Mean Platelet Volume 8.4 fl (7.4-10.4); Monocytes # 0.4 K/mm3 (0.1-1.0); Monocytes % 5.8 % (1.7-9.3); Neutrophils # 4.2 K/mm3 (1.8-7.8); Platelet Count 376 K/mm3 (142-424); Red Blood Count 3.34 M/mm3 (4.20-5.40); Red Cell Distribution Width 15.2 % (11.5-17.5); White Blood Count 6.6 K/mm3 (4.8-10.8)
[2021-05-04 08:26] LABS: Anion Gap 7.3 mEq/L (5-15); Blood Urea Nitrogen 8 mg/dl (7-17); Calcium 8.3 mg/dl (8.4-10.2); Carbon Dioxide 29 mmol/L (22.0-30.0); Chloride 105 mmol/L (98-107); Creatinine Clearance Estimated 80 mL/min (50-200); Estimated Glomerular Filt Rate 101 ml/min (>60); GFR (African American) 122 ML/MIN (>60); Glucose 84 mg/dl (74-100); Potassium 3.3 mmoL/L (3.5-5.1); Sodium 138 mmol/L (136-145)
[2021-05-04 08:38] VITALS: BMI 32.3
--- NOTE | 2021-05-04 09:00 | HMH.ORTHPN ---
Subjective Date: 05/04/21 Time: 08:45 Principal diagnosis: s/p right hip bipolar hemiarthroplasty Interval history: Patient is a 65-year-old female who underwent an uneventful right hip bipolar hemiarthroplasty on 04/28/2021. Today the patient is postop day #6. This morning she is lying comfortably in bed and her is at the bedside. She does continue to report right hip pain but states that it is well controlled with pain medication. She states that she is eating and drinking well and denies any nausea or vomiting. She reports that she has been ambulating with the assistance of physical therapy and this is going well. She denies chills, rigors, chest pain, palpitations, shortness of breath, distal tingling/numbness, or any other symptoms at this time. Her past medical history is significant for Nye's disease, fibromyalgia, anxiety, ovarian cancer, Chronic Obstructive Pulmonary Disease (COPD), Gastroesophageal Reflux Disease (GERD), and pulmonary embolism. She is on long-term oral glucocorticoid treatment and previously was on home oxygen therapy. PN: Obj Ex Vital signs: Temp Pulse Resp BP Pulse Ox 98.5 F 93 H 17 135/62 98 05/04/21 08:00 05/04/21 08:00 05/04/21 08:00 05/04/21 08:00 05/04/21 08:00 - Constitutional no acute distress, obese, cooperative - Routine HEENT Exam Head: Present: normocephalic, atraumatic Eye: Present: EOMI, PERRL ENT: Present: mucous membranes moist - Routine Neck Exam Present: supple, full ROM, trachea midline. Absent: JVD - Routine Respiratory Exam Absent: accessory muscle use, diminished air movement Comments: Symmetric chest movement, able to speak complete sentences - Routine Cardiovascular Exam Present: RRR. Absent: JVD Comments: Normal peripheral pulses - Routine Abdominal Exam Present: soft. Absent: tenderness - Routine Extremities Exam Present: pulses intact, normal capillary refill. Absent: calf tenderness Comments: Upon examination of the lower extremities: The limb lengths are equal. Dressings present over the right hip are clean, dry, and intact. No evidence of drainage or bleeding noted. The right hip and proximal femur are mildly tender to palpation. Attempted movements of the right hip are painful as to be expected at this stage. Thigh and calf are soft and nontender; Homans' sign is negative. No clinical evidence of DVT noted. Distal neurovascular status is intact. Sensation to light touch is grossly intact throughout. Patient is actively mobilizing the right knee, foot, and toes. Dressings present over the right foot/ankle are clean, dry, and intact. - Routine Skin Exam Present: intact, warm, normal turgor. Absent: erythema, jaundice, gangrene - Routine Neurological Exam Present: alert, oriented X3, moving all extremities, normal tone, normal speech. Absent: sensory deficit, motor deficit, altered mental status - Routine Psychiatric Exam Present: normal affect, cooperative - Urinary Catheter Management [place] Cath placed during this visit: no Urethral indwelling: No Progress Note: A&P (1) History of ankle surgery Status: Acute (2) Hip fracture Status: Acute (3) Non-healing non-surgical wound Status: Acute (4) Necrotizing fasciitis of ankle and foot Status: Resolved (5) Anemia Status: Acute Assessment and Plan for All Diagnoses:: I have discussed the clinical findings and progress with the patient and her . Overall she is doing well from an orthopedic standpoint can be discharged when medically appropriate. Dressings present over the right hip are clean, dry, and intact. No evidence of bleeding or drainage noted. Continue PT/OT and standard precautions for a posterior approach to the hip. Continue use of the abduction pillow for 6 weeks postoperatively. Continue DVT prophylaxis for 6 weeks postoperatively. Also advised patient to continue rest, ice, elevation, activity modification, an
--- NOTE | 2021-05-04 09:26 | HMH.DCSUM ---
General - General Admission date:: 04/27/21 Discharge date: 05/04/21 HPI HPI: 65-year-old female who was admitted to the acute inpatient service on 04/27/2021 from the [facility] ED. The patient reports that she fell in her kitchen on 04/22/2021 while trying to shredder picker something she dropped from her refrigerator. She states that she fell and immediately had right hip pain. Since her injury, she states that she has not been able to walk or bear weight on her right hip. She presented to the [facility] on 04/27/2020 because she states that her hip pain was not improving. Upon evaluation in the [facility] and [facility] ED, she was found to have a right femur neck fracture. Upon evaluation today, the patient continues to report right hip pain. She states that her pain is well controlled at rest and with oral pain medication but is worse with any attempted movements of the right hip/leg. At baseline the patient states that she uses a walker to ambulate and wears a boot on her right foot. She has a history of necrotizing fasciitis and has underwent several surgeries on her right foot/ankle since August 2020, including a failed skin graft and removal of three tendons. Her chronic right foot wound has been managed by [facility] in [place]; she also receives home health services for wound care. Her past medical history is also significant for Jasper's disease, COPD, and fibromyalgia. She is a former smoker. She denies chest pain, shortness of breath, fever, chills, rigors, loss of consciousness, distal numbness/tingling, or any other symptoms at this time.per ortho Hospital Course Hospital Course: 65-year-old female who was admitted to the acute inpatient service on 04/27/2021 from the [facility] ED. The patient reports that she fell in her kitchen on 04/22/2021 while trying to shredder picker something she dropped from her refrigerator. She states that she fell and immediately had right hip pain. Since her injury, she states that she has not been able to walk or bear weight on her right hip. She presented to the [facility] on 04/27/2020 because she states that her hip pain was not improving. Upon evaluation in the [facility] and [facility] ED, she was found to have a right femur neck fracture. Upon evaluation today, the patient continues to report right hip pain. She states that her pain is well controlled at rest and with oral pain medication but is worse with any attempted movements of the right hip/leg. At baseline the patient states that she uses a walker to ambulate and wears a boot on her right foot. She has a history of necrotizing fasciitis and has underwent several surgeries on her right foot/ankle since August 2020, including a failed skin graft and removal of three tendons. Her chronic right foot wound has been managed by [facility] in [place]; 04/27/21 R Hip XR: IMPRESSION: Acute angulated and mildly displaced right femur neck fracture. Electronically signed by Arpita Danielle MD 04/27/21 CXR: IMPRESSION: No acute findings. Electronically signed by Arpita Danielle MD 04/28/21 ECHO: Conclusion 1. Normal left ventricular size, visually estimated ejection fraction 50% with no regional wall motion abnormality, endocardial surfaces are poorly visualized, diastolic parameters are inconclusive. 2. Trace mitral and tricuspid regurgitation. 3. No significant pericardial effusion noted. 4. Inferior vena cava is poorly visualized. Electronically signed by : Brice Evangelista MD 04/28/21 R Hip XR: FINDINGS: Bones/joints: Status post right hip arthroplasty with noncemented femoral stem and somewhat horizontal orientation to the acetabular cup with a lateral inclination measured at approximately 35 degrees. No periprosthetic fracture. Soft tissues: Innumerable rounded densities overlying the right hip soft tissues. IMPRES
[2021-05-04 09:56] LABS: Eosinophils % 3 % (0-3); Lymphocytes % 28 % (10-50); Monocytes % 2 % (2-9); Neutrophils % 67 % (42-76); Total Cells Counted 100
[2021-05-04 09:57] LABS: Hypochromasia 1+; Platelet Estimate Normal
--- NOTE | 2021-05-04 10:12 | P.PN_ITS ---
Internal Medicine - PN: Subj *Date: 05/04/21 *Time: 10:12 Exam Vital signs and Labs for Last 24 Hours: Temp Pulse Resp BP Pulse Ox 98.5 F 93 H 17 135/62 98 05/04/21 08:00 05/04/21 08:00 05/04/21 08:00 05/04/21 08:00 05/04/21 08:00 Laboratory Results - last 24 hr 05/04/21 06:28: WBC 6.6, RBC 3.34 L, Hgb 9.5 L, Hct 30.5 L, MCV 91.3, MCH 28.6, MCHC 31.3 L, RDW 15.2, Plt Count 376, MPV 8.4, Neut % (Auto) 64.0, Lymph % (Auto) 27.6, [place] % (Auto) 5.8, Eos % (Auto) 2.2, Baso % (Auto) 0.5, Neut # (Auto) 4.2, Lymph # (Auto) 1.8, [place] # (Auto) 0.4, Eos # (Auto) 0.1, Baso # (Auto) 0.0, Total Counted 100, Neutrophils % (Manual) 67, Lymphocytes % (Manual) 28, Monocytes % (Manual) 2, Eosinophils % (Manual) 3, Platelet Estimate Normal, Hypochromasia 1+ 05/04/21 06:28: Sodium 138, Potassium 3.3 L, Chloride 105, Carbon Dioxide 29, Anion Gap 7.3, BUN 8 D, Creatinine 0.60, Estimated Creat Clear 80, Estimated GFR 101, Est GFR ( Amer) 122, Glucose 84, Calcium 8.3 L I & O for Last 24 hours: Intake & Output 05/01/21 05/02/21 05/03/21 05/04/21 23:59 23:59 23:59 23:59 Intake Total 2347 / 2467 970 / 970 1580 / 1580 240 / 240 Balance 2347 / 2467 970 / 970 1580 / 1580 240 / 240 Weight 88.2 kg Assessment and Plan (1) History of ankle surgery Status: Acute Category: Surgical Code(s): Z98.890 - Other specified postprocedural states (2) Hip fracture Status: Acute Qualifiers: Encounter type: initial encounter Fracture type: closed Laterality: right Qualified Code(s): S72.001A - Fracture of unspecified part of neck of right femur, initial encounter for closed fracture Category: Medical Code(s): S72.009A - Fracture of unspecified part of neck of unspecified femur, initial encounter for closed fracture (3) Non-healing non-surgical wound Status: Acute Category: Medical Code(s): T14.8XXA - Other injury of unspecified body region, initial encounter (4) Necrotizing fasciitis of ankle and foot Status: Resolved Category: Medical Code(s): M72.6 - Necrotizing fasciitis (5) Anemia Status: Acute Qualifiers: Anemia type: unspecified type Qualified Code(s): D64.9 - Anemia, unspecified Category: Medical Code(s): D64.9 - Anemia, unspecified The patient's infection will respond to the chosen ABx?: Yes (BLOOD CULTURES NEGATIVE) Is the patient receiving the right drug, dose, and route?: Yes Could a more targeted ABx be ordered?: No
--- NOTE | 2021-05-04 14:48 | PC.NURSE ---
dressing change done per dr patel instructions. education for discharge done. patient assisted with changing stated they would ring out when ready to leave
== END 2021-05-04 14:58 | disposition home health service (06) | DRG 463 ==
LOC: UTC 17:34 → COUGHCL 17:42 → ER 17:42 → 2ND 04-28 08:40
PROVIDERS: Family Medicine; Nurse Practitioner Family; Orthopaedic Surgery; Physician Assistant Surgical; Admitting Provider Emergency Medicine; Emergency Provider Emergency Medicine; PCP Internal Medicine; Visit Provider Emergency Medicine
PROC: 0SRR0JA Replacement of Right Hip Joint, Femoral Surface with Synthetic Substitute, Uncemented, Open Approach (ICD-10-PCS; principal; 2021-04-28 14:00)
DX: S72.011A Unspecified intracapsular fracture of right femur, initial encounter for closed fracture (principal); M72.6 Necrotizing fasciitis; E27.1 Primary adrenocortical insufficiency; W01.0XXA Fall on same level from slipping, tripping and stumbling without subsequent striking against object, initial encounter; Y92.010 Kitchen of single-family (private) house as the place of occurrence of the external cause; J44.9 Chronic obstructive pulmonary disease, unspecified; Z99.81 Dependence on supplemental oxygen; K21.9 Gastro-esophageal reflux disease without esophagitis; F41.9 Anxiety disorder, unspecified; Z85.43 Personal history of malignant neoplasm of ovary; Z85.41 Personal history of malignant neoplasm of cervix uteri; M19.90 Unspecified osteoarthritis, unspecified site; Z87.891 Personal history of nicotine dependence; Z86.711 Personal history of pulmonary embolism; Z79.84 Long term (current) use of oral hypoglycemic drugs; D64.9 Anemia, unspecified
CPT/HCPCS: 27125; 11042; 11045 ×2; 36415; 71045; 73502; 80048; 80053; 80202; 81001; 85007; 85014; 85018; 85025; 85048; 85049; 85610; 85730; 86850; 87040; 87086; 87088; 87186; 87486; 87581; 87632; 87798; 93005; 93306; 96374; 96375; 97110; 97116; 97162; 97165; 97530; 97535; 99284; A4649; C1713; C1776; C9803; J0131; J0696; J2405; P9016; U0003; U0005

== ENCOUNTER → 2021-05-12 13:46 | Outpatient (CLI) | payer BC, SELFPAY ==
--- NOTE | 2021-05-12 13:50 | XR_ITS ---
PROCEDURE INFORMATION: Exam: XR Right Hip Exam date and time: 05/12/2021 1:50 PM Age: 65 years old Clinical indication: Hip pain; Right hip; Prior surgery; Surgery date: <1 month TECHNIQUE: Imaging protocol: XR Right hip. Views: 2 or 3 views hip with pelvis when performed. COMPARISON: CR XR HIP RT 2-3V W/PELVIS 04/28/2021 8:22 PM FINDINGS: Bones/joints: Again noted is the right hip prosthesis. The prosthetic components and osseous structures are in anatomic alignment. No evidence of loosening or infection of the hardware. No fractures or dislocations. Soft tissues: Normal. No swelling or abnormal density. IMPRESSION: Hip arthroplasty without evidence of complication.
== END ==
PROVIDERS: PCP Internal Medicine; Visit Provider Orthopaedic Surgery
DX: M25.551 Pain in right hip (principal)
CPT/HCPCS: 73502

== ENCOUNTER → 2021-05-25 09:15 | Outpatient (CLI) | payer BC, SELFPAY ==
--- NOTE | 2021-05-25 09:19 | XR_ITS ---
FINAL REPORT CLINICAL HISTORY: Post-op right hip,,pain COMPARISON: 05/12/2021 FINDINGS: RIGHT HIP Four views demonstrate no acute fracture or dislocation. Postoperative changes are seen from right hip arthroplasty, stable. There is lateral soft tissue calcification. IMPRESSION: Postsurgical changes without acute bony abnormality. Reviewed, Interpreted and Dictated by Jose David Patterson III, MD Transcribed by Vvii Blanchard Authenticated by Jose David Patterson III, MD on 05/25/2021 11:04:13 AM [facility]
== END ==
PROVIDERS: PCP Internal Medicine; Visit Provider Orthopaedic Surgery
DX: S72.001A Fracture of unspecified part of neck of right femur, initial encounter for closed fracture (principal); Z09 Encounter for follow-up examination after completed treatment for conditions other than malignant neoplasm
CPT/HCPCS: 73502

== ENCOUNTER → 2021-06-28 09:07 | Outpatient (CLI) | payer BC, SELFPAY ==
--- NOTE | 2021-06-28 | ECG_ITS ---
APPROVED REPORT Exam: Resting ECG HR:92 bpm ECG Measurements Heart Rate 92 AXES OH 147 P 72 QRSd 79 QRS 88 QT 343 T -3 QTc 393 Conclusion SINUS RHYTHM NDST-T Abnormalities Otherwise A NORMAL ECG Electronically signed by : Cornelio Chan MD 07/26/2021 16:10:28
--- NOTE | 2021-06-28 09:08 | XR_ITS ---
FINAL REPORT TECHNIQUE: Bone densitometry calculations of the lumbar spine and left hip were obtained. CLINICAL HISTORY: . evaluate for oteoporosis FINDINGS: Using L1-4, the bone mineral density of the spine is 0.966 g/cm2, corresponding to T-score of -0.7. Normal bone mineral density. Using the left hip, the bone mineral density of the femoral neck is 0.600 g/cm2, corresponding to a T-score of -2.2. Diminished bone mineral density. IMPRESSION: Diminished bone mineral density of the left hip consistent with osteopenia. FRAX 10 year fracture risk for major osteoporotic fracture is 18%. Reviewed, Interpreted and Dictated by Anton Peter MD Transcribed by Yudith Edwards Authenticated by Anton Peter MD on 06/28/2021 12:14:[address] [facility]
== END ==
PROVIDERS: PCP Internal Medicine; Visit Provider Orthopaedic Surgery
DX: R00.1 Bradycardia, unspecified (principal)
CPT/HCPCS: 77080; 93005

== ENCOUNTER → 2022-02-08 17:01 | Outpatient (CLI) | payer BC, SELFPAY ==
[2022-02-08 17:46] LABS: Basophils # 0.1 K/mm3 (0-0.2); Basophils % 0.9 % (0.1-2.0); Eosinophils # 0.2 K/mm3 (0.0-0.4); Eosinophils % 1.9 % (0.1-12.0); Hemoglobin 14.6 g/dL (12.2-16.2); Lymphocytes # 2.7 K/mm3 (0.7-4.5); Lymphocytes % 31.7 % (10-50); Mean Corpuscular HGB Conc 32.3 g/dL (31.8-35.4); Mean Corpuscular Hemoglobin 29.9 pg (27.0-31.2); Mean Corpuscular Volume 92.3 fl (81-99); Mean Platelet Volume 8.2 fl (7.4-10.4); Monocytes # 0.3 K/mm3 (0.1-1.0); Monocytes % 3.9 % (1.7-9.3); Neutrophils # 5.2 K/mm3 (1.8-7.8); Neutrophils % 61.6 % (37.0-80.0); Platelet Count 240 K/mm3 (142-424); Red Blood Count 4.87 M/mm3 (4.20-5.40); Red Cell Distribution Width 13.8 % (11.5-17.5); White Blood Count 8.5 K/mm3 (4.8-10.8)
[2022-02-08 18:41] LABS: Alanine Aminotransferase 19 U/L (12-78); Albumin Level 3.9 g/dl (3.5-5.0); Albumin/Globulin Ratio 1.2 (1.1-1.8); Alkaline Phosphatase 108 U/L (38-126); Anion Gap 13.2 mEq/L (5-15); Aspartate Amino Transferase 24 U/L (14-36); Bilirubin,Total 0.2 mg/dl (0.2-1.3); Blood Urea Nitrogen 18 mg/dl (7-17); Calcium 9.3 mg/dl (8.4-10.2); Carbon Dioxide 39 mmol/L (22.0-30.0); Chloride 93 mmol/L (98-107); Estimated Glomerular Filt Rate 101 ml/min (>60); GFR (African American) 122 ML/MIN (>60); Globulin 3.3 g/dL (1.3-3.2); Glucose 76 mg/dl (74-100); Potassium 4.2 mmoL/L (3.5-5.1); Sodium 141 mmol/L (136-145); Total Protein,Serum 7.2 g/dl (6.3-8.2)
== END ==
PROVIDERS: PCP Internal Medicine; Visit Provider Internal Medicine
DX: D64.9 Anemia, unspecified (principal); E27.3 Drug-induced adrenocortical insufficiency; F33.2 Major depressive disorder, recurrent severe without psychotic features; M79.7 Fibromyalgia; M15.0 Primary generalized (osteo)arthritis; J44.9 Chronic obstructive pulmonary disease, unspecified; Z87.39 Personal history of other diseases of the musculoskeletal system and connective tissue
CPT/HCPCS: 80053; 82306; 85025

== ENCOUNTER → 2022-05-17 13:36 | Outpatient (CLI) | payer BC, SELFPAY ==
[2022-05-17 14:24] LABS: Microscopic, Urine URINE MICROSCOPIC (MICROSCOPIC)
[2022-05-17 15:19] LABS: Appearance,Urine CLEAR (Clear); Bilirubin,Urine Negative (Negative); Blood, Urine Negative (Negative); Color,Urine YELLOW (Yellow); Glucose,Urine (UA) Negative (Negative); Ketones,Urine Negative (Negative); Leukocyte Esterase,Urine Negative (Negative); Nitrate,Urine Negative (Negative); Protein,Urine Negative (Negative); Specific Gravity, Urine 1.025 (1.005-1.030); Urobilinogen,Urine 0.2 EU/dl (0.2)
[2022-05-17 17:40] LABS: Squamous Epithelial Cell,Urine Occasional #/hpf (0-5); WBC,Urine Occasional #/hpf (0-3)
== END ==
PROVIDERS: PCP Internal Medicine; Visit Provider Internal Medicine
DX: N39.0 Urinary tract infection, site not specified (principal); B96.29 Other Escherichia coli [E. coli] as the cause of diseases classified elsewhere
CPT/HCPCS: 81001; 87086; 87088; 87186

== ENCOUNTER 2022-07-27 13:53 | Inpatient (IN) | payer BC, MEDICARE, SELFPAY ==
[2022-07-27] VITALS (14 sets, daily range): BP systolic 75–117; BP diastolic 36–79; PULSE 84–140; RESP 16–22; TEMP 36.9–39.9; O2SAT 80–97; BMI 38.0; BMI 37.4; BMI 35.9
--- NOTE | 2022-07-27 14:04 | XR_ITS ---
FINAL REPORT CLINICAL HISTORY: LETHARGY COMPARISON: 04/30/2021 FINDINGS: A single portable view of the chest was obtained. The heart size and pulmonary vascularity are within normal limits. The mediastinum is within normal limits. There are right basilar opacities which may represent atelectasis or pneumonia. The bony thorax is intact. IMPRESSION: Right basilar opacities. Reviewed, Interpreted and Dictated by Jose David Patterson III, MD Transcribed by iKm Smith Authenticated and [facility]
--- NOTE | 2022-07-27 14:06 | PC.NURSE ---
notified of possible sepsis.
--- NOTE | 2022-07-27 14:09 | ECG_ITS ---
APPROVED REPORT Exam: Resting ECG HR:138 bpm ECG Measurements Heart Rate 138 AXES [place] 138 P 59 QRSd 74 QRS 74 QT 329 T 68 QTc 410 Conclusion SINUS TACHYCARDIA LOW QRS VOLTAGE IN PRECORDIAL LEADS [QRS DEFLECTION < 1.0 mV IN CHEST LEADS] NONSPECIFIC ST & T-WAVE ABNORMALITY ABNORMAL RHYTHM ECG UNCONFIRMED REPORT Electronically signed by : Troy Barrett MD 07/29/2022 14:25:09
--- NOTE | 2022-07-27 14:19 | PC.NURSE ---
Covid swab sent to lab.
[2022-07-27 14:31] LABS: Microscopic, Urine URINE MICROSCOPIC (MICROSCOPIC)
--- NOTE | 2022-07-27 14:31 | PC.NURSE ---
lactic sent to lab.
[2022-07-27 14:34] LABS: Appearance,Urine TURBID (Clear); Bilirubin,Urine Negative (Negative); Blood, Urine 2+ (Negative); Color,Urine YELLOW (Yellow); Glucose,Urine (UA) Negative (Negative); Ketones,Urine Negative (Negative); Leukocyte Esterase,Urine 2+ (Negative); Nitrate,Urine POSITIVE (Negative); Protein,Urine 2+ (Negative); Urobilinogen,Urine 0.2 EU/dl (0.2)
[2022-07-27 14:41] LABS: Coronavirus 19, PCR Not Detected (NotDetected); Influenza A, PCR Not Detected (NotDetected); Influenza B, PCR Not Detected (NotDetected)
--- NOTE | 2022-07-27 14:51 | HMH.EDGENADL ---
Discharge Plan Disposition Patient Disposition: Admitted As Inpatient Chief Complaint: Fever Prescriptions Prescriptions: No Action montelukast [Singulair] 10 mg tablet 10 mg PO PM pregabalin [Lyrica] 150 mg capsule 150 mg PO BID alprazolam [Xanax] 1 mg tablet 1 mg PO TIDP PRN (Reason: Anxiety) levothyroxine 50 MCG tablet 50 mcg PO DAILY hydrocortisone 5 MG tablet 30 mg PO DIRECTED Rx Instructions: 20 mg in am, 10 mg at HS duloxetine 30 MG capsule,delayed release(DR/EC) 30 mg PO DAILY hydrocodone-acetaminophen 1 TAB tablet 1 tab PO Q6HP PRN (Reason: mod) Qty: 30 0RF trazodone 50 MG tablet 100 mg PO HS Label Comments: TAKE 1 TABLET BY MOUTH THREE TIMES DAILY aripiprazole 10 MG tablet 10 mg PO DAILY potassium chloride 20 MEQ tablet extended release 20 meq PO DAILYP PRN (Reason: taken with lasix) tiotropium bromide 4 GM mist 2 spray IH DAILY Referrals Follow up/Referrals: Cornelio Chan MD [Primary Care Provider] - See instructions Clinical Impressions Clinical Impression: Pyelonephritis Discharge ED Provider: Brendon Schwartz General Adult HPI General Chief complaint: Fever Stated complaint: Fever, lethargic Time Seen by Provider: 07/27/22 14:00 Mode of Arrival: Wheelchair Source of Information: Spouse Limitations: Physical Limitations Description of Symptoms (Recalled from ER Triage Doc. by RN): pt presents to ED, pt's states this am at 0400 pt was fine when he left for work. states at 0900 pt c/o being cold. Therapy came to pt's house at 1100 and stated pt was lethargic and had a fever. Upon arrival pt has a fever, able to answer questions. History of Present Illness HPI narrative: This is a 66-year-old female with history of Medardo's disease, necrotizing soft tissue infection of her right lower extremity, COPD currently on 2 L nasal cannula, numerous UTIs and episodes of pneumonia presenting with altered mental status and weakness in the setting of fever. Per patient, she felt well until 1 day prior to arrival. Overnight, she started having fevers and chills. Family was called to take her to the primary care doctor, but when family arrived, they said she was out of it, and brought her to the emergency department. Patient denies chest pain, shortness of breath, cough, nausea, vomiting, abdominal pain, dysuria, hematuria, Diarrhea, constipation, or any other concerns. Related Data Home Medications Medication Instructions Recorded Confirmed alprazolam 1 mg tablet (Xanax) 1 mg PO TIDP PRN Anxiety 08/03/17 04/28/21 montelukast 10 mg tablet 10 mg PO PM Allergy symptoms 08/03/17 04/27/21 (Singulair) pregabalin 150 mg capsule (Lyrica) 150 mg PO BID Pain 08/03/17 04/27/21 levothyroxine 50 mcg tablet 50 mcg PO DAILY hypothroidism 09/01/18 04/27/21 aripiprazole 10 mg tablet 10 mg PO DAILY Depression 08/28/20 04/27/21 potassium chloride 20 mEq 20 meq PO DAILYP PRN taken with 08/28/20 04/27/21 tablet,extended release lasix tiotropium bromide 1.25 2 spray IH DAILY COPD 08/28/20 04/27/21 mcg/actuation mist for inhalation trazodone 50 mg tablet 100 mg PO HS SLEEP 08/28/20 04/27/21 hydrocortisone 5 mg tablet 30 mg PO DIRECTED [place]'s 10/05/20 04/27/21 disease duloxetine 30 mg capsule,delayed 30 mg PO DAILY depression 04/27/21 04/27/21 release Previous Rx's Medication Instructions Recorded hydrocodone 5 mg-acetaminophen 325 1 tab PO Q6HP PRN mod #30 tabs 05/04/21 mg tablet Allergies Allergy/AdvReac Type Severity Reaction Status Date / Time nitrofurantoin Allergy Intermediate Unknown Verified 06/08/21 10:12 allergy reaction Penicillins Allergy Intermediate Swelling Verified 06/08/21 10:12 of Lip/Tongue/Throat [facility] Disclaimer: The information contained in this section may have been updated after the patient was seen, as this information can be updated
--- NOTE | 2022-07-27 14:53 | PC.NURSE ---
RT called for ABG
--- NOTE | 2022-07-27 15:01 | PC.NURSE ---
spoke with Dakota in pharmacy regarding Vanc consult.
--- NOTE | 2022-07-27 15:08 | PC.NURSE ---
RT at bedside to obtain ABG
[2022-07-27 15:09] LABS: Basophils % 0.2 % (0.1-2.0); Eosinophils # 0.1 K/mm3 (0.0-0.4); Eosinophils % 0.3 % (0.1-12.0); Hematocrit 43.1 % (37.0-47.0); Hemoglobin 13.7 g/dL (12.2-16.2); Lymphocytes # 1.4 K/mm3 (0.7-4.5); Lymphocytes % 8.8 % (10-50); Mean Corpuscular HGB Conc 31.7 g/dL (31.8-35.4); Mean Corpuscular Hemoglobin 30.1 pg (27.0-31.2); Mean Corpuscular Volume 94.7 fl (81-99); Mean Platelet Volume 7.8 fl (7.4-10.4); Monocytes # 0.6 K/mm3 (0.1-1.0); Monocytes % 3.7 % (1.7-9.3); Neutrophils # 14.2 K/mm3 (1.8-7.8); Neutrophils % 86.9 % (37.0-80.0); Platelet Count 232 K/mm3 (142-424); Red Blood Count 4.55 M/mm3 (4.20-5.40); Red Cell Distribution Width 14.1 % (11.5-17.5); White Blood Count 16.3 K/mm3 (4.8-10.8)
[2022-07-27 15:12] LABS: Chloride 97 mmol/L (98-107); Sodium 139 mmol/L (136-145)
[2022-07-27 15:13] LABS: ABG Base Excess 7.2 mmol/L (-2.4-2.3); ABG HCO3 32.2 mmhg (22.0-26.0); ABG Oxygen Saturation 93 % (90-100); ABG PH 7.38 mmol/L (7.35-7.45); ABG PO2 64.8 mmhg (80-100); ABG TCO2 33.9 mmhg (23-27)
[2022-07-27 15:13] LABS: MANUAL DIFFERENTIAL MANUAL DIFFERENTIAL (MANUAL DIFF)
[2022-07-27 15:14] LABS: Allen's Test YES; Oxygen 2LPM %; Source Left Radial
[2022-07-27 15:15] LABS: Blood Urea Nitrogen 13 mg/dl (7-17); Calcium 8.5 mg/dl (8.4-10.2); Carbon Dioxide 38 mmol/L (22.0-30.0); Creatinine Clearance Estimated 92 mL/min (50-200); Estimated Glomerular Filt Rate 101 ml/min (>60); GFR (African American) 122 ML/MIN (>60); Glucose 114 mg/dl (74-100)
[2022-07-27 15:16] LABS: ABG PCO2 55.2 mmhg (35.0-45.0)
--- NOTE | 2022-07-27 15:16 | PC.NURSE ---
notified Dr. Schwartz of critical lab- [facility] [id number]
[2022-07-27 15:17] LABS: Lactic Acid 2.6 mmol/L (0.7-2.1)
[2022-07-27 15:19] LABS: Bacteria,Urine 3+ /lpf; Mucus,Urine 4+ /lpf; Squamous Epithelial Cell,Urine Occasional #/hpf (0-5); WBC,Urine 20-50 #/hpf (0-3)
--- NOTE | 2022-07-27 15:22 | PC.NURSE ---
Sepsis fluids completed at this time.
[2022-07-27 15:36] LABS: Troponin I 0.01 ng/ml (0.00-0.034)
--- NOTE | 2022-07-27 16:08 | EXP.PHA.CONS ---
Pharmacy Consult Date: 07/27/22 Time: 16:09 Referring provider: DR. KEARNEY Reason for Consult:: VANCOMYCIN DOSING Allergies Allergy/AdvReac Type Severity Reaction Status Date / Time nitrofurantoin Allergy Intermediate Unknown Verified 06/08/21 10:12 allergy reaction Penicillins Allergy Intermediate Swelling Verified 06/08/21 10:12 of Lip/Tongue/Throat Home Medications Medication Instructions Recorded Confirmed Type alprazolam 1 mg tablet (Xanax) 1 mg PO TIDP PRN Anxiety 08/03/17 04/28/21 History montelukast 10 mg tablet 10 mg PO PM Allergy symptoms 08/03/17 04/27/21 History (Singulair) pregabalin 150 mg capsule (Lyrica) 150 mg PO BID Pain 08/03/17 04/27/21 History levothyroxine 50 mcg tablet 50 mcg PO DAILY hypothroidism 09/01/18 04/27/21 History aripiprazole 10 mg tablet 10 mg PO DAILY Depression 08/28/20 04/27/21 History potassium chloride 20 mEq 20 meq PO DAILYP PRN taken with 08/28/20 04/27/21 History tablet,extended release lasix tiotropium bromide 1.25 2 spray IH DAILY COPD 08/28/20 04/27/21 History mcg/actuation mist for inhalation trazodone 50 mg tablet 100 mg PO HS SLEEP 08/28/20 04/27/21 History hydrocortisone 5 mg tablet 30 mg PO DIRECTED [place] 10/05/20 04/27/21 History disease duloxetine 30 mg capsule,delayed 30 mg PO DAILY depression 04/27/21 04/27/21 History release hydrocodone 5 mg-acetaminophen 325 1 tab PO Q6HP PRN mod #30 tabs 05/04/21 Rx mg tablet New Prescriptions to Start Prescriptions: Height: 1.65 m Weight: 102.058 kg Laboratory Results:: Laboratory Results - last 24 hr 07/27/22 14:00: Urine Color Yellow, Urine Appearance Turbid, Urine pH 8.0, Ur Specific [place] 1.020, Urine Protein 2+, Urine Glucose (UA) Negative, Urine Ketones Negative, Urine Blood 2+, Urine Nitrate Positive, Urine Bilirubin Negative, Urine Urobilinogen 0.2, Ur Leukocyte Esterase 2+ A, Urine RBC 10-20, Urine WBC 20-50, Ur Squamous Epith Cells Occasional, Urine Bacteria 3+, Urine Mucus 4+ 07/27/22 14:53: Specimen Source Left radial, O2 % 2lpm, ABG pH 7.38, ABG pCO2 55.2 H, ABG pO2 64.8 L, ABG HCO3 32.2 H, ABG Total CO2 33.9 H, ABG O2 Saturation 93, ABG Base Excess 7.2 H, [place] Test Yes 07/27/22 14:56: WBC 16.3 H, RBC 4.55, Hgb 13.7, Hct 43.1, MCV 94.7, MCH 30.1, MCHC 31.7 L, RDW 14.1, Plt Count 232, MPV 7.8, Neut % (Auto) 86.9 H, Lymph % (Auto) 8.8 L, [place] % (Auto) 3.7, Eos % (Auto) 0.3, Baso % (Auto) 0.2, Neut # (Auto) 14.2 H, Lymph # (Auto) 1.4, [place] # (Auto) 0.6, Eos # (Auto) 0.1, Baso # (Auto) 0.0 07/27/22 14:56: Sodium 139, Potassium 4.0, Chloride 97 L, Carbon Dioxide 38 H, Anion Gap 8.0, BUN 13, Creatinine 0.60, Estimated Creat Clear 92, Estimated GFR 101, Est GFR ( Amer) 122, Glucose 114 H, Calcium 8.5, Troponin I 0.01 07/27/22 14:56: Lactate 2.6 H 07/27/22 : SARS-CoV-2 (PCR) Not detected, Influenza A Untype (PCR) Not detected, Influenza Type B (PCR) Not detected Assessment and Plan Assessment and plan all Dx Assessment and Plan for all problems:: Pharmacokinetic dosing service Objective: Patient: Floor: Age: 66 yo Serum creatinine: 0.60 mg/dL Height: 65.0 Inches Weight (kg): 102.1 Assessment: IBW (kg): 57.00 Dosing wt(kg): 102.1 Estimated Creatinine clearance (ml/min): 85.2 CRCL method: Cockcroft and Gault using ibw(default). Drug selected: Vancomycin Loading dose (mg): Vd (liters): 76.6 (factor used: 0.75 L/kg) Hari (hr-1): 0.075 Half life (hrs): 9.24 CLvanco=?? 5.745 L/hr Recommended dose: 1500 mg Interval: 12 hrs Infusion time (hrs): 2.0 Predicted peak (mcg/mL): 30.6 Predicted trough (mcg/mL): 14.45 Total body weight is being used for vancomycin dosing. Recommendations: Give Vancomycin 1500 mg q 12 hrs with an expected Cpeak of 30.6 mcg/ml and an e
[2022-07-27 16:09] LABS: Lymphocytes % 18 % (10-50); Monocytes % 4 % (2-9); Neutrophils % 78 % (42-76); Platelet Estimate Normal; RBC Morphology Normal; Total Cells Counted 100
--- NOTE | 2022-07-27 16:45 | PC.NURSE ---
speaking with hospitalist at this time
--- NOTE | 2022-07-27 17:23 | EXP.HP ---
History of Present Illness *Admission Date: 07/27/22 *Reason for visit:: fever, ams *History of present illness: Ms. 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 She presented to the ER today at the request of her home health nurse because she was more weak and altered at home. Her presented with her, he supplement history. She stated she was having fever and chills and feeling more ill over the past 1 to 2 days. When her home health nurse arrived to do therapy today, they recommended she come to the ER for further evaluation. She denies any increased shortness of breath, dysuria, chest pain, nausea, vomiting, headache. Has had urinary tract infections in the past, most recent 2 to 3 months ago. Work-up in the ER concerning for sepsis secondary to urinary source. Also concerning for adrenal insufficiency. Started on empiric antibiotics after obtaining cultures. Started on stress dose steroids. Medicine consulted for admission. After arriving to the floor, patient's blood pressure is somewhat better with systolic in the 110s. Stable on baseline oxygen. at bedside to help give history. [facility] Disclaimer: The information contained in this section may have been updated after the patient was seen, as this information can be updated by other users. Medical History (Updated 07/27/22 @ 19:25 by Kumar Pinedo MD) Addisons disease Anxiety COPD (chronic obstructive pulmonary disease) Depression Hypokalemia Necrotizing cellulitis Post-hysterectomy menopause Thyroid disease Family History (Updated 07/27/22 @ 18:46 by Holly Izquierdo RN) Diabetes Heart attack Family history of COPD (chronic obstructive pulmonary disease) Social History (Updated 07/27/22 @ 18:46 by Holly Izquierdo RN) Smoking Status: Former smoker alcohol intake: never substance use type: denies use current occupational status: disabled Travel in the last 8 weeks: None household members: spouse housing: house caffeine: No Meds Home Medications and Allergies Home Medications Medication Instructions Recorded Confirmed Type alprazolam 1 mg tablet (Xanax) 1 mg PO TIDP PRN Anxiety 08/03/17 07/27/22 History montelukast 10 mg tablet 10 mg PO PM Allergy symptoms 08/03/17 07/27/22 History (Singulair) pregabalin 150 mg capsule (Lyrica) 150 mg PO BID fibromyalgia 08/03/17 07/27/22 History levothyroxine 50 mcg tablet 50 mcg PO DAILY hypothroidism 09/01/18 07/27/22 History aripiprazole 10 mg tablet 10 mg PO DAILY Depression 08/28/20 07/27/22 History tiotropium bromide 1.25 2 spray IH DAILY PRN copd 08/28/20 07/27/22 History mcg/actuation mist for inhalation trazodone 50 mg tablet 100 mg PO DAILY SLEEP 08/28/20 07/27/22 History hydrocortisone 5 mg tablet 30 mg PO DIRECTED [place]'s 10/05/20 07/27/22 History disease duloxetine 30 mg capsule,delayed 30 mg PO DAILY depression 04/27/21 07/27/22 History release hydrocodone 5 mg-acetaminophen 325 1 tab PO Q4HP PRN Pain 07/27/22 07/27/22 History mg tablet New Prescriptions to Start Prescriptions: Allergies Allergy/AdvReac Type Severity Reaction Status Date / Time nitrofurantoin Allergy Intermediate Unknown Verified 06/08/21 10:12 allergy reaction Penicillins Allergy Intermediate Swelling Verified 06/08/21 10:12 of Lip/Tongue/Throat Exam Data for Last 24 hours Vital signs and Labs for Last 24 Hours: Temp Pulse Resp BP Pulse Ox 103.8 F H 90 18 95/36 L 94 L 07/27/22 13:55 07/27/22 16:19 07/27/22 16:19 07/27/22 16:19 07/27/22 16:19 Laboratory Results - last 24 hr 07/27/22 14:00: Urine Color Yellow, Urine Appearance Turbid, Urine pH 8.0, Ur Specific [place] 1.020, Urine Protein 2+, Urine Glucose (UA) Negative, Urine Ketones Negative, Urine
--- NOTE | 2022-07-27 17:29 | PC.NURSE ---
Report called to Holly Epps RN
--- NOTE | 2022-07-27 17:38 | PC.NURSE ---
arrived by stretcher to room 219 from ED
[2022-07-27 17:41] LABS: Troponin I 0.01 ng/ml (0.00-0.034)
[2022-07-27 17:47] LABS: Thyroid Stimulating Hormone 0.73 uIU/mL (0.465-4.68)
[2022-07-27 18:01] LABS: Hemoglobin A1C 5.1 % (4.0-6.0)
--- NOTE | 2022-07-27 18:34 | EXP.SEPSISRE ---
[facility] Tissue Perfusion Eval Sepsis Re-Evaluation Performed: Yes Date Performed: 07/27/22 Time Performed: 17:55
[2022-07-27 19:00] LABS: Reflex Lactic Add Lactic Reflex
[2022-07-27 20:48] LABS: Lactic Acid Follow Up (RFLX 1) 2.6 mmol/L (0.7-2.1)
[2022-07-27 20:49] LABS: Troponin I < 0.01 ng/ml (0.00-0.034)
[2022-07-27 21:57] LABS: Reflex Lactic (2 hrs) Add Lactic Reflex
[2022-07-27 22:41] LABS: Lactic Acid Follow up (RFLX 2) 2.1 mmol/L (0.7-2.1)
[2022-07-28] VITALS (10 sets, daily range): BP systolic 97–143; BP diastolic 58–88; PULSE 62–81; RESP 16–22; TEMP 36.6–36.9; O2SAT 94–99; BMI 36.8; BMI 36.6
[2022-07-28 06:42] LABS: Basophils % 0.1 % (0.1-2.0); Eosinophils % 0.1 % (0.1-12.0); Hematocrit 35.8 % (37.0-47.0); Lymphocytes # 1.9 K/mm3 (0.7-4.5); Lymphocytes % 12.8 % (10-50); Mean Platelet Volume 7.5 fl (7.4-10.4); Monocytes # 0.5 K/mm3 (0.1-1.0); Neutrophils # 12.6 K/mm3 (1.8-7.8); Platelet Count 186 K/mm3 (142-424); Red Blood Count 3.81 M/mm3 (4.20-5.40)
[2022-07-28 06:43] LABS: MANUAL DIFFERENTIAL MANUAL DIFFERENTIAL (MANUAL DIFF)
[2022-07-28 06:45] LABS: Hemoglobin 11.4 g/dL (12.2-16.2)
[2022-07-28 06:46] LABS: Chloride 100 mmol/L (98-107); Potassium 3.6 mmoL/L (3.5-5.1); Sodium 138 mmol/L (136-145)
[2022-07-28 06:48] LABS: Blood Urea Nitrogen 16 mg/dl (7-17); Creatinine Clearance Estimated 95 mL/min (50-200); Estimated Glomerular Filt Rate 161 ml/min (>60); GFR (African American) 194 ML/MIN (>60)
[2022-07-28 06:49] LABS: Alanine Aminotransferase 16 U/L (12-78); Albumin Level 3.1 g/dl (3.5-5.0); Albumin/Globulin Ratio 1.1 (1.1-1.8); Alkaline Phosphatase 58 U/L (38-126); Anion Gap 5.6 mEq/L (5-15); Aspartate Amino Transferase 17 U/L (14-36); Bilirubin,Total 0.3 mg/dl (0.2-1.3); Calcium 7.7 mg/dl (8.4-10.2); Carbon Dioxide 36 mmol/L (22.0-30.0); Globulin 2.7 g/dL (1.3-3.2); Glucose 118 mg/dl (74-100); Magnesium 1.9 mg/dl (1.6-2.3); Total Protein,Serum 5.8 g/dl (6.3-8.2)
--- NOTE | 2022-07-28 07:53 | [facility].PHAINT1 ---
Pharmacy Intervention Comments: Reconciled patient's home medications using pharmacy fill history and patient interview.
[2022-07-28 08:17] LABS: Lymphocytes % 14 % (10-50); Monocytes % 3 % (2-9); Neutrophils % 83 % (42-76); Platelet Estimate Normal; RBC Morphology Normal; Total Cells Counted 100
--- NOTE | 2022-07-28 12:42 | EXP.ACUTE.PN ---
Subjective *Date: 07/28/22 *Time: 12:42 Interval history: No acute events overnight. Stable on 3L NC (her baseline). tolerating PO intake, no fever, nausea, emesis, confusion, CP, MEZA. Urine growing >100k CFUs GNR. States she feels much better today. Medical Exam Vital signs and Labs for Last 24 Hours: Vital Signs Temp Pulse Pulse Resp BP BP Pulse Ox 07/28/22 11:10 98.5 F 81 22 122/81 95 07/28/22 08:00 81 07/28/22 07:42 98.5 F 72 16 120/76 97 07/28/22 04:00 80 07/28/22 04:00 97.9 F 80 18 135/81 94 L 07/28/22 00:00 98.0 F 62 18 97/58 L 94 L 07/28/22 00:24 70 07/27/22 20:00 98.4 F 93 H 18 116/64 94 L 07/27/22 17:56 99.9 F H 85 16 116/71 96 07/27/22 17:54 99.9 F H 07/27/22 17:27 84 18 96/42 L 97 07/27/22 16:19 90 18 95/36 L 94 L 07/27/22 15:21 108 H 22 80/46 L 95 07/27/22 15:15 108 H 22 76/47 L 96 07/27/22 15:00 116 H 22 77/44 L 95 07/27/22 14:45 116 H 22 86/53 L 97 07/27/22 14:30 118 H 20 86/58 L 97 07/27/22 14:26 134 H 22 75/52 L 94 L 07/27/22 15:07 111 H 20 82/53 L 93 L 07/27/22 14:28 120 H 22 98/59 L 94 L 07/27/22 13:55 103.8 F H 140 H 22 117/79 80 L Intake and Output 07/27/22 07/28/22 07/28/22 23:59 07:59 15:59 Intake Total 1005 / 1245 240 / 1245 Output Total 0 / 0 1000 / 1000 0 / 1000 Balance 0 / 400 5 / 245 240 / 245 Intake: Intake, Oral Amount 240 / 480 240 / 480 Intake, Total IV Amount 400 / 400 Meropenem 1 gm In 0.9 % Sodium 100 / 100 Chloride 100 ml @ 100 mls/hr IV Q8H ON LICENSE OF [facility] Rx#:[id number] Vancomycin/Water For Inj (Peg) 300 / 300 1.5 gm In 300 ml @ 150 mls/hr IV Q12H KIERAN Rx#:[id number] Infusion Intake 365 / 365 Vancomycin/Water For Inj (Peg) 365 / 365 1.5 gm In 300 ml @ 150 mls/hr IV Q12H KIERAN Rx#:[id number] Output: Output, Urine Amount 0 / 0 1000 / 1000 0 / 1000 Other: Number of Unmeasured Voids 0 0 0 Weight 103.958 kg 106.282 kg Patient Weight 07/28/22 23:59 Weight 106.282 kg Laboratory Results - last 24 hr 07/27/22 14:00: Urine Color Yellow, Urine Appearance Turbid, Urine pH 8.0, Ur Specific [place] 1.020, Urine Protein 2+, Urine Glucose (UA) Negative, Urine Ketones Negative, Urine Blood 2+, Urine Nitrate Positive, Urine Bilirubin Negative, Urine Urobilinogen 0.2, Ur Leukocyte Esterase 2+ A, Urine RBC 10-20, Urine WBC 20-50, Ur Squamous Epith Cells Occasional, Urine Bacteria 3+, Urine Mucus 4+ 07/27/22 14:53: Specimen Source Left radial, O2 % 2lpm, ABG pH 7.38, ABG pCO2 55.2 H, ABG pO2 64.8 L, ABG HCO3 32.2 H, ABG Total CO2 33.9 H, ABG O2 Saturation 93, ABG Base Excess 7.2 H, [place] Test Yes 07/27/22 14:56: WBC 16.3 H, RBC 4.55, Hgb 13.7, Hct 43.1, MCV 94.7, MCH 30.1, MCHC 31.7 L, RDW 14.1, Plt Count 232, MPV 7.8, Neut % (Auto) 86.9 H, Lymph % (Auto) 8.8 L, [place] % (Auto) 3.7, Eos % (Auto) 0.3, Baso % (Auto) 0.2, Neut # (Auto) 14.2 H, Lymph # (Auto) 1.4, [place] # (Auto) 0.6, Eos # (Auto) 0.1, Baso # (Auto) 0.0, Total Counted 100, Neutrophils % (Manual) 78 H, Lymphocytes % (Manual) 18, Monocytes % (Manual) 4, Platelet Estimate Normal, RBC Morphology Normal 07/27/22 14:56: Sodium 139, Potassium 4.0, Chloride 97 L, Carbon Dioxide 38 H, Anion Gap 8.0, BUN 13, Creatinine 0.60, Estimated Creat Clear 92, Estimated GFR 101, Est GFR ( Amer) 122, Glucose 114 H, Calcium 8.5, Troponin I 0.01 07/27/22 14:56: Lactate 2.6 H 07/27/22 14:56: Hemoglobin A1c 5.1 07/27/22 14:56: TSH 0.73 07/27/22 17:05: Troponin I 0.01 07/27/22 19:45: Troponin I < 0.01 07/27/22 19:45: Lactate 2.6 H 07/27/22 22:00: Lactate 2.1 07/27/22 : SARS-CoV-2 (PCR) Not detected, Influenza A Untype (PCR) Not detected, Influenza Type B (PCR) Not detected 07/28/22 06:18: WBC 15.0 H, RBC 3.81 L, Hgb 11.4 L D, Hct 35.8 L, MCV 94.0, MCH 30.0, MCHC 32.0, RDW 14.0, Plt Count 186, MPV 7.5, Neut % (Auto) 84.0 H, Lymph % (Auto) 1
--- NOTE | 2022-07-28 15:46 | PC.NURSE ---
A&OX4. RESPIRATIONS REGULAR AND UNLABORED. LUNG SOUNDS DIMINISHED THROUGHOUT. NO COUGH NOTED. 3L NC THROUGHOUT SHIFT. BASELINE AT HOME. INCENTIVE SPIROMETER Q2 HOURS THROUGHOUT SHIFT. HEART RATE REGULAR. +2 PULSES NOTED THROUGHOUT. NO EDEMA NOTED. ABDOMEN SOFT AND NONTENDER. ACTIVE BOWEL SOUNDS HEARD THROUGHOUT. NO BM THUS FAR. PT HAD SANON AT BEGINNING OF SHIFT AND IT WAS DC PER MD. PURWICK IN PLACE AT THIS TIME. CLOUDY YELLOW URINE NOTED IN CANNISTER. PT HAS RECEIVED ANTIBIOTICS THIS SHIFT AND TOLERATED WELL THUS FAR. PAIN REPORTED ONCE IN R FOOT DUE TO CHRONIC PAIN AND L HIP. PAIN MEDS ADMINISTERED PER JUN AND ON REASSESSMENT, PAIN WAS DECREASED AND TOLERABLE. HAND INTELLIGENCE CONSULTANT EQUAL. PT HAS REMAINED ON TELE THROUGHOUT SHIFT. FAMILY VISITED THIS MORNING. NO QUESTIONS OR CONCERNS VOICED FROM FAMILY OR PT THUS FAR. LOVENOX FOR VTE. BED IN LOWEST POSITION. CALL LIGHT WITHIN REACH. WILL CONTINUE TO MONITOR.
[2022-07-29] VITALS: BP 133/72; PULSE 70; PULSE 71; RESP 16; TEMP 36.8; O2SAT 95
[2022-07-29 04:00] VITALS: BP 120/76; PULSE 60; PULSE 64; RESP 16; TEMP 36.3; O2SAT 96; BMI 36.6
[2022-07-29 04:31] LABS: Chloride 101 mmol/L (98-107); Sodium 140 mmol/L (136-145)
[2022-07-29 04:33] LABS: Alanine Aminotransferase 19 U/L (12-78); Aspartate Amino Transferase 20 U/L (14-36); Blood Urea Nitrogen 11 mg/dl (7-17); Creatinine Clearance Estimated 95 mL/min (50-200); Estimated Glomerular Filt Rate 161 ml/min (>60); GFR (African American) 194 ML/MIN (>60)
[2022-07-29 04:34] LABS: Albumin Level 2.9 g/dl (3.5-5.0); Albumin/Globulin Ratio 0.9 (1.1-1.8); Alkaline Phosphatase 57 U/L (38-126); Bilirubin,Total 0.3 mg/dl (0.2-1.3); Calcium 7.9 mg/dl (8.4-10.2); Carbon Dioxide 38 mmol/L (22.0-30.0); Globulin 3.1 g/dL (1.3-3.2); Glucose 127 mg/dl (74-100); Magnesium 1.9 mg/dl (1.6-2.3)
[2022-07-29 04:42] LABS: Basophils % 0.1 % (0.1-2.0); Eosinophils % 0.1 % (0.1-12.0); Hemoglobin 11.3 g/dL (12.2-16.2); Lymphocytes # 1.1 K/mm3 (0.7-4.5); Lymphocytes % 9.6 % (10-50); Mean Corpuscular HGB Conc 32.3 g/dL (31.8-35.4); Mean Corpuscular Hemoglobin 30.1 pg (27.0-31.2); Mean Corpuscular Volume 93.2 fl (81-99); Mean Platelet Volume 7.6 fl (7.4-10.4); Monocytes # 0.4 K/mm3 (0.1-1.0); Monocytes % 3.1 % (1.7-9.3); Neutrophils # 9.9 K/mm3 (1.8-7.8); Neutrophils % 87.1 % (37.0-80.0); Platelet Count 188 K/mm3 (142-424); Red Blood Count 3.75 M/mm3 (4.20-5.40); Red Cell Distribution Width 13.9 % (11.5-17.5); White Blood Count 11.3 K/mm3 (4.8-10.8)
[2022-07-29 04:46] LABS: Vancomycin,Trough 5.5 ug/mL (5.0-10.0)
[2022-07-29 04:49] LABS: MANUAL DIFFERENTIAL MANUAL DIFFERENTIAL (MANUAL DIFF)
[2022-07-29 05:22] LABS: Lymphocytes % 5 % (10-50); Neutrophils % 95 % (42-76); Platelet Estimate Normal; RBC Morphology Normal; Total Cells Counted 100
--- NOTE | 2022-07-29 06:24 | PC.NURSE ---
Pt rested well through the night. 3L NC BL. Received IV abx. No complaints through the night.
--- NOTE | 2022-07-29 07:33 | EXP.DC.SUM ---
General Admission date:: 07/27/22 Discharge date: 07/29/22 HPI HPI HPI: Ms. 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 She presented to the ER today at the request of her home health nurse because she was more weak and altered at home. Her presented with her, he supplement history. She stated she was having fever and chills and feeling more ill over the past 1 to 2 days. When her home health nurse arrived to do therapy today, they recommended she come to the ER for further evaluation. She denies any increased shortness of breath, dysuria, chest pain, nausea, vomiting, headache. Has had urinary tract infections in the past, most recent 2 to 3 months ago. Work-up in the ER concerning for sepsis secondary to urinary source. Also concerning for adrenal insufficiency. Started on empiric antibiotics after obtaining cultures. Started on stress dose steroids. Medicine consulted for admission. After arriving to the floor, patient's blood pressure is somewhat better with systolic in the 110s. Stable on baseline oxygen. at bedside to help give history. Hospital Course Hospital Course Hospital Course: Ms. Corona is a 66-year-old female who presented to the ER with sepsis criteria (tachycardia, leukocytosis, suspected urinary tract infection).? Also found to be hypotensive concerning for adrenal insufficiency given her history of [place]'s disease.? Treated with stress dose steroids and initiated on empiric antibiotics.? ER consulted medicine for admission, decision made to admit to stepdown given severity of symptoms and meeting septic criteria.? Problems addressed as follows: Sepsis, improving Pyelonephritis -Urine culture and blood culture obtained.? Initially treated with meropenem. Blood cultures remain negative at 48 hours, urine culture positive for E. coli with broad sensitivity. Will transition to levofloxacin to complete 7 days total of antibiotics. Patient has been afebrile since admission with improvement/normalization of her white cell count. Meeting criteria for discharge home on oral antibiotics to complete therapy. Follow-up with PCP in the coming weeks. [place]'s disease -Chronic adrenal insufficiency, on hydrocortisone twice daily. Treated with stress dose steroids on admission. Blood pressure normal, electrolytes stable. Transition back to home steroid regimen at discharge. COPD Chronic hypoxemic respiratory failure -Stable on baseline oxygen of 2 to 3 L continuously.? Continue home inhalers. DuoNebs every 4 hours as needed for shortness of breath. continue home Singulair Continue home medication for anxiety and depression Continue home medication for chronic pain and neuropathy Obesity complicates all aspects of her care Patient has done well with antibiotics. Continue current treatment for total of 7 days based on sensitivity. Patient tolerating normal hydrocortisone dosage. Stable for discharge home. Exam Data for Last 24 hours Vital signs and Labs for Last 24 Hours: Temp Pulse Resp BP Pulse Ox 97.4 F L 64 16 120/76 96 07/29/22 04:00 07/29/22 04:00 07/29/22 04:00 07/29/22 04:00 07/29/22 04:00 Laboratory Results - last 24 hr 07/28/22 06:18: Total Counted 100, Neutrophils % (Manual) 83 H, Lymphocytes % (Manual) 14, Monocytes % (Manual) 3, Platelet Estimate Normal, RBC Morphology Normal 07/29/22 04:05: Vancomycin Trough 5.5 07/29/22 04:05: WBC 11.3 H, RBC 3.75 L, Hgb 11.3 L, Hct 35.0 L, MCV 93.2, MCH 30.1, MCHC 32.3, RDW 13.9, Plt Count 188, MPV 7.6, Neut % (Auto) 87.1 H, Lymph % (Auto) 9.6 L, [place] % (Auto) 3.1, Eos % (Auto) 0.1, Baso % (Auto) 0.1, Neut # (Auto) 9.9 H, Lymph # (Auto) 1.1, [place] # (Auto) 0.4, Eos # (Auto) 0.0, Baso # (Auto) 0.0, Total Counted 100, Neutrophils % (Manual) 95 H, Lymphocytes % (
[2022-07-29 08:00] VITALS: BP 127/80; PULSE 100; PULSE 101; RESP 20; TEMP 36.6; O2SAT 94
--- NOTE | 2022-08-01 13:15 | SW/DCPLANNER ---
Patient information/order to resume home health services has been faxed to [facility].
--- NOTE | 2022-08-01 13:58 | CARE MANAGER ---
Contacted patient related to hospital discharge. She states she is feeling better, but still weak. She is receiving home health services. She picked up her medication and is aware of follow up appointment. DEEPTI Raines
== END 2022-07-29 12:47 | disposition home or self-care (01) | DRG 872 ==
LOC: ER 16:49 → 2ND 17:30
PROVIDERS: Admitting Provider Internal Medicine Adolescent Medicine; Emergency Provider Emergency Medicine; PCP Internal Medicine; Visit Provider Internal Medicine Adolescent Medicine
DX: A41.9 Sepsis, unspecified organism (principal); N10 Acute pyelonephritis; J96.11 Chronic respiratory failure with hypoxia; E27.1 Primary adrenocortical insufficiency; Z79.899 Other long term (current) drug therapy; J44.9 Chronic obstructive pulmonary disease, unspecified; F41.9 Anxiety disorder, unspecified; Z87.891 Personal history of nicotine dependence; E03.9 Hypothyroidism, unspecified; E66.9 Obesity, unspecified; Z68.36 Body mass index [BMI] 36.0-36.9, adult; Z99.81 Dependence on supplemental oxygen; B96.20 Unspecified Escherichia coli [E. coli] as the cause of diseases classified elsewhere; F32.A Depression, unspecified
CPT/HCPCS: 36415; 51702; 71045; 80048; 80053; 80202; 81001; 82803; 83036; 83605; 83735; 84443; 84484; 85007; 85025; 87040; 87086; 87088; 87186; 93005; 99285; C9803; J0131; J2185; U0003; U0005

== ENCOUNTER → 2022-09-16 11:25 | Outpatient (CLI) | payer BC, MEDICARE, SELFPAY ==
--- NOTE | 2022-09-16 11:32 | XR_ITS ---
FINAL REPORT CLINICAL HISTORY: Nonspecific cough COMPARISON: 07/27/2022 FINDINGS: There is no evidence of effusion or other pleural disease. The mediastinum has a normal appearance. The cardiac silhouette is unremarkable. IMPRESSION: Unremarkable chest exam. Reviewed, Interpreted and Dictated by Elaine Durbin MD Transcribed by Kim Smith Authenticated and . [facility]
== END ==
PROVIDERS: PCP Internal Medicine; Visit Provider Internal Medicine
DX: J44.9 Chronic obstructive pulmonary disease, unspecified (principal); J96.21 Acute and chronic respiratory failure with hypoxia
CPT/HCPCS: 71046

== ENCOUNTER → 2022-10-18 12:40 | Outpatient (CLI) | payer BC, MEDICARE, SELFPAY ==
[2022-10-18 15:19] LABS: Basophils % 0.3 % (0.1-2.0); Eosinophils # 0.1 K/mm3 (0.0-0.4); Eosinophils % 1.4 % (0.1-12.0); Hematocrit 42.6 % (37.0-47.0); Hemoglobin 13.7 g/dL (12.2-16.2); Lymphocytes % 22.4 % (10-50); Mean Corpuscular HGB Conc 32.1 g/dL (31.8-35.4); Mean Corpuscular Volume 93.4 fl (81-99); Mean Platelet Volume 9.3 fl (7.4-10.4); Monocytes # 0.4 K/mm3 (0.1-1.0); Monocytes % 4.6 % (1.7-9.3); Neutrophils # 6.4 K/mm3 (1.8-7.8); Neutrophils % 71.3 % (37.0-80.0); Platelet Count 272 K/mm3 (142-424); Red Blood Count 4.56 M/mm3 (4.20-5.40); Red Cell Distribution Width 13.7 % (11.5-17.5)
[2022-10-18 17:00] LABS: Alanine Aminotransferase 31 U/L (12-78); Albumin/Globulin Ratio 1.2 (1.1-1.8); Alkaline Phosphatase 96 U/L (38-126); Anion Gap 13.4 mEq/L (5-15); Aspartate Amino Transferase 33 U/L (14-36); Bilirubin,Total 0.4 mg/dl (0.2-1.3); Blood Urea Nitrogen 21 mg/dl (7-17); Calcium 8.5 mg/dl (8.4-10.2); Carbon Dioxide 40 mmol/L (22.0-30.0); Chloride 91 mmol/L (98-107); Estimated Glomerular Filt Rate 72 ml/min (>60); GFR (African American) 87 ML/MIN (>60); Globulin 3.3 g/dL (1.3-3.2); Glucose 115 mg/dl (74-100); Potassium 3.4 mmoL/L (3.5-5.1); Sodium 141 mmol/L (136-145); Total Protein,Serum 7.3 g/dl (6.3-8.2)
== END ==
PROVIDERS: PCP Internal Medicine; Visit Provider Internal Medicine
DX: I27.81 Cor pulmonale (chronic) (principal); J44.9 Chronic obstructive pulmonary disease, unspecified; E27.3 Drug-induced adrenocortical insufficiency; F17.209 Nicotine dependence, unspecified, with unspecified nicotine-induced disorders; F33.1 Major depressive disorder, recurrent, moderate; L30.4 Erythema intertrigo; M15.0 Primary generalized (osteo)arthritis; M79.7 Fibromyalgia; Z87.39 Personal history of other diseases of the musculoskeletal system and connective tissue
CPT/HCPCS: 80053; 85025

== ENCOUNTER → 2022-11-29 15:30 | Outpatient (CLI) | payer BC, MEDICARE, SELFPAY ==
[2022-11-29 16:29] LABS: Basophils % 0.4 % (0.1-2.0); Eosinophils # 0.1 K/mm3 (0.0-0.4); Eosinophils % 1.1 % (0.1-12.0); Hematocrit 46.5 % (37.0-47.0); Hemoglobin 14.9 g/dL (12.2-16.2); Lymphocytes # 2.5 K/mm3 (0.7-4.5); Lymphocytes % 27.8 % (10-50); Mean Corpuscular HGB Conc 32.1 g/dL (31.8-35.4); Mean Corpuscular Hemoglobin 29.6 pg (27.0-31.2); Mean Corpuscular Volume 92.2 fl (81-99); Mean Platelet Volume 9.8 fl (7.4-10.4); Monocytes # 0.4 K/mm3 (0.1-1.0); Monocytes % 4.1 % (1.7-9.3); Neutrophils % 66.6 % (37.0-80.0); Platelet Count 238 K/mm3 (142-424); Red Blood Count 5.04 M/mm3 (4.20-5.40); Red Cell Distribution Width 13.1 % (11.5-17.5)
[2022-11-29 16:52] LABS: Alanine Aminotransferase 37 U/L (12-78); Albumin Level 3.8 g/dl (3.5-5.0); Albumin/Globulin Ratio 1.1 (1.1-1.8); Alkaline Phosphatase 92 U/L (38-126); Aspartate Amino Transferase 39 U/L (14-36); Bilirubin,Total 0.3 mg/dl (0.2-1.3); Blood Urea Nitrogen 17 mg/dl (7-17); Calcium 8.6 mg/dl (8.4-10.2); Chloride 87 mmol/L (98-107); Estimated Glomerular Filt Rate 72 ml/min (>60); GFR (African American) 87 ML/MIN (>60); Globulin 3.4 g/dL (1.3-3.2); Glucose 164 mg/dl (74-100); Potassium 3.4 mmoL/L (3.5-5.1); Sodium 141 mmol/L (136-145); Total Protein,Serum 7.2 g/dl (6.3-8.2)
[2022-11-29 16:58] LABS: Anion Gap 19.4 mEq/L (5-15); Carbon Dioxide 38 mmol/L (22.0-30.0)
[2022-11-29 17:11] LABS: T4 (Thyroxine) 11.8 ug/dl (5.53-11.0)
[2022-11-29 17:25] LABS: Thyroid Stimulating Hormone 0.45 uIU/mL (0.465-4.68)
== END ==
PROVIDERS: PCP Internal Medicine; Visit Provider Internal Medicine
DX: I27.81 Cor pulmonale (chronic) (principal); E27.3 Drug-induced adrenocortical insufficiency; J44.9 Chronic obstructive pulmonary disease, unspecified; G47.10 Hypersomnia, unspecified
CPT/HCPCS: 80053; 82533; 84436; 84443; 85025

== ENCOUNTER 2023-05-24 16:47 | Outpatient (CLI) | payer BC, MEDICARE, SELFPAY ==
[2023-05-24 17:12] LABS: Basophils % 0.4 % (0.1-2.0); Eosinophils # 0.1 K/mm3 (0.0-0.4); Hematocrit 43.2 % (37.0-47.0); Hemoglobin 14.2 g/dL (12.2-16.2); Lymphocytes % 22.9 % (10-50); Mean Corpuscular HGB Conc 32.8 g/dL (31.8-35.4); Mean Corpuscular Volume 94.3 fl (81-99); Mean Platelet Volume 9.6 fl (7.4-10.4); Monocytes # 0.4 K/mm3 (0.1-1.0); Monocytes % 4.2 % (1.7-9.3); Neutrophils # 6.1 K/mm3 (1.8-7.8); Neutrophils % 71.5 % (37.0-80.0); Platelet Count 270 K/mm3 (142-424); Red Blood Count 4.58 M/mm3 (4.20-5.40); Red Cell Distribution Width 13.9 % (11.5-17.5); White Blood Count 8.6 K/mm3 (4.8-10.8)
[2023-05-24 18:12] LABS: Alanine Aminotransferase 34 U/L (12-78); Albumin Level 3.9 g/dl (3.5-5.0); Albumin/Globulin Ratio 1.3 (1.1-1.8); Alkaline Phosphatase 81 U/L (38-126); Aspartate Amino Transferase 31 U/L (14-36); Bilirubin,Total 0.4 mg/dl (0.2-1.3); Blood Urea Nitrogen 15 mg/dl (7-17); Calcium 8.9 mg/dl (8.4-10.2); Chloride 90 mmol/L (98-107); Chol/HDL Ratio 6.3 (1-3.5); Cholesterol 295 mg/dl (140-200); Estimated Glomerular Filt Rate 100 ml/min (>60); GFR (African American) 121 ML/MIN (>60); Globulin 2.9 g/dL (1.3-3.2); Glucose 122 mg/dl (74-100); HDL Cholesterol 47 mg/dl (40-60); Potassium 3.6 mmoL/L (3.5-5.1); Sodium 141 mmol/L (136-145); Total Protein,Serum 6.8 g/dl (6.3-8.2); Triglycerides 208 mg/dl (30-150); VLDL Cholesterol 42 mg/dL (0-40)
[2023-05-24 18:20] LABS: Anion Gap 10.6 mEq/L (5-15); Carbon Dioxide 44 mmol/L (22.0-30.0)
[2023-05-24 18:23] LABS: Direct LDL Cholesterol 175.79 mg/dL (100-129)
== END 2023-05-24 23:59 ==
LOC: LAB.DROPOF 16:48
PROVIDERS: PCP Internal Medicine; Visit Provider Internal Medicine
DX: J44.9 Chronic obstructive pulmonary disease, unspecified (principal); E27.40 Unspecified adrenocortical insufficiency; I27.81 Cor pulmonale (chronic); E78.5 Hyperlipidemia, unspecified; F33.1 Major depressive disorder, recurrent, moderate; F41.9 Anxiety disorder, unspecified; L97.811 Non-pressure chronic ulcer of other part of right lower leg limited to breakdown of skin
CPT/HCPCS: 80053; 80061; 85025

== ENCOUNTER 2023-11-29 12:08 | Outpatient (CLI) | payer BC, MEDICARE, SELFPAY ==
[2023-11-29 14:16] LABS: Basophils # 0.1 K/mm3 (0-0.2); Basophils % 0.7 % (0.1-2.0); Eosinophils # 0.1 K/mm3 (0.0-0.4); Eosinophils % 0.6 % (0.1-12.0); Hematocrit 42.2 % (37.0-47.0); Hemoglobin 12.9 g/dL (12.2-16.2); Lymphocytes # 1.4 K/mm3 (0.7-4.5); Lymphocytes % 15.4 % (10-50); Mean Corpuscular HGB Conc 30.7 g/dL (31.8-35.4); Mean Corpuscular Hemoglobin 31.3 pg (27.0-31.2); Mean Corpuscular Volume 101.8 fl (81-99); Monocytes # 0.4 K/mm3 (0.1-1.0); Monocytes % 4.4 % (1.7-9.3); Neutrophils % 78.9 % (37.0-80.0); Platelet Count 211 K/mm3 (142-424); Red Blood Count 4.14 M/mm3 (4.20-5.40); Red Cell Distribution Width 14.4 % (11.5-17.5); White Blood Count 8.8 K/mm3 (4.8-10.8)
[2023-11-29 14:59] LABS: Alanine Aminotransferase 108 U/L (12-78); Albumin Level 3.4 g/dl (3.5-5.0); Albumin/Globulin Ratio 1.1 (1.1-1.8); Alkaline Phosphatase 59 U/L (38-126); Aspartate Amino Transferase 66 U/L (14-36); Bilirubin,Total 0.4 mg/dl (0.2-1.3); Blood Urea Nitrogen 14 mg/dl (7-17); Calcium 8.9 mg/dl (8.4-10.2); Chloride 93 mmol/L (98-107); Estimated Glomerular Filt Rate 123 ml/min (>60); GFR (African American) 149 ML/MIN (>60); Globulin 3.1 g/dL (1.3-3.2); Glucose 197 mg/dl (74-100); Sodium 140 mmol/L (136-145); Total Protein,Serum 6.5 g/dl (6.3-8.2)
[2023-11-29 15:07] LABS: Carbon Dioxide > 40 mmol/L (22.0-30.0)
[2023-11-29 15:29] LABS: Thyroid Stimulating Hormone 0.62 uIU/mL (0.465-4.68)
[2023-11-29 18:43] LABS: Vitamin B12 > 1000 pg/mL (239-931)
[2023-11-29 18:45] LABS: Hemoglobin A1C 6.3 % (4.0-6.0)
== END 2023-11-29 23:59 | disposition home or self-care (01) ==
LOC: LAB.DROPOF 11-30 12:09
PROVIDERS: PCP Internal Medicine; Visit Provider Internal Medicine
DX: E03.9 Hypothyroidism, unspecified (principal); J96.11 Chronic respiratory failure with hypoxia; E27.1 Primary adrenocortical insufficiency; R53.1 Weakness
CPT/HCPCS: 80050; 80053; 82607; 83036; 84443; 85025

== ENCOUNTER 2024-06-26 17:08 | Inpatient (IN) | payer BC, MEDICARE, SELFPAY ==
[2024-06-26] VITALS (8 sets, daily range): BP systolic 95–125; BP diastolic 42–71; PULSE 102–115; RESP 16–23; TEMP 36.5–36.8; O2SAT 88–95; BMI 47.0; BMI 39.7
--- NOTE | 2024-06-26 17:12 | ED_ITS ---
Discharge Plan Disposition Patient Disposition: Admitted Condition: Good Clinical Impressions Clinical Impression: Immunosuppressed status Pressure ulcer of right ankle Qualifiers: Pressure injury stage: unspecified pressure injury stage Qualified Code(s): L 89.519 - Pressure ulcer of right ankle, unspecified stage Discharge ED Provider: Brendon Schwartz General Adult HPI <JALEEL Malloy - Last Filed: 06/26/24 21:39> General Chief complaint: Skin/Abscess/Foreign Body Stated complaint: rt leg infected Time Seen by Provider: 06/26/24 17:12 History of Present Illness HPI narrative: Patient presents for evaluation of a right lateral malleolus wound. Patient has significant past medical history of [id number] type 2 diabetes mellitus, [place]ke[place]'s disease on hydrocortisone, chronic severe COPD on chronic oxygen, morbid obesity, hypothyroidism, chronic pressure ulcers during to being nonmobile in a wheelchair and more specifically necrotizing fasciitis of the right lower extremity previously. Patient has had recent worsening at the lateral malleolus of the right ankle with skin breakdown. She was sent to the ER by her PCP for further evaluation. She reports it is very painful but denies fever chills hemoptysis hematochezia melena nausea vomit diarrhea. Related Data Home Medications ?Medication ?Instructions ?Recorded ?Confirmed albuterol sulfate 90 mcg/actuation 2 puff inhalation QID Shortness of 07/28/22 05/20/24 aerosol inhaler air alendronate 70 mg tablet 70 mg PO WEEKLY Osteoporosis 07/28/22 05/20/24 cholecalciferol (vitamin D3) 50 50 mcg PO DAILY Supplement 07/28/22 05/20/24 mcg (2,000 unit) tablet (Vitamin D3) ciclopirox 0.77 % topical cream applic topical 11/29/23 05/20/24 duloxetine 30 mg capsule,delayed 30 mg PO HS depression 05/27/24 release Previous Rx's ?Medication ?Instructions ?Recorded duloxetine 60 mg capsule,delayed See Rx Instructions .Route 01/30/24 release .COMPLEX #90 ea pantoprazole 40 mg tablet,delayed See Rx Instructions .Route 03/06/24 release .COMPLEX #90 tabs aripiprazole 10 mg tablet 10 mg PO DAILY Depression #90 tabs 03/20/24 hydrocortisone 10 mg tablet See Rx Instructions .Route 03/26/24 .COMPLEX #360 tabs hydrocortisone 5 mg tablet See Rx Instructions .Route 03/26/24 .COMPLEX #360 tabs oseltamivir 75 mg capsule 75 mg PO DAILY #10 caps 03/28/24 levothyroxine 50 mcg tablet See Rx Instructions .Route 03/29/24 .COMPLEX #90 tabs montelukast 10 mg tablet See Rx Instructions .Route 04/11/24 .COMPLEX #90 tabs potassium chloride 10 mEq See Rx Instructions .Route 04/11/24 capsule,extended release .COMPLEX #270 caps dimethicone 1.3 % topical cream See Rx Instructions topical .3 04/30/24 (Cavilon Durable Barrier) times a day #92 grams doxycycline hyclate 100 mg capsule 100 mg PO BID #30 caps 05/22/24 fluconazole 150 mg tablet 150 mg PO Q3D 2 doses #2 tabs 05/22/24 furosemide 40 mg tablet See Rx Instructions .Route 05/30/24 .COMPLEX #180 tabs sodium chloride 0.9 % irrigation 1 irrig irrigation DAILY PRN wound 06/04/24 solution (Sterile Saline) care #8,000 mL linaclotide 290 mcg capsule 290 mcg PO DAILY #90 caps 06/21/24 (Linzess) tiotropium bromide 1.25 See Rx Instructions .Route 06/21/24 mcg/actuation mist for inhalation .COMPLEX #4 grams (Spiriva Respimat) trazodone 50 mg tablet See Rx Instructions .Route 06/21/24 .COMPLEX #90 tabs alprazolam 1 mg tablet (Xanax) 1 - 1.5 mg (1 - 1.5 x 1 mg) PO 06/25/24 TIDP PRN Anxiety #135 tabs oxycodone 10 mg tablet 10 mg PO QID PRN pain #120 tabs 06/25/24 Allergies Allergy/AdvReac Type Severity Reaction Status Date / Time nitrofurantoin Allergy Intermediate Unknown Verified 05/20/24 14:38 allergy reaction Penicillins Allergy Intermediate Swelling Verified 05/20/24 14:38 of Lip/Tongue/Throat [facility] <JALEEL Malloy - Last Filed: 06/26/24 21:39> [facility] Disclaimer: The information contained in this section may have been updated after the patient was seen, as this information can be updated by other users. Medical History (Updated 06/26/24 @ 21:05 by JALEEL Malloy) Post-hysterectomy menopause Thyroid disease Hypokalemia Depression Anxiety COPD (chronic obstructive pulmonary disease) Necrotizing cellulitis Addisons disease Necrotizing fasciitis of ankle and foot Pressure ulcer of left buttock, stage 2 Open ankle wound Non-healing non-surgical wound Family History Other Diabetes Family history of COPD (chronic obstructive pulmonary disease) Heart attack Social History Smoking Status: Former smoker tobacco type: cigarettes packs per day: 2 alcohol intake: never substance use type: denies use current occupational status: disabled Travel in the last 8 weeks: None household members: spouse housing: house caffeine: No Have you lived/traveled outside [place] in past 30 days?: No Contact w/someone who lives/traveled outside US past 30 days?: No Exposure to someone with infectious disease in past 14 days?: No Do you have a fever (greater than 100.4 F or 38 C)?: No Have you tested positive for COVID-19: No Exposed to someone with COVID-19 in past 14 days?: No Do you have a sore throat?: No Do you have a cough?: No Do you have any weakness?: No Do you have any diarrhea?: No Are you experiencing any unusual bleeding?: No Do you have any muscle aches/pain?: No Do you have any abdominal pain?: No Are you experiencing loss of taste or smell?: No Other Medical History Have you received the Flu Vaccine for this season: No Have you received the Pneumonia Vaccine: No <JALEEL Malloy - Last Filed: 06/26/24 21:39> ROS Obtained: Yes Systems reviewed as appropriate & no additional complaints except as documented Physical Exam <JALEEL Malloy - Last Filed: 06/26/24 21:39> General General appearance: alert and in no apparent distress Respiratory Respiratory exam: Present normal lung sounds bilaterally Cardiovascular Cardiovascular exam: Present tachycardia Neurological Exam Neurological exam: Present alert and oriented X3 Medical Decision Making <JALEEL Malloy - Last Filed: 06/26/24 21:39> Medical Records Medical records reviewed: Yes I reviewed the patient's medical records. Screening: Per USPSTF and CDC recommendations, given the prevalence of disease in our region, it is our hospital?s policy to screen for HIV and viral Hepatitis for all patients aged 18 and over and those with ongoing risk factors. Steven Inquiry Pt receiving controlled substance: No Vital Signs: 06/26/24 17:25 06/26/24 17:30 06/26/24 18:00 Temperature 98.0 F Temperature Source Oral Pulse Rate 111 H 104 H Pulse Rate [Right] 115 H Respiratory Rate 23 Blood Pressure 99/68 L 114/60 Blood Pressure [Right Arm] 102/57 L Blood Pressure Mean [Right Arm] 72 Blood Pressure Source [Right Arm] Automatic Cuff 02 Sat by Pulse Oximetry 88 L 91 L 94 L Oxygen Delivery Method Nasal Cannula Room Air Room Air Oxygen Flow Rate (LPM) 3 06/26/24 18:30 06/26/24 19:00 06/26/24 19:31 Temperature Temperature Source Pulse Rate 104 H 104 H 102 H Pulse Rate [Right] Respiratory Rate Blood Pressure 97/56 L 115/71 125/53 L Blood Pressure [Right Arm] Blood Pressure Mean [Right Arm] Blood Pressure Source [Right Arm] 02 Sat by Pulse Oximetry 95 95 95 Oxygen Delivery Method Room Air Oxygen Flow Rate (LPM) 06/26/24 22:11 Temperature 97.7 F Temperature Source Oral Pulse Rate 106 H Pulse Rate [Right] Respiratory Rate 20 Blood Pressure 112/57 L Blood Pressure [Right Arm] Blood Pressure Mean [Right Arm] Blood Pressure Source [Right Arm] 02 Sat by Pulse Oximetry Oxygen Delivery Method Nasal Cannula Oxygen Flow Rate (LPM) 3.5 Lab Data Lab results reviewed: Yes I reviewed the patient's lab results. Lab Results 06/26/24 17:25: WBC 9.0, RBC 4.24, Hgb 13.0, Hct 41.6, MCV 98.1, MCH 30.7, MCHC 31.3 L, RDW 13.2, Plt Count 204, MPV 10.2, Neut % (Auto) 66.1, Lymph % (Auto) 25.9, Brule % (Auto) 6.4, Eos % (Auto) 0.6, Baso % (Auto) 0.6, Neut # (Auto) 6.0, Lymph # (Auto) 2.3, Brule # (Auto) 0.6, Eos # (Auto) 0.1, Baso # (Auto) 0.1, Sodium 137, Potassium 3.8, Chloride 89 L, Carbon Dioxide 42 H*, Anion Gap 9.8, BUN 15, Creatinine 0.60, Estimated GFR 100, Est GFR ( Amer) 121, Glucose 235 H, Lactate 1.9, Calcium 8.7, Total Bilirubin 0.5, AST 92 H, ALT 111 H, Alkaline Phosphatase 75, Total Protein 6.7, Albumin 3.9, Globulin 2.8, Albumin/Globulin Ratio 1.4, Procalcitonin 0.191 06/26/24 17:25 06/26/24 17:25 Orders (Tests/Meds): ED MEDICATIONS Generic Name Dose Route Start Last Admin Trade Name Freq PRN Reason Stop Dose Admin Acetaminophen 650 mg 06/26/24 21:35 Acetaminophen 325mg Tab PO 07/26/24 21:34 Q4HP PRN Fever or Mild Pain (1-3) Enoxaparin Sodium 40 mg 06/27/24 09:00 Enoxaparin 40mg/0.4ml Syringe SUBCUT 07/27/24 08:59 DAILY KIERAN Miscellaneous 1 each 06/26/24 18:45 Vancomycin Consult Request NOTAPPLIC 07/26/24 18:44 CONSULT PHARMACY KIERAN Ondansetron HCl 4 mg 06/26/24 21:35 Ondansetron 4mg/2ml Vial IV 07/26/24 21:34 Q8HP PRN Nausea Pantoprazole Sodium 40 mg 06/27/24 21:00 Pantoprazole 40mg Tablet PO 07/27/24 20:59 HS KIERAN Prednisone 5 mg 06/26/24 21:41 Prednisone 5mg Tab PO 06/26/24 21:42 ONCE ONE Discontinued Medications Generic Name Dose Route Start Last Admin Trade Name Freq PRN Reason Stop Dose Admin Sodium Chloride 1,850 mls @ 925 mls/hr 06/26/24 18:17 06/26/24 18:23 Sod Chlor 0.9% 1000ml Bag 30 ml/kg infuse over 2 hr (1850 ml) 06/26/24 20:16 925 mls/hr IV Administration .Q2H ONE Vancomycin HCl 2,500 mg/ 500 mls @ 250 mls/hr 06/26/24 18:45 06/26/24 19:46 Sodium Chloride IV 06/26/24 20:44 250 mls/hr ONCE ONE Administration Iopamidol 75 ml 06/26/24 20:41 06/26/24 20:42 Iopamidol-370 (76%);100ml Bottle IV 06/26/24 20:42 75 ml ONCE ONE Administration Sodium Chloride 10 ml 06/26/24 20:41 06/26/24 20:42 Sodium Chloride 0.9% 10ml Syr (Rad Only) IV 06/26/24 20:42 10 ml ONCE ONE Administration ORDERS Category Date Time Status CT ankle RT w con Stat Cat Scan 06/26/24 18:22 Completed Complete Blood Count Auto Diff Stat Lab 06/26/24 17:25 Completed Comprehensive Metabolic Panel Stat Lab 06/26/24 17:25 Completed Lactic Acid Stat Lab 06/26/24 17:25 Completed Procalcitonin Stat Lab 06/26/24 17:25 Completed Blood Culture Stat Micro 06/26/24 17:45 Received Wound Culture and Gram Stain Stat Micro 06/26/24 17:35 Received Tissue Perfus/Sepsis Re-Eval Sepsis Re-Evaluation Performed: Yes Date Performed: 06/26/24 Time Performed: 18:37 Medical Decision Narrative: In summary patient is a 8-year-old female who presents to the emergency department for evaluation of right lateral malleolus ulcer. Patient is initially normotensive 102/57 tachycardic at 115 breathing 23 times a minute on 3 L by nasal cannula satting at 95% upon arrival, afebrile at 98.0. Physical exam is remarkable for an unwell appearing chronically ill-appearing 68-year-old female who is morbidly obese, with a BMI 47, who otherwise is in no acute distress. Patient has significant skin changes of her right lower extremity with significant loss of subcutaneous tissue. At the right lateral malleolus there is a central ulceration with necrotic center. There is no edema ecchymosis or fluctuance. Patient also has a smaller pressure ulcer that is not necrotic on the left lateral malleolus. Patient also has a sacral decubitus ulcer that is not draining. Patient has 2+ bilateral dependent edema patient has good cap refill distally in his good sensation in her bilateral distal toes. Differential diagnosis includes superficial versus deep soft tissue infection of the right foot. Initial workup will be conducted with hematologic labs CT scan of the ankle.and wound culture Initial interventions include Tylenol for now until workup completed . 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 Given this I have had an interactive discussion with hospital medicine regarding patient LYNN findings and management and she has been started on vancomycin and will be admitted for further evaluation and care podiatry consult in the morning.. <Brendon Schwartz MD - Last Filed: 06/26/24 22:49> Vital Signs: 06/26/24 17:25 06/26/24 17:30 06/26/24 18:00 Temperature 98.0 F Temperature Source Oral Pulse Rate 111 H 104 H Pulse Rate [Right] 115 H Respiratory Rate 23 Blood Pressure 99/68 L 114/60 Blood Pressure [Right Arm] 102/57 L Blood Pressure Mean [Right Arm] 72 Blood Pressure Source [Right Arm] Automatic Cuff 02 Sat by Pulse Oximetry 88 L 91 L 94 L Oxygen Delivery Method Nasal Cannula Room Air Room Air Oxygen Flow Rate (LPM) 3 06/26/24 18:30 06/26/24 19:00 06/26/24 19:31 Temperature Temperature Source Pulse Rate 104 H 104 H 102 H Pulse Rate [Right] Respiratory Rate Blood Pressure 97/56 L 115/71 125/53 L Blood Pressure [Right Arm] Blood Pressure Mean [Right Arm] Blood Pressure Source [Right Arm] 02 Sat by Pulse Oximetry 95 95 95 Oxygen Delivery Method Room Air Oxygen Flow Rate (LPM) 06/26/24 22:11 Temperature 97.7 F Temperature Source Oral Pulse Rate 106 H Pulse Rate [Right] Respiratory Rate 20 Blood Pressure 112/57 L Blood Pressure [Right Arm] Blood Pressure Mean [Right Arm] Blood Pressure Source [Right Arm] 02 Sat by Pulse Oximetry Oxygen Delivery Method Nasal Cannula Oxygen Flow Rate (LPM) 3.5 Lab Data Lab Results 06/26/24 17:25: WBC 9.0, RBC 4.24, Hgb 13.0, Hct 41.6, MCV 98.1, MCH 30.7, MCHC 31.3 L, RDW 13.2, Plt Count 204, MPV 10.2, Neut % (Auto) 66.1, Lymph % (Auto) 25.9, Brule % (Auto) 6.4, Eos % (Auto) 0.6, Baso % (Auto) 0.6, Neut # (Auto) 6.0, Lymph # (Auto) 2.3, Brule # (Auto) 0.6, Eos # (Auto) 0.1, Baso # (Auto) 0.1, Sodium 137, Potassium 3.8, Chloride 89 L, Carbon Dioxide 42 H*, Anion Gap 9.8, BUN 15, Creatinine 0.60, Estimated GFR 100, Est GFR ( Amer) 121, Glucose 235 H, Lactate 1.9, Calcium 8.7, Total Bilirubin 0.5, AST 92 H, ALT 111 H, Alkaline Phosphatase 75, Total Protein 6.7, Albumin 3.9, Globulin 2.8, Albumin/Globulin Ratio 1.4, Procalcitonin 0.191 Orders (Tests/Meds): ED MEDICATIONS Generic Name Dose Route Start Last Admin Trade Name Freq PRN Reason Stop Dose Admin Acetaminophen 650 mg 06/26/24 21:35 Acetaminophen 325mg Tab PO 07/26/24 21:34 Q4HP PRN Fever or Mild Pain (1-3) Enoxaparin Sodium 40 mg 06/27/24 09:00 Enoxaparin 40mg/0.4ml Syringe SUBCUT 07/27/24 08:59 DAILY KIERAN Miscellaneous 1 each 06/26/24 18:45 Vancomycin Consult Request NOTAPPLIC 07/26/24 18:44 CONSULT PHARMACY [facility] Ondansetron HCl 4 mg 06/26/24 21:35 Ondansetron 4mg/2ml Vial IV 07/26/24 21:34 Q8HP PRN Nausea Pantoprazole Sodium 40 mg 06/27/24 21:00 Pantoprazole 40mg Tablet PO 07/27/24 20:59 HS KIERAN Prednisone 5 mg 06/26/24 21:41 Prednisone 5mg Tab PO 06/26/24 21:42 ONCE ONE Discontinued Medications Generic Name Dose Route Start Last Admin Trade Name Freq PRN Reason Stop Dose Admin Sodium Chloride 1,850 mls @ 925 mls/hr 06/26/24 18:17 06/26/24 18:23 Sod Chlor 0.9% 1000ml Bag 30 ml/kg infuse over 2 hr (1850 ml) 06/26/24 20:16 925 mls/hr IV Administration .Q2H ONE Vancomycin HCl 2,500 mg/ 500 mls @ 250 mls/hr 06/26/24 18:45 06/26/24 19:46 Sodium Chloride IV 06/26/24 20:44 250 mls/hr ONCE ONE Administration Iopamidol 75 ml 06/26/24 20:41 06/26/24 20:42 Iopamidol-370 (76%);100ml Bottle IV 06/26/24 20:42 75 ml ONCE ONE Administration Sodium Chloride 10 ml 06/26/24 20:41 06/26/24 20:42 Sodium Chloride 0.9% 10ml Syr (Rad Only) IV 06/26/24 20:42 10 ml ONCE ONE Administration ORDERS Category Date Time Status CT ankle RT w con Stat Cat Scan 06/26/24 18:22 Completed Complete Blood Count Auto Diff Stat Lab 06/26/24 17:25 Completed Comprehensive Metabolic Panel Stat Lab 06/26/24 17:25 Completed Lactic Acid Stat Lab 06/26/24 17:25 Completed Procalcitonin Stat Lab 06/26/24 17:25 Completed Blood Culture Stat Micro 06/26/24 17:45 Received Wound Culture and Gram Stain Stat Micro 06/26/24 17:35 Received Medical Decision Narrative: In summary patient is a 8-year-old female who presents to the emergency department for evaluation of right lateral malleolus ulcer. Patient is initially normotensive 102/57 tachycardic at 115 breathing 23 times a minute on 3 L by nasal cannula satting at 95% upon arrival, afebrile at 98.0. Physical exam is remarkable for an unwell appearing chronically ill-appearing 68-year-old female who is morbidly obese, with a BMI 47, who otherwise is in no acute distress. Patient has significant skin changes of her right lower extremity with significant loss of subcutaneous tissue. At the right lateral malleolus there is a central ulceration with necrotic center. There is no edema ecchymosis or fluctuance. Patient also has a smaller pressure ulcer that is not necrotic on the left lateral malleolus. Patient also has a sacral decubitus ulcer that is not draining. Patient has 2+ bilateral dependent edema patient has good cap refill distally in his good sensation in her bilateral distal toes. Differential diagnosis includes superficial versus deep soft tissue infection of the right foot. Initial workup will be conducted with hematologic labs CT scan of the ankle.and wound culture Initial interventions include Tylenol for now until workup completed . Initial workup reviewed by me shows that her white count is 9.0 hemoglobin hematocrit are normal with no neutrophilic shift although it is of note the patient is chronically immunosuppressed due to her [place]'s disease and chronic hydrocortisone administration, CO2 is 42 glucose 235 procalcitonin is 0.191 and my informal interpretation of her CT imaging does not show any evidence of soft tissue gas prior to radiology read.. Given this I have had an interactive discussion with hospital medicine regarding patient LYNN findings and management and she has been started on vancomycin and will be admitted for further evaluation and care podiatry consult in the morning.. I was consulted by the ARY, and we discussed the complexity of the problems being addressed. I approved the treatment and management plan for this patient's care in the Emergency Department, thus performing a substantive portion of the medical decision making. Brendon Schwartz MD Critical Care <JALEEL Malloy - Last Filed: 06/26/24 21:39> Critical Care Time Critical Care Time: Yes Attestation: On 06/26/24, the high probability of a clinically significant, sudden or life threatening deterioration of the following system(s) required my full and direct attention, intervention and personal management. The time I documented below is in addition to time spent performing reported procedures but includes the following listed in this critical care notation. Total Time Total Critical Care Time: 35
[2024-06-26 17:58] LABS: Basophils # 0.1 K/mm3 (0-0.2); Basophils % 0.6 % (0.1-2.0); Eosinophils # 0.1 K/mm3 (0.0-0.4); Eosinophils % 0.6 % (0.1-12.0); Hematocrit 41.6 % (37.0-47.0); Lymphocytes # 2.3 K/mm3 (0.7-4.5); Lymphocytes % 25.9 % (10-50); Mean Corpuscular HGB Conc 31.3 g/dL (31.8-35.4); Mean Corpuscular Hemoglobin 30.7 pg (27.0-31.2); Mean Corpuscular Volume 98.1 fl (81-99); Mean Platelet Volume 10.2 fl (7.4-10.4); Monocytes # 0.6 K/mm3 (0.1-1.0); Monocytes % 6.4 % (1.7-9.3); Neutrophils % 66.1 % (37.0-80.0); Platelet Count 204 K/mm3 (142-424); Red Blood Count 4.24 M/mm3 (4.20-5.40); Red Cell Distribution Width 13.2 % (11.5-17.5)
[2024-06-26 18:03] LABS: Albumin Level 3.9 g/dl (3.5-5.0); Chloride 89 mmol/L (98-107); Potassium 3.8 mmoL/L (3.5-5.1); Sodium 137 mmol/L (136-145)
[2024-06-26 18:05] LABS: Blood Urea Nitrogen 15 mg/dl (7-17); Estimated Glomerular Filt Rate 100 ml/min (>60); GFR (African American) 121 ML/MIN (>60)
[2024-06-26 18:06] LABS: Alanine Aminotransferase 111 U/L (12-78); Albumin/Globulin Ratio 1.4 (1.1-1.8); Alkaline Phosphatase 75 U/L (38-126); Aspartate Amino Transferase 92 U/L (14-36); Bilirubin,Total 0.5 mg/dl (0.2-1.3); Calcium 8.7 mg/dl (8.4-10.2); Globulin 2.8 g/dL (1.3-3.2); Glucose 235 mg/dl (74-100); Total Protein,Serum 6.7 g/dl (6.3-8.2)
[2024-06-26 18:13] LABS: Lactic Acid 1.9 mmol/L (0.7-2.1)
[2024-06-26 18:15] LABS: Anion Gap 9.8 mEq/L (5-15); Carbon Dioxide 42 mmol/L (22.0-30.0)
--- NOTE | 2024-06-26 18:22 | CT_ITS ---
PROCEDURE INFORMATION: Exam: CT Right Lower Extremity With Contrast, Ankle Exam date and time: 06/26/2024 8:38 PM Age: 68 years old Clinical indication: Other: Necrotic lateral malleolus wound TECHNIQUE: Imaging protocol: CT of the right lower extremity with intravenous contrast was performed. Exam focused on the ankle. Radiation optimization: All CT scans at this facility use at least one of these dose optimization techniques: automated exposure control; mA and/or kV adjustment per patient size (includes targeted exams where dose is matched to clinical indication); or iterative reconstruction. Contrast material: ISOVUE; Contrast volume: 75 ml; Contrast route: IV; COMPARISON: CT ANKLE RT WO CON 08/30/2020 9:32 AM FINDINGS: Bones/joints: There is minimal cortical erosion along the lateral aspect of the lateral malleolus deep to the cutaneous defect likely representing osseous infection of unknown chronicity. No acute fracture or dislocation. Soft tissues: Irregular cutaneous thickening along the anterolateral aspect of the ankle with a small cutaneous defect overlying the lateral malleolus. This distribution is similar to prior infectious process on exam 2020 and may be secondary to chronic infection however acute infectious process cannot be excluded. No definite soft tissue fluid collections/abscesses. Mild soft tissue edema throughout the ankle and dorsal foot. IMPRESSION: 1. Irregular cutaneous thickening along the anterolateral aspect of the ankle with a small cutaneous defect overlying the lateral malleolus. This distribution is similar to prior infectious process on exam 2020 and may be secondary to chronic infection however acute on chronic infectious process cannot be excluded. 2. There is minimal cortical erosion along the lateral aspect of the lateral malleolus deep to the cutaneous defect likely representing osseous infection of unknown chronicity.
[2024-06-26] MEDS: SODIUM CHLORIDE 925 ML IV (18:23)
[2024-06-26 18:57] LABS: Procalcitonin 0.191 ng/mL (0.0-2.0)
[2024-06-26] MEDS: VANCOMYCIN HCL 2,500 MG in 0.9 % SODIUM CHLORIDE 500 ML 250 MG IV (19:46)
[2024-06-26] MEDS: SODIUM CHLORIDE 0.9% 10ML SYR (RAD ONLY) 10 ML IV (20:42)
[2024-06-26] MEDS: IOPAMIDOL-370 (76%);100ML BOTTLE 75 ML IV (20:42)
--- NOTE | 2024-06-26 22:35 | PC.NURSE ---
Patient arrived to floor via stretcher from ED at 22:27.
[2024-06-27] VITALS (20 sets, daily range): BP systolic 93–158; BP diastolic 56–98; PULSE 68–123; RESP 16–22; TEMP 36.4–36.9; O2SAT 92–100; BMI 39.7
[2024-06-27] MEDS: predniSONE 5MG TAB 5 MG PO (00:48)
[2024-06-27] MEDS: TRAZODONE 50MG TABLET 50 MG PO ×2 (01:07→21:59)
--- NOTE | 2024-06-27 04:37 | PC.NURSE ---
New Admit. V/s, ox4. at bedside. Pt is whhelchair bound and requires [id number], and has Right lower extremity wound. Plan of care ongoing.
[2024-06-27 06:15] LABS: Basophils % 0.5 % (0.1-2.0); Eosinophils # 0.1 K/mm3 (0.0-0.4); Lymphocytes # 2.1 K/mm3 (0.7-4.5); Lymphocytes % 26.8 % (10-50); Mean Corpuscular HGB Conc 31.4 g/dL (31.8-35.4); Mean Corpuscular Hemoglobin 30.7 pg (27.0-31.2); Mean Corpuscular Volume 97.8 fl (81-99); Mean Platelet Volume 10.2 fl (7.4-10.4); Monocytes # 0.7 K/mm3 (0.1-1.0); Monocytes % 8.3 % (1.7-9.3); Neutrophils # 4.9 K/mm3 (1.8-7.8); Neutrophils % 62.8 % (37.0-80.0); Platelet Count 173 K/mm3 (142-424); Red Blood Count 3.68 M/mm3 (4.20-5.40); Red Cell Distribution Width 13.3 % (11.5-17.5); White Blood Count 7.9 K/mm3 (4.8-10.8)
--- NOTE | 2024-06-27 06:36 | PC.WOUNDNOTE ---
Stage 2 to coccyx
[2024-06-27 06:37] LABS: Hemoglobin 11.2 g/dL (12.2-16.2)
[2024-06-27 06:41] LABS: Lactic Acid 1.5 mmol/L (0.7-2.1)
[2024-06-27 06:44] LABS: Alanine Aminotransferase 89 U/L (12-78); Albumin Level 3.1 g/dl (3.5-5.0); Albumin/Globulin Ratio 1.2 (1.1-1.8); Alkaline Phosphatase 55 U/L (38-126); Aspartate Amino Transferase 62 U/L (14-36); Bilirubin,Total 0.3 mg/dl (0.2-1.3); Blood Urea Nitrogen 11 mg/dl (7-17); Calcium 8.7 mg/dl (8.4-10.2); Chloride 96 mmol/L (98-107); Creatinine Clearance Estimated 100 mL/min (50-200); Estimated Glomerular Filt Rate 123 ml/min (>60); GFR (African American) 149 ML/MIN (>60); Globulin 2.6 g/dL (1.3-3.2); Glucose 195 mg/dl (74-100); Magnesium 1.5 mg/dl (1.6-2.3); Potassium 3.9 mmoL/L (3.5-5.1); Sodium 138 mmol/L (136-145); Total Protein,Serum 5.7 g/dl (6.3-8.2)
[2024-06-27 06:56] LABS: Anion Gap 7.9 mEq/L (5-15); Carbon Dioxide 38 mmol/L (22.0-30.0)
--- NOTE | 2024-06-27 07:42 | US_ITS ---
FINAL REPORT CLINICAL HISTORY: DECREASED PULSES,EX-SMOKER,COPD,LT LATERAL ANKLE WOUND,HEALED WOUND LT LATERAL ANKLE,TREMORS COMPARISON: None FINDINGS: LOWER EXTREMITY SEGMENTAL PRESSURE MEASUREMENTS FINDINGS: Pressure indices are as follows: RIGHT LOWER EXTREMITY: Thigh: 0.95 Calf: 1.00 Ankle, posterior tibial artery: 0.98 Ankle, dorsalis pedis: 0.870 Toe: 0.69 JARVIS: 0.98 Comments: Within normal limits LEFT LOWER EXTREMITY: Thigh: 0.84 Calf: 0.82 Ankle, posterior tibial artery: 0.79 Ankle, dorsalis pedis: 0.79 Toe: 0.63 JARVIS: 0.79 Comments: Mild peripheral vascular disease. IMPRESSION: No evidence for peripheral vascular disease right lower extremity. Mild peripheral vascular disease left lower extremity. Reviewed, Interpreted and Dictated by Elaine Durbin MD Transcribed by Kim Smith Authenticated and [facility]
--- NOTE | 2024-06-27 07:56 | P.HP_ITS ---
<Statement entered by Kumar Pinedo MD - 06/27/24 23:58> Rounded on patient after nurse practitioner. Personally examined and interviewed patient. Agree with exam findings and care plan as documented. 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 Previous necrotizing fasciitis of leg. Admitted for decubitus wound. Podiatry evaluated today. Podiatry consulted, planning for surgery and debridement. Continues to require inpatient management. Problems addressed as follows: Right ankle wound/decubitus wound -Podiatry consulted, taking for debridement today. -Initiated on broad-spectrum antibiotics with vancomycin, received 2.5 g in the ED. Initiated on Levaquin 500 mg IV daily. Will obtain wound cultures with debridement. -CT leg ankle pending -White count 7.9, hemoglobin 11.2. Kidney function normal with BUN 11, creatinine 0.5. Repeat CBC, CMP, magnesium ordered for the morning. Immunocompromised Medardo's disease: Hypothyroid - Continue hydrocortisone 20 mg nightly and 40 mg in the morning. Complicates her wound healing and immunocompromised state. -Monitor electrolytes daily, CBC, CMP, magnesium ordered for the morning. Potassium 3.9, magnesium 1.5, replacing per protocol. -Levothyroxine continued at 50 mcg daily, TSH pending. Mood disorder: Continue trazodone 50 mg 3 times a day, Cymbalta 60 mg nightly, Abilify 10 mg daily; continue Xanax 1 mg 3 times a day as needed., Monitor for toxicity. Chronic pain: Continue oxycodone 10 mg every 6 hours as needed for severe pain. Caution with concurrent benzo use Full code Regular diet History of Present Illness *Admission Date: 06/26/24 *Reason for visit:: Right lateral malleolus wound decubitus *History of present illness: Patient came the emergency room for evaluation of right lateral malleolus wound. Patient has noted of having [id number] type 2 diabetes also Medardo's disease on hydrocortisone also with chronic severe COPD on chronic oxygen replacement morbid obesity hypothyroidism chronic pressure ulcers during to be nonmobile and wheelchair as it was spent the specific necrotizing fasciitis of the right lower extremity previously patient has had recent worsening of the lateral malleolus of the right ankle with skin breakdown and her primary care provider sent her to the ER she reports that the area is painful. The patient will be admitted to the floor. With a consult to podiatry. Patient has received 1 dose of vancomycin in the emergency room will continue on Levaquin also.. Also noted in exam that there is a stage II decubitus in the buttocks and also the back of the thigh and the lower extremity several other places of early cellulitis or early breakdown. [facility] Disclaimer: The information contained in this section may have been updated after the patient was seen, as this information can be updated by other users. Medical History Post-hysterectomy menopause Thyroid disease Hypokalemia Depression Anxiety COPD (chronic obstructive pulmonary disease) Necrotizing cellulitis Addisons disease Necrotizing fasciitis of ankle and foot Pressure ulcer of left buttock, stage 2 Open ankle wound Non-healing non-surgical wound Family History Other Diabetes Family history of COPD (chronic obstructive pulmonary disease) Heart attack Social History Smoking Status: Former smoker tobacco type: cigarettes packs per day: 2 alcohol intake: never substance use type: denies use current occupational status: disabled Travel in the last 8 weeks: None household members: spouse housing: house caffeine: No Have you lived/traveled outside [place] in past 30 days?: No Contact w/someone who lives/traveled outside [place] past 30 days?: No Exposure to someone with infectious disease in past 14 days?: No Do you have a fever (greater than 100.4 F or 38 C)?: No Have you tested positive for COVID-19: No Exposed to someone with COVID-19 in past 14 days?: No Do you have a sore throat?: No Do you have a cough?: No Do you have any weakness?: No Do you have any diarrhea?: No Are you experiencing any unusual bleeding?: No Do you have any muscle aches/pain?: No Do you have any abdominal pain?: No Are you experiencing loss of taste or smell?: No Other Medical History Have you received the Flu Vaccine for this season: No Have you received the Pneumonia Vaccine: No Review of Systems Constitutional Constitutional: Reports as per HPI Eyes Eyes: Reports as per HPI ENT Ears, Nose, Mouth, and Throat: Reports as per HPI *Cardiovascular Cardiovascular: Reports as per HPI *Respiratory Respiratory: Reports as per HPI *Gastrointestinal Gastrointestinal: Reports as per HPI *Genitourinary Genitourinary: Reports as per HPI *Musculoskeletal Musculoskeletal: Reports as per HPI Integumentary/Breasts Skin/Breast: Reports as per HPI, Reports nail changes, Reports change in pigmentation, Reports lesions, Reports new lesions, Reports non-healing lesions, Reports skin pain and Reports skin ulcer *Neurologic Comments: Patient uses wheelchair Psychiatric Psychiatric: Reports as per HPI Endocrine Endocrine: Reports as per HPI Hematologic/Lymphatic Hematologic/Lymphatic: Reports as per HPI Allergic/Immunologic Allergic/Immunologic: Reports as per HPI Meds Home Medications and Allergies Home Medications ?Medication ?Instructions ?Recorded ?Confirmed ?Type albuterol sulfate 90 mcg/actuation 2 puff inhalation QID Shortness of 07/28/22 06/26/24 History aerosol inhaler air alendronate 70 mg tablet 70 mg PO WEEKLY 07/28/22 06/26/24 History duloxetine 30 mg capsule,delayed 60 mg PO HS 05/27/24 06/26/24 History release linaclotide 290 mcg capsule 290 mcg PO DAILY #90 caps 06/21/24 06/26/24 Rx (Linzess) alprazolam 1 mg tablet (Xanax) 1 - 1.5 mg (1 - 1.5 x 1 mg) PO 06/25/24 06/26/24 Rx TIDP PRN Anxiety #135 tabs aripiprazole 10 mg tablet 10 mg PO DAILY 06/27/24 06/26/24 History furosemide 40 mg tablet 80 mg PO DAILY 06/27/24 06/27/24 History hydrocortisone 10 mg tablet 40 mg (4 x 10 mg) PO DAILY #360 06/27/24 Rx tabs hydrocortisone 5 mg tablet 20 mg PO PM 06/27/24 06/27/24 History levothyroxine 50 mcg tablet 50 mcg PO DAILY 06/27/24 06/27/24 History montelukast 10 mg tablet 10 mg PO HS 06/27/24 06/27/24 History oxycodone 10 mg tablet 10 mg PO QIDP PRN pain 06/27/24 06/27/24 History pantoprazole 40 mg tablet,delayed 40 mg PO DAILY 06/27/24 06/27/24 History release potassium chloride 10 mEq 10 meq PO DIRECTED 06/27/24 06/27/24 History capsule,extended release tiotropium bromide 1.25 2 inh inhalation DAILY 06/27/24 06/27/24 History mcg/actuation mist for inhalation (Spiriva Respimat) trazodone 50 mg tablet 50 mg PO TID 06/27/24 06/27/24 History New Prescriptions to Start Prescriptions: Allergies Allergy/AdvReac Type Severity Reaction Status Date / Time nitrofurantoin Allergy Intermediate Unknown Verified 05/20/24 14:38 allergy reaction Penicillins Allergy Intermediate Swelling Verified 05/20/24 14:38 of Lip/Tongue/Throat Exam Data for Last 24 hours Vital signs and Labs for Last 24 Hours: Temp Pulse Resp BP Pulse Ox O2 Del Method O2 Flow Rate 98.4 F 91 H 16 115/76 93 L Nasal Cannula 3.5 06/27/24 04:25 06/27/24 04:25 06/27/24 04:25 06/27/24 04:25 06/27/24 04:25 06/27/24 06:13 06/27/24 06:13 Laboratory Results - last 24 hr 06/26/24 17:25: WBC 9.0, RBC 4.24, Hgb 13.0, Hct 41.6, MCV 98.1, MCH 30.7, MCHC 31.3 L, RDW 13.2, Plt Count 204, MPV 10.2, Neut % (Auto) 66.1, Lymph % (Auto) 25.9, Hancock % (Auto) 6.4, Eos % (Auto) 0.6, Baso % (Auto) 0.6, Neut # (Auto) 6.0, Lymph # (Auto) 2.3, Hancock # (Auto) 0.6, Eos # (Auto) 0.1, Baso # (Auto) 0.1, Sodium 137, Potassium 3.8, Chloride 89 L, Carbon Dioxide 42 H*, Anion Gap 9.8, BUN 15, Creatinine 0.60, Estimated GFR 100, Est GFR ( Amer) 121, Glucose 235 H, Lactate 1.9, Calcium 8.7, Total Bilirubin 0.5, AST 92 H, ALT 111 H, Alkaline Phosphatase 75, Total Protein 6.7, Albumin 3.9, Globulin 2.8, Albumin/Globulin Ratio 1.4, Procalcitonin 0.191 03/20/25 06:05: WBC 7.9, RBC 3.68 L, Hgb 11.2 L D, Hct 36.0 L, MCV 97.8, MCH 30.7, MCHC 31.4 L, RDW 13.3, Plt Count 173, MPV 10.2, Neut % (Auto) 62.8, Lymph % (Auto) 26.8, Hancock % (Auto) 8.3, Eos % (Auto) 1.0, Baso % (Auto) 0.5, Neut # (Auto) 4.9, Lymph # (Auto) 2.1, Hancock # (Auto) 0.7, Eos # (Auto) 0.1, Baso # (Auto) 0.0, Sodium 138, Potassium 3.9, Chloride 96 L, Carbon Dioxide 38 H, Anion Gap 7.9, BUN 11 D, Creatinine 0.50 L, Estimated Creat Clear 100, Estimated GFR 123, Est GFR ( Amer) 149 D, Glucose 195 H, Lactate 1.5, Calcium 8.7, Magnesium 1.5 L, Total Bilirubin 0.3, AST 62 H D, ALT 89 H, Alkaline Phosphatase 55, Total Protein 5.7 L, Albumin 3.1 L D, Globulin 2.6, Albumin/Globulin Ratio 1.2 I & O for Last 24 hours: Intake & Output 06/25/24 06/26/24 06/27/24 06/28/24 05:59 05:59 05:59 05:59 Intake Total 120 / 120 Balance 120 / 120 Weight 253 lb 2 oz Microbiology Reports for the Last 24 Hours: Microbiology 06/26/24 17:35 Ankle,Right Gram Stain - Final Radiology Reports for the Last 24 Hours: CT right lower extremity Narrative: Bones/joints: There is minimal cortical erosion along the lateral aspect of the lateral malleolus deep to the cutaneous defect likely representing osseous infection of unknown chronicity. No acute fracture or dislocation. Soft tissues: Irregular cutaneous thickening along the anterolateral aspect of the ankle with a small cutaneous defect overlying the lateral malleolus. This distribution is similar to prior infectious process on exam 2020 and may be secondary to chronic infection however acute infectious process cannot be Constitutional Constitutional: mild distress, morbidly obese and chronically ill appearing *Routine HEENT Exam Head: Present normocephalic, atraumatic and cushingoid faces Eye: Present EOMI, PERRL and normal accommodation ENT: Present mucous membranes moist *Routine Neck Exam Neck: Present supple Comments: Patient had no neck pain. Able to turn look both directions without any hesitation Routine Chest/Breast/Axilla Exam Comments: Patient reported no tenderness was able to take a deep breath showed no sign of pain to chest wall *Routine Respiratory Exam Respiratory: Present decreased breath sounds, distant breath sounds, diminished air movement, normal respiratory effort, able to speak in complete sentences and symmetric chest movement *Routine Cardiovascular Exam Cardiovascular: Present RRR and tachycardia Comments: Very distant heart sounds related to body size *Routine Abdominal Exam Abdominal: Present soft and obese Comments: No signs of nausea or vomiting or acute pain. Abdomen very large difficult to a ssess *Routine Rectal Exam Rectal:: deferred *Routine Genitalia Exam Genitalia:: deferred *Routine Extremities Exam Extremities: Present cyanosis and edema Comments: Lower extremities very edematous areas of redness to the skin showing potential venous deficiencies., Area on ankle of breakdown Routine Back/Spine/Pelvis Exam Back/Spine: Present full ROM Comments: Patient is able to sit and move showing no excessive back pain. But does not stand or walk *Routine Skin Exam Skin: Present erythema, warm, lesions and wounds *Routine Neurological Exam Neurological: Present alert, oriented X3, motor deficit, moving all extremities (Able to move her feet and upper extremities), vision grossly intact, hearing grossly intact and normal speech Routine Psychiatric Exam Psychiatric: Present normal affect, cooperative, good insight and good judgment H&P: Result Impressions 1. Obesity with decreased ambulation leading to chronic skin ulcers and breakdown 2. Diabetes mellitus with morbid obesity poor control also with Titus's disease on chronic steroid 3. Imaging and Cardiology Extremity: Status: image reviewed by me Additional comments: Bones/joints: There is minimal cortical erosion along the lateral aspect of the lateral malleolus deep to the cutaneous defect likely representing osseous infection of unknown chronicity. No acute fracture or dislocation. Soft tissues: Irregular cutaneous thickening along the anterolateral aspect of the ankle with a small cutaneous defect overlying the lateral malleolus. This distribution is similar to prior infectious process on exam 2020 and may be secondary to chronic infection however acute infectious process cannot be Assessment and Plan *Assessment and plan (1) Immunosuppressed status: Status: Acute Category: Medical Code(s): D84.9 - Immunodeficiency, unspecified (2) Pressure ulcer of right ankle: Status: Acute Qualifiers: Pressure injury stage: unspecified pressure injury stage Qualified Code(s): L89.519 - Pressure ulcer of right ankle, unspecified stage Category: Medical Code(s): L89.519 - Pressure ulcer of right ankle, unspecified stage (3) Decubitus ulcer, stage III: Problem Comment: Pressure ulcer of right lateral malleolus Status: Acute Qualifiers: Laterality: unspecified laterality Pressure injury location: buttock Qualified Code(s): L89.303 - Pressure ulcer of unspecified buttock, stage 3 Category: Medical Code(s): L89.93 - Pressure ulcer of unspecified site, stage 3 (4) Acquired right foot drop: Problem Comment: Subsequent to necrotizing fasciitis and multiple surgeries removing muscles and tendons of the right lower extremity. Status: Chronic Category: Medical Code(s): M21.371 - Foot drop, right foot (5) Necrotizing cellulitis: Status: Resolved Category: Medical Code(s): L03.90 - Cellulitis, unspecified (6) Weakness generalized: Status: Acute Category: Medical Code(s): R53.1 - Weakness (7) Incontinence in female: Status: Acute Category: Medical Code(s): R32 - Unspecified urinary incontinence (8) Elevated blood sugar level: Status: Acute Category: Medical Code(s): R73.9 - Hyperglycemia, unspecified (9) Morbid obesity: Status: Acute Category: Medical Code(s): E66.01 - Morbid (severe) obesity due to excess calories Plan 1. Will will place patient on Levaquin at this time also consult podiatry to evaluate for the ulcer to the ankle. And to evaluate lower extremities 2. Also will place physical therapy consult, to evaluate for wound care. 3. Diabetes mellitus, continue present medications to control blood sugars as best able. Also to evaluate labs as needed.
[2024-06-27 08:01] LABS: C-Reactive Protein 36.9 mg/L (0-4)
[2024-06-27 08:02] LABS: Erythrocyte Sedimentation Rate 21 mm/hr (0-30)
--- NOTE | 2024-06-27 08:12 | EXP.POD.CONS ---
History of Present Illness *Admission Date: 06/26/24 *History of present illness: Patient came the emergency room for evaluation of right lateral malleolus wound. Patient has noted of having [id number] type 2 diabetes also [place]'s disease on hydrocortisone also with chronic severe COPD on chronic oxygen replacement morbid obesity hypothyroidism chronic pressure ulcers during to be nonmobile and wheelchair as it was spent the specific necrotizing fasciitis of the right lower extremity previously patient has had recent worsening of the lateral malleolus of the right ankle with skin breakdown and her primary care provider sent her to the ER she reports that the area is painful. The patient will be admitted to the floor. With a consult to podiatry 06/27/24: Podiatry consult Patient resting in bed upon entering the room this morning reports some mild pain and discomfort to right lateral ankle, dressing clean dry and intact. Patient was last seen by podiatry in 2021 on a Podiatry consult regarding the same Right ankle ulcer. Patient was made NPO this morning by Podiatry for consult. [facility] Disclaimer: The information contained in this section may have been updated after the patient was seen, as this information can be updated by other users. Medical History Post-hysterectomy menopause Thyroid disease Hypokalemia Depression Anxiety COPD (chronic obstructive pulmonary disease) Necrotizing cellulitis Addisons disease Necrotizing fasciitis of ankle and foot Pressure ulcer of left buttock, stage 2 Open ankle wound Non-healing non-surgical wound Family History Other Diabetes Family history of COPD (chronic obstructive pulmonary disease) Heart attack Social History Smoking Status: Former smoker tobacco type: cigarettes packs per day: 2 alcohol intake: never substance use type: denies use current occupational status: disabled Travel in the last 8 weeks: None household members: spouse housing: house caffeine: No Have you lived/traveled outside US in past 30 days?: No Contact w/someone who lives/traveled outside US past 30 days?: No Exposure to someone with infectious disease in past 14 days?: No Do you have a fever (greater than 100.4 F or 38 C)?: No Have you tested positive for COVID-19: No Exposed to someone with COVID-19 in past 14 days?: No Do you have a sore throat?: No Do you have a cough?: No Do you have any weakness?: No Do you have any diarrhea?: No Are you experiencing any unusual bleeding?: No Do you have any muscle aches/pain?: No Do you have any abdominal pain?: No Are you experiencing loss of taste or smell?: No Meds Home Medications and Allergies Home Medications ?Medication ?Instructions ?Recorded ?Confirmed ?Type albuterol sulfate 90 mcg/actuation 2 puff inhalation QID Shortness of 07/28/22 06/26/24 History aerosol inhaler air alendronate 70 mg tablet 70 mg PO WEEKLY Osteoporosis 07/28/22 06/26/24 History pantoprazole 40 mg tablet,delayed See Rx Instructions .Route 03/06/24 06/26/24 Rx release .COMPLEX #90 tabs aripiprazole 10 mg tablet 10 mg PO DAILY Depression #90 tabs 03/20/24 06/26/24 Rx hydrocortisone 10 mg tablet See Rx Instructions .Route 03/26/24 06/26/24 Rx .COMPLEX #360 tabs hydrocortisone 5 mg tablet See Rx Instructions .Route 03/26/24 06/26/24 Rx .COMPLEX #360 tabs levothyroxine 50 mcg tablet See Rx Instructions .Route 03/29/24 06/26/24 Rx .COMPLEX #90 tabs montelukast 10 mg tablet See Rx Instructions .Route 04/11/24 06/26/24 Rx .COMPLEX #90 tabs potassium chloride 10 mEq See Rx Instructions .Route 04/11/24 06/26/24 Rx capsule,extended release .COMPLEX #270 caps duloxetine 30 mg capsule,delayed 60 mg PO HS depression 05/27/24 06/26/24 History release furosemide 40 mg tablet See Rx Instructions .Route 05/30/24 06/26/24 Rx .COMPLEX #180 tabs linaclotide 290 mcg capsule 290 mcg PO DAILY #90 caps 06/21/24 06/26/24 Rx (Linzess) tiotropium bromide 1.25 See Rx Instructions .Route 06/21/24 06/26/24 Rx mcg/actuation mist for inhalation .COMPLEX #4 grams (Spiriva Respimat) trazodone 50 mg tablet See Rx Instructions .Route 06/21/24 06/26/24 Rx .COMPLEX #90 tabs alprazolam 1 mg tablet (Xanax) 1 - 1.5 mg (1 - 1.5 x 1 mg) PO 06/25/24 06/26/24 Rx TIDP PRN Anxiety #135 tabs oxycodone 10 mg tablet 10 mg PO QID PRN pain #120 tabs 06/25/24 06/26/24 Rx New Prescriptions to Start Prescriptions: Allergies Allergy/AdvReac Type Severity Reaction Status Date / Time nitrofurantoin Allergy Intermediate Unknown Verified 05/20/24 14:38 allergy reaction Penicillins Allergy Intermediate Swelling Verified 05/20/24 14:38 of Lip/Tongue/Throat Exam (Inpt) Vital signs and Labs for Last 24 Hours: Temp Pulse Resp BP Pulse Ox O2 Del Method O2 Flow Rate 98.4 F 91 H 16 115/76 93 L Nasal Cannula 3.5 06/27/24 04:25 06/27/24 04:25 06/27/24 04:25 06/27/24 04:25 06/27/24 04:25 06/27/24 06:13 06/27/24 06:13 Laboratory Results - last 24 hr 06/26/24 17:25: WBC 9.0, RBC 4.24, Hgb 13.0, Hct 41.6, MCV 98.1, MCH 30.7, MCHC 31.3 L, RDW 13.2, Plt Count 204, MPV 10.2, Neut % (Auto) 66.1, Lymph % (Auto) 25.9, [place] % (Auto) 6.4, Eos % (Auto) 0.6, Baso % (Auto) 0.6, Neut # (Auto) 6.0, Lymph # (Auto) 2.3, [place] # (Auto) 0.6, Eos # (Auto) 0.1, Baso # (Auto) 0.1, Sodium 137, Potassium 3.8, Chloride 89 L, Carbon Dioxide 42 H*, Anion Gap 9.8, BUN 15, Creatinine 0.60, Estimated GFR 100, Est GFR ( Amer) 121, Glucose 235 H, Lactate 1.9, Calcium 8.7, Total Bilirubin 0.5, AST 92 H, ALT 111 H, Alkaline Phosphatase 75, Total Protein 6.7, Albumin 3.9, Globulin 2.8, Albumin/Globulin Ratio 1.4, Procalcitonin 0.191 06/27/24 06:05: WBC 7.9, RBC 3.68 L, Hgb 11.2 L D, Hct 36.0 L, MCV 97.8, MCH 30.7, MCHC 31.4 L, RDW 13.3, Plt Count 173, MPV 10.2, Neut % (Auto) 62.8, Lymph % (Auto) 26.8, [place] % (Auto) 8.3, Eos % (Auto) 1.0, Baso % (Auto) 0.5, Neut # (Auto) 4.9, Lymph # (Auto) 2.1, [place] # (Auto) 0.7, Eos # (Auto) 0.1, Baso # (Auto) 0.0, Sodium 138, Potassium 3.9, Chloride 96 L, Carbon Dioxide 38 H, Anion Gap 7.9, BUN 11 D, Creatinine 0.50 L, Estimated Creat Clear 100, Estimated GFR 123, Est GFR ( Amer) 149 D, Glucose 195 H, Lactate 1.5, Calcium 8.7, Magnesium 1.5 L, Total Bilirubin 0.3, AST 62 H D, ALT 89 H, Alkaline Phosphatase 55, Total Protein 5.7 L, Albumin 3.1 L D, Globulin 2.6, Albumin/Globulin Ratio 1.2 06/27/24 06:45: ESR 21, C-Reactive Protein 36.9 H I & O for Labs for Last 24 Hours: Intake & Output 06/24/24 06/25/24 06/26/24 06/27/24 23:59 23:59 23:59 23:59 Intake Total 120 / 120 Balance 120 / 120 Weight 253 lb 2 oz 253 lb 2 oz Microbiology Reports for the Last 24 Hours: Microbiology 06/26/24 17:35 Ankle,Right Gram Stain - Final Constitutional: Present no acute distress and cooperative Head: Present normocephalic Eye: Present as per HPI Neck: Present normal inspection Respiratory: Present normal respiratory effort and able to speak in complete sentences Comment:: nasal cannula in place Cardiac: Present posterior tibial pulses present and pedal pulses present Comment:: Right DP/PT were not palpable, 2+ pedal edema. Left foot DP/PT pulses intact and palpable. Comments:: deferred Rectal (female): Present deferred (female): Present deferred Extremities: Present edema; Absent normal capillary refill Skin: Present erythema, dry, warm and wounds Comment:: Right lateral ankle ulcer cleaned with Betadine but not debrided. Measures 1.5 x 2.0 x 0.5 cm probe with slight bone noted. -wound dressed with Betadine soaked gauze Kerlix and Song wrap. -Site marked and plan for surgical debridement this afternoon Neuro: Present Weakness and oriented x 3 Ankle: right: swelling (2+ ankle and pedal edema ) and right: wound (R lat. ankle wound ) Feet/Toes: right: foot drop (slight foot drop noted), right: tenderness (Right ankle and lower leg ulcers present ), right: wound (Right latera ankle, sores along anterior right leg) and right: decreased ROM and bilateral: hammer toe, bilateral: nail abnormalities (thick and discolored ) and bilateral: onychomycosis (suspected ) Inspection: Present foot deformity deformity: Present hammer toes and other (right foot drop) and nail disorder Pulses: L dorsalis pedis pulse: normal, R dorsalis pedis pulse: diminished (absent ), L posterior tibial pulse: normal and R posterior tibial pulse: diminished (absent ) CFT: dim: CFT Results Labs 06/27/24 06:05 06/27/24 06:05 Labs: Abnormal lab results 06/26/24 06/27/24 06/27/24 Range/Units 17:25 06:05 06:45 RBC 3.68 L (4.20-5.40) M/mm3 Hgb 11.2 L D (12.2-16.2) g/dL Hct 36.0 L (37.0-47.0) % MCHC 31.3 L 31.4 L (31.8-35.4) g/dL Chloride 89 L 96 L (98-107) mmol/L Carbon Dioxide 42 H* 38 H (22.0-30.0) mmol/L Creatinine 0.50 L (0.52-1.04) mg/dl Glucose 235 H 195 H (74-100) mg/dl Magnesium 1.5 L (1.6-2.3) mg/dl AST 92 H 62 H D (14-36) U/L ALT 111 H 89 H (12-78) U/L C-Reactive Protein 36.9 H (0-4) mg/L Total Protein 5.7 L (6.3-8.2) g/dl Albumin 3.1 L D (3.5-5.0) g/dl H & H 06/26/24 06/27/24 Range/Units 17:25 06:05 Hgb 13.0 11.2 L D (12.2-16.2) g/dL Hct 41.6 36.0 L (37.0-47.0) % All other labs normal. Assessment and Plan *Assessment and plan (1) Immunosuppressed status: Status: Acute Category: Medical Code(s): D84.9 - Immunodeficiency, unspecified (2) Pressure ulcer of right ankle: Status: Acute Qualifiers: Pressure injury stage: unspecified pressure injury stage Qualified Code(s): L89.519 - Pressure ulcer of right ankle, unspecified stage Category: Medical Code(s): L89.519 - Pressure ulcer of right ankle, unspecified stage (3) Decubitus ulcer, stage III: Problem Comment: Pressure ulcer of right lateral malleolus Status: Acute Qualifiers: Laterality: unspecified laterality Pressure injury location: buttock Qualified Code(s): L89.303 - Pressure ulcer of unspecified buttock, stage 3 Category: Medical Code(s): L89.93 - Pressure ulcer of unspecified site, stage 3 (4) Acquired right foot drop: Problem Comment: Subsequent to necrotizing fasciitis and multiple surgeries removing muscles and tendons of the right lower extremity. Status: Chronic Category: Medical Code(s): M21.371 - Foot drop, right foot (5) Necrotizing cellulitis: Status: Resolved Category: Medical Code(s): L03.90 - Cellulitis, unspecified (6) Weakness generalized: Status: Acute Category: Medical Code(s): R53.1 - Weakness (7) Incontinence in female: Status: Acute Category: Medical Code(s): R32 - Unspecified urinary incontinence (8) Elevated blood sugar level: Status: Acute Category: Medical Code(s): R73.9 - Hyperglycemia, unspecified (9) Morbid obesity: Status: Acute Category: Medical Code(s): E66.01 - Morbid (severe) obesity due to excess calories Plan 06/27/24: Podiatry consult: Right lateral Ankle ulcer: -Patient made NPO for consult and surgery later this afternoon. -Patient currently on IV antibiotics Levaquin and fluid received vancomycin per hospitalist orders -PT has also been consulted to evaluate for wound care for stage II decubitus in the buttocks and back of thigh and lower extremity cellulitis early breakdown. -Added ESR and CRP to morning labs to be drawn to check infection markers -Ordered ABIs to be obtained prior to surgery -CT scan discussed with patient at the bedside -Dressing changed to her right ankle: Betadine gauze, kerlix and sogn wrap -Patient leg marked by Dr. Guerrero and consents obtained and placed on chart -Plan for or later today for surgical debridement I&D of nonviable soft tissue and bone, bone biopsy, and possible wound VAC application -All orders and recommendations per Dr. Guerrero
--- NOTE | 2024-06-27 08:14 | ECG_ITS ---
APPROVED REPORT Exam: Resting ECG HR:94 bpm ECG Measurements Heart Rate 94 AXES QRSd 83 QRS 63 QT 332 T 68 QTc 383 Conclusion SUPRAVENTRICULAR RHYTHM LOW QRS VOLTAGE IN PRECORDIAL LEADS [QRS DEFLECTION < 1.0 mV IN CHEST LEADS] NONSPECIFIC T-WAVE ABNORMALITY ABNORMAL RHYTHM ECG UNCONFIRMED REPORT Electronically signed by : Troy Barrett MD 06/28/2024 08:51:25
[2024-06-27] MEDS: ENOXAPARIN 40MG/0.4ML SYRINGE 40 MG SUBCUT (09:05)
[2024-06-27] MEDS: LEVOFLOXACIN/D5W 500 MG/100 ML PIGGYBACK 100 MG IV (09:05)
--- NOTE | 2024-06-27 09:36 | HMH.PHAINT1 ---
Pharmacy Intervention Comments: HOME MEDICATION LIST VERIFIED USING LIST FROM OUTPATIENT PHARMACY
[2024-06-27 09:46] LABS: HIV Combo NEGATIVE (Negative)
[2024-06-27 09:52] LABS: Hepatitis C Ab Qual. W/ RFX NEGATIVE (Negative)
--- NOTE | 2024-06-27 10:35 | HMH.PTWOUND ---
Rehab Inpt Wound Evaluation Rehab IP Wound Evaluation Start: 06/27/24 07:42 Freq: ONCE Status: Active Protocol: Document 06/27/24 10:29 PHOGILBERTO (Rec: 06/27/24 10:35 PHORNE [id number]) Rehab PT Wound Assessment Subjective Subjective 68 yowf adm to [facility] with LE and buttock wounds. Patient came the emergency room for evaluation of right lateral malleolus wound. Patient has noted of having non-insulin- dependent type 2 diabetes also [place]'s disease on hydrocortisone also with chronic severe COPD on chronic oxygen replacement morbid obesity hypothyroidism chronic pressure ulcers during to be nonmobile and wheelchair as it was spent the specific necrotizing fasciitis of the right lower extremity previously patient has had recent worsening of the lateral malleolus of the right ankle with skin breakdown and her primary care provider sent her to the ER she reports that the area is painful. Pt has PI to R buttock upon admission. She is DEPENDENT with all OOB transfers with yolanda lift at home. Wound Lateral Ankle Wound Type Pressure Ulcer Is This a Chronic Wound Yes Wound Staging Stage II Query Text:Stage I - Unbroken, red skin, no blanching. Stage II - Skin broken, superficial skin loss involving epidermis alone or also dermis. Partial loss of skin layers. Stage III - Pressure area involves epidermis, dermis and subcutaneous tissue, full thickness skin loss. Stage IV - Pressure area involves epidermis, subcutaneous tissue, bone and other supportive tissue. Full thickness skin loss with extensive destruction of underlying tissue and structures. Wound Length (cm) 2.0 Wound Width (cm) 2.0 Wound Depth (cm) 0.1 Wound Margins Description Well Defined Right Buttock Wound Type Pressure Ulcer Is This a Chronic Wound Yes Wound Staging Stage II Query Text:Stage I - Unbroken, red skin, no blanching. Stage II - Skin broken, superficial skin loss involving epidermis alone or also dermis. Partial loss of skin layers. Stage III - Pressure area involves epidermis, dermis and subcutaneous tissue, full thickness skin loss. Stage IV - Pressure area involves epidermis, subcutaneous tissue, bone and other supportive tissue. Full thickness skin loss with extensive destruction of underlying tissue and structures. Wound Length (cm) 2.0 Wound Width (cm) 2.0 Wound Depth (cm) 0.1 Wound Bed Appearance Beefy Red Wound Margins Description Well Defined Surrounding Tissue Appearance Dark Red,Purple Primary Dressing Composite Dressing Change Patient Tolerance Tolerated Well Plan/Recommendation Comment Podiatry to perform I&D on R lateral ankle wound this date. Will follow for further treatment adhering to their recommendations after procedure. Buttock wound appears stable and is being appropriately cared for by [facility] staff at this time with no further debridement needs currently. Eval Complexity Eval Charge Codes 81857 - High Complexity PHYSICIAN CERTIFICATION: I certify the specified therapy services for Violetta Corona are required, authorized, and reviewed every 30 days.
--- NOTE | 2024-06-27 10:38 | HMH.PTEV ---
Physical Therapy Evaluation Rehab PT IP Evaluation Start: 06/27/24 08:26 Freq: ONCE Status: Active Protocol: Document 06/27/24 10:36 GIO (Rec: 06/27/24 10:37 GIO [id number]) Subjective/History History History 68 yowf adm to [facility] with LE and buttock wounds. Patient came the emergency room for evaluation of right lateral malleolus wound. Patient has noted of having non-insulin- dependent type 2 diabetes also [place]'s disease on hydrocortisone also with chronic severe COPD on chronic oxygen replacement morbid obesity hypothyroidism chronic pressure ulcers during to be nonmobile and wheelchair as it was spent the specific necrotizing fasciitis of the right lower extremity previously patient has had recent worsening of the lateral malleolus of the right ankle with skin breakdown and her primary care provider sent her to the ER she reports that the area is painful. Pt has PI to R buttock upon admission. She is DEPENDENT with all OOB transfers with yolanda lift at home. Subjective Subjective Pt is DEPENDENT for all mobility at baseline. [facility] How much help from another person do you currently need... Turning from your back to your side A lot while in a flat bed without using bedrails? Moving from lying on back to sitting on Total the side of a flat bed without using bedrails? Moving to and from a bed to a chair ( Total including a wheelchair)? Standing up from a chair using your arms Total ? (e.g., wheelchair, bedside chair) Walking in hospital room? Total Climbing 3-5 steps with a railing? Total Mobility Score 7 Mobility Level [facility] Mobility Calculator Mobility 2 Bed activities/ dependent transfer Rehab PT IP prob,goals,plan Problems Date of Evaluation: 06/27/24 Discharge Plan PT Discharge Plan Pt is appropriate to return home once medically stable for d/c. with total care which is her baseline. No current inpatient acute therapy needs. Eval Complexity Eval Charge Codes 48035 - High Complexity PHYSICIAN CERTIFICATION: I certify the specified therapy services for Violetta Corona are required, authorized, and reviewed every 30 days.
--- NOTE | 2024-06-27 12:17 | P.PNANES_ITS ---
[facility] Disclaimer: The information contained in this section may have been updated after the patient was seen, as this information can be updated by other users. Medical History Post-hysterectomy menopause Thyroid disease Hypokalemia Depression Anxiety COPD (chronic obstructive pulmonary disease) Necrotizing cellulitis Addisons disease Necrotizing fasciitis of ankle and foot Pressure ulcer of left buttock, stage 2 Open ankle wound Non-healing non-surgical wound Family History Other Diabetes Family history of COPD (chronic obstructive pulmonary disease) Heart attack Social History Smoking Status: Former smoker tobacco type: cigarettes packs per day: 2 alcohol intake: never substance use type: denies use current occupational status: disabled Travel in the last 8 weeks: None household members: spouse housing: house caffeine: No Have you lived/traveled outside [place] in past 30 days?: No Contact w/someone who lives/traveled outside US past 30 days?: No Exposure to someone with infectious disease in past 14 days?: No Do you have a fever (greater than 100.4 F or 38 C)?: No Have you tested positive for COVID-19: No Exposed to someone with COVID-19 in past 14 days?: No Do you have a sore throat?: No Do you have a cough?: No Do you have any weakness?: No Do you have any diarrhea?: No Are you experiencing any unusual bleeding?: No Do you have any muscle aches/pain?: No Do you have any abdominal pain?: No Are you experiencing loss of taste or smell?: No [facility] Anesthesia Checklist Patient Identification Patient Identification: Arm Band and Verbal (Name & ) Structural Data Admitted From: Inpatient Planned Operative Procedure/s: R ankle wound debredement, bone biopsy, I&D Consent for Planned Operative Procedure(s) Verified: Yes Verified Documents: Surgical Consent and History and Physical NPO Status Verified Time NPO: 00:00 Additional verifications Patient : No Anesthesia Reactions: No Airway Assessment Mallampati Score:: Class III Dentition: Edentulous Neurological Assessment Level of Consciousness: Awake, Alert and Appropriate Hx Seizures: No Anesthesia Plan Anesthesia Risk discussed: Yes Anesthesia Plan: Verified ASA Class: III Anesthesia Type: General
[2024-06-27] MEDS: BUPIVACAINE 0.5% 30ML VIAL 150 MG (13:00)
[2024-06-27] MEDS: VANCOMYCIN 1000MG VIAL 1000 MG (13:00)
[2024-06-27] MEDS: GENTAMICIN 80 MG/2 ML VIAL (13:00)
[2024-06-27] MEDS: 0.9 % SODIUM CHLORIDE 1000ML 1,000 ML 25 ML IV (13:00)
[2024-06-27] MEDS: CLINDAMYCIN PHOSPHATE/D5W 900 MG/50 ML PIGGYBACK 25 MG (13:00)
--- NOTE | 2024-06-27 14:28 | EXP.ANES.I ---
[facility] Anesthesia Record Part I Anesthesia Record I Intake, IV Amount: 700 Hydration: Adequate Estimated blood loss (mL): 200 Urine output (mL): 0 Blood Pressure: 121/75 SaO2: 100 Pulse Rate: 105 Airway Patency: Patent Respiratory Rate: 16 Temperature: 98 F Patient is:: Awake and Stable Stable to PACU at:: 14:30
--- NOTE | 2024-06-27 14:29 | EXP.OP.NOTE ---
Date of procedure: 06/27/24 Pre-op Diagnosis:: Right ankle open wound Right ankle fibula osteomyelitis Hx nec fasc with multiple surgeries Post-op Diagnosis:: Same Procedure performed:: Right ankle wound debridement (Versajet) I&D right ankle Open bone biospy (tibia) Resection of distal fibula Partial delayed primary closure surgical wound Surgeon:: Verna Guerrero DPM PHOTO CHECKER AND ASSEMBLER:: Other (Radha) Anesthesia: GETA Estimated blood loss (mL): 200 Clinical Note:: Patient is a 68-year-old female well-known to the podiatry team. She has had multiple surgeries in the past due to necrotizing fasciitis. She was seen at the wound care center and by the plastics team. Most recently she has been having home health care for right ankle wound and decubitus sacral wound. CT of the right ankle were reviewed and discussed with the patient/. Imaging shows cortical changes to the distal fibula. Concern for osteomyelitis. Complex history of wounds and necrotizing fasciitis. We discussed conservative versus surgical treatment options. Conservative treatment options include local wound care, oral and IV antibiotics, change in shoe wear, taping/padding, and off-loading. We discussed surgical intervention for distal fibula bone resection for biopsy, wound debridement. Patient understands that there is a chance that the toes can migrate to fill the gap or the foot may change shape after surgery. Patient also understands that they could have wound healing complications including delayed healing and infection. We discussed that if the wound does not heal, it is possible that they may need a more proximal amputation and could result in further loss of digits, loss of partial foot or loss of leg. We discussed the risks and benefits in great detail. Other surgical risks include: prolonged pain and swelling, further infection requiring oral or IV antibiotics, delay in healing of soft tissue or bone, nerve or blood vessel damage, CRPS/RSD, DVT/PE, anesthesia complications, and even . All questions answered. Patient verbalized understanding. Written consent obtained. Operative findings:: Right ankle ulcer noted over the distal fibula about 2 x 3 cm round full-thickness through skin subcu deep fascia to capsule over the bone. Ulcer was excised full-thickness down to level of the bone, sent for tissue culture. Distal fibula was soft with drainage noted. Wound culture taken. Distal fibula bone had obvious cortical erosion suspicious for osteomyelitis. Sagittal saw used to resect the distal 2 cm of the bone. The bone was still very soft so decision was made to go to more proximal to resect more of the fibula. Fibula bone margin was taken. Once the fibula was removed the ankle joint was visualized. Talus appeared to be intact with no obvious signs of infection. The distal lateral tibia was soft with some cortical changes noted. Concern for osteo, so a second separate incision was made on the dorsal anterior ankle and Jamshidi needle was utilized to perform a bone biopsy of the anterior tibia to check for osteomyelitis. The tibial bone was soft and crumbly as well. A piece was sent for culture and pathology. After the wound edges were debrided with the Versajet bleeding was noted. Post debridement wound extended full-thickness down to the level of the bone and measured 4.1 x 3.2 x 1.2 cm. The skin itself was very fragile and thin. After cleaning the skin with peroxide at the end of the case several layers of skin sloughed off and the skin appeared to have a reaction with the peroxide so it was cleaned with saline which did appear to help some. The skin itself was very thin and very fragile and easily peeled/sloughed off. Decision made not to utilize wound VAC due to the quality of the skin and putting the window layer around the wound the skin was already discolored and bruising. Prognosis fair to guarded due to: Quality of the skin, size of the wound, previous history of 11-12 surgeries, suspected osteo tibia and fibula which could change the treatment to include below-knee amputation. Due to the complex nature of this patient, previous scar tissue, poor wound quality and bleeding, this case took 30-45 minutes longer than normal. Operative note:: On this date and time the patient was deemed an appropriate surgical candidate. With informed consent time patient was transferred from the preoperative holding area to the operating theater placed on table in a normal supine position. Right lower extremity was prepped and draped in normal sterile fashion. No tourniquet utilized. IV vancomycin, Levaquin given on floor. IV Clinda infused in OR. Right ankle incision and drainage: Attention was directed to the right lateral ankle where an open wound was noted. Foot and ankle had pitting edema and mild erythema. Utilizing 15 blade and forceps a linear incision was made superior to the open wound site full-thickness through skin subcutaneous tissue deep fascia. Some serous drainage noted, wound culture taken. Right ankle irrigation and debridement: Attention was then directed to the open wound where a 15 blade and forceps were used to sharply excisionally excise the wound full-thickness through skin, scar tissue full-thickness down to level of the distal fibula bone. Wound was sent as tissue culture. The underlying distal fibula bone was soft and appeared to be infected. Right wound/ulcer debridement, I&D bone cortex: Versajet was then utilized to sharply debride nonviable soft tissue from the around the wound full-thickness through skin, subcu, deep fascia to the level of the bone. Bleeding wound edges were noted. Post debridement wound was 4.1 x 3.2 x 1.2 cm. Due to the depth of the wound opening it was felt appropriate to take performed and incision of the bone cortex and get a bone biopsy to evaluate for osteomyelitis. A separate bone biopsy was taken of the ankle and distal fibula through the wound and sent for culture and pathology. Resection of distal fibula: Due to the poor bone quality and extent of soft bone with suspected infection, the distal fibula was resected completely with a sagittal saw. The bone was easily transected. A piece was sent for bone culture and for bone pathology. Next utilizing the saw the fibula was resected and a piece of bone was sent for proximal margin where the bone was harder in texture. Gentamicin irrigation to flush all incisions. The wound was explored and no purulence was noted. Right ankle open bone biopsy: A stab incision was made away from the wound/ulcer site with a clean 15 blade on the anterior ankle. Blunt dissection carried down to level of bone. A Jamshidi needle was used to remove a piece of the anterior tibia. Portion of the bone was sent to micro as culture and the other piece was sent to pathology for bone biopsy. Wound flushed with gentamicin irrigation and closed with Prolene. Partial delayed closure surgical wound: Postdebridement the I&D site skin edges were able to be reapproximated with Prolene. Early bruising was noted around the incision site. There was significant oozing bleeding noted to the incision site. All vessels were hand tied or cauterized as needed. There was still bleeding noted. Patient did get dose of Lovenox anticoagulant therapy earlier today. Arixtra and Surgicel were used into the wound site which did help stop the bleeding. Betadine soaked gauze applied with a dry sterile dressing. She was woken from anesthesia and transferred to recovery with vitals stable and neurovascular status intact. Patient tolerated procedure and anesthesia well without complication. Plan: Maintain dressing clean dry and intact to right ankle, reinforce as necessary. NWB (patient is nonambulatory, wheelchair-bound at home). Antibiotics: IV Vanco, Levo per Hospitalist. Continue antibiotics and await culture results. X-rays right ankle 3 views. Daily dressing changes per nursing/[facility] wound care team: betadine soaked gauze, dry sterile dressing. Podiatry will re-evaluate for skin check and dressing change 07/01/24. Discussed with family depending on results of bone cx/path, may need to consult Ortho for right BKA evaluation. Family concerned with sacral wound, [facility] wound care consulted. Condition: stable Disposition: floor Specimens:: Right ankle tissue culture Right ankle wound culture Right ankle bone culture Right fibula bone culture Right tibia bone culture Right ankle bone path Right fibula bone path margin Right tibia bone path Complications:: None
--- NOTE | 2024-06-27 14:36 | XR_ITS ---
FINAL REPORT CLINICAL HISTORY: S/p fibula resection, r/o tib OM COMPARISON: CT dated 06/26/2024 FINDINGS: RIGHT TIBIA FIBULA Two views were obtained. There is been interval section of the distal fibula. Gas is seen along the amputation margin considered postoperative in nature. There is generalized osteopenia. No tibial destruction identified although there is periosteal reaction along the distal tibial shaft, osteomyelitis is not excluded. IMPRESSION: Postoperative changes of the distal fibula. Abnormal appearance of the distal tibia, underlying osteomyelitis not excluded. No gross destruction identified. Reviewed, Interpreted and Dictated by Elaine Durbin MD Transcribed by Vivi Blanchard Authenticated and . [facility]
--- NOTE | 2024-06-27 15:32 | P.CONPHA_ITS ---
Pharmacy Consult Date: 06/27/24 Time: 15:32 Referring provider: DR. PEREIRA Reason for Consult:: VANCOMYCIN DOSING Allergies Allergy/AdvReac Type Severity Reaction Status Date / Time nitrofurantoin Allergy Intermediate Unknown Verified 05/20/24 14:38 allergy reaction Penicillins Allergy Intermediate Swelling Verified 05/20/24 14:38 of Lip/Tongue/Throat Home Medications ?Medication ?Instructions ?Recorded ?Confirmed ?Type albuterol sulfate 90 mcg/actuation 2 puff inhalation QID Shortness of 07/28/22 06/26/24 History aerosol inhaler air alendronate 70 mg tablet 70 mg PO WEEKLY 07/28/22 06/26/24 History duloxetine 30 mg capsule,delayed 60 mg PO HS 05/27/24 06/26/24 History release linaclotide 290 mcg capsule 290 mcg PO DAILY #90 caps 06/21/24 06/26/24 Rx (Linzess) alprazolam 1 mg tablet (Xanax) 1 - 1.5 mg (1 - 1.5 x 1 mg) PO 06/25/24 06/26/24 Rx TIDP PRN Anxiety #135 tabs aripiprazole 10 mg tablet 10 mg PO DAILY 06/27/24 06/26/24 History furosemide 40 mg tablet 80 mg PO DAILY 06/27/24 06/27/24 History hydrocortisone 10 mg tablet 40 mg (4 x 10 mg) PO DAILY #360 06/27/24 Rx tabs hydrocortisone 5 mg tablet 20 mg PO PM 06/27/24 06/27/24 History levothyroxine 50 mcg tablet 50 mcg PO DAILY 06/27/24 06/27/24 History montelukast 10 mg tablet 10 mg PO HS 06/27/24 06/27/24 History oxycodone 10 mg tablet 10 mg PO QIDP PRN pain 06/27/24 06/27/24 History pantoprazole 40 mg tablet,delayed 40 mg PO DAILY 06/27/24 06/27/24 History release potassium chloride 10 mEq 10 meq PO DIRECTED 06/27/24 06/27/24 History capsule,extended release tiotropium bromide 1.25 2 inh inhalation DAILY 06/27/24 06/27/24 History mcg/actuation mist for inhalation (Spiriva Respimat) trazodone 50 mg tablet 50 mg PO TID 06/27/24 06/27/24 History New Prescriptions to Start Prescriptions: Height: 1.7 m Weight: 114.816 kg Laboratory Results:: Laboratory Results - last 24 hr 06/26/24 17:25: WBC 9.0, RBC 4.24, Hgb 13.0, Hct 41.6, MCV 98.1, MCH 30.7, MCHC 31.3 L, RDW 13.2, Plt Count 204, MPV 10.2, Neut % (Auto) 66.1, Lymph % (Auto) 25.9, [place] % (Auto) 6.4, Eos % (Auto) 0.6, Baso % (Auto) 0.6, Neut # (Auto) 6.0, Lymph # (Auto) 2.3, [place] # (Auto) 0.6, Eos # (Auto) 0.1, Baso # (Auto) 0.1, Sodium 137, Potassium 3.8, Chloride 89 L, Carbon Dioxide 42 H*, Anion Gap 9.8, BUN 15, Creatinine 0.60, Estimated GFR 100, Est GFR ( Amer) 121, Glucose 235 H, Lactate 1.9, Calcium 8.7, Total Bilirubin 0.5, AST 92 H, ALT 111 H, Alkaline Phosphatase 75, Total Protein 6.7, Albumin 3.9, Globulin 2.8, Albumin/Globulin Ratio 1.4, Procalcitonin 0.191 06/27/24 06:05: WBC 7.9, RBC 3.68 L, Hgb 11.2 L D, Hct 36.0 L, MCV 97.8, MCH 30.7, MCHC 31.4 L, RDW 13.3, Plt Count 173, MPV 10.2, Neut % (Auto) 62.8, Lymph % (Auto) 26.8, [place] % (Auto) 8.3, Eos % (Auto) 1.0, Baso % (Auto) 0.5, Neut # (Auto) 4.9, Lymph # (Auto) 2.1, [place] # (Auto) 0.7, Eos # (Auto) 0.1, Baso # (Auto) 0.0, Sodium 138, Potassium 3.9, Chloride 96 L, Carbon Dioxide 38 H, Anion Gap 7.9, BUN 11 D, Creatinine 0.50 L, Estimated Creat Clear 100, Estimated GFR 123, Est GFR ( Amer) 149 D, Glucose 195 H, Lactate 1.5, Calcium 8.7, Magnesium 1.5 L, Total Bilirubin 0.3, AST 62 H D, ALT 89 H, Alkaline Phosphatase 55, Total Protein 5.7 L, Albumin 3.1 L D, Globulin 2.6, Albumin/Globulin Ratio 1 .2 06/27/24 06:45: ESR 21, C-Reactive Protein 36.9 H, HCV Ab NOVA w/Rflx PCR Qn Negative, HIV Ag/Ab Combo Qual Negative Medical History: Medical History (Updated 06/27/24 @ 08:25 by Tree Whitlock APRN) Post-hysterectomy menopause Thyroid disease Hypokalemia Depression Anxiety COPD (chronic obstructive pulmonary disease) Necrotizing cellulitis Addisons disease Necrotizing fasciitis of ankle and foot Pressure ulcer of left buttock, stage 2 Open ankle wound Non-healing non-surgical wound Assessment and Plan Assessment and plan all Dx Assessment and Plan for all problems:: Pharmacokinetic dosing service Objective: Patient: Floor: Age: 68 yo Serum creatinine: 0.50 mg/dL Height: 66.9 Inches Weight (kg): 114.8 Assessment: IBW (kg): 61.37 Dosing wt(kg): 114.8 Estimated Creatinine clearance (ml/min): 107.2 CRCL method: Cockcroft and Gault using ibw(default). Drug selected: Vancomycin Loading dose (mg): Vd (liters): 91.8 (factor used: 0.8 L/kg) Hari (hr-1): 0.093 Half life (hrs): 7.45 CLvanco=?? 8.537 L/hr Recommended dose: 2250 mg Interval: 12 hrs Infusion time (hrs): 2.0 Predicted peak (mcg/mL): 33.3 Predicted trough (mcg/mL): 13.14 Total body weight is being used for vancomycin dosing. Recommendations: Give Vancomycin 2250 mg q 12 hrs with an expected Cpeak of 33.3 mcg/ml and an expected Ctrough of 13.14 mcg/ml AUC 0-24 /TERI Data: TERI 0.5 mcg/mL:?? AUC/TERI:? 1054.2 TERI 1.0 mcg/mL:?? AUC/TERI:? 527.1 --------- TERI 1.5 mcg/mL:?? AUC/TERI:? 351.4 TERI 2.0 mcg/mL:?? AUC/TERI:? 263.6 Thank you for the consult, will continue to follow. -JESUS OLMOS, TAMELAD
[2024-06-27] MEDS: MAGNESIUM SULFATE IN WATER 2 GM/50 ML PIGGYBACK IV ×2 (15:55→16:59)
[2024-06-27] MEDS: MORPHINE 2MG/ML SYRINGE 2 MG IV (16:54)
[2024-06-27] MEDS: VANCOMYCIN HCL 2,250 MG in 0.9 % SODIUM CHLORIDE 250 ML 125 MG IV (16:54)
--- NOTE | 2024-06-27 17:56 | EXP.ORTH.PN ---
Subjective *Date: 06/27/24 *Time: 17:56 Interval history: Patient seen and evaluated at bedside by the ACCOUNT SERVICES MANAGER and myself. Patient resting comfortably after surgery. Family at bedside. Reviewed IntraOp findings with patient/family. Postop imaging of the right tib-fib ordered and reviewed. There is correlation on the x-ray to the area of concern on the distal lateral tibia as well as the anterior tibia suspicious for osteomyelitis. Explained I did an IntraOp biopsy of the tibia. If the bone biopsy comes back positive, will likely need below-knee amputation. If the biopsy comes back negative, proceed with MRI to evaluate for osteomyelitis. Patient verbalized understanding and agreement with the treatment plan. Will plan to keep through the weekend for IV antibiotics and await culture/biopsy results. Ortho Exam (Inpt) Vital signs and Labs for Last 24 Hours: Temp Pulse Resp BP Pulse Ox O2 Del Method O2 Flow Rate 98.2 F 107 H 18 110/73 96 Nasal Cannula 3.5 06/27/24 15:15 06/27/24 17:45 06/27/24 17:45 06/27/24 17:45 06/27/24 17:45 06/27/24 17:45 06/27/24 17:45 Laboratory Results - last 24 hr 06/26/24 17:25: WBC 9.0, RBC 4.24, Hgb 13.0, Hct 41.6, MCV 98.1, MCH 30.7, MCHC 31.3 L, RDW 13.2, Plt Count 204, MPV 10.2, Neut % (Auto) 66.1, Lymph % (Auto) 25.9, [place] % (Auto) 6.4, Eos % (Auto) 0.6, Baso % (Auto) 0.6, Neut # (Auto) 6.0, Lymph # (Auto) 2.3, [place] # (Auto) 0.6, Eos # (Auto) 0.1, Baso # (Auto) 0.1, Sodium 137, Potassium 3.8, Chloride 89 L, Carbon Dioxide 42 H*, Anion Gap 9.8, BUN 15, Creatinine 0.60, Estimated GFR 100, Est GFR ( Amer) 121, Glucose 235 H, Lactate 1.9, Calcium 8.7, Total Bilirubin 0.5, AST 92 H, ALT 111 H, Alkaline Phosphatase 75, Total Protein 6.7, Albumin 3.9, Globulin 2.8, Albumin/Globulin Ratio 1.4, Procalcitonin 0.191 06/27/24 06:05: WBC 7.9, RBC 3.68 L, Hgb 11.2 L D, Hct 36.0 L, MCV 97.8, MCH 30.7, MCHC 31.4 L, RDW 13.3, Plt Count 173, MPV 10.2, Neut % (Auto) 62.8, Lymph % (Auto) 26.8, [place] % (Auto) 8.3, Eos % (Auto) 1.0, Baso % (Auto) 0.5, Neut # (Auto) 4.9, Lymph # (Auto) 2.1, [place] # (Auto) 0.7, Eos # (Auto) 0.1, Baso # (Auto) 0.0, Sodium 138, Potassium 3.9, Chloride 96 L, Carbon Dioxide 38 H, Anion Gap 7.9, BUN 11 D, Creatinine 0.50 L, Estimated Creat Clear 100, Estimated GFR 123, Est GFR ( Amer) 149 D, Glucose 195 H, Lactate 1.5, Calcium 8.7, Magnesium 1.5 L, Total Bilirubin 0.3, AST 62 H D, ALT 89 H, Alkaline Phosphatase 55, Total Protein 5.7 L, Albumin 3.1 L D, Globulin 2.6, Albumin/Globulin Ratio 1.2 06/27/24 06:45: ESR 21, C-Reactive Protein 36.9 H, HCV Ab NOVA w/Rflx PCR Qn Negative, HIV Ag/Ab Combo Qual Negative I & O for Labs for Last 24 Hours: Intake & Output 06/25/24 06/26/24 06/27/24 06/28/24 11:59 11:59 11:59 11:59 Intake Total 120 / 120 1300 / 1300 Output Total 200 / 200 Balance -80 / -80 1300 / 1300 Weight 253 lb 2 oz 253 lb 2.015 oz Microbiology Reports for the Last 24 Hours: Microbiology 06/27/24 13:41 Foot,Right - Abscess Gram Stain - Final 06/26/24 17:35 Ankle,Right Gram Stain - Final Constitutional: Present obese Head: Present normocephalic Neck: Present normal inspection Respiratory: Present normal respiratory effort Cardiac: Present Regular Rate GI: Present soft Rectal (female): Present deferred (female): Present deferred Extremities: Present edema Skin: Present erythema Comment:: Dressing clean dry and intact to right ankle from surgery. Neuro: Present Weakness; Absent Motor Function Intact or Sensory Function Intact Comment:: RLE weakness, lack of eversion, hx multiple surgeries with peroneal tendon/nerve damage. Dropfoot. Non-ambulatory. Ankle: right: erythema, right: swelling, right: tenderness and right: wound Assessment and Plan *Assessment and plan (1) Ankle osteomyelitis, right: Status: Acute Qualifiers: Osteomyelitis type: other chronic Qualified Code(s): M86.671 - Other chronic osteomyelitis, right ankle and foot Category: Medical Code(s): M86.9 - Osteomyelitis, unspecified (2) Immunosuppressed status: Status: Acute Category: Medical Code(s): D84.9 - Immunodeficiency, unspecified (3) Pressure ulcer of right ankle: Status: Acute Qualifiers: Pressure injury stage: unspecified pressure injury stage Qualified Code(s): L89.519 - Pressure ulcer of right ankle, unspecified stage Category: Medical Code(s): L89.519 - Pressure ulcer of right ankle, unspecified stage (4) Decubitus ulcer, stage III: Problem Comment: Pressure ulcer of right lateral malleolus Status: Acute Qualifiers: Pressure injury location: buttock Laterality: unspecified laterality Qualified Code(s): L89.303 - Pressure ulcer of unspecified buttock, stage 3 Category: Medical Code(s): L89.93 - Pressure ulcer of unspecified site, stage 3 (5) Acquired right foot drop: Problem Comment: Subsequent to necrotizing fasciitis and multiple surgeries removing muscles and tendons of the right lower extremity. Status: Chronic Category: Medical Code(s): M21.371 - Foot drop, right foot (6) Necrotizing cellulitis: Status: Resolved Category: Medical Code(s): L03.90 - Cellulitis, unspecified (7) Weakness generalized: Status: Acute Category: Medical Code(s): R53.1 - Weakness (8) Elevated blood sugar level: Status: Acute Category: Medical Code(s): R73.9 - Hyperglycemia, unspecified (9) Morbid obesity: Status: Acute Category: Medical Code(s): E66.01 - Morbid (severe) obesity due to excess calories Plan Surgery, 06/27/24: s/p Right ankle wound debridement (Versajet), I&D right ankle, Open bone biospy (tibia), Resection of distal fibula, Partial delayed primary closure surgical wound Intraop Specimens: pending Right ankle tissue culture Right ankle wound culture Right ankle bone culture Right fibula bone culture Right tibia bone culture Right ankle bone path Right fibula bone path margin Right tibia bone path -Maintain dressing clean dry and intact to right ankle, reinforce as necessary. -NWB (patient is nonambulatory, wheelchair-bound at home). -Antibiotics: IV Vanco, Levo per Hospitalist. -Continue antibiotics and await culture results. -X-rays right tib-fib 3 views reviewed. -Daily dressing changes per nursing/[facility] wound care team: betadine soaked gauze, dry sterile dressing. -Podiatry will re-evaluate for skin check and dressing change 07/01/24. -Discussed with family depending on results of bone cx/path, may need to consult Ortho for right BKA evaluation. -Family concerned with sacral wound, [facility] wound care consulted. Patient seen and evaluated at bedside by the ACCOUNT SERVICES MANAGER and myself. Patient resting comfortably after surgery. Family at bedside. Reviewed IntraOp findings with patient/family. Postop imaging of the right tib-fib ordered and reviewed. There is correlation on the x-ray to the area of concern on the distal lateral tibia as well as the anterior tibia suspicious for osteomyelitis. Explained I did an IntraOp biopsy of the tibia. If the bone biopsy comes back positive, will likely need below-knee amputation. If the biopsy comes back negative, proceed with MRI to evaluate for osteomyelitis. Patient verbalized understanding and agreement with the treatment plan. Will plan to keep through the weekend for IV antibiotics and await culture/biopsy results. Discussed plan of care with Dr Pinedo.
[2024-06-27] MEDS: OXYCODONE 5MG IMMEDIATE RELEASE TABLET 10 MG PO (18:03)
[2024-06-27] MEDS: HYDROCORTISONE SOD SUCCINATE 100MG VIAL 50 MG IV (18:03)
--- NOTE | 2024-06-27 19:20 | EXP.ACUTE.PN ---
Subjective *Date: 06/27/24 *Time: 23:44 Interval history: Seen after debridement of leg wound. Bone biopsies obtained. Discussed extensively with podiatry, strong concern for possible osteo-. May need further surgery and possible amputation. Patient hemodynamically stable. Resumed home meds for Medardo's. Stable on 3-1/2 L which is her baseline. White count normal. Afebrile. Denies chest pain or shortness of breath. Complains of some mild pain in leg. Family at bedside, updated of plan Medical Exam Vital signs and Labs for Last 24 Hours: Vital Signs Temp Pulse Pulse Resp BP BP Pulse Ox 06/27/24 18:45 102 H 20 109/57 L 95 06/27/24 17:45 107 H 18 110/73 96 06/27/24 17:15 102 H 17 121/56 L 99 06/27/24 17:00 06/27/24 16:45 112 H 18 158/98 H 95 06/27/24 16:15 123 H 20 126/79 96 06/27/24 15:45 122 H 22 98/67 L 95 06/27/24 15:30 113 H 20 93/58 L 95 06/27/24 15:15 98.2 F 110 H 20 100/58 L 97 06/27/24 15:00 102 H 18 101/65 L 92 L 06/27/24 15:00 06/27/24 14:50 98.0 F 90 16 100/60 L 99 06/27/24 14:40 98.0 F 84 16 94/66 L 99 06/27/24 14:30 98.0 F 108 H 16 117/57 L 99 06/27/24 14:29 98 F 105 H 16 121/75 06/27/24 14:20 98.0 F 100 H 16 121/75 100 06/27/24 11:00 06/27/24 09:00 06/27/24 08:00 06/27/24 08:00 98.3 F 81 18 133/76 93 L 06/27/24 06:13 06/27/24 04:36 06/27/24 04:25 98.4 F 91 H 16 115/76 93 L 06/27/24 03:00 06/27/24 01:00 06/27/24 00:00 97.6 F 103 H 16 151/76 H 95 06/26/24 23:00 06/26/24 22:11 97.7 F 106 H 20 112/57 L 06/26/24 21:35 98.3 F 104 H 16 95/42 L 93 L 06/26/24 21:19 06/26/24 19:31 102 H 125/53 L 95 O2 Del Method O2 Flow Rate 06/27/24 18:45 Nasal Cannula 3.5 06/27/24 17:45 Nasal Cannula 3.5 06/27/24 17:15 Nasal Cannula 3.5 06/27/24 17:00 Nasal Cannula 3.5 06/27/24 16:45 Nasal Cannula 3.5 06/27/24 16:15 Nasal Cannula 3.5 06/27/24 15:45 Nasal Cannula 3.5 06/27/24 15:30 Nasal Cannula 3.5 06/27/24 15:15 Nasal Cannula 3.5 06/27/24 15:00 Nasal Cannula 3.5 06/27/24 15:00 Nasal Cannula 3.5 06/27/24 14:50 Nasal Cannula 4 06/27/24 14:40 Nasal Cannula 4 06/27/24 14:30 Nasal Cannula 4 06/27/24 14:29 06/27/24 14:20 Nasal Cannula 4 06/27/24 11:00 Room Air 06/27/24 09:00 Nasal Cannula 4 06/27/24 08:00 Nasal Cannula 4 06/27/24 08:00 Nasal Cannula 4 06/27/24 06:13 Nasal Cannula 3.5 06/27/24 04:36 Nasal Cannula 3.5 06/27/24 04:25 Nasal Cannula 4 06/27/24 03:00 Nasal Cannula 3.5 06/27/24 01:00 Nasal Cannula 3.5 06/27/24 00:00 Nasal Cannula 4 06/26/24 23:00 Nasal Cannula 3.5 06/26/24 22:11 Nasal Cannula 3.5 06/26/24 21:35 Nasal Cannula 4 06/26/24 21:19 Nasal Cannula 3.5 06/26/24 19:31 Intake and Output 06/27/24 06/27/24 06/27/24 07:59 15:59 23:59 Intake Total 120 / 1420 700 / 1420 600 / 1420 Output Total 200 / 200 Balance 120 / 1220 500 / 1220 600 / 1220 Intake: Intake, Oral Amount 120 / 720 600 / 720 Intake, Total IV Amount 700 / 700 Output: Output, Urine Amount 200 / 200 Other: Number of Unmeasured Voids 450 0 Weight 114.816 kg 114.816 kg Patient Weight 06/27/24 23:59 Weight 114.816 kg Laboratory Results - last 24 hr 06/27/24 06:05: WBC 7.9, RBC 3.68 L, Hgb 11.2 L D, Hct 36.0 L, MCV 97.8, MCH 30.7, MCHC 31.4 L, RDW 13.3, Plt Count 173, MPV 10.2, Neut % (Auto) 62.8, Lymph % (Auto) 26.8, [place] % (Auto) 8.3, Eos % (Auto) 1.0, Baso % (Auto) 0.5, Neut # (Auto) 4.9, Lymph # (Auto) 2.1, [place] # (Auto) 0.7, Eos # (Auto) 0.1, Baso # (Auto) 0.0, Sodium 138, Potassium 3.9, Chloride 96 L, Carbon Dioxide 38 H, Anion Gap 7.9, BUN 11 D, Creatinine 0.50 L, Estimated Creat Clear 100, Estimated GFR 123, Est GFR ( Amer) 149 D, Glucose 195 H, Lactate 1.5, Calcium 8.7, Magnesium 1.5 L, Total Bilirubin 0.3, AST 62 H D, ALT 89 H, Alkaline Phosphatase 55, Total Protein 5.7 L, Albumin 3.1 L D, Globulin 2.6, Albumin/Globulin Ratio 1.2 06/27/24 06:45: ESR 21, C-Reactive Protein 36.9 H, HCV Ab NOVA w/Rflx PCR Qn Negative, HIV Ag/Ab Combo Qual Negative I & O for Labs for Last 24 Hours: Intake & Output 06/24/24 06/25/24 06/26/24 06/27/24 23:59 23:59 23:59 23:59 Intake Total 1420 / 1420 Output Total 200 / 200 Balance 1220 / 1220 Weight 114.816 kg 114.816 kg Microbiology Reports for the Last 24 Hours: Microbiology 06/26/24 17:45 Blood Blood Culture - Preliminary NO GROWTH AFTER 24 HOURS 06/26/24 17:25 Blood Blood Culture - Preliminary NO GROWTH AFTER 24 HOURS 06/27/24 13:41 Foot,Right - Abscess Gram Stain - Final 06/26/24 17:35 Ankle,Right Gram Stain - Final Constitutional: Present mild distress, obese, chronically ill appearing and cooperative Head: Present atraumatic and normocephalic ENT: Present normal exam Comment:: Cushingoid facies Respiratory: Present diminished air movement and normal respiratory effort; Absent accessory muscle use, rhonchi, wheezes or crackles Cardiac: Present Reg Rate and Rhythm GI: Present soft and normal bowel sounds; Absent distention or tenderness Extremities: Present full ROM Comment:: Foot drop on right side, right lower leg in the postop bandage Skin: Present intact and erythema (Seen on right leg in pictures. No tracking up the leg.) Neuro: Present Cranial Nerve 2-12 Intact, Grossly Intact, alert, awake, oriented x 3 and moves all extremities Assessment and Plan *Assessment and plan (1) Pressure ulcer of right ankle: Status: Acute Qualifiers: Pressure injury stage: unspecified pressure injury stage Qualified Code(s): L89.519 - Pressure ulcer of right ankle, unspecified stage Category: Medical Code(s): L89.519 - Pressure ulcer of right ankle, unspecified stage (2) Immunosuppressed status: Status: Acute Category: Medical Code(s): D84.9 - Immunodeficiency, unspecified (3) Ankle osteomyelitis, right: Status: Acute Qualifiers: Osteomyelitis type: other chronic Qualified Code(s): M86.671 - Other chronic osteomyelitis, right ankle and foot Category: Medical Code(s): M86.9 - Osteomyelitis, unspecified (4) Decubitus ulcer, stage III: Problem Comment: Pressure ulcer of right lateral malleolus Status: Acute Qualifiers: Pressure injury location: buttock Laterality: unspecified laterality Qualified Code(s): L89.303 - Pressure ulcer of unspecified buttock, stage 3 Category: Medical Code(s): L89.93 - Pressure ulcer of unspecified site, stage 3 (5) Acquired right foot drop: Problem Comment: Subsequent to necrotizing fasciitis and multiple surgeries removing muscles and tendons of the right lower extremity. Status: Chronic Category: Medical Code(s): M21.371 - Foot drop, right foot (6) Necrotizing cellulitis: Status: Resolved Category: Medical Code(s): L03.90 - Cellulitis, unspecified (7) Weakness generalized: Status: Acute Category: Medical Code(s): R53.1 - Weakness (8) Incontinence in female: Status: Acute Category: Medical Code(s): R32 - Unspecified urinary incontinence (9) Elevated blood sugar level: Status: Acute Category: Medical Code(s): R73.9 - Hyperglycemia, unspecified (10) Morbid obesity: Status: Acute Category: Medical Code(s): E66.01 - Morbid (severe) obesity due to excess calories Plan 68-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 Previous necrotizing fasciitis of leg. Admitted for decubitus wound. Podiatry evaluated today. Taken for surgery and debridement. Concern for osteomyelitis of her leg. Further management pending wound cultures. Continuing broad-spectrum antibiotics. Anticipate prolonged hospitalization due to complexity of patient's underlying medical conditions and likely need for further surgery. Problems addressed as follows: Right ankle wound/decubitus wound suspected osteomyelitis of distal right Fibula -Discussed case with podiatry today, taken for debridement. Extensive discussion about findings. Right ankle was debrided, I&D performed. Multiple tissue cultures were obtained. Bone found to be soft consistent with either osteoporosis or infection, strong concern for infection. -Continue broad-spectrum antibiotics with Vancomycin 2.25 g IV every 12 hours and levofloxacin 750 mg daily. Further management pending culture results. -Contain clean and dry dressing, elevate ankle. Nonweightbearing. -X-ray shows hazy border of bone concerning for osteomyelitis per my review -Daily dressing changes. Wound consulted to assist with management. PT and OT consulted to assist with mobility. -Strong concern that if patient has osteomyelitis, she will necessitate BKA. Further management and discussion pending culture results. -Decubitus wound being evaluated by wound care, currently has protective pad. -White count 7.9, hemoglobin 11.2. Kidney function normal with BUN 11, creatinine 0.5. Repeat CBC, CMP, magnesium ordered for the morning. Immunocompromised [place]'s disease: Hypothyroid - Continue hydrocortisone 20 mg nightly and 40 mg in the morning. Complicates her wound healing and immunocompromised state. -Monitor electrolytes daily, CBC, CMP, magnesium ordered for the morning. Potassium 3.9, magnesium 1.5, replacing per protocol. -Levothyroxine continued at 50 mcg daily, TSH pending. Mood disorder: Continue trazodone 50 mg 3 times a day, Cymbalta 60 mg nightly, Abilify 10 mg daily; continue Xanax 1 mg 3 times a day as needed., Monitor for toxicity. Chronic pain: Continue oxycodone 10 mg every 6 hours as needed for severe pain. Caution with concurrent benzo use Full code Regular diet
[2024-06-27] MEDS: PANTOPRAZOLE 40MG TABLET 40 MG PO (21:59)
[2024-06-27] MEDS: DULOXETINE 30MG CAPSULE.DR 60 MG PO (21:59)
[2024-06-27] MEDS: MONTELUKAST SODIUM 10MG TAB 10 MG PO (21:59)
[2024-06-28 04:00] VITALS: BP 114/68; PULSE 112; RESP 16; TEMP 36.9; O2SAT 90; BMI 40.0
[2024-06-28] MEDS: VANCOMYCIN HCL 2,250 MG in 0.9 % SODIUM CHLORIDE 250 ML 125 MG IV (04:07)
--- NOTE | 2024-06-28 04:26 | PC.NURSE ---
v/s, ox4. No acute events to report. Plan of care ongoing.
[2024-06-28] MEDS: OXYCODONE 5MG IMMEDIATE RELEASE TABLET 10 MG PO ×3 (05:28→17:16)
[2024-06-28] MEDS: LEVOTHYROXINE 50MCG (0.05MG) TAB 50 MCG PO (06:14)
[2024-06-28 06:24] VITALS: O2SAT 90
[2024-06-28] MEDS: TIOTROPIUM 18MCG/PUFF INHALER 1 CAP IH (06:25)
[2024-06-28 06:27] LABS: Basophils % 0.2 % (0.1-2.0); Eosinophils % 0.1 % (0.1-12.0); Hematocrit 29.8 % (37.0-47.0); Lymphocytes # 1.6 K/mm3 (0.7-4.5); Lymphocytes % 14.2 % (10-50); Mean Corpuscular HGB Conc 32.2 g/dL (31.8-35.4); Mean Corpuscular Hemoglobin 31.3 pg (27.0-31.2); Mean Corpuscular Volume 97.1 fl (81-99); Mean Platelet Volume 10.7 fl (7.4-10.4); Monocytes # 0.7 K/mm3 (0.1-1.0); Neutrophils # 9.1 K/mm3 (1.8-7.8); Neutrophils % 78.8 % (37.0-80.0); Platelet Count 227 K/mm3 (142-424); Red Blood Count 3.07 M/mm3 (4.20-5.40); Red Cell Distribution Width 13.1 % (11.5-17.5); White Blood Count 11.6 K/mm3 (4.8-10.8)
[2024-06-28 06:46] LABS: Hemoglobin 9.6 g/dL (12.2-16.2)
[2024-06-28 07:03] LABS: Blood Urea Nitrogen 11 mg/dl (7-17); Calcium 7.9 mg/dl (8.4-10.2); Carbon Dioxide 37 mmol/L (22.0-30.0); Chloride 96 mmol/L (98-107); Creatinine Clearance Estimated 52 mL/min (50-200); Estimated Glomerular Filt Rate 84 ml/min (>60); GFR (African American) 101 ML/MIN (>60); Glucose 263 mg/dl (74-100); Sodium 136 mmol/L (136-145)
[2024-06-28 07:08] LABS: C-Reactive Protein 39.8 mg/L (0-4)
[2024-06-28 07:29] LABS: Erythrocyte Sedimentation Rate 35 mm/hr (0-30)
--- NOTE | 2024-06-28 07:32 | P.PN_ITS ---
Subjective *Date: 06/28/24 *Time: 19:57 Interval history: Patient comfortable this morning. Denies much pain in her leg. Still awaiting bone cultures. Tolerating p.o. intake. Working with therapy. Got up to bedside today. Stable on 3-1/2 L which is her baseline oxygen. Afebrile. No nausea or vomiting. White count slightly elevated today. Family at bedside, updated of plan Medical Exam Vital signs and Labs for Last 24 Hours: Vital Signs Temp Pulse Pulse Resp BP BP Pulse Ox 06/28/24 06:24 90 L 06/28/24 06:10 06/28/24 04:28 06/28/24 04:00 98.5 F 112 H 16 114/68 90 L 06/28/24 03:00 06/28/24 00:42 06/27/24 22:18 06/27/24 21:45 98 F 68 18 100/60 L 97 06/27/24 20:45 97.9 F 112 H 18 112/74 95 06/27/24 20:15 06/27/24 19:45 97.9 F 112 H 18 121/72 95 06/27/24 19:35 06/27/24 18:45 102 H 20 109/57 L 95 06/27/24 17:45 107 H 18 110/73 96 06/27/24 17:15 102 H 17 121/56 L 99 06/27/24 17:00 06/27/24 16:45 112 H 18 158/98 H 95 06/27/24 16:15 123 H 20 126/79 96 06/27/24 15:45 122 H 22 98/67 L 95 06/27/24 15:30 113 H 20 93/58 L 95 06/27/24 15:15 98.2 F 110 H 20 100/58 L 97 06/27/24 15:00 102 H 18 101/65 L 92 L 06/27/24 15:00 06/27/24 14:50 98.0 F 90 16 100/60 L 99 06/27/24 14:40 98.0 F 84 16 94/66 L 99 06/27/24 14:30 98.0 F 108 H 16 117/57 L 99 06/27/24 14:29 98 F 105 H 16 121/75 06/27/24 14:20 98.0 F 100 H 16 121/75 100 06/27/24 11:00 06/27/24 09:00 06/27/24 08:00 06/27/24 08:00 98.3 F 81 18 133/76 93 L O2 Del Method O2 Flow Rate 06/28/24 06:24 Nasal Cannula 3.5 06/28/24 06:10 Nasal Cannula 3.5 06/28/24 04:28 Nasal Cannula 4 06/28/24 04:00 Nasal Cannula 4 06/28/24 03:00 Nasal Cannula 4 06/28/24 00:42 Nasal Cannula 3.5 06/27/24 22:18 Nasal Cannula 3.5 06/27/24 21:45 Nasal Cannula 3.5 06/27/24 20:45 Nasal Cannula 3.5 06/27/24 20:15 Nasal Cannula 3.5 06/27/24 19:45 Nasal Cannula 3.5 06/27/24 19:35 Nasal Cannula 3.5 06/27/24 18:45 Nasal Cannula 3.5 06/27/24 17:45 Nasal Cannula 3.5 06/27/24 17:15 Nasal Cannula 3.5 06/27/24 17:00 Nasal Cannula 3.5 06/27/24 16:45 Nasal Cannula 3.5 06/27/24 16:15 Nasal Cannula 3.5 06/27/24 15:45 Nasal Cannula 3.5 06/27/24 15:30 Nasal Cannula 3.5 06/27/24 15:15 Nasal Cannula 3.5 06/27/24 15:00 Nasal Cannula 3.5 06/27/24 15:00 Nasal Cannula 3.5 06/27/24 14:50 Nasal Cannula 4 06/27/24 14:40 Nasal Cannula 4 06/27/24 14:30 Nasal Cannula 4 06/27/24 14:29 06/27/24 14:20 Nasal Cannula 4 06/27/24 11:00 Room Air 06/27/24 09:00 Nasal Cannula 4 06/27/24 08:00 Nasal Cannula 4 06/27/24 08:00 Nasal Cannula 4 Intake and Output 06/27/24 06/27/24 06/28/24 15:59 23:59 07:59 Intake Total 700 / 1420 600 / 1420 0 / 0 Output Total 200 / 500 300 / 500 200 / 200 Balance 500 / 920 300 / 920 -200 / -200 Intake: Intake, Oral Amount 600 / 720 0 / 0 Intake, Total IV Amount 700 / 700 Output: Output, Urine Amount 200 / 500 300 / 500 200 / 200 Other: Number of Unmeasured Voids 0 0 0 Weight 114.816 kg 115.711 kg Patient Weight 06/28/24 23:59 Weight 115.711 kg Laboratory Results - last 24 hr 06/27/24 06:45: ESR 21, C-Reactive Protein 36.9 H, HCV Ab NOVA w/Rflx PCR Qn Negative, HIV Ag/Ab Combo Qual Negative 06/28/24 05:30: WBC 11.6 H D, RBC 3.07 L, Hgb 9.6 L D, Hct 29.8 L, MCV 97.1, MCH 31.3 H, MCHC 32.2, RDW 13.1, Plt Count 227 D, MPV 10.7 H, Neut % (Auto) 78.8, Lymph % (Auto) 14.2, [place] % (Auto) 6.0, Eos % (Auto) 0.1, Baso % (Auto) 0.2, Neut # (Auto) 9.1 H, Lymph # (Auto) 1.6, [place] # (Auto) 0.7, Eos # (Auto) 0.0, Baso # (Auto) 0.0, ESR 35 H, Sodium 136, Potassium 4.0, Chloride 96 L, Carbon Dioxide 37 H, Anion Gap 7.0, BUN 11, Creatinine 0.70 D, Estimated Creat Clear 52, Estimated GFR 84, Est GFR ( Amer) 101 D, Glucose 263 H D, Calcium 7.9 L, C-Reactive Protein 39.8 H I & O for Labs for Last 24 Hours: Intake & Output 06/25/24 06/26/24 06/27/24 06/28/24 23:59 23:59 23:59 23:59 Intake Total 1420 / 1420 0 / 0 Output Total 500 / 500 200 / 200 Balance 920 / 920 -200 / -200 Weight 114.816 kg 114.816 kg 115.711 kg Microbiology Reports for the Last 24 Hours: Microbiology 06/26/24 17:45 Blood Blood Culture - Preliminary NO GROWTH AFTER 24 HOURS 06/26/24 17:25 Blood Blood Culture - Preliminary NO GROWTH AFTER 24 HOURS 06/27/24 13:41 Foot,Right - Abscess Gram Stain - Final Constitutional: Present no acute distress, obese, chronically ill appearing and cooperative Head: Present atraumatic and normocephalic ENT: Present normal exam Comment:: Cushingoid facies Respiratory: Present diminished air movement and normal respiratory effort; Absent accessory muscle use, rhonchi, wheezes or crackles Cardiac: Present Reg Rate and Rhythm GI: Present soft and normal bowel sounds; Absent distention or tenderness Extremities: Present full ROM Comment:: Foot drop on right side, right lower leg in the postop bandage Skin: Present intact and erythema (Seen on right leg in pictures. No tracking up the leg.) Neuro: Present Cranial Nerve 2-12 Intact, Grossly Intact, alert, awake, oriented x 3 and moves all extremities Assessment and Plan *Assessment and plan (1) Pressure ulcer of right ankle: Status: Acute Qualifiers: Pressure injury stage: unspecified pressure injury stage Qualified Code(s): L89.519 - Pressure ulcer of right ankle, unspecified stage Category: Medical Code(s): L89.519 - Pressure ulcer of right ankle, unspecified stage (2) Immunosuppressed status: Status: Acute Category: Medical Code(s): D84.9 - Immunodeficiency, unspecified (3) Ankle osteomyelitis, right: Status: Acute Qualifiers: Osteomyelitis type: other chronic Qualified Code(s): M86.671 - Other chronic osteomyelitis, right ankle and foot Category: Medical Code(s): M86.9 - Osteomyelitis, unspecified (4) Decubitus ulcer, stage III: Problem Comment: Pressure ulcer of right lateral malleolus Status: Acute Qualifiers: Pressure injury location: buttock Laterality: unspecified laterality Qualified Code(s): L89.303 - Pressure ulcer of unspecified buttock, stage 3 Category: Medical Code(s): L89.93 - Pressure ulcer of unspecified site, stage 3 (5) Acquired right foot drop: Problem Comment: Subsequent to necrotizing fasciitis and multiple surgeries removing muscles and tendons of the right lower extremity. Status: Chronic Category: Medical Code(s): M21.371 - Foot drop, right foot (6) Necrotizing cellulitis: Status: Resolved Category: Medical Code(s): L03.90 - Cellulitis, unspecified (7) Weakness generalized: Status: Acute Category: Medical Code(s): R53.1 - Weakness (8) Incontinence in female: Status: Acute Category: Medical Code(s): R32 - Unspecified urinary incontinence (9) Elevated blood sugar level: Status: Acute Category: Medical Code(s): R73.9 - Hyperglycemia, unspecified (10) Morbid obesity: Status: Acute Category: Medical Code(s): E66.01 - Morbid (severe) obesity due to excess calories Plan 68-year-old female with [place]'s disease who is essentially bedbound and functional quadriplegic for over 3 years. Previous necrotizing fasciitis of leg. Admitted for decubitus wound. Podiatry evaluated today. Taken for surgery and debridement. Concern for osteomyelitis of her leg. Further management pending wound cultures. Continuing broad-spectrum antibiotics. Anticipate prolonged hospitalization due to complexity of patient's underlying medical conditions and likely need for further surgery. Problems addressed as follows: Right ankle wound/decubitus wound suspected osteomyelitis of distal right Fibula -Awaiting bone culture, white count increased to 11.6. No fever. CRP 39, ESR 35. - Continue broad-spectrum antibiotics with Vancomycin 2.25 g IV every 12 hours and levofloxacin 750 mg daily. Further management pending culture results. -Maintain clean and dry dressing, elevate ankle. Nonweightbearing. - Daily dressing changes. Wound consulted to assist with management. PT and OT consulted to assist with mobility. -Strong concern that if patient has osteomyelitis, she will necessitate BKA. Further management and discussion pending culture results. -Decubitus wound being evaluated by wound care, currently has protective pad. -Kidney function stable with BUN 11, creatinine 0.7. Repeat CBC, CMP, magnesium ordered for the morning. Diabetes, new diagnosis -A1c elevated at 7.9. She had sliding scale insulin with fingersticks ACHS. Will monitor daily needs and consider starting long-acting insulin morning. Immunocompromised [place]'s disease: Hypothyroid - Continue hydrocortisone 20 mg nightly and 40 mg in the morning. Complicates her wound healing and immunocompromised state. -Monitor electrolytes daily, CBC, CMP, magnesium ordered for the morning. Potassium 4.0, replacing per protocol. -Levothyroxine continued at 50 mcg daily, TSH pending. Mood disorder: Continue trazodone 50 mg 3 times a day, Cymbalta 60 mg nightly, Abilify 10 mg daily; continue Xanax 1 mg 3 times a day as needed., Monitor for toxicity. Chronic pain: Continue oxycodone 10 mg every 6 hours as needed for severe pain. Caution with concurrent benzo use Full code Regular diet
[2024-06-28 08:00] VITALS: BP 115/61; PULSE 117; RESP 20; TEMP 36.8; O2SAT 92
--- NOTE | 2024-06-28 08:24 | SW/DCPLANNER ---
I spoke w/ this patient regarding plans once medically stable for discharge. PT evaluated patient and stated that she is at baseline and could return home. Patient expressed that she is not interested in SNF level of care at time of discharge. Patient stated that she lives at home w/ her son and grandson. Patient has all appropriate equipment at home and is already established w/ [facility]. I will continue to follow up w/ this patient and her family regarding discharge planning. Discharge date is unknown at this time.
[2024-06-28] MEDS: ARIPiprazole 10MG TABLET 10 MG PO (09:10)
[2024-06-28] MEDS: ENOXAPARIN 40MG/0.4ML SYRINGE 40 MG SUBCUT ×2 (09:10→20:21)
[2024-06-28] MEDS: LEVOFLOXACIN/D5W 750 MG/150 ML 750 MG/150 ML PIGGYBACK 100 MG IV (09:11)
--- NOTE | 2024-06-28 10:12 | HMH.PTEV ---
Physical Therapy Evaluation Rehab PT IP Evaluation Start: 06/27/24 08:26 Freq: ONCE Status: Complete Protocol: Document 06/27/24 10:36 PHORNE (Rec: 06/27/24 10:37 PHORNE [id number]) Subjective/History History History [address] [facility] with LE and buttock wounds. Patient came the emergency room for evaluation of right lateral malleolus wound. Patient has noted of having non-insulin- dependent type 2 diabetes also [place]'s disease on hydrocortisone also with chronic severe COPD on chronic oxygen replacement morbid obesity hypothyroidism chronic pressure ulcers during to be nonmobile and wheelchair as it was spent the specific necrotizing fasciitis of the right lower extremity previously patient has had recent worsening of the lateral malleolus of the right ankle with skin breakdown and her primary care provider sent her to the ER she reports that the area is painful. Pt has PI to R buttock upon admission. She is DEPENDENT with all OOB transfers with yolanda lift at home. Subjective Subjective Pt is DEPENDENT for all mobility at baseline. [facility] How much help from another person do you currently need... Turning from your back to your side A lot while in a flat bed without using bedrails? Moving from lying on back to sitting on Total the side of a flat bed without using bedrails? Moving to and from a bed to a chair ( Total including a wheelchair)? Standing up from a chair using your arms Total ? (e.g., wheelchair, bedside chair) Walking in hospital room? Total Climbing 3-5 steps with a railing? Total Mobility Score 7 Mobility Level [facility] Mobility Calculator Mobility 2 Bed activities/ dependent transfer Rehab PT IP prob,goals,plan Problems Date of Evaluation: 06/27/24 Discharge Plan PT Discharge Plan Pt is appropriate to return home once medically stable for d/c. with total care which is her baseline. No current inpatient acute therapy needs. Eval Complexity Eval Charge Codes 13615 - High Complexity Rehab PT IP Evaluation Start: 06/27/24 14:25 Freq: DAILY Status: Active Protocol: Document 06/28/24 09:40 PHORNE (Rec: 06/28/24 10:12 PHORNE [id number]) Subjective/History History History 68-year-old female with [place]'s disease who is essentially bedbound and functional quadriplegic for over 3 years. Previous necrotizing fasciitis of leg. Admitted for decubitus wound. Podiatry evaluated today. Podiatry consulted, planning for surgery and debridement. Continues to require inpatient management. Problems addressed as follows: Right ankle wound/decubitus wound -Podiatry consulted, taking for debridement today. -Initiated on broad-spectrum antibiotics with vancomycin, received 2.5 g in the ED. Initiated on Levaquin 500 mg IV daily. Will obtain wound cultures with debridement. Pt is present in room and assists with the history. Pt lives with , ramp to enter the home, uses a w/c for all mobility, yolanda lift for transfers from bed to chairat baseline and requires full assistance for all ADLs at baseline. Subjective Subjective Pt has no c/o pain this am, agrees to mobility assessment. Had OR yesterday for R foot wound I&D. [facility] How much help from another person do you currently need... Turning from your back to your side A lot while in a flat bed without using bedrails? Moving from lying on back to sitting on Total the side of a flat bed without using bedrails? Moving to and from a bed to a chair ( Total including a wheelchair)? Standing up from a chair using your arms Total ? (e.g., wheelchair, bedside chair) Walking in hospital room? Total Climbing 3-5 steps with a railing? Total Mobility Score 7 Mobility Level [facility] Mobility Calculator Mobility 2 Bed activities/ dependent transfer Rehab PT IP Eval Objective Appearance Patient Behavior Appropriate Patient Orientation Person,Place,Time Difficulty following instructions none Speech Pattern Clear Ambulation Patient Able to Ambulate No Balance Ability to Arise Unable Sitting Balance Leans or slides in chair Dynamic Sitting Balance Ability Zero Transfers Bed Transfer Ability Maximum x 2 (75% assist) Chair Transfer Ability Total/Dependent (100%) Rehab PT IP prob,goals,plan Problems Date of Evaluation: 06/28/24 PT IP Problems Bed Mobility,Transfers Rehab Potential Rehab Potential Fair Plan PT Intervention Plan Bed Mobility,Transfers, Therapeutic Exercise PT Plan Frequency Daily Duration LOS Discharge Goals Bed Transfer Ability Maximum x 1 (75% assist) Discharge Plan PT Discharge Plan Pt is likely most appropriate for rehab placement at this time. However, her has been providing total care at home previously and may be able to return to providing total care in the future. Eval Complexity Eval Charge Codes 93303 - High Complexity PHYSICIAN CERTIFICATION: I certify the specified therapy services for Violetta Landaverdeette Cj are required, authorized, and reviewed every 30 days.
[2024-06-28 10:13] LABS: Magnesium 1.9 mg/dl (1.6-2.3)
--- NOTE | 2024-06-28 10:21 | HMH.OTEV ---
OT Inpatient Evaluation Rehab OT IP Evaluation Start: 06/27/24 15:10 Freq: ONCE Status: Active Protocol: Document 06/28/24 10:13 [facility] (Rec: 06/28/24 10:21 [facility] [id number]) Rehab OT IP Assessment Subjective History Pt oriented x 3 on arrival. Pt agreeable to engage in therapy evaluation. Pt's and present and supportive during evaluation. Pt admitted on 06/26/24 due to Right lateral malleolus wound decubitus. History and physical: Patient came the emergency room for evaluation of right lateral malleolus wound. 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 The patient will be admitted to the floor. With a consult to podiatry. Patient has received 1 dose of vancomycin in the emergency room will continue on Levaquin also.. Also noted in exam that there is a stage II decubitus in the buttocks and also the back of the thigh and the lower extremity several other places of early cellulitis or early breakdown. Subjective I haven't walked in years. Prior to being in the hospital , pt lives at home with her . Pt claims normally she requires assistance with all ADLs: feeding, dressing, and bathing. Pt is also a mechanical lift to get to and from wheelchair. Pt has caregivers daily to assist with daily activities. Pt is dependent upon family for completion of IADLs. Objective Patient Orientation Person,Place,Birthday Right Upper Extremity Gross ROM WFL Left Upper Extremity Gross ROM WFL Bed Mobility bed mobility-scooting,bed mobility - supine/sit,bed mobility - rolling Assist Level Total/Dependent (100%) Rehab OT IP prob,goals,plan Problems Date of Evaluation: 06/28/24 Rehab Potential Rehab Potential Fair Equipment Needs Assistive Devices Wheelchair Plan OT intervention Plan Bed Mobility,Transfers,Balance ,Self care,Safety,Therapeutic Exercise OT Plan Frequency Daily Duration LOS Discharge Goals Bed Mobility Ability Assistance x2 Sit to Stand Chair Transfer Ability Maximum x 2 (75% assist) Chair Transfer Ability Maximum x 2 (75% assist) Chair Transfer Technique Mechanical Lift Chair Transfer Assistive Devices Mechanical Lift Feeding Ability Assist with Tray Set Up Lower Body Dressing Ability Maximum Assistance Upper Body Dressing Ability Minimal Assistance Bathing Ability Maximum Assistance Performing Toilet Hygiene Ability Maximum Assistance Overall Commode/Toilet Transfer Ability Unable/dependent Commode/Toilet Transfer Technique Mechanical Lift Commode/Toilet Transfer Assistive Mechanical Lift Devices Discharge Plan OT Discharge Plan Pt will continue to be seen for OT services while at [facility]. Pt would benefit most from short term rehab placement after discharge from hospital. However, pt very reluctant to this plan and prefers to return home with home health, caregivers, and family assistance. If pt returns home, therapist recommends OT for continued skilled therapy. Continued skilled therapy is important in order for patient to improve strength, safety, endurance, ADL independence, and functional transfers to reach PLOF. Eval Complexity Eval Charge Codes 75251 - Moderate Complexity PHYSICIAN CERTIFICATION: I certify the specified therapy services for Violetta Corona are required, authorized, and reviewed every 30 days.
--- NOTE | 2024-06-28 10:24 | P.PNANES_ITS ---
[facility] Anesthesia Record Part II Anesthesia Record Part II Discharge Time: 14:50 Destination: Medical Surgical Department PACU nurse assessment reviewed?: Yes Patient Condition:: Good Anesthesia Complications:: None Swallowing reflex intact?: Yes Airway Patency: Patent Cyanosis?: No Blood Pressure: 100/60 SaO2: 99 Respiratory Rate: 16 Pulse Rate: 90 Temperature: 98 F Mental Status: Alert & Oriented Pain level:: 0 Nausea and/or vomitting:: None Intake, IV Amount: 0 Hydration: Adequate
[2024-06-28 10:25] VITALS: BP 100/60; PULSE 90; RESP 16; TEMP 36.6; O2SAT 99
[2024-06-28 11:00] LABS: Hemoglobin A1C 7.9 % (4.0-6.0)
[2024-06-28] MEDS: humaLOG 100 UNITS/ML 10ML VIAL (SSI) SUBCUT ×3 (11:48→20:21)
[2024-06-28 11:58] LABS: POC Glucose,Bedside 215 (70-110)
[2024-06-28] MEDS: ALPRAZolam 1MG TABLET 1 MG PO ×2 (13:18→20:21)
[2024-06-28 15:53] LABS: Vancomycin,Trough 15.7 ug/mL (5.0-10.0)
[2024-06-28 16:00] VITALS: BP 94/66; PULSE 103; RESP 16; TEMP 37.1; O2SAT 92
--- NOTE | 2024-06-28 16:04 | EXP.PHA.CONS ---
Pharmacy Consult Date: 06/28/24 Time: 16:04 Referring provider: DR. PEREIRA Reason for Consult:: VANCOMCYIN LEVEL Allergies Allergy/AdvReac Type Severity Reaction Status Date / Time nitrofurantoin Allergy Intermediate Unknown Verified 05/20/24 14:38 allergy reaction Penicillins Allergy Intermediate Swelling Verified 05/20/24 14:38 of Lip/Tongue/Throat Home Medications ?Medication ?Instructions ?Recorded ?Confirmed ?Type albuterol sulfate 90 mcg/actuation 2 puff inhalation QID Shortness of 07/28/22 06/26/24 History aerosol inhaler air alendronate 70 mg tablet 70 mg PO WEEKLY 07/28/22 06/26/24 History duloxetine 30 mg capsule,delayed 60 mg PO HS 05/27/24 06/26/24 History release linaclotide 290 mcg capsule 290 mcg PO DAILY #90 caps 06/21/24 06/26/24 Rx (Linzess) alprazolam 1 mg tablet (Xanax) 1 - 1.5 mg (1 - 1.5 x 1 mg) PO 06/25/24 06/26/24 Rx TIDP PRN Anxiety #135 tabs aripiprazole 10 mg tablet 10 mg PO DAILY 06/27/24 06/26/24 History furosemide 40 mg tablet 80 mg PO DAILY 06/27/24 06/27/24 History hydrocortisone 10 mg tablet 40 mg (4 x 10 mg) PO DAILY #360 06/27/24 Rx tabs hydrocortisone 5 mg tablet 20 mg PO PM 06/27/24 06/27/24 History levothyroxine 50 mcg tablet 50 mcg PO DAILY 06/27/24 06/27/24 History montelukast 10 mg tablet 10 mg PO HS 06/27/24 06/27/24 History oxycodone 10 mg tablet 10 mg PO QIDP PRN pain 06/27/24 06/27/24 History pantoprazole 40 mg tablet,delayed 40 mg PO DAILY 06/27/24 06/27/24 History release potassium chloride 10 mEq 10 meq PO DIRECTED 06/27/24 06/27/24 History capsule,extended release tiotropium bromide 1.25 2 inh inhalation DAILY 06/27/24 06/27/24 History mcg/actuation mist for inhalation (Spiriva Respimat) trazodone 50 mg tablet 50 mg PO TID 06/27/24 06/27/24 History New Prescriptions to Start Prescriptions: Height: 1.7 m Weight: 115.711 kg Laboratory Results:: Laboratory Results - last 24 hr 06/28/24 05:30: WBC 11.6 H D, RBC 3.07 L, Hgb 9.6 L D, Hct 29.8 L, MCV 97.1, MCH 31.3 H, MCHC 32.2, RDW 13.1, Plt Count 227 D, MPV 10.7 H, Neut % (Auto) 78.8, Lymph % (Auto) 14.2, [place] % (Auto) 6.0, Eos % (Auto) 0.1, Baso % (Auto) 0.2, Neut # (Auto) 9.1 H, Lymph # (Auto) 1.6, [place] # (Auto) 0.7, Eos # (Auto) 0.0, Baso # (Auto) 0.0, ESR 35 H, Sodium 136, Potassium 4.0, Chloride 96 L, Carbon Dioxide 37 H, Anion Gap 7.0, BUN 11, Creatinine 0.70 D, Estimated Creat Clear 52, Estimated GFR 84, Est GFR ( Amer) 101 D, Glucose 263 H D, Hemoglobin A1c 7.9 H, Calcium 7.9 L, Magnesium 1.9 D, C-Reactive Protein 39.8 H 06/28/24 11:45: POC Glucose 215 H 06/28/24 15:05: Vancomycin Trough 15.7 H Medical History: Medical History (Updated 06/27/24 @ 17:59 by Verna Guerrero DPM) Post-hysterectomy menopause Thyroid disease Hypokalemia Depression Anxiety COPD (chronic obstructive pulmonary disease) Necrotizing cellulitis Addisons disease Necrotizing fasciitis of ankle and foot Pressure ulcer of left buttock, stage 2 Open ankle wound Non-healing non-surgical wound Assessment and Plan Assessment and plan all Dx Assessment and Plan for all problems:: PATIENT'S VANCOMYCIN TROUGH LEVEL WAS 15.7 MCG/ML TODAY. RECOMMEND CONTINUING WITH VANCOMYCIN 2250 MG Q12H AT THIS TIME.
--- NOTE | 2024-06-28 18:03 | PC.NURSE ---
Student nurse, Jorge Ojeda provided care for pt under my supervision.
[2024-06-28] MEDS: VANCOMYCIN/WATER FOR INJ (PEG) 1.75 GM/350 ML PIGGYBACK IV (18:26)
[2024-06-28 19:42] VITALS: BP 100/54; PULSE 104; RESP 18; TEMP 36.8; O2SAT 96
[2024-06-28] MEDS: MONTELUKAST SODIUM 10MG TAB 10 MG PO (20:21)
[2024-06-28] MEDS: PANTOPRAZOLE 40MG TABLET 40 MG PO (20:21)
[2024-06-28] MEDS: DULOXETINE 30MG CAPSULE.DR 60 MG PO (20:21)
[2024-06-28 20:24] LABS: POC Glucose,Bedside 218 (70-110)
[2024-06-28 21:02] LABS: Vancomycin,Peak 43.2 ug/ml (11-39)
--- NOTE | 2024-06-28 22:00 | PC.NURSE ---
patient is vaping in room while on 3.5L [place] oxygen - vape put in drawer and locked. patient was very understanding.
[2024-06-29 04:00] VITALS: BMI 41.5
[2024-06-29] MEDS: OXYCODONE 5MG IMMEDIATE RELEASE TABLET 10 MG PO ×3 (05:45→14:52)
[2024-06-29] MEDS: LEVOTHYROXINE 50MCG (0.05MG) TAB 50 MCG PO (05:46)
[2024-06-29] MEDS: VANCOMYCIN/WATER FOR INJ (PEG) 1.75 GM/350 ML PIGGYBACK IV (05:47)
--- NOTE | 2024-06-29 05:58 | PC.NURSE ---
patient has slept well tonight. q2h turn. c/o leg pain, tx per jun.
[2024-06-29 06:13] VITALS: BP 111/61; PULSE 86; RESP 17; TEMP 37.1; O2SAT 92
[2024-06-29] MEDS: TIOTROPIUM 18MCG/PUFF INHALER 1 CAP IH (06:34)
[2024-06-29 07:53] LABS: Basophils # 0.1 K/mm3 (0-0.2); Basophils % 0.7 % (0.1-2.0); Eosinophils # 0.1 K/mm3 (0.0-0.4); Eosinophils % 1.1 % (0.1-12.0); Hematocrit 26.4 % (37.0-47.0); Hemoglobin 8.3 g/dL (12.2-16.2); Lymphocytes # 2.5 K/mm3 (0.7-4.5); Lymphocytes % 34.5 % (10-50); Mean Corpuscular HGB Conc 31.4 g/dL (31.8-35.4); Mean Corpuscular Hemoglobin 31.4 pg (27.0-31.2); Mean Platelet Volume 10.8 fl (7.4-10.4); Monocytes # 0.6 K/mm3 (0.1-1.0); Monocytes % 7.8 % (1.7-9.3); Neutrophils % 54.4 % (37.0-80.0); Platelet Count 170 K/mm3 (142-424); Red Blood Count 2.64 M/mm3 (4.20-5.40); Red Cell Distribution Width 13.6 % (11.5-17.5); White Blood Count 7.3 K/mm3 (4.8-10.8)
[2024-06-29] MEDS: ALPRAZolam 1MG TABLET 1 MG PO ×2 (08:07→17:07)
[2024-06-29] MEDS: LEVOFLOXACIN/D5W 750 MG/150 ML 750 MG/150 ML PIGGYBACK 100 MG IV (08:07)
[2024-06-29] MEDS: ARIPiprazole 10MG TABLET 10 MG PO (08:08)
[2024-06-29] MEDS: ENOXAPARIN 40MG/0.4ML SYRINGE 40 MG SUBCUT ×2 (08:08→20:30)
[2024-06-29 08:25] LABS: Blood Urea Nitrogen 9 mg/dl (7-17); Calcium 7.9 mg/dl (8.4-10.2); Chloride 98 mmol/L (98-107); Creatinine Clearance Estimated 52 mL/min (50-200); Estimated Glomerular Filt Rate 123 ml/min (>60); GFR (African American) 149 ML/MIN (>60); Glucose 118 mg/dl (74-100); Potassium 3.5 mmoL/L (3.5-5.1); Sodium 137 mmol/L (136-145)
[2024-06-29 08:29] LABS: Magnesium 1.9 mg/dl (1.6-2.3)
[2024-06-29 09:09] LABS: Anion Gap 5.5 mEq/L (5-15); Carbon Dioxide 37 mmol/L (22.0-30.0)
--- NOTE | 2024-06-29 09:40 | P.PN_ITS ---
Subjective *Date: 06/29/24 *Time: 13:38 Interval history: Patient comfortable this morning. Complaining of ankle pain. Bone cultures preliminarily showing gram-positive cocci. Working with therapy. Stable on 3- 1/2 L. Tolerating p.o. intake. No fever, nausea, vomiting, chest pain. White count improved today. Family at bedside, updated of plan Medical Exam Vital signs and Labs for Last 24 Hours: Vital Signs Temp Pulse Resp BP Pulse Ox O2 Del Method O2 Flow Rate 06/29/24 09:00 Nasal Cannula 3.5 06/29/24 08:00 Nasal Cannula 3.5 06/29/24 06:32 Nasal Cannula 3.5 06/29/24 06:13 98.7 F 86 17 111/61 92 L Room Air 06/29/24 05:00 Nasal Cannula 3.5 06/29/24 03:00 Nasal Cannula 3.5 06/29/24 01:00 Nasal Cannula 3.5 06/28/24 23:00 Nasal Cannula 3.5 06/28/24 21:00 Nasal Cannula 3.5 06/28/24 20:00 Nasal Cannula 3.5 06/28/24 19:42 98.3 F 104 H 18 100/54 L 96 Nasal Cannula 06/28/24 18:11 Nasal Cannula 3.5 06/28/24 17:00 Nasal Cannula 3.5 06/28/24 16:00 98.7 F 103 H 16 94/66 L 92 L Nasal Cannula 3.5 06/28/24 14:24 Nasal Cannula 3.5 06/28/24 13:00 Nasal Cannula 3.5 06/28/24 11:00 Nasal Cannula 3.5 06/28/24 10:25 16 Intake and Output 06/28/24 06/29/24 06/29/24 23:59 07:59 15:59 Intake Total 790 / 1310 120 / 480 360 / 480 Output Total 400 / 600 1000 / 1000 Balance 390 / 710 -880 / -520 360 / -520 Intake: Intake, Oral Amount 440 / 960 120 / 480 360 / 480 Intake, Total IV Amount 350 / 350 Vancomycin/Water For Inj (Peg) 350 / 350 1.75 gm In 350 ml @ 175 mls/hr IV Q12H [facility] Rx#:[id number] Output: Output, Urine Amount 400 / 600 1000 / 1000 Other: Number of Unmeasured Voids 0 Weight 115.711 kg 119.93 kg Patient Weight 06/29/24 23:59 Weight 119.93 kg Laboratory Results - last 24 hr 06/28/24 05:30: Hemoglobin A1c 7.9 H, Magnesium 1.9 D 06/28/24 11:45: POC Glucose 215 H 06/28/24 15:05: Vancomycin Trough 15.7 H 06/28/24 20:13: POC Glucose 218 H 06/28/24 20:37: Vancomycin Peak 43.2 H* 06/29/24 06:05: WBC 7.3 D, RBC 2.64 L, Hgb 8.3 L, Hct 26.4 L, MCV 100.0 H, MCH 31.4 H, MCHC 31.4 L, RDW 13.6, Plt Count 170 D, MPV 10.8 H, Neut % (Auto) 54.4, Lymph % (Auto) 34.5, [place] % (Auto) 7.8, Eos % (Auto) 1.1, Baso % (Auto) 0.7, Neut # (Auto) 4.0, Lymph # (Auto) 2.5, [place] # (Auto) 0.6, Eos # (Auto) 0.1, Baso # (Auto) 0.1, Sodium 137, Potassium 3.5, Chloride 98, Carbon Dioxide 37 H, Anion Gap 5.5, BUN 9, Creatinine 0.50 L D, Estimated Creat Clear 52, Estimated GFR 123, Est GFR ( Amer) 149 D, Glucose 118 H, Calcium 7.9 L, Magnesium 1.9 I & O for Labs for Last 24 Hours: Intake & Output 06/26/24 06/27/24 06/28/24 06/29/24 23:59 23:59 23:59 23:59 Intake Total 1420 / 1420 1190 / 1310 480 / 480 Output Total 500 / 500 600 / 600 1000 / 1000 Balance 920 / 920 590 / 710 -520 / -520 Weight 114.816 kg 114.816 kg 115.711 kg 119.93 kg Microbiology Reports for the Last 24 Hours: Microbiology 06/26/24 17:35 Ankle,Right Gram Stain - Final 06/26/24 17:35 Ankle,Right Wound Culture - Final Pseudomonas aeruginosa 06/27/24 13:41 Foot,Right - Other Gram Stain - Final 06/27/24 13:41 Foot,Right - Other Wound Culture - Preliminary 06/27/24 13:41 Foot,Right - Abscess Gram Stain - Final 06/27/24 13:41 Foot,Right - Abscess Wound Culture - Preliminary 06/27/24 13:41 Bone Bone Culture - Preliminary Gram Positive Cocci 06/27/24 13:41 Bone - Right Bone Culture - Preliminary Gram Positive Cocci 06/26/24 17:45 Blood Blood Culture - Preliminary NO GROWTH AFTER 48 HOURS 06/26/24 17:25 Blood Blood Culture - Preliminary NO GROWTH AFTER 48 HOURS Constitutional: Present no acute distress, obese, chronically ill appearing and cooperative Head: Present atraumatic and normocephalic ENT: Present normal exam Comment:: Cushingoid facies Respiratory: Present diminished air movement and normal respiratory effort; Absent accessory muscle use, rhonchi, wheezes or crackles Cardiac: Present Reg Rate and Rhythm GI: Present soft and normal bowel sounds; Absent distention or tenderness Extremities: Present full ROM Comment:: Foot drop on right side, right lower leg in the postop bandage Skin: Present intact and erythema (Seen on right leg in pictures. No tracking up the leg.) Neuro: Present Cranial Nerve 2-12 Intact, Grossly Intact, alert, awake, oriented x 3 and moves all extremities Assessment and Plan *Assessment and plan (1) Pressure ulcer of right ankle: Status: Acute Qualifiers: Pressure injury stage: unspecified pressure injury stage Qualified Code(s): L89.519 - Pressure ulcer of right ankle, unspecified stage Category: Medical Code(s): L89.519 - Pressure ulcer of right ankle, unspecified stage (2) Immunosuppressed status: Status: Acute Category: Medical Code(s): D84.9 - Immunodeficiency, unspecified (3) Ankle osteomyelitis, right: Status: Acute Qualifiers: Osteomyelitis type: other chronic Qualified Code(s): M86.671 - Other chronic osteomyelitis, right ankle and foot Category: Medical Code(s): M86.9 - Osteomyelitis, unspecified (4) Decubitus ulcer, stage III: Problem Comment: Pressure ulcer of right lateral malleolus Status: Acute Qualifiers: Pressure injury location: buttock Laterality: unspecified laterality Qualified Code(s): L89.303 - Pressure ulcer of unspecified buttock, stage 3 Category: Medical Code(s): L89.93 - Pressure ulcer of unspecified site, stage 3 (5) Acquired right foot drop: Problem Comment: Subsequent to necrotizing fasciitis and multiple surgeries removing muscles and tendons of the right lower extremity. Status: Chronic Category: Medical Code(s): M21.371 - Foot drop, right foot (6) Necrotizing cellulitis: Status: Resolved Category: Medical Code(s): L03.90 - Cellulitis, unspecified (7) Weakness generalized: Status: Acute Category: Medical Code(s): R53.1 - Weakness (8) Incontinence in female: Status: Acute Category: Medical Code(s): R32 - Unspecified urinary incontinence (9) Elevated blood sugar level: Status: Acute Category: Medical Code(s): R73.9 - Hyperglycemia, unspecified (10) Morbid obesity: Status: Acute Category: Medical Code(s): E66.01 - Morbid (severe) obesity due to excess calories Plan 68-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 Previous necrotizing fasciitis of leg. Admitted for decubitus wound. Debridement performed by podiatry along with resection of distal portion of fibula. Cultures pending on tissue and bone. Concern for osteomyelitis. Further management pending wound cultures. Continuing broad-spectrum antibiotics. Anticipate prolonged hospitalization due to complexity of patient's underlying medical conditions and likely need for further surgery. Problems addressed as follows: Right ankle wound/decubitus wound suspected osteomyelitis of distal right Fibula -Prelim bone culture from both tibia and fibula with Gram stain positive for GPC. Wound culture also growing Pseudomonas. White count improved to 7.3. Hemoglobin stable at 8.3 -Repeat CBC, CMP, magnesium, ESR and CRP ordered for the morning. - Continue broad-spectrum antibiotics with Vancomycin 2.25 g IV every 12 hours and levofloxacin 750 mg daily. Further management pending culture results. - Maintain clean and dry dressing, elevate ankle. Nonweightbearing. - Daily dressing changes. Wound consulted to assist with management. PT and OT consulted to assist with mobility. -Orthopedics consulted to evaluate Monday. Given osteomyelitis, will likely necessitate BKA. Further management and discussion pending culture results. -Decubitus wound being evaluated by wound care, currently has protective pad. -Kidney function stable with BUN 9, creatinine 0.5. Diabetes, new diagnosis -A1c elevated at 7.9. Morning glucose 118. Required 14 units of insulin yesterday. Continue sliding scale insulin with fingersticks ACHS. Will monitor daily needs and consider starting long-acting insulin morning. Immunocompromised Medardo's disease: Hypothyroid - Continue hydrocortisone 20 mg nightly and 40 mg in the morning. Complicates her wound healing and immunocompromised state. -Monitor electrolytes daily, CBC, CMP, magnesium ordered for the morning. Potassium 3.5, magnesium 1.9, replace per protocol. -Levothyroxine continued at 50 mcg daily, TSH pending. Mood disorder: Continue trazodone 50 mg 3 times a day, Cymbalta 60 mg nightly, Abilify 10 mg daily; continue Xanax 1 mg 3 times a day as needed., Monitor for toxicity. Chronic pain: Continue oxycodone 10 mg every 6 hours as needed for severe pain. Caution with concurrent benzo use Full code Regular diet
[2024-06-29 10:51] LABS: POC Glucose,Bedside 143 (70-110)
[2024-06-29 13:28] VITALS: BP 102/52; PULSE 94; RESP 19; TEMP 36.7; O2SAT 93
[2024-06-29 16:00] VITALS: BP 100/64; PULSE 93; RESP 19; TEMP 37.1; O2SAT 94
[2024-06-29] MEDS: VANCOMYCIN HCL 2,250 MG in 0.9 % SODIUM CHLORIDE 250 ML 125 MG IV (17:06)
[2024-06-29] MEDS: humaLOG 100 UNITS/ML 10ML VIAL (SSI) SUBCUT ×2 (17:21→20:30)
[2024-06-29 17:33] LABS: POC Glucose,Bedside 225 (70-110)
[2024-06-29 19:51] VITALS: BP 107/77; PULSE 95; RESP 16; TEMP 36.8; O2SAT 93
[2024-06-29] MEDS: MONTELUKAST SODIUM 10MG TAB 10 MG PO (20:30)
[2024-06-29] MEDS: PANTOPRAZOLE 40MG TABLET 40 MG PO (20:30)
[2024-06-29] MEDS: DULOXETINE 30MG CAPSULE.DR 60 MG PO (20:30)
[2024-06-30] MEDS: OXYCODONE 5MG IMMEDIATE RELEASE TABLET 10 MG PO ×4 (03:06→18:06)
[2024-06-30 04:00] VITALS: BP 104/75; PULSE 90; RESP 16; TEMP 36.7; O2SAT 93; BMI 41.5
[2024-06-30] MEDS: LEVOTHYROXINE 50MCG (0.05MG) TAB 50 MCG PO (05:28)
[2024-06-30] MEDS: VANCOMYCIN HCL 2,250 MG in 0.9 % SODIUM CHLORIDE 250 ML 125 MG IV ×2 (05:28→17:11)
[2024-06-30 05:36] LABS: POC Glucose,Bedside 118 (70-110)
[2024-06-30 07:42] LABS: Basophils # 0.1 K/mm3 (0-0.2); Basophils % 0.8 % (0.1-2.0); Eosinophils # 0.1 K/mm3 (0.0-0.4); Hematocrit 25.7 % (37.0-47.0); Hemoglobin 7.9 g/dL (12.2-16.2); Lymphocytes # 2.4 K/mm3 (0.7-4.5); Lymphocytes % 37.2 % (10-50); Mean Corpuscular HGB Conc 30.7 g/dL (31.8-35.4); Mean Corpuscular Hemoglobin 30.5 pg (27.0-31.2); Mean Corpuscular Volume 99.2 fl (81-99); Mean Platelet Volume 10.7 fl (7.4-10.4); Monocytes # 0.5 K/mm3 (0.1-1.0); Monocytes % 7.6 % (1.7-9.3); Neutrophils # 3.3 K/mm3 (1.8-7.8); Neutrophils % 49.7 % (37.0-80.0); Platelet Count 175 K/mm3 (142-424); Red Blood Count 2.59 M/mm3 (4.20-5.40); Red Cell Distribution Width 13.3 % (11.5-17.5); White Blood Count 6.6 K/mm3 (4.8-10.8)
[2024-06-30 07:51] LABS: Blood Urea Nitrogen 6 mg/dl (7-17); Calcium 8.8 mg/dl (8.4-10.2); Chloride 99 mmol/L (98-107); Creatinine Clearance Estimated 52 mL/min (50-200); Estimated Glomerular Filt Rate 123 ml/min (>60); GFR (African American) 149 ML/MIN (>60); Glucose 102 mg/dl (74-100); Potassium 3.6 mmoL/L (3.5-5.1); Sodium 138 mmol/L (136-145)
[2024-06-30 07:56] LABS: C-Reactive Protein 33.3 mg/L (0-4)
[2024-06-30 08:00] VITALS: BP 111/64; PULSE 100; RESP 18; TEMP 36.8; O2SAT 97
[2024-06-30 08:11] LABS: Anion Gap 5.6 mEq/L (5-15); Carbon Dioxide 37 mmol/L (22.0-30.0)
[2024-06-30 08:18] LABS: Erythrocyte Sedimentation Rate 68 mm/hr (0-30)
[2024-06-30] MEDS: TIOTROPIUM 18MCG/PUFF INHALER 1 CAP IH (09:23)
[2024-06-30] MEDS: ALPRAZolam 1MG TABLET 1 MG PO ×2 (09:33→13:50)
[2024-06-30] MEDS: ENOXAPARIN 40MG/0.4ML SYRINGE 40 MG SUBCUT ×2 (09:34→20:54)
[2024-06-30] MEDS: ARIPiprazole 10MG TABLET 10 MG PO (09:34)
[2024-06-30] MEDS: LEVOFLOXACIN/D5W 750 MG/150 ML 750 MG/150 ML PIGGYBACK 100 MG IV (09:34)
[2024-06-30 11:43] LABS: POC Glucose,Bedside 143 (70-110)
--- NOTE | 2024-06-30 14:20 | EXP.ACUTE.PN ---
Subjective *Date: 06/30/24 *Time: 14:20 Interval history: Patient comfortable this morning. no significant pain in right ankle. Bone cultures positive for E. faecalis. Working with therapy. Stable on 3-1/2 L. Tolerating p.o. intake. No fever, nausea, vomiting, chest pain. White count normal today. Medical Exam Vital signs and Labs for Last 24 Hours: Vital Signs Temp Pulse Resp BP Pulse Ox O2 Del Method O2 Flow Rate 06/30/24 11:00 Nasal Cannula 3.5 06/30/24 09:00 Nasal Cannula 3.5 06/30/24 08:00 Nasal Cannula 3.5 06/30/24 08:00 98.3 F 100 H 18 111/64 97 Nasal Cannula 3.5 06/30/24 06:03 Nasal Cannula 3.5 06/30/24 05:00 Nasal Cannula 3 06/30/24 04:00 98.1 F 90 16 104/75 L 93 L Nasal Cannula 3.5 06/30/24 03:00 Nasal Cannula 3.5 06/30/24 01:00 Nasal Cannula 3.5 06/29/24 23:00 Nasal Cannula 3.5 06/29/24 21:00 Nasal Cannula 3.5 06/29/24 20:00 Nasal Cannula 3.5 06/29/24 19:51 98.2 F 95 H 16 107/77 L 93 L Nasal Cannula 3.5 06/29/24 19:06 Nasal Cannula 3.5 06/29/24 18:11 Nasal Cannula 3.5 06/29/24 17:00 Nasal Cannula 3.5 06/29/24 16:00 98.7 F 93 H 19 100/64 L 94 L Nasal Cannula 06/29/24 15:00 Nasal Cannula 3.5 Intake and Output 06/29/24 06/30/24 06/30/24 23:59 07:59 15:59 Intake Total 360 / 1790 710 / 1550 840 / 1550 Output Total 0 / 1750 900 / 2100 1200 / 2100 Balance 360 / 40 -190 / -550 -360 / -550 Intake: Intake, Oral Amount 360 / 1440 360 / 1200 840 / 1200 Intake, Total IV Amount 350 / 350 Vancomycin/Water For Inj (Peg) 350 / 350 1.75 gm In 350 ml @ 175 mls/hr IV Q12H [facility] Rx#:[id number] Output: Output, Urine Amount 0 1750 900 / 2100 1200 / 2100 Other: Number of Unmeasured Voids 0 1 0 Weight 120.202 kg Patient Weight 06/30/24 23:59 Weight 120.202 kg Laboratory Results - last 24 hr 06/29/24 17:19: POC Glucose 225 H 06/30/24 05:27: POC Glucose 118 H 06/30/24 06:15: WBC 6.6, RBC 2.59 L, Hgb 7.9 L, Hct 25.7 L, MCV 99.2 H, MCH 30.5, MCHC 30.7 L, RDW 13.3, Plt Count 175, MPV 10.7 H, Neut % (Auto) 49.7, Lymph % (Auto) 37.2, [place] % (Auto) 7.6, Eos % (Auto) 2.0, Baso % (Auto) 0.8, Neut # (Auto) 3.3, Lymph # (Auto) 2.4, [place] # (Auto) 0.5, Eos # (Auto) 0.1, Baso # (Auto) 0.1, ESR 68 H, Sodium 138, Potassium 3.6, Chloride 99, Carbon Dioxide 37 H, Anion Gap 5.6, BUN 6 L D, Creatinine 0.50 L, Estimated Creat Clear 52, Estimated GFR 123, Est GFR ( Amer) 149, Glucose 102 H, Calcium 8.8, C-Reactive Protein 33.3 H 06/30/24 11:29: POC Glucose 143 H I & O for Labs for Last 24 Hours: Intake & Output 06/27/24 06/28/24 06/29/24 06/30/24 23:59 23:59 23:59 23:59 Intake Total 1420 / 1420 1190 / 1310 1080 / 1790 1550 / 1550 Output Total 500 / 500 600 / 600 1000 / 1750 2100 / 2099 Balance 920 / 920 590 / 710 80 / 40 -550 / -550 Weight 114.816 kg 115.711 kg 119.93 kg 120.202 kg Microbiology Reports for the Last 24 Hours: Microbiology 06/27/24 13:41 Foot,Right - Other Gram Stain - Final 06/27/24 13:41 Foot,Right - Other Wound Culture - Preliminary Gram Positive Cocci 06/27/24 13:41 Foot,Right - Abscess Gram Stain - Final 06/27/24 13:41 Foot,Right - Abscess Wound Culture - Preliminary 06/27/24 13:41 Bone - Right Bone Culture - Preliminary 06/27/24 13:41 Bone Bone Culture - Final Enterococcus faecalis 06/27/24 13:41 Bone - Right Bone Culture - Preliminary Gram Positive Cocci Constitutional: Present no acute distress, obese, chronically ill appearing and cooperative Head: Present atraumatic and normocephalic ENT: Present normal exam Comment:: Cushingoid facies Respiratory: Present diminished air movement and normal respiratory effort; Absent accessory muscle use, rhonchi, wheezes or crackles Cardiac: Present Reg Rate and Rhythm GI: Present soft and normal bowel sounds; Absent distention or tenderness Extremities: Present full ROM Comment:: Foot drop on right side, right lower leg in the postop bandage Skin: Present intact and erythema (Seen on right leg in pictures. No tracking up the leg.) Neuro: Present Cranial Nerve 2-12 Intact, Grossly Intact, alert, awake, oriented x 3 and moves all extremities Assessment and Plan *Assessment and plan (1) Pressure ulcer of right ankle: Status: Acute Qualifiers: Pressure injury stage: unspecified pressure injury stage Qualified Code(s): L89.519 - Pressure ulcer of right ankle, unspecified stage Category: Medical Code(s): L89.519 - Pressure ulcer of right ankle, unspecified stage (2) Immunosuppressed status: Status: Acute Category: Medical Code(s): D84.9 - Immunodeficiency, unspecified (3) Ankle osteomyelitis, right: Status: Acute Qualifiers: Osteomyelitis type: other chronic Qualified Code(s): M86.671 - Other chronic osteomyelitis, right ankle and foot Category: Medical Code(s): M86.9 - Osteomyelitis, unspecified (4) Decubitus ulcer, stage III: Problem Comment: Pressure ulcer of right lateral malleolus Status: Acute Qualifiers: Pressure injury location: buttock Laterality: unspecified laterality Qualified Code(s): L89.303 - Pressure ulcer of unspecified buttock, stage 3 Category: Medical Code(s): L89.93 - Pressure ulcer of unspecified site, stage 3 (5) Acquired right foot drop: Problem Comment: Subsequent to necrotizing fasciitis and multiple surgeries removing muscles and tendons of the right lower extremity. Status: Chronic Category: Medical Code(s): M21.371 - Foot drop, right foot (6) Necrotizing cellulitis: Status: Resolved Category: Medical Code(s): L03.90 - Cellulitis, unspecified (7) Weakness generalized: Status: Acute Category: Medical Code(s): R53.1 - Weakness (8) Incontinence in female: Status: Acute Category: Medical Code(s): R32 - Unspecified urinary incontinence (9) Elevated blood sugar level: Status: Acute Category: Medical Code(s): R73.9 - Hyperglycemia, unspecified (10) Morbid obesity: Status: Acute Category: Medical Code(s): E66.01 - Morbid (severe) obesity due to excess calories Plan 68-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 Previous necrotizing fasciitis of leg. Admitted for decubitus wound. Debridement performed by podiatry along with resection of distal portion of fibula. Cultures pending on tissue and bone. Concern for osteomyelitis. Further management pending wound cultures. Continuing broad-spectrum antibiotics. Anticipate prolonged hospitalization due to complexity of patient's underlying medical conditions and likely need for further surgery. Problems addressed as follows: Right ankle wound/decubitus wound suspected osteomyelitis of distal right Fibula - Bone cultures positive for E. faecalis, sensitive to Vanc. White count improved to 6.6 Hemoglobin stable at 7.9 - Repeat CBC, CMP, magnesium, and CRP ordered for the morning. - Continue broad-spectrum antibiotics with Vancomycin 2.25 g IV every 12 hours and levofloxacin 750 mg daily. Further management pending culture results. - Maintain clean and dry dressing, elevate ankle. Nonweightbearing. - Daily dressing changes. Wound consulted to assist with management. PT and OT consulted to assist with mobility. -Orthopedics consulted to evaluate Monday. Given osteomyelitis, will likely necessitate BKA. Further management and discussion pending culture results. -Decubitus wound being evaluated by wound care, currently has protective pad. -Kidney function stable with BUN 9, creatinine 0.5. Diabetes, new diagnosis -A1c elevated at 7.9. Morning glucose 102. Required 6 units of insulin yesterday. Continue sliding scale insulin with fingersticks ACHS. Will monitor daily needs and consider starting long-acting insulin morning. Immunocompromised [place]'s disease: Hypothyroid - Continue hydrocortisone 20 mg nightly and 40 mg in the morning. Complicates her wound healing and immunocompromised state. -Monitor electrolytes daily, CBC, CMP, magnesium ordered for the morning. Potassium 3.5, magnesium 1.9, replace per protocol. -Levothyroxine continued at 50 mcg daily, TSH pending. Mood disorder: Continue trazodone 50 mg 3 times a day, Cymbalta 60 mg nightly, Abilify 10 mg daily; continue Xanax 1 mg 3 times a day as needed., Monitor for toxicity. Chronic pain: Continue oxycodone 10 mg every 6 hours as needed for severe pain. Caution with concurrent benzo use Full code Regular diet
[2024-06-30 16:00] VITALS: BP 120/55; PULSE 89; RESP 18; TEMP 36.6; O2SAT 94
[2024-06-30] MEDS: humaLOG 100 UNITS/ML 10ML VIAL (SSI) SUBCUT (17:17)
[2024-06-30 17:27] LABS: POC Glucose,Bedside 180 (70-110)
[2024-06-30] MEDS: POLYETHYLENE GLYCOL 3350 17 GM PACKET PO (18:49)
--- NOTE | 2024-06-30 18:53 | PC.NURSE ---
aox4, still requiring 3.5 lnc for o2 support, dressing to RLE c/d/i offered to change dressing but pt insists that wait for dr patel. miralax ordered today due to no bm. medicated for pain and anxiety at frequent intervals. tolerating diet well.
[2024-06-30 20:00] VITALS: BP 127/79; PULSE 93; RESP 18; TEMP 36.8; O2SAT 96
[2024-06-30 20:52] LABS: POC Glucose,Bedside 133 (70-110)
[2024-06-30] MEDS: SENNOSIDES 8.6MG/DOCUSATE 50MG TABLET 1 TAB PO (20:54)
[2024-06-30] MEDS: TRAZODONE 50MG TABLET 50 MG PO (20:54)
[2024-06-30] MEDS: DULOXETINE 30MG CAPSULE.DR 60 MG PO (20:54)
[2024-06-30] MEDS: MONTELUKAST SODIUM 10MG TAB 10 MG PO (20:54)
[2024-06-30] MEDS: PANTOPRAZOLE 40MG TABLET 40 MG PO (20:54)
[2024-07-01] VITALS: BP 131/66; PULSE 86; RESP 16; TEMP 36.7; O2SAT 97
[2024-07-01 04:00] VITALS: BP 142/76; PULSE 87; RESP 16; TEMP 36.5; O2SAT 98; BMI 41.2
[2024-07-01] MEDS: OXYCODONE 5MG IMMEDIATE RELEASE TABLET 10 MG PO ×2 (04:59→16:53)
--- NOTE | 2024-07-01 05:03 | PC.NURSE ---
v/s, ox4. Awaitng cultures. No acute events to report. Plan of care ongoing.
[2024-07-01 05:23] LABS: POC Glucose,Bedside 148 (70-110)
[2024-07-01 05:24] LABS: POC Glucose,Bedside 191 (70-110)
[2024-07-01 05:30] LABS: POC Glucose,Bedside 118 (70-110)
[2024-07-01] MEDS: TIOTROPIUM 18MCG/PUFF INHALER 1 CAP IH (06:21)
[2024-07-01 06:33] LABS: Basophils % 0.6 % (0.1-2.0); Eosinophils # 0.1 K/mm3 (0.0-0.4); Eosinophils % 1.4 % (0.1-12.0); Hematocrit 26.6 % (37.0-47.0); Hemoglobin 8.1 g/dL (12.2-16.2); Lymphocytes # 1.9 K/mm3 (0.7-4.5); Lymphocytes % 26.5 % (10-50); Mean Corpuscular HGB Conc 30.5 g/dL (31.8-35.4); Mean Corpuscular Hemoglobin 30.3 pg (27.0-31.2); Mean Corpuscular Volume 99.6 fl (81-99); Mean Platelet Volume 10.4 fl (7.4-10.4); Monocytes # 0.6 K/mm3 (0.1-1.0); Monocytes % 8.6 % (1.7-9.3); Neutrophils # 4.3 K/mm3 (1.8-7.8); Neutrophils % 60.7 % (37.0-80.0); Platelet Count 183 K/mm3 (142-424); Red Blood Count 2.67 M/mm3 (4.20-5.40); Red Cell Distribution Width 13.3 % (11.5-17.5); White Blood Count 7.1 K/mm3 (4.8-10.8)
[2024-07-01] MEDS: VANCOMYCIN HCL 2,250 MG in 0.9 % SODIUM CHLORIDE 250 ML 125 MG IV (06:39)
[2024-07-01] MEDS: LEVOTHYROXINE 50MCG (0.05MG) TAB 50 MCG PO (06:39)
[2024-07-01 06:40] LABS: Alanine Aminotransferase 59 U/L (12-78); Albumin Level 2.9 g/dl (3.5-5.0); Albumin/Globulin Ratio 1.2 (1.1-1.8); Alkaline Phosphatase 48 U/L (38-126); Aspartate Amino Transferase 45 U/L (14-36); Bilirubin,Total 0.2 mg/dl (0.2-1.3); Blood Urea Nitrogen 10 mg/dl (7-17); Calcium 9.3 mg/dl (8.4-10.2); Chloride 99 mmol/L (98-107); Creatinine Clearance Estimated 52 mL/min (50-200); Estimated Glomerular Filt Rate 72 ml/min (>60); GFR (African American) 87 ML/MIN (>60); Globulin 2.4 g/dL (1.3-3.2); Glucose 111 mg/dl (74-100); Magnesium 1.8 mg/dl (1.6-2.3); Potassium 3.4 mmoL/L (3.5-5.1); Sodium 140 mmol/L (136-145); Total Protein,Serum 5.3 g/dl (6.3-8.2)
[2024-07-01 06:46] LABS: C-Reactive Protein 38.4 mg/L (0-4)
[2024-07-01 06:50] LABS: Anion Gap 8.4 mEq/L (5-15); Carbon Dioxide 36 mmol/L (22.0-30.0)
--- NOTE | 2024-07-01 07:04 | P.PN_ITS ---
Subjective *Date: 07/01/24 *Time: 08:20 Interval history: Patient resting in bed this morning she stated she slept well and denied any pain to her right lower extremity. Ortho Exam (Inpt) Vital signs and Labs for Last 24 Hours: Temp Pulse Resp BP Pulse Ox O2 Del Method O2 Flow Rate 97.7 F 87 16 142/76 H 98 Nasal Cannula 3.5 07/01/24 04:00 07/01/24 04:00 07/01/24 04:00 07/01/24 04:00 07/01/24 04:00 07/01/24 06:28 07/01/24 06:28 Laboratory Results - last 24 hr 06/29/24 05:46: POC Glucose 148 H 06/29/24 20:29: POC Glucose 191 H 06/30/24 06:15: WBC 6.6, RBC 2.59 L, Hgb 7.9 L, Hct 25.7 L, MCV 99.2 H, MCH 30.5, MCHC 30.7 L, RDW 13.3, Plt Count 175, MPV 10.7 H, Neut % (Auto) 49.7, Lymph % (Auto) 37.2, [place] % (Auto) 7.6, Eos % (Auto) 2.0, Baso % (Auto) 0.8, Neut # (Auto) 3.3, Lymph # (Auto) 2.4, [place] # (Auto) 0.5, Eos # (Auto) 0.1, Baso # (Auto) 0.1, ESR 68 H, Sodium 138, Potassium 3.6, Chloride 99, Carbon Dioxide 37 H, Anion Gap 5.6, BUN 6 L D, Creatinine 0.50 L, Estimated Creat Clear 52, Estimated GFR 123, Est GFR ( Amer) 149, Glucose 102 H, Calcium 8.8, C- Reactive Protein 33.3 H 06/30/24 11:29: POC Glucose 143 H 06/30/24 17:13: POC Glucose 180 H 06/30/24 20:44: POC Glucose 133 H 07/01/24 05:24: POC Glucose 118 H 07/01/24 06:00: WBC 7.1, RBC 2.67 L, Hgb 8.1 L, Hct 26.6 L, MCV 99.6 H, MCH 30.3, MCHC 30.5 L, RDW 13.3, Plt Count 183, MPV 10.4, Neut % (Auto) 60.7, Lymph % (Auto) 26.5, [place] % (Auto) 8.6, Eos % (Auto) 1.4, Baso % (Auto) 0.6, Neut # (Auto) 4.3, Lymph # (Auto) 1.9, [place] # (Auto) 0.6, Eos # (Auto) 0.1, Baso # (Auto) 0.0, Sodium 140, Potassium 3.4 L, Chloride 99, Carbon Dioxide 36 H, Anion Gap 8.4, BUN 10 D, Creatinine 0.80 D, Estimated Creat Clear 52, Estimated GFR 72, Est GFR ( Amer) 87 D, Glucose 111 H, Calcium 9.3, Magnesium 1.8, Total Bilirubin 0.2, AST 45 H, ALT 59, Alkaline Phosphatase 48, C-Reactive Protein 38.4 H, Total Protein 5.3 L, Albumin 2.9 L, Globulin 2.4, Albumin/Globulin Ratio 1.2 I & O for Labs for Last 24 Hours: Intake & Output 06/28/24 06/29/24 06/30/24 07/01/24 23:59 23:59 23:59 23:59 Intake Total 1190 / 1190 1080 / 1080 2030 / 2030 120 / 120 Output Total 600 / 600 1000 / 1000 2500 / 2500 1100 / 1100 Balance 590 / 590 80 / 80 -470 / -470 -980 / -980 Weight 255 lb 1.6 oz 264 lb 6.4 oz 265 lb 262 lb 14.4 oz Microbiology Reports for the Last 24 Hours: Microbiology 06/26/24 17:25 Blood Blood Culture - Preliminary NO GROWTH AFTER 4 DAYS 06/26/24 17:45 Blood Blood Culture - Preliminary NO GROWTH AFTER 4 DAYS 06/27/24 13:41 Foot,Right - Other Gram Stain - Final 06/27/24 13:41 Foot,Right - Other Wound Culture - Preliminary Gram Positive Cocci 06/27/24 13:41 Foot,Right - Abscess Gram Stain - Final 06/27/24 13:41 Foot,Right - Abscess Wound Culture - Preliminary 06/27/24 13:41 Bone - Right Bone Culture - Preliminary 06/27/24 13:41 Bone Bone Culture - Final Enterococcus faecalis 06/27/24 13:41 Bone - Right Bone Culture - Preliminary Gram Positive Cocci Constitutional: Present obese Head: Present normocephalic Neck: Present normal inspection Respiratory: Present normal respiratory effort Cardiac: Present Regular Rate GI: Present soft Rectal (female): Present deferred (female): Present deferred Extremities: Present edema Skin: Present erythema Comment:: Dressing clean dry and intact to right ankle. Neuro: Present Weakness; Absent Motor Function Intact or Sensory Function Intact Comment:: RLE weakness, lack of eversion, hx multiple surgeries with peroneal tendon/nerve damage. Dropfoot. Non-ambulatory. Ankle: right: erythema, right: swelling, right: tenderness and right: wound Assessment and Plan *Assessment and plan (1) Ankle osteomyelitis, right: Status: Acute Qualifiers: Osteomyelitis type: other chronic Qualified Code(s): M86.671 - Other chronic osteomyelitis, right ankle and foot Category: Medical Code(s): M86.9 - Osteomyelitis, unspecified (2) Immunosuppressed status: Status: Acute Category: Medical Code(s): D84.9 - Immunodeficiency, unspecified (3) Pressure ulcer of right ankle: Status: Acute Qualifiers: Pressure injury stage: unspecified pressure injury stage Qualified Code(s): L89.519 - Pressure ulcer of right ankle, unspecified stage Category: Medical Code(s): L89.519 - Pressure ulcer of right ankle, unspecified stage (4) Decubitus ulcer, stage III: Problem Comment: Pressure ulcer of right lateral malleolus Status: Acute Qualifiers: Laterality: unspecified laterality Pressure injury location: buttock Qualified Code(s): L89.303 - Pressure ulcer of unspecified buttock, stage 3 Category: Medical Code(s): L89.93 - Pressure ulcer of unspecified site, stage 3 (5) Acquired right foot drop: Problem Comment: Subsequent to necrotizing fasciitis and multiple surgeries removing muscles and tendons of the right lower extremity. Status: Chronic Category: Medical Code(s): M21.371 - Foot drop, right foot (6) Necrotizing cellulitis: Status: Resolved Category: Medical Code(s): L03.90 - Cellulitis, unspecified (7) Weakness generalized: Status: Acute Category: Medical Code(s): R53.1 - Weakness (8) Elevated blood sugar level: Status: Acute Category: Medical Code(s): R73.9 - Hyperglycemia, unspecified (9) Morbid obesity: Status: Acute Category: Medical Code(s): E66.01 - Morbid (severe) obesity due to excess calories Plan Surgery, 06/27/24: s/p Right ankle wound debridement (Versajet), I&D right ankle, Open bone biospy (tibia), Resection of distal fibula, Partial delayed primary closure surgical wound Intraop Specimens: pending Right ankle tissue culture Right ankle wound culture Right ankle bone culture Right fibula bone culture Right tibia bone culture Right ankle bone path Right fibula bone path margin Right tibia bone path -Maintain dressing clean dry and intact to right ankle, reinforce as necessary. -NWB (patient is nonambulatory, wheelchair-bound at home). -Antibiotics: IV Vanco, Levo per Hospitalist. -Continue antibiotics and await culture results. -X-rays right tib-fib 3 views reviewed. -Daily dressing changes per nursing/[facility] wound care team: betadine soaked gauze, dry sterile dressing. -Podiatry will re-evaluate for skin check and dressing change 07/01/24. -Discussed with family depending on results of bone cx/path, may need to consult Ortho for right BKA evaluation. -Family concerned with sacral wound, [facility] wound care consulted. Patient seen and evaluated at bedside by the ENGINE ROOM OPERATOR and myself. Patient resting comfortably after surgery. Family at bedside. Reviewed IntraOp findings with patient/family. Postop imaging of the right tib-fib ordered and reviewed. There is correlation on the x-ray to the area of concern on the distal lateral tibia as well as the anterior tibia suspicious for osteomyelitis. Explained I did an IntraOp biopsy of the tibia. If the bone biopsy comes back positive, will likely need below-knee amputation. If the biopsy comes back negative, proceed with MRI to evaluate for osteomyelitis. Patient verbalized understanding and agreement with the treatment plan. Will plan to keep through t he weekend for IV antibiotics and await culture/biopsy results. Discussed plan of care with Dr Pinedo. 07/01/24: S/P Surgery, 06/27/24: Right ankle wound debridement (Versajet), I&D right ankle, Open bone biospy (tibia), Resection of distal fibula, Partial delayed primary closure surgical wound POD #4 Right ankle wound/decubitus wound suspected osteomyelitis of distal right Fibula - Bone cultures positive for E. faecalis, sensitive to Vanc. -Continue broad-spectrum antibiotics per hospitalist with Vancomycin 2.25 g IV every 12 hours and levofloxacin 750 mg daily. Further management pending culture results. -Dressing changed by Podiatry this morning 07/01/24 -Maintain dressing clean dry and intact to right ankle, reinforce as necessary. -NWB (patient is nonambulatory, wheelchair-bound at home). -Daily dressing changes per nursing/[facility] wound care team: betadine soaked gauze, dry sterile dressing. -Discussed with family results of bone cx/path, may need to consult Ortho for right BKA evaluation. -Postop imaging of the right tib-fib ordered and reviewed. There is correlation on the x-ray to the area of concern on the distal lateral tibia as well as the anterior tibia suspicious for osteomyelitis. -Planning to have Ortho consulted today -Family concerned with sacral wound, [facility] wound care continue to manage care. -All orders and recommendations per Dr. Guerrero
--- NOTE | 2024-07-01 07:49 | P.PN_ITS ---
Subjective *Date: 07/01/24 *Time: 16:00 Interval history: Patient comfortable this morning. no significant pain in right ankle. Bone cultures positive for E. faecalis. Working with therapy. Stable on 3-1/2 L. Tolerating p.o. intake. No fever, nausea, vomiting, chest pain. White count normal today. Medical Exam Vital signs and Labs for Last 24 Hours: Vital Signs Temp Pulse Resp BP Pulse Ox O2 Del Method O2 Flow Rate 07/01/24 06:28 Nasal Cannula 3.5 07/01/24 04:54 Nasal Cannula 3.5 07/01/24 04:00 97.7 F 87 16 142/76 H 98 Nasal Cannula 3.5 07/01/24 03:00 Nasal Cannula 3.5 07/01/24 01:00 Nasal Cannula 3.5 07/01/24 00:00 98.1 F 86 16 131/66 97 Nasal Cannula 3.5 06/30/24 23:00 Nasal Cannula 3.5 06/30/24 20:01 Nasal Cannula 3.5 06/30/24 20:00 98.2 F 93 H 18 127/79 96 Nasal Cannula 3.5 06/30/24 19:58 Nasal Cannula 3.5 06/30/24 18:52 Nasal Cannula 3.5 06/30/24 18:23 Nasal Cannula 3.5 06/30/24 17:00 Nasal Cannula 3.5 06/30/24 16:00 97.9 F 89 18 120/55 L 94 L Nasal Cannula 3.5 06/30/24 14:19 Nasal Cannula 3.5 06/30/24 13:00 Nasal Cannula 3.5 06/30/24 11:00 Nasal Cannula 3.5 06/30/24 09:00 Nasal Cannula 3.5 06/30/24 08:00 Nasal Cannula 3.5 06/30/24 08:00 98.3 F 100 H 18 111/64 97 Nasal Cannula 3.5 Intake and Output 06/30/24 06/30/24 07/01/24 15:59 23:59 07:59 Intake Total 840 / 2150 480 / 2150 120 / 120 Output Total 1200 / 3100 400 / 3100 1100 / 1100 Balance -360 / -950 80 / -950 -980 / -980 Intake: Intake, Oral Amount 840 / 1800 480 / 1800 120 / 120 Output: Output, Urine Amount 1200 / 3100 400 / 3100 1100 / 1100 Other: Number of Unmeasured Voids 0 0 Weight 119.249 kg Patient Weight 07/01/24 23:59 Weight 119.249 kg Laboratory Results - last 24 hr 06/29/24 05:46: POC Glucose 148 H 06/29/24 20:29: POC Glucose 191 H 06/30/24 06:15: ESR 68 H, Sodium 138, Potassium 3.6, Chloride 99, Carbon Dioxide 37 H, Anion Gap 5.6, BUN 6 L D, Creatinine 0.50 L, Estimated Creat Clear 52, Estimated GFR 123, Est GFR ( Amer) 149, Glucose 102 H, Calcium 8.8, C- Reactive Protein 33.3 H 06/30/24 11:29: POC Glucose 143 H 06/30/24 17:13: POC Glucose 180 H 06/30/24 20:44: POC Glucose 133 H 07/01/24 05:24: POC Glucose 118 H 07/01/24 06:00: WBC 7.1, RBC 2.67 L, Hgb 8.1 L, Hct 26.6 L, MCV 99.6 H, MCH 30.3, MCHC 30.5 L, RDW 13.3, Plt Count 183, MPV 10.4, Neut % (Auto) 60.7, Lymph % (Auto) 26.5, [place] % (Auto) 8.6, Eos % (Auto) 1.4, Baso % (Auto) 0.6, Neut # (Auto) 4.3, Lymph # (Auto) 1.9, [place] # (Auto) 0.6, Eos # (Auto) 0.1, Baso # (Auto) 0.0, Sodium 140, Potassium 3.4 L, Chloride 99, Carbon Dioxide 36 H, Anion Gap 8.4, BUN 10 D, Creatinine 0.80 D, Estimated Creat Clear 52, Estimated GFR 72, Est GFR ( Amer) 87 D, Glucose 111 H, Calcium 9.3, Magnesium 1.8, Total Bilirubin 0.2, AST 45 H, ALT 59, Alkaline Phosphatase 48, C-Reactive Protein 38.4 H, Total Protein 5.3 L, Albumin 2.9 L, Globulin 2.4, Albumin/Globulin Ratio 1.2 I & O for Labs for Last 24 Hours: Intake & Output 06/28/24 06/29/24 06/30/24 07/01/24 23:59 23:59 23:59 23:59 Intake Total 1190 / 1310 1080 / 1790 2030 / 2150 120 / 120 Output Total 600 / 600 1000 / 1750 2500 / 3100 1100 / 1100 Balance 590 / 710 80 / 40 -470 / -950 -980 / -980 Weight 115.711 kg 119.93 kg 120.202 kg 119.249 kg Microbiology Reports for the Last 24 Hours: Microbiology 06/27/24 13:41 Foot,Right - Other Gram Stain - Final 06/27/24 13:41 Foot,Right - Other Wound Culture - Final Pseudomonas aeruginosa 06/26/24 17:25 Blood Blood Culture - Preliminary NO GROWTH AFTER 4 DAYS 06/26/24 17:45 Blood Blood Culture - Preliminary NO GROWTH AFTER 4 DAYS 06/27/24 13:41 Foot,Right - Abscess Gram Stain - Final 06/27/24 13:41 Foot,Right - Abscess Wound Culture - Preliminary 06/27/24 13:41 Bone - Right Bone Culture - Preliminary 06/27/24 13:41 Bone Bone Culture - Final Enterococcus faecalis 06/27/24 13:41 Bone - Right Bone Culture - Preliminary Gram Positive Cocci Constitutional: Present no acute distress, obese, chronically ill appearing and cooperative Head: Present atraumatic and normocephalic ENT: Present normal exam Comment:: Cushingoid facies Respiratory: Present diminished air movement and normal respiratory effort; Absent accessory muscle use, rhonchi, wheezes or crackles Cardiac: Present Reg Rate and Rhythm GI: Present soft and normal bowel sounds; Absent distention or tenderness Extremities: Present full ROM Comment:: Foot drop on right side, right lower leg in the postop bandage Skin: Present intact and erythema (Seen on right leg in pictures. No tracking up the leg.) Neuro: Present Cranial Nerve 2-12 Intact, Grossly Intact, alert, awake, oriented x 3 and moves all extremities Assessment and Plan *Assessment and plan (1) Pressure ulcer of right ankle: Status: Acute Qualifiers: Pressure injury stage: unspecified pressure injury stage Qualified Code(s): L89.519 - Pressure ulcer of right ankle, unspecified stage Category: Medical Code(s): L89.519 - Pressure ulcer of right ankle, unspecified stage (2) Immunosuppressed status: Status: Acute Category: Medical Code(s): D84.9 - Immunodeficiency, unspecified (3) Ankle osteomyelitis, right: Status: Acute Qualifiers: Osteomyelitis type: other chronic Qualified Code(s): M86.671 - Other chronic osteomyelitis, right ankle and foot Category: Medical Code(s): M86.9 - Osteomyelitis, unspecified (4) Decubitus ulcer, stage III: Problem Comment: Pressure ulcer of right lateral malleolus Status: Acute Qualifiers: Pressure injury location: buttock Laterality: unspecified laterality Qualified Code(s): L89.303 - Pressure ulcer of unspecified buttock, stage 3 Category: Medical Code(s): L89.93 - Pressure ulcer of unspecified site, stage 3 (5) Acquired right foot drop: Problem Comment: Subsequent to necrotizing fasciitis and multiple surgeries removing muscles and tendons of the right lower extremity. Status: Chronic Category: Medical Code(s): M21.371 - Foot drop, right foot (6) Necrotizing cellulitis: Status: Resolved Category: Medical Code(s): L03.90 - Cellulitis, unspecified (7) Weakness generalized: Status: Acute Category: Medical Code(s): R53.1 - Weakness (8) Incontinence in female: Status: Acute Category: Medical Code(s): R32 - Unspecified urinary incontinence (9) Elevated blood sugar level: Status: Acute Category: Medical Code(s): R73.9 - Hyperglycemia, unspecified (10) Morbid obesity: Status: Acute Category: Medical Code(s): E66.01 - Morbid (severe) obesity due to excess calories Plan 68-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 Previous necrotizing fasciitis of leg. Admitted for decubitus wound. Debridement performed by podiatry along with resection of distal portion of fibula. Bone and wound cultures positive. Has tibial osteomyelitis. Ortho and podiatry evaluating today. Proceeding with further imaging prior to potential BKA versus AKA. Continues to require in patient management. Anticipate surgery on Monday. Problems addressed as follows: Right ankle wound/decubitus wound Osteomyelitis of distal right Fibula - Bone cultures positive for E. faecalis, sensitive to Vanc and daptomycin. Pseudomonas from wound culture positive and sensitive to meropenem but resistant to Levaquin. -White count normal at 7.1, hemoglobin 8.1. Kidney function normal with BUN 10, creatinine 0.8. Repeat CBC, CMP, magnesium ordered for the morning. CRP still marginally elevated at 38. - Continue broad-spectrum antibiotics. Transition to Daptomycin 1 g IV every 24 hours. Meropenem 1 g IV every 8 hours. Discontinue vancomycin and Levaquin - Maintain clean and dry dressing, elevate ankle. Nonweightbearing. - Daily dressing changes. Wound consulted to assist with management. PT and OT consulted to assist with mobility. -Will likely need PICC line placement prior to discharge pending antibiotic course. -Orthopedics evaluated, reviewed their recommendations. Recommend MRI and planning for AKA versus BKA pending extent of osteomyelitis. Preliminary surgery on Monday -Decubitus wound being evaluated by wound care, currently has protective pad. Diabetes, new diagnosis -A1c elevated at 7.9. Morning glucose 111. Required 2-10 units daily for the past 3 days. Continue sliding scale insulin with fingersticks ACHS. Will monitor daily needs and consider starting long-acting insulin morning. Immunocompromised Medardo's disease: Hypothyroid - Continue hydrocortisone 20 mg nightly and 40 mg in the morning. Complicates her wound healing and immunocompromised state. -Monitor electrolytes daily, CBC, CMP, magnesium ordered for the morning. Potassium 3.5, magnesium 1.9, replace per protocol. -Levothyroxine continued at 50 mcg daily, TSH pending. Mood disorder: Continue trazodone 50 mg 3 times a day, Cymbalta 60 mg nightly, Abilify 10 mg daily; continue Xanax 1 mg 3 times a day as needed., Monitor for toxicity. Chronic pain: Continue oxycodone 10 mg every 6 hours as needed for severe pain. Caution with concurrent benzo use Full code Regular diet
[2024-07-01 08:00] VITALS: BP 98/58; PULSE 95; RESP 18; TEMP 37.2; O2SAT 91
--- NOTE | 2024-07-01 08:14 | EXP.ORTH.PN ---
Subjective *Date: 07/01/24 *Time: 08:14 Interval history: Patient resting in bed and stated she rested well, and denies pain to her RLE. Ortho Exam (Inpt) Vital signs and Labs for Last 24 Hours: Temp Pulse Resp BP Pulse Ox O2 Del Method O2 Flow Rate 97.7 F 87 16 142/76 H 98 Nasal Cannula 3.5 07/01/24 04:00 07/01/24 04:00 07/01/24 04:00 07/01/24 04:00 07/01/24 04:00 07/01/24 06:28 07/01/24 06:28 Laboratory Results - last 24 hr 06/29/24 05:46: POC Glucose 148 H 06/29/24 20:29: POC Glucose 191 H 06/30/24 06:15: ESR 68 H 06/30/24 11:29: POC Glucose 143 H 06/30/24 17:13: POC Glucose 180 H 06/30/24 20:44: POC Glucose 133 H 07/01/24 05:24: POC Glucose 118 H 07/01/24 06:00: WBC 7.1, RBC 2.67 L, Hgb 8.1 L, Hct 26.6 L, MCV 99.6 H, MCH 30.3, MCHC 30.5 L, RDW 13.3, Plt Count 183, MPV 10.4, Neut % (Auto) 60.7, Lymph % (Auto) 26.5, [place] % (Auto) 8.6, Eos % (Auto) 1.4, Baso % (Auto) 0.6, Neut # (Auto) 4.3, Lymph # (Auto) 1.9, [place] # (Auto) 0.6, Eos # (Auto) 0.1, Baso # (Auto) 0.0, Sodium 140, Potassium 3.4 L, Chloride 99, Carbon Dioxide 36 H, Anion Gap 8.4, BUN 10 D, Creatinine 0.80 D, Estimated Creat Clear 52, Estimated GFR 72, Est GFR ( Amer) 87 D, Glucose 111 H, Calcium 9.3, Magnesium 1.8, Total Bilirubin 0.2, AST 45 H, ALT 59, Alkaline Phosphatase 48, C-Reactive Protein 38.4 H, Total Protein 5.3 L, Albumin 2.9 L, Globulin 2.4, Albumin/Globulin Ratio 1.2 I & O for Labs for Last 24 Hours: Intake & Output 06/28/24 06/29/24 06/30/24 07/01/24 23:59 23:59 23:59 23:59 Intake Total 1190 / 1190 1080 / 1080 2029 / 2029 120 / 120 Output Total 600 / 600 1000 / 1000 2500 / 2500 1100 / 1100 Balance 590 / 590 80 / 80 -470 / -470 -980 / -980 Weight 255 lb 1.6 oz 264 lb 6.4 oz 265 lb 262 lb 14.4 oz Microbiology Reports for the Last 24 Hours: Microbiology 06/27/24 13:41 Bone - Right Bone Culture - Preliminary Gram Positive Cocci Gram Positive Cocci#2 06/27/24 13:41 Foot,Right - Other Gram Stain - Final 06/27/24 13:41 Foot,Right - Other Wound Culture - Final Pseudomonas aeruginosa 06/26/24 17:25 Blood Blood Culture - Preliminary NO GROWTH AFTER 4 DAYS 06/26/24 17:45 Blood Blood Culture - Preliminary NO GROWTH AFTER 4 DAYS 06/27/24 13:41 Foot,Right - Abscess Gram Stain - Final 06/27/24 13:41 Foot,Right - Abscess Wound Culture - Preliminary 06/27/24 13:41 Bone Bone Culture - Final Enterococcus faecalis 06/27/24 13:41 Bone - Right Bone Culture - Preliminary Gram Positive Cocci Head: Present normocephalic
[2024-07-01] MEDS: ARIPiprazole 10MG TABLET 10 MG PO (08:21)
[2024-07-01] MEDS: SENNOSIDES 8.6MG/DOCUSATE 50MG TABLET 1 TAB PO ×2 (08:21→21:45)
[2024-07-01] MEDS: ALPRAZolam 1MG TABLET 1 MG PO ×2 (08:26→21:45)
[2024-07-01] MEDS: MEROPENEM 1 GM in 0.9 % SODIUM CHLORIDE 100 ML IV ×2 (09:32→16:53)
[2024-07-01] MEDS: MORPHINE 2MG/ML SYRINGE 2 MG IV (11:00)
[2024-07-01 12:01] LABS: POC Glucose,Bedside 205 (70-110)
--- NOTE | 2024-07-01 13:56 | EXP.ORTH.CON ---
History of Present Illness *Admission Date: 06/26/24 *History of present illness: 68-year-old female whose hospital course is outlined below I had a very long history in regards to right lower extremity wound dating back at least to 2020. She had had significant surgery debridements which essentially rendered her right lower extremity unable to bear weight and walk the extreme nature of the necrotizing fasciitis back in 2020 resulted in significant surgery she had secondary wound healing of a wound that went away from her ankle to just below her knee on the lateral aspect of the outside. She was able to get this to heal remarkably but now pressure ulcer on the heel and this recent hospitalization resulted in surgical intervention distal fibula excision bone biopsy concern for osteomyelitis in the distal tibia Ortho consulted in regards to the possibility of below-knee amputation. Patient has been through extensive treatment for the right lower extremity and again she is completely immobile in regards to weightbearing on the right lower extremity she uses a motorized wheelchair for getting around. Most recent surgical intervention with irrigation and sharp debridement noted. Patient came the emergency room for evaluation of right lateral malleolus wound. 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 The patient will be admitted to the floor. With a consult to podiatry 06/27/24: Podiatry consult Patient resting in bed upon entering the room this morning reports some mild pain and discomfort to right lateral ankle, dressing clean dry and intact. Patient was last seen by podiatry in 2021 on a Podiatry consult regarding the same Right ankle ulcer. Patient was made NPO this morning by Podiatry for consult. [facility] Disclaimer: The information contained in this section may have been updated after the patient was seen, as this information can be updated by other users. Medical History Post-hysterectomy menopause Thyroid disease Hypokalemia Depression Anxiety COPD (chronic obstructive pulmonary disease) Necrotizing cellulitis Addisons disease Necrotizing fasciitis of ankle and foot Pressure ulcer of left buttock, stage 2 Open ankle wound Non-healing non-surgical wound Family History Other Diabetes Family history of COPD (chronic obstructive pulmonary disease) Heart attack Social History Smoking Status: Former smoker tobacco type: cigarettes packs per day: 2 alcohol intake: never substance use type: denies use current occupational status: disabled Travel in the last 8 weeks: None household members: spouse housing: house caffeine: No Have you lived/traveled outside [place] in past 30 days?: No Contact w/someone who lives/traveled outside US past 30 days?: No Exposure to someone with infectious disease in past 14 days?: No Do you have a fever (greater than 100.4 F or 38 C)?: No Have you tested positive for COVID-19: No Exposed to someone with COVID-19 in past 14 days?: No Do you have a sore throat?: No Do you have a cough?: No Do you have any weakness?: No Do you have any diarrhea?: No Are you experiencing any unusual bleeding?: No Do you have any muscle aches/pain?: No Do you have any abdominal pain?: No Are you experiencing loss of taste or smell?: No Meds Home Medications and Allergies Home Medications ?Medication ?Instructions ?Recorded ?Confirmed ?Type albuterol sulfate 90 mcg/actuation 2 puff inhalation QID Shortness of 07/28/22 06/26/24 History aerosol inhaler air alendronate 70 mg tablet 70 mg PO WEEKLY 07/28/22 06/26/24 History duloxetine 30 mg capsule,delayed 60 mg PO HS 05/27/24 06/26/24 History release linaclotide 290 mcg capsule 290 mcg PO DAILY #90 caps 06/21/24 06/26/24 Rx (Linzess) alprazolam 1 mg tablet (Xanax) 1 - 1.5 mg (1 - 1.5 x 1 mg) PO 06/25/24 06/26/24 Rx TIDP PRN Anxiety #135 tabs aripiprazole 10 mg tablet 10 mg PO DAILY 06/27/24 06/26/24 History furosemide 40 mg tablet 80 mg PO DAILY 06/27/24 06/27/24 History hydrocortisone 10 mg tablet 40 mg (4 x 10 mg) PO DAILY #360 06/27/24 Rx tabs hydrocortisone 5 mg tablet 20 mg PO PM 06/27/24 06/27/24 History levothyroxine 50 mcg tablet 50 mcg PO DAILY 06/27/24 06/27/24 History montelukast 10 mg tablet 10 mg PO HS 06/27/24 06/27/24 History oxycodone 10 mg tablet 10 mg PO QIDP PRN pain 06/27/24 06/27/24 History pantoprazole 40 mg tablet,delayed 40 mg PO DAILY 06/27/24 06/27/24 History release potassium chloride 10 mEq 10 meq PO DIRECTED 06/27/24 06/27/24 History capsule,extended release tiotropium bromide 1.25 2 inh inhalation DAILY 06/27/24 06/27/24 History mcg/actuation mist for inhalation (Spiriva Respimat) trazodone 50 mg tablet 50 mg PO TID 06/27/24 06/27/24 History New Prescriptions to Start Prescriptions: Allergies Allergy/AdvReac Type Severity Reaction Status Date / Time nitrofurantoin Allergy Intermediate Unknown Verified 05/20/24 14:38 allergy reaction Penicillins Allergy Intermediate Swelling Verified 05/20/24 14:38 of Lip/Tongue/Throat Ortho Exam (Inpt) Vital signs and Labs for Last 24 Hours: Temp Pulse Resp BP Pulse Ox O2 Del Method O2 Flow Rate 98.9 F 95 H 18 98/58 L 91 L Nasal Cannula 3.5 07/01/24 08:00 07/01/24 08:00 07/01/24 08:00 07/01/24 08:00 07/01/24 08:00 07/01/24 13:00 07/01/24 13:00 Laboratory Results - last 24 hr 06/29/24 05:46: POC Glucose 148 H 06/29/24 20:29: POC Glucose 191 H 06/30/24 17:13: POC Glucose 180 H 06/30/24 20:44: POC Glucose 133 H 07/01/24 05:24: POC Glucose 118 H 07/01/24 06:00: WBC 7.1, RBC 2.67 L, Hgb 8.1 L, Hct 26.6 L, MCV 99.6 H, MCH 30.3, MCHC 30.5 L, RDW 13.3, Plt Count 183, MPV 10.4, Neut % (Auto) 60.7, Lymph % (Auto) 26.5, [place] % (Auto) 8.6, Eos % (Auto) 1.4, Baso % (Auto) 0.6, Neut # (Auto) 4.3, Lymph # (Auto) 1.9, [place] # (Auto) 0.6, Eos # (Auto) 0.1, Baso # (Auto) 0.0, Sodium 140, Potassium 3.4 L, Chloride 99, Carbon Dioxide 36 H, Anion Gap 8.4, BUN 10 D, Creatinine 0.80 D, Estimated Creat Clear 52, Estimated GFR 72, Est GFR ( Amer) 87 D, Glucose 111 H, Calcium 9.3, Magnesium 1.8, Total Bilirubin 0.2, AST 45 H, ALT 59, Alkaline Phosphatase 48, C-Reactive Protein 38.4 H, Total Protein 5.3 L, Albumin 2.9 L, Globulin 2.4, Albumin/Globulin Ratio 1.2 07/01/24 11:50: POC Glucose 205 H I & O for Labs for Last 24 Hours: Intake & Output 06/28/24 06/29/24 06/30/24 07/01/24 23:59 23:59 23:59 23:59 Intake Total 1190 / 1310 1080 / 1790 2030 / 2150 720 / 720 Output Total 600 / 600 1000 / 1750 2500 / 3100 1100 / 1100 Balance 590 / 710 80 / 40 -470 / -950 -380 / -380 Weight 255 lb 1.6 oz 264 lb 6.4 oz 265 lb 262 lb 14.4 oz Microbiology Reports for the Last 24 Hours: Microbiology 06/27/24 13:41 Bone - Right - Final Not Reportable 06/27/24 13:41 Bone - Right - Final Not Reportable 06/27/24 13:41 Bone - Right - Final Not Reportable 06/27/24 13:41 Bone - Right - Final Not Reportable 06/27/24 13:41 Bone - Right - Final Not Reportable 06/27/24 13:41 Bone - Right Bone Culture - Final 06/27/24 13:41 Foot,Right - Abscess Gram Stain - Final 06/27/24 13:41 Foot,Right - Abscess Wound Culture - Preliminary 06/27/24 13:41 Bone - Right Bone Culture - Preliminary Gram Positive Cocci Gram Positive Cocci#2 06/27/24 13:41 Foot,Right - Other Gram Stain - Final 06/27/24 13:41 Foot,Right - Other Wound Culture - Final Pseudomonas aeruginosa 06/26/24 17:25 Blood Blood Culture - Preliminary NO GROWTH AFTER 4 DAYS 06/26/24 17:45 Blood Blood Culture - Preliminary NO GROWTH AFTER 4 DAYS Findings:: Right lower extremity: Surgical dressing in place with Song bandage in the right lower extremity. There are scarring changes around the lateral aspect of the lower leg below the knee and the lower extremity. Skin changes of dryness all the way to the mid aspect of the lower leg mid tibia area she is able to move her knee. Has a an acquired foot drop that is present however pain sensation is intact to the lower extremity. I reviewed the vascular ultrasounds CT scan of the lower extremity and interoperative findings. There is suspicion for osteomyelitis of the distal tibia with bone cultures pending. Results Labs 07/01/24 06:00 07/01/24 06:00 Labs: Abnormal lab results 06/29/24 06/29/24 06/30/24 Range/Units 05:46 20:29 17:13 RBC (4.20-5.40) M/mm3 Hgb (12.2-16.2) g/dL Hct (37.0-47.0) % MCV (81-99) fl MCHC (31.8-35.4) g/dL Potassium (3.5-5.1) mmoL/L Carbon Dioxide (22.0-30.0) mmol/L Glucose (74-100) mg/dl POC Glucose 148 H 191 H 180 H (70-110) AST (14-36) U/L C-Reactive Protein (0-4) mg/L Total Protein (6.3-8.2) g/dl Albumin (3.5-5.0) g/dl 06/30/24 07/01/24 07/01/24 Range/Units 20:44 05:24 06:00 RBC 2.67 L (4.20-5.40) M/mm3 Hgb 8.1 L (12.2-16.2) g/dL Hct 26.6 L (37.0-47.0) % MCV 99.6 H (81-99) fl MCHC 30.5 L (31.8-35.4) g/dL Potassium 3.4 L (3.5-5.1) mmoL/L Carbon Dioxide 36 H (22.0-30.0) mmol/L Glucose 111 H (74-100) mg/dl POC Glucose 133 H 118 H (70-110) AST 45 H (14-36) U/L C-Reactive Protein 38.4 H (0-4) mg/L Total Protein 5.3 L (6.3-8.2) g/dl Albumin 2.9 L (3.5-5.0) g/dl 07/01/24 Range/Units 11:50 RBC (4.20-5.40) M/mm3 Hgb (12.2-16.2) g/dL Hct (37.0-47.0) % MCV (81-99) fl MCHC (31.8-35.4) g/dL Potassium (3.5-5.1) mmoL/L Carbon Dioxide (22.0-30.0) mmol/L Glucose (74-100) mg/dl POC Glucose 205 H (70-110) AST (14-36) U/L C-Reactive Protein (0-4) mg/L Total Protein (6.3-8.2) g/dl Albumin (3.5-5.0) g/dl H & H 06/26/24 06/27/24 06/28/24 Range/Units 17:25 06:05 05:30 Hgb 13.0 11.2 L D 9.6 L D (12.2-16.2) g/dL Hct 41.6 36.0 L 29.8 L (37.0-47.0) % 06/29/24 06/30/24 07/01/24 Range/Units 06:05 06:15 06:00 Hgb 8.3 L 7.9 L 8.1 L (12.2-16.2) g/dL Hct 26.4 L 25.7 L 26.6 L (37.0-47.0) % All other labs normal. Assessment and Plan *Assessment and plan (1) Ankle osteomyelitis, right: Status: Acute Qualifiers: Osteomyelitis type: other chronic Qualified Code(s): M86.671 - Other chronic osteomyelitis, right ankle and foot Category: Medical Code(s): M86.9 - Osteomyelitis, unspecified (2) Morbid obesity: Status: Acute Category: Medical Code(s): E66.01 - Morbid (severe) obesity due to excess calories (3) Immunosuppressed status: Status: Acute Category: Medical Code(s): D84.9 - Immunodeficiency, unspecified (4) Pressure ulcer of right ankle: Status: Acute Qualifiers: Pressure injury stage: unspecified pressure injury stage Qualified Code(s): L89.519 - Pressure ulcer of right ankle, unspecified stage Category: Medical Code(s): L89.519 - Pressure ulcer of right ankle, unspecified stage (5) Decubitus ulcer, stage III: Problem Comment: Pressure ulcer of right lateral malleolus Status: Acute Qualifiers: Pressure injury location: buttock Laterality: unspecified laterality Qualified Code(s): L89.303 - Pressure ulcer of unspecified buttock, stage 3 Category: Medical Code(s): L89.93 - Pressure ulcer of unspecified site, stage 3 (6) Acquired right foot drop: Problem Comment: Subsequent to necrotizing fasciitis and multiple surgeries removing muscles and tendons of the right lower extremity. Status: Chronic Category: Medical Code(s): M21.371 - Foot drop, right foot Plan I extensively reviewed the history dating back to 2020 for this patient in regards to the multiple surgeries of the lower extremity and now the acute findings of this hospitalization. She had a very long history of fighting infection in the lower extremity required extensive rehabilitation and healing she had been treating at [facility] but subsequently developed heel ulcer which became infected and had surgery here again there was concern for osteomyelitis of the distal tibia distal fibula distal fibula resected and wound debridement performed. She is quite debilitated at baseline is unable to walk and has been unable to walk for several years secondary to the multiple surgeries of the lower extremity. I was consulted regarding the possibility of below-knee amputation as a definitive treatment for the infection. Given the extensive history of the lower extremity even a positive bone culture of the distal tibia would not show the extent and the risk of osteomyelitis involving the tibia. Will order MRI scan with and without contrast of the right tib-fib to evaluate the extent of bone involvement. I discussed in depth with the family and the patient the possibility of below-knee amputation versus the need for above-knee amputation given the involvement of the tibia. She has been thinking about this for some time and is willing to proceed with below-knee amputation versus above-knee amputation given the findings. I think this is appropriate given the extensive history that she has had and the nonfunction of the foot. They did discuss the possibility of obtaining a prosthesis with a below-knee amputation. This would be very difficult for her given the debilitated state that she has been in for some time. She is at high risk for complications in the perioperative period given her lungs and medical situation. I outlined 3 steps clear and the infection followed by healing of the stump followed by the possibility of fitting for amputation and extensive rehabilitation to allow for ambulation. She certainly would greatly benefit from the mobility of being able to walk on a prosthesis I am just not certain if she will be able to obtain that status. Will order MRI scan of the tibia and fibula to evaluate extent of involvement of osteomyelitis and make surgical treatment options pending results. Pulmonary plan for surgical intervention on Monday
--- NOTE | 2024-07-01 14:20 | MR_ITS ---
PROCEDURE INFORMATION: Exam: MR Right Lower Extremity Without and With Contrast, Tibia Fibula Exam date and time: 07/01/2024 3:13 PM Age: 68 years old Clinical indication: Pain; Lower leg; Right; Additional info: Evaluation of right tibia osteomyelitis TECHNIQUE: Imaging protocol: Magnetic resonance imaging of the right lower extremity without and with contrast. Exam focused on the tibia and fibula. Contrast material: ISOVUE; Contrast volume: 23 ml; Contrast route: IV; COMPARISON: CT ANKLE RT W CON 06/26/2024 8:38 PM FINDINGS: Bones/joints: Postoperative changes from distal fibular resection identified. Subacute appearing bone infarct within the metaphysis region of the distal tibia. Soft tissues: Expected postoperative related soft tissue edema noted distal to the fibular resection site. IMPRESSION: 1. Postoperative changes from distal fibular resection identified. 2. Expected postoperative related soft tissue edema noted distal to the fibular resection site. 3. Subacute appearing bone infarct within the metaphysis region of the distal tibia. No MR evidence to suggest osteomyelitis within the distal tibia.
--- NOTE | 2024-07-01 15:17 | PC.NURSE ---
off floor for MRI
[2024-07-01 16:00] VITALS: BP 151/56; PULSE 103; RESP 18; TEMP 36.7; O2SAT 93
[2024-07-01] MEDS: GADOTERIDOL INJ 20ML SYRINGE 20 ML IV (16:21)
[2024-07-01] MEDS: GADOTERIDOL INJ 10ML SYRINGE 3 ML IV (16:21)
[2024-07-01] MEDS: SODIUM CHLORIDE 0.9% 10ML SYR (RAD ONLY) 10 ML IV (16:22)
[2024-07-01 17:03] LABS: POC Glucose,Bedside 245 (70-110)
[2024-07-01] MEDS: humaLOG 100 UNITS/ML 10ML VIAL (SSI) SUBCUT ×2 (17:07→21:00)
[2024-07-01] MEDS: PHA TO NURSING INSTRUCTION 1 EACH NOTAPPLIC (18:04)
[2024-07-01 18:32] LABS: Vancomycin,Trough 31.3 ug/mL (5.0-10.0)
[2024-07-01] MEDS: DAPTOmycin 1,000 MG in 0.9 % SODIUM CHLORIDE 50 ML 100 MG IV (18:50)
[2024-07-01 19:56] VITALS: BP 113/61; PULSE 94; RESP 16; TEMP 36.6; O2SAT 98
[2024-07-01] MEDS: DULOXETINE 30MG CAPSULE.DR 60 MG PO (21:45)
[2024-07-01] MEDS: PANTOPRAZOLE 40MG TABLET 40 MG PO (21:45)
[2024-07-01] MEDS: MONTELUKAST SODIUM 10MG TAB 10 MG PO (21:45)
[2024-07-01] MEDS: TRAZODONE 50MG TABLET 50 MG PO (21:45)
[2024-07-01] MEDS: ENOXAPARIN 40MG/0.4ML SYRINGE 40 MG SUBCUT (21:45)
[2024-07-01 22:06] LABS: POC Glucose,Bedside 160 (70-110)
[2024-07-02 03:43] VITALS: BP 135/66; PULSE 90; RESP 16; TEMP 36.6; O2SAT 95
[2024-07-02 04:00] VITALS: BMI 41.2
--- NOTE | 2024-07-02 05:16 | PC.NURSE ---
v/s, ox4. Pt pending possible BKA on RLE. No acute events to report. PLan of care ongoing.
[2024-07-02 05:58] LABS: POC Glucose,Bedside 147 (70-110)
[2024-07-02] MEDS: LEVOTHYROXINE 50MCG (0.05MG) TAB 50 MCG PO (06:00)
[2024-07-02] MEDS: TIOTROPIUM 18MCG/PUFF INHALER 1 CAP IH (06:24)
[2024-07-02 06:57] LABS: Basophils % 0.4 % (0.1-2.0); Eosinophils # 0.1 K/mm3 (0.0-0.4); Eosinophils % 1.2 % (0.1-12.0); Hematocrit 27.7 % (37.0-47.0); Hemoglobin 8.6 g/dL (12.2-16.2); Lymphocytes # 1.8 K/mm3 (0.7-4.5); Lymphocytes % 23.1 % (10-50); Mean Corpuscular Hemoglobin 30.7 pg (27.0-31.2); Mean Corpuscular Volume 98.9 fl (81-99); Mean Platelet Volume 10.2 fl (7.4-10.4); Monocytes # 0.7 K/mm3 (0.1-1.0); Monocytes % 9.4 % (1.7-9.3); Neutrophils % 64.7 % (37.0-80.0); Platelet Count 203 K/mm3 (142-424); Red Cell Distribution Width 13.9 % (11.5-17.5); White Blood Count 7.7 K/mm3 (4.8-10.8)
[2024-07-02 07:03] LABS: Alanine Aminotransferase 56 U/L (12-78); Albumin/Globulin Ratio 1.2 (1.1-1.8); Alkaline Phosphatase 52 U/L (38-126); Aspartate Amino Transferase 43 U/L (14-36); Bilirubin,Total 0.4 mg/dl (0.2-1.3); Blood Urea Nitrogen 10 mg/dl (7-17); Calcium 8.6 mg/dl (8.4-10.2); Chloride 98 mmol/L (98-107); Creatinine Clearance Estimated 47 mL/min (50-200); Estimated Glomerular Filt Rate 50 ml/min (>60); GFR (African American) 60 ML/MIN (>60); Globulin 2.6 g/dL (1.3-3.2); Glucose 119 mg/dl (74-100); Potassium 3.1 mmoL/L (3.5-5.1); Sodium 138 mmol/L (136-145); Total Protein,Serum 5.6 g/dl (6.3-8.2)
[2024-07-02 07:09] LABS: Anion Gap 7.1 mEq/L (5-15); Carbon Dioxide 36 mmol/L (22.0-30.0)
[2024-07-02 07:21] VITALS: BP 138/75; PULSE 112; RESP 18; TEMP 36.6; O2SAT 90
[2024-07-02 07:23] LABS: Magnesium 1.8 mg/dl (1.6-2.3)
[2024-07-02 07:55] LABS: Thyroid Stimulating Hormone 3.39 uIU/mL (0.465-4.68)
[2024-07-02] MEDS: MEROPENEM 1 GM in 0.9 % SODIUM CHLORIDE 100 ML IV ×3 (08:12→16:25)
[2024-07-02] MEDS: POLYETHYLENE GLYCOL 3350 17 GM PACKET PO (08:13)
[2024-07-02] MEDS: ENOXAPARIN 40MG/0.4ML SYRINGE 40 MG SUBCUT ×2 (08:14→21:53)
[2024-07-02] MEDS: SENNOSIDES 8.6MG/DOCUSATE 50MG TABLET 1 TAB PO ×2 (08:14→21:53)
[2024-07-02] MEDS: ARIPiprazole 10MG TABLET 10 MG PO (08:14)
[2024-07-02] MEDS: OXYCODONE 5MG IMMEDIATE RELEASE TABLET 10 MG PO ×2 (08:30→16:35)
[2024-07-02] MEDS: humaLOG 100 UNITS/ML 10ML VIAL (SSI) SUBCUT ×3 (11:33→21:52)
[2024-07-02 11:36] LABS: POC Glucose,Bedside 179 (70-110)
[2024-07-02 16:00] VITALS: BP 144/87; PULSE 85; RESP 18; TEMP 36.9; O2SAT 98
--- NOTE | 2024-07-02 16:03 | P.PN_ITS ---
Subjective *Date: 07/02/24 *Time: 16:03 Interval history: 68-year-old female who has right ankle osteomyelitis pressure ulcer to the ankle acquired foot drop. I obtain MRI scan of the tib-fib to confirm below-knee amputation is a possibility with no extent of osteomyelitis of the tibia. Gave the patient a family opportunity to speak around the possibilities of a below- knee amputation as definitive treatment for the osteomyelitis and open wound of the right foot. Ortho Exam (Inpt) Vital signs and Labs for Last 24 Hours: Temp Pulse Resp BP Pulse Ox O2 Del Method O2 Flow Rate 97.8 F 112 H 18 138/75 90 L Nasal Cannula 3.5 07/02/24 07:21 07/02/24 07:21 07/02/24 07:21 07/02/24 07:21 07/02/24 07:21 07/02/24 14:58 07/02/24 09:00 Laboratory Results - last 24 hr 07/01/24 16:55: POC Glucose 245 H 07/01/24 17:13: Vancomycin Trough 31.3 H 07/01/24 21:44: POC Glucose 160 H 07/02/24 05:49: POC Glucose 147 H 07/02/24 06:33: WBC 7.7, RBC 2.80 L, Hgb 8.6 L, Hct 27.7 L, MCV 98.9, MCH 30.7, MCHC 31.0 L, RDW 13.9, Plt Count 203, MPV 10.2, Neut % (Auto) 64.7, Lymph % (Auto) 23.1, [place] % (Auto) 9.4 H, Eos % (Auto) 1.2, Baso % (Auto) 0.4, Neut # (Auto) 5.0, Lymph # (Auto) 1.8, [place] # (Auto) 0.7, Eos # (Auto) 0.1, Baso # (Auto) 0.0, Sodium 138, Potassium 3.1 L, Chloride 98, Carbon Dioxide 36 H, Anion Gap 7.1, BUN 10, Creatinine 1.10 H D, Estimated Creat Clear 47, Estimated GFR 50 L, Est GFR ( Amer) 60 D, Glucose 119 H, Calcium 8.6, Magnesium 1.8, Total Bilirubin 0.4, AST 43 H, ALT 56, Alkaline Phosphatase 52, Total Protein 5.6 L, Albumin 3.0 L, Globulin 2.6, Albumin/Globulin Ratio 1.2, TSH 3.39 07/02/24 11:28: POC Glucose 179 H I & O for Labs for Last 24 Hours: Intake & Output 06/29/24 06/30/24 07/01/24 07/02/24 23:59 23:59 23:59 23:59 Intake Total 1080 / 1790 2030 / 2150 1440 / 1560 720 / 720 Output Total 1000 / 1750 2500 / 3100 2150 / 2750 1000 / 1000 Balance 80 / 40 -470 / -950 -710 / -1190 -280 / -280 Weight 264 lb 6.4 oz 265 lb 262 lb 14.4 oz 262 lb 14.384 oz Microbiology Reports for the Last 24 Hours: Microbiology 06/27/24 13:41 Bone - Right Bone Culture - Final Enterococcus faecalis Staphylococcus epidermidis 06/27/24 13:41 Foot,Right - Abscess Gram Stain - Final 06/27/24 13:41 Foot,Right - Abscess Wound Culture - Preliminary 06/26/24 17:45 Blood Blood Culture - Final NO GROWTH AFTER 5 DAYS 06/26/24 17:25 Blood Blood Culture - Final NO GROWTH AFTER 5 DAYS Findings:: Right lower extremity surgical dressing in place to foot posterior skin is dry but no ulcerations anterior skin is dry but no ulcerations sensations intact down to the midportion of the tibia. Assessment and Plan *Assessment and plan (1) Ankle osteomyelitis, right: Status: Acute Qualifiers: Osteomyelitis type: other chronic Qualified Code(s): M86.671 - Other chronic osteomyelitis, right ankle and foot Category: Medical Code(s): M86.9 - Osteomyelitis, unspecified (2) Immunosuppressed status: Status: Acute Category: Medical Code(s): D84.9 - Immunodeficiency, unspecified (3) Pressure ulcer of right ankle: Status: Acute Qualifiers: Pressure injury stage: unspecified pressure injury stage Qualified Code(s): L89.519 - Pressure ulcer of right ankle, unspecified stage Category: Medical Code(s): L89.519 - Pressure ulcer of right ankle, unspecified stage (4) Decubitus ulcer, stage III: Problem Comment: Pressure ulcer of right lateral malleolus Status: Acute Qualifiers: Pressure injury location: buttock Laterality: unspecified laterality Qualified Code(s): L89.303 - Pressure ulcer of unspecified buttock, stage 3 Category: Medical Code(s): L89.93 - Pressure ulcer of unspecified site, stage 3 (5) Acquired right foot drop: Problem Comment: Subsequent to necrotizing fasciitis and multiple surgeries removing muscles and tendons of the right lower extremity. Status: Chronic Category: Medical Code(s): M21.371 - Foot drop, right foot Plan PROPOSED SURGERY: Right below the knee amputation the risks and benefits of the proposed surgery were discussed in depth with the patient. Potential complications including inherent risk of anesthesia, infection, neurovascular damage, DVT, need for further surgery, and rare but real potential loss of life were all reviewed. Patient voices understanding and seems to understand to my satisfaction and wishes to proceed with surgery. I gave them adequate time to ask any questions they have pertaining to this surgery and answered all of them to the best of my ability. I gave them no guarantees in regards to outcomes of this surgery.
[2024-07-02 16:37] LABS: POC Glucose,Bedside 178 (70-110)
--- NOTE | 2024-07-02 16:39 | CT_ITS ---
PROCEDURE INFORMATION: Exam: CTA Abdominal Aorta and Bilateral Lower Extremities (Run-off) With Contrast Exam date and time: 07/02/2024 6:17 PM Age: 68 years old Clinical indication: Other: Non healing ulcers; Additional info: Recurrent, non-healing ulcers TECHNIQUE: Imaging protocol: Computed tomographic angiography of the of the abdominal aorta, pelvis and bilateral lower extremities with contrast. 3D rendering (Not supervised by radiologist): MIP and/or 3D reconstructed images were created by the technologist. Radiation optimization: All CT scans at this facility use at least one of these dose optimization techniques: automated exposure control; mA and/or kV adjustment per patient size (includes targeted exams where dose is matched to clinical indication); or iterative reconstruction. Contrast material: ISOVUE 370; Contrast volume: 120 ml; Contrast route: INTRAVENOUS (IV); Other contrast: Oral; COMPARISON: CT ABDOMEN PELVIS WO CON 03/23/2020 12:11 PM FINDINGS: Aorta: No aortic aneurysm. No aortic dissection. Celiac trunk and mesenteric arteries: No occlusion or significant stenosis. Renal arteries: No occlusion or significant stenosis. Right iliac arteries: No occlusion or significant stenosis. Right femoral/popliteal arteries: No occlusion or significant stenosis. Right infrapopliteal arteries: No occlusion or significant stenosis. Left iliac arteries: No occlusion or significant stenosis. Left femoral/popliteal arteries: No occlusion or significant stenosis. Left infrapopliteal arteries: No occlusion or significant stenosis. Lungs: Mild bibasilar atelectasis. Liver: Severe diffuse hepatic steatosis is identified. Gallbladder and biliary ducts: Unremarkable. No calcified stones. No ductal dilation. Pancreas: The pancreas is normal. Spleen: The spleen is normal. Adrenal glands: The adrenal glands appear within normal limits. Kidneys and ureters: 3 mm nonobstructing stone left kidney mid to upper pole and 1 mm stone left kidney mid to lower pole. Stomach and bowel: The stomach appears within normal limits. No wall thickening or inflammatory change. Appendix: No evidence of appendicitis. Urinary bladder: The bladder appears within normal limits. No wall thickening. Reproductive: Unremarkable as visualized. Intraperitoneal space: No free air. No evidence for focal fluid collection or ascites. No evidence for omental thickening. Lymph nodes: Unremarkable. No pathologically enlarged lymph nodes are identified. Bones/joints: Postop changes right hip arthroplasty. Soft tissues: Soft tissue gas noted with adjacent edema and cellulitic change noted within the lateral ankle region appears to be due to recent postoperative changes from right distal fibular resection. IMPRESSION: 1. No significant stenosis or occlusion. 2. Severe diffuse hepatic steatosis is identified. 3. 3 mm nonobstructing stone left kidney mid to upper pole and 1 mm stone left kidney mid to lower pole. 4. Postop changes right hip arthroplasty. Soft tissue gas noted with adjacent edema and cellulitic change noted within the lateral ankle region appears to be due to recent postoperative changes from right distal fibular resection.
--- NOTE | 2024-07-02 16:57 | HMH.ITSTN ---
spoke to RN, antibiotic needs to finish before patient can come for CT scan. Stated to check back around 1745.
[2024-07-02] MEDS: ALPRAZolam 1MG TABLET 1 MG PO (17:32)
--- NOTE | 2024-07-02 17:52 | PC.NURSE ---
Addendum entered by Jess Leal RN 07/02/24 17:57: patient has also c/o anxiety treated per JUN. Original Note: patient is a/ox4 remains on 3.5 LNC tolerating well. refused RLE dressing change, assessed dressing C/D/I. has c/o pain throughout shift, treated per JUN. PW in place. call light within reach. BKA on RLE consent signed. no further requests at tis time.
[2024-07-02] MEDS: 0.9 % SODIUM CHLORIDE 50 ML VIAL IV (17:59)
[2024-07-02] MEDS: IOPAMIDOL-370 (76%);100ML BOTTLE 120 ML IV (17:59)
[2024-07-02] MEDS: DAPTOmycin 1,000 MG in 0.9 % SODIUM CHLORIDE 50 ML 100 MG IV (18:35)
--- NOTE | 2024-07-02 18:45 | PC.NURSE ---
CT notified me of patients IV in the left AC was leaking, new IV placed in right AC. Assessed left AC IV when patient was brought back to the floor to observe it was leaking, LAC IV D/C.
[2024-07-02 19:32] VITALS: BP 133/79; PULSE 95; RESP 14; TEMP 37; O2SAT 95
[2024-07-02 20:45] LABS: POC Glucose,Bedside 222 (70-110)
--- NOTE | 2024-07-02 20:57 | EXP.PN ---
Subjective *Date: 07/02/24 *Time: 20:57 Interval history: Patient doing well, agreeable to right BKA tomorrow. Follow-up CTA with runoff, BNP in morning. NO chest pain, SOB. Exam Data for Last 24 hours Vital signs and Labs for Last 24 Hours: Temp Pulse Resp BP Pulse Ox O2 Del Method O2 Flow Rate 98.6 F 95 H 14 133/79 95 Nasal Cannula 3.5 07/02/24 19:32 07/02/24 19:32 07/02/24 19:32 07/02/24 19:32 07/02/24 19:32 07/02/24 20:32 07/02/24 20:32 Laboratory Results - last 24 hr 07/01/24 21:44: POC Glucose 160 H 07/02/24 05:49: POC Glucose 147 H 07/02/24 06:33: WBC 7.7, RBC 2.80 L, Hgb 8.6 L, Hct 27.7 L, MCV 98.9, MCH 30.7, MCHC 31.0 L, RDW 13.9, Plt Count 203, MPV 10.2, Neut % (Auto) 64.7, Lymph % (Auto) 23.1, [place] % (Auto) 9.4 H, Eos % (Auto) 1.2, Baso % (Auto) 0.4, Neut # (Auto) 5.0, Lymph # (Auto) 1.8, [place] # (Auto) 0.7, Eos # (Auto) 0.1, Baso # (Auto) 0.0, Sodium 138, Potassium 3.1 L, Chloride 98, Carbon Dioxide 36 H, Anion Gap 7.1, BUN 10, Creatinine 1.10 H D, Estimated Creat Clear 47, Estimated GFR 50 L, Est GFR ( Amer) 60 D, Glucose 119 H, Calcium 8.6, Magnesium 1.8, Total Bilirubin 0.4, AST 43 H, ALT 56, Alkaline Phosphatase 52, Total Protein 5.6 L, Albumin 3.0 L, Globulin 2.6, Albumin/Globulin Ratio 1.2, TSH 3.39 07/02/24 11:28: POC Glucose 179 H 07/02/24 16:27: POC Glucose 178 H 07/02/24 20:23: POC Glucose 222 H I & O for Last 24 hours: Intake & Output 06/29/24 06/30/24 07/01/24 07/02/24 23:59 23:59 23:59 23:59 Intake Total 1080 / 1790 2030 / 2150 1440 / 1560 960 / 960 Output Total 1000 / 1750 2500 / 3100 2150 / 2750 1850 / 1850 Balance 80 / 40 -470 / -950 -710 / -1190 -890 / -890 Weight 119.93 kg 120.202 kg 119.249 kg 119.249 kg Microbiology Reports for the Last 24 Hours: Microbiology 06/27/24 13:41 Bone - Right Bone Culture - Final Enterococcus faecalis Staphylococcus epidermidis 06/27/24 13:41 Foot,Right - Abscess Gram Stain - Final 06/27/24 13:41 Foot,Right - Abscess Wound Culture - Preliminary 06/26/24 17:45 Blood Blood Culture - Final NO GROWTH AFTER 5 DAYS 06/26/24 17:25 Blood Blood Culture - Final NO GROWTH AFTER 5 DAYS Constitutional Constitutional: no acute distress *Routine HEENT Exam Head: Present normocephalic Eye: Present EOMI and PERRL ENT: Present mucous membranes moist *Routine Neck Exam Neck: Present supple; Absent lymphadenopathy *Routine Respiratory Exam Respiratory: Present CTA bilaterally *Routine Cardiovascular Exam Cardiovascular: Present RRR *Routine Abdominal Exam Abdominal: Present soft and normoactive bowel sounds; Absent tenderness *Routine Extremities Exam Extremities: Present edema; Absent cyanosis or clubbing Comments: Swollen pale lower extemities but warm. Wrapped in dressing and MODESTA bandage. *Routine Skin Exam Skin: Present warm; Absent rash *Routine Neurological Exam Neurological: Present alert and oriented X3 Assessment and Plan *Assessment and plan (1) Pressure ulcer of right ankle: Status: Acute Qualifiers: Pressure injury stage: unspecified pressure injury stage Qualified Code(s): L89.519 - Pressure ulcer of right ankle, unspecified stage Category: Medical Code(s): L89.519 - Pressure ulcer of right ankle, unspecified stage (2) Immunosuppressed status: Status: Acute Category: Medical Code(s): D84.9 - Immunodeficiency, unspecified (3) Ankle osteomyelitis, right: Status: Acute Qualifiers: Osteomyelitis type: other chronic Qualified Code(s): M86.671 - Other chronic osteomyelitis, right ankle and foot Category: Medical Code(s): M86.9 - Osteomyelitis, unspecified (4) Decubitus ulcer, stage III: Problem Comment: Pressure ulcer of right lateral malleolus Status: Acute Qualifiers: Pressure injury location: buttock Laterality: unspecified laterality Qualified Code(s): L89.303 - Pressure ulcer of unspecified buttock, stage 3 Category: Medical Code(s): L89.93 - Pressure ulcer of unspecified site, stage 3 (5) Acquired right foot drop: Problem Comment: Subsequent to necrotizing fasciitis and multiple surgeries removing muscles and tendons of the right lower extremity. Status: Chronic Category: Medical Code(s): M21.371 - Foot drop, right foot (6) Necrotizing cellulitis: Status: Resolved Category: Medical Code(s): L03.90 - Cellulitis, unspecified (7) Weakness generalized: Status: Acute Category: Medical Code(s): R53.1 - Weakness (8) Incontinence in female: Status: Acute Category: Medical Code(s): R32 - Unspecified urinary incontinence (9) Elevated blood sugar level: Status: Acute Category: Medical Code(s): R73.9 - Hyperglycemia, unspecified (10) Morbid obesity: Status: Acute Category: Medical Code(s): E66.01 - Morbid (severe) obesity due to excess calories Augie 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 Previous necrotizing fasciitis of leg. Admitted for decubitus wound. Debridement performed by podiatry along with resection of distal portion of fibula. Bone and wound cultures positive. Has tibial osteomyelitis. Right ankle wound/decubitus wound Osteomyelitis of distal right Fibula - Bone cultures positive for E. faecalis, sensitive to Vanc and daptomycin. Pseudomonas from wound culture positive and sensitive to meropenem but resistant to Levaquin. - White count normal at 7.7, Kidney function normal with BUN 10, creatinine 0.8. Repeat CBC, CMP, magnesium ordered for the morning. - Continue broad-spectrum antibiotics. Daptomycin 1 g IV every 24 hours. Meropenem 1 g IV every 8 hours. - Maintain clean and dry dressing, elevate ankle. Nonweightbearing. - Daily dressing changes. Wound consulted to assist with management. PT and OT consulted to assist with mobility. - Will likely need PICC line placement prior to discharge pending antibiotic course. - Orthopedics evaluated, will obtain CTA lower extremities with runoff for definitive arterial study and surgical planning. Planning for right BKA tomorrow. - Decubitus wound being evaluated by wound care, currently has protective pad. #Lower extremity edema - Pitting 3+, pale but warm. - Follow-up ECHO and BNP. Diabetes, new diagnosis -A1c elevated at 7.9. However, anemic Hgb 8.6 so A1c falsely low. - LDSSI, ACHS glucose checks. Immunocompromised [place]'s disease: Hypothyroid - Continue hydrocortisone 20 mg nightly and 40 mg in the morning. Complicates her wound healing and immunocompromised state. - Monitor electrolytes daily, CBC, CMP, magnesium ordered for the morning. - Levothyroxine continued at 50 mcg daily, TSH normal. Mood disorder: Continue trazodone 50 mg 3 times a day, Cymbalta 60 mg nightly, Abilify 10 mg daily; continue Xanax 1 mg 3 times a day as needed., Monitor for toxicity. Chronic pain: Continue oxycodone 10 mg every 6 hours as needed for severe pain. Caution with concurrent benzo use Full code Regular diet
[2024-07-02] MEDS: MONTELUKAST SODIUM 10MG TAB 10 MG PO (21:53)
[2024-07-02] MEDS: ATORVASTATIN 40MG TABLET 80 MG PO (21:53)
[2024-07-02] MEDS: DULOXETINE 30MG CAPSULE.DR 60 MG PO (21:53)
[2024-07-02] MEDS: TRAZODONE 50MG TABLET 50 MG PO (21:53)
[2024-07-02] MEDS: PANTOPRAZOLE 40MG TABLET 40 MG PO (21:53)
[2024-07-03] VITALS (16 sets, daily range): BP systolic 102–172; BP diastolic 49–84; PULSE 89–114; RESP 14–20; TEMP 36.4–37.2; O2SAT 92–97; BMI 41.6
[2024-07-03] MEDS: OXYCODONE 5MG IMMEDIATE RELEASE TABLET 10 MG PO ×2 (03:52→16:34)
--- NOTE | 2024-07-03 04:16 | PC.NURSE ---
Pt pending procedure for BKA this morning. Pt NPO at midnight. v/s, ox4. No acute events to report. Plan of care ongoing.
[2024-07-03 06:15] LABS: POC Glucose,Bedside 107 (70-110)
[2024-07-03] MEDS: LEVOTHYROXINE 50MCG (0.05MG) TAB 50 MCG PO (06:19)
[2024-07-03 06:36] LABS: Basophils % 0.6 % (0.1-2.0); Eosinophils # 0.1 K/mm3 (0.0-0.4); Eosinophils % 1.5 % (0.1-12.0); Hemoglobin 7.9 g/dL (12.2-16.2); Lymphocytes # 1.7 K/mm3 (0.7-4.5); Lymphocytes % 26.1 % (10-50); Mean Corpuscular HGB Conc 31.6 g/dL (31.8-35.4); Mean Corpuscular Hemoglobin 31.1 pg (27.0-31.2); Mean Corpuscular Volume 98.4 fl (81-99); Mean Platelet Volume 10.1 fl (7.4-10.4); Monocytes # 0.6 K/mm3 (0.1-1.0); Monocytes % 8.9 % (1.7-9.3); Neutrophils # 4.1 K/mm3 (1.8-7.8); Neutrophils % 61.7 % (37.0-80.0); Platelet Count 210 K/mm3 (142-424); Red Blood Count 2.54 M/mm3 (4.20-5.40); Red Cell Distribution Width 13.9 % (11.5-17.5); White Blood Count 6.6 K/mm3 (4.8-10.8)
[2024-07-03 06:42] LABS: Alanine Aminotransferase 41 U/L (12-78); Albumin Level 2.6 g/dl (3.5-5.0); Alkaline Phosphatase 46 U/L (38-126); Aspartate Amino Transferase 33 U/L (14-36); Bilirubin,Total 0.4 mg/dl (0.2-1.3); Blood Urea Nitrogen 9 mg/dl (7-17); Calcium 8.5 mg/dl (8.4-10.2); Chloride 99 mmol/L (98-107); Creatinine Clearance Estimated 43 mL/min (50-200); Estimated Glomerular Filt Rate 45 ml/min (>60); GFR (African American) 54 ML/MIN (>60); Globulin 2.5 g/dL (1.3-3.2); Glucose 96 mg/dl (74-100); Sodium 138 mmol/L (136-145); Total Protein,Serum 5.1 g/dl (6.3-8.2)
[2024-07-03 06:48] LABS: Anion Gap 8.9 mEq/L (5-15); Carbon Dioxide 33 mmol/L (22.0-30.0)
[2024-07-03 07:17] LABS: Potassium 2.9 mmoL/L (3.5-5.1)
[2024-07-03 08:08] LABS: NT Pro Brain Natriuretic Pep. 405 pg/mL (0-125)
--- NOTE | 2024-07-03 08:17 | SW/DCPLANNER ---
Addendum entered by [facility] 07/05/24 14:02: Patient has been accepted to [facility] SNF level of care. Per MD patient will discharge today. I have updated Patricia w/ [facility] and patient/family. Addendum entered by [facility] 07/05/24 11:50: Patricia w/ [facility] and Candy w/ [facility] and [facility] are reviewing patient information. Patient is agreeable to placement at this time. Addendum entered by [facility] 07/05/24 09:44: Updated patient information faxed to Kalya [facility]do[facility]/ [facility]. Addendum entered by [facility] 07/04/24 10:33: Jennie w/ [facility] stated that patient does not have [facility] benefits and would require $2100 up front. I have informed patient and family whom stated that would not be affordable for them at this time. Patient and are agreeable for information to be faxed to [facility], [facility], [facility] and [facility]. Patient information has been faxed at this time. I will continue to follow up. Per patient she will have BKA today. Addendum entered by [facility] 07/03/24 09:30: [facility] are unable to accept patient due to bed availability. Original Note: I spoke w/ this patient and her regarding plans once medically stable for discharge. PT/OT evaluated (prior to BKA today) and recommended placement. Patient and decided since patient will have BKA today SNF level of care will be necessary at time of discharge. Patient is agreeable to placement and prefers to stay in [place]. Patient is agreeable for information to be faxed to [facility] and [facility] at this time.
[2024-07-03] MEDS: MEROPENEM 1 GM in 0.9 % SODIUM CHLORIDE 100 ML IV ×4 (08:32→23:30)
[2024-07-03] MEDS: ARIPiprazole 10MG TABLET 10 MG PO (08:33)
[2024-07-03] MEDS: SENNOSIDES 8.6MG/DOCUSATE 50MG TABLET 1 TAB PO ×2 (08:33→20:47)
--- NOTE | 2024-07-03 08:43 | CA_ITS ---
APPROVED REPORT EXAM: Comprehensive 2D, Doppler, and color-flow Echocardiogram Powerhouse Mechanic: Dipti Natarajan RT(R) Ht: 5 ft 7 in Wt: 243lbs BSA: 2.20 BP: 133/70 mmHg Indications: edema, COPD, ex smoker, DM, SOB. Patient was flat on her back. Limited scanning secondary to patient positioning and body habitus. 2D Dimensions LVEF (Stokes's) 64.50 % F: 54 - 74 LV Volume 92.60 mL F: 46 - 106 LV Volume Index 42.1 mL/m2 F: 29 - 61 LA Volume 29.80 mL LA Volume Index 13.55 mL/m2 (M/F) 16-34 EF AP4 67.30 % EF AP2 63.0 % EF BP 64.5 % GL Strain -19.1 % M-Mode Dimensions RVDd 2.77 cm (0.9-2.6) LA Diam 2.68 cm (1.9-4.0) LVDd 5.02 cm (3.5-5.7) LVDs 3.62 cm (3.5-5.7) IVSd 1.27 cm (0.6-1.1) PWd 1.13 cm (0.6-1.1) EF (Teich) 53.70% FS 27.90% EDV (Teich) 119.30 mL ESV (Teich) 55.20 mL LV Diastology E Decel Time 150 (160-240 msec) E/A Ratio 1.0 Mitral Valve MV E Max Octavio. 73.0 (40-130 cm/s) MV A Velocity 73.0 (40-130 cm/s) E/A Ratio 1.01 MV PHT 44.0 ms Left Ventricle The left ventricle is normal size. The left ventricular systolic function is normal. The left ventricular ejection fraction is within the normal range. There is increased LV wall thickness. There is normal LV segmental wall motion. Diastolic function is normal. LVEF is 65%. Right Ventricle The right ventricle is normal size. The right ventricular systolic function is normal. Atria The left atrium size is normal. The right atrium size is normal. There is no Doppler evidence of interatrial shunt. Aortic Valve The aortic valve is mildly thickened. There is no aortic valvular stenosis. No aortic regurgitation is present. Mitral Valve The mitral valve is normal in structure. No evidence of mitral valve stenosis. Trace mitral regurgitation. Tricuspid Valve Tricuspid valve is grossly normal in structure and function. Trace tricuspid regurgitation. There is insufficient TR jet to estimate RVSP. Pulmonic Valve The pulmonary valve is normal in structure. Trace pulmonic regurgitation. Great Vessels The aortic root is normal in size. IVC is normal in size and collapses >50% with inspiration. Pericardium There is no pericardial effusion. Other Information Study Quality: Fair Conclusion Normal biventricular systolic function. No significant valvular stenosis or regurgitation. Electronically signed by : Anuradha Manzo MD 07/04/2024 13:07:52
[2024-07-03] MEDS: POTASSIUM CHLORIDE 20MEQ TAB 40 MEQ PO ×3 (09:01→15:31)
[2024-07-03 09:23] LABS: Chol/HDL Ratio 4.4 (1-3.5); Cholesterol 158 mg/dl (140-200); HDL Cholesterol 36 mg/dl (40-60); Magnesium 1.9 mg/dl (1.6-2.3); Triglycerides 170 mg/dl (30-150); VLDL Cholesterol 34 mg/dL (0-40)
[2024-07-03] MEDS: MAGNESIUM SULFATE IN WATER 2 GM/50 ML PIGGYBACK IV (10:04)
[2024-07-03] MEDS: ENOXAPARIN 40MG/0.4ML SYRINGE 40 MG SUBCUT ×2 (10:45→20:47)
[2024-07-03] MEDS: POLYETHYLENE GLYCOL 3350 17 GM PACKET PO (10:45)
[2024-07-03] MEDS: humaLOG 100 UNITS/ML 10ML VIAL (SSI) SUBCUT ×3 (10:58→20:48)
[2024-07-03] MEDS: TIOTROPIUM 18MCG/PUFF INHALER 1 CAP IH (11:00)
[2024-07-03 11:02] LABS: POC Glucose,Bedside 170 (70-110)
--- NOTE | 2024-07-03 11:14 | EXP.ORTH.PN ---
Subjective *Date: 07/03/24 *Time: 11:14 Interval history: Patient doing OK. Plans for Right BKA delayed secondary to low potassium/hemoglobin. Ortho Exam (Inpt) Vital signs and Labs for Last 24 Hours: Temp Pulse Resp BP Pulse Ox O2 Del Method O2 Flow Rate 98.3 F 99 H 17 109/53 L 97 Nasal Cannula 3.5 07/03/24 07:43 07/03/24 07:43 07/03/24 07:43 07/03/24 07:43 07/03/24 07:43 07/03/24 09:00 07/03/24 08:00 Laboratory Results - last 24 hr 07/02/24 11:28: POC Glucose 179 H 07/02/24 16:27: POC Glucose 178 H 07/02/24 20:23: POC Glucose 222 H 07/03/24 05:41: WBC 6.6, RBC 2.54 L, Hgb 7.9 L, Hct 25.0 L, MCV 98.4, MCH 31.1, MCHC 31.6 L, RDW 13.9, Plt Count 210, MPV 10.1, Neut % (Auto) 61.7, Lymph % (Auto) 26.1, [place] % (Auto) 8.9, Eos % (Auto) 1.5, Baso % (Auto) 0.6, Neut # (Auto) 4.1, Lymph # (Auto) 1.7, [place] # (Auto) 0.6, Eos # (Auto) 0.1, Baso # (Auto) 0.0, Sodium 138, Potassium 2.9 L*, Chloride 99, Carbon Dioxide 33 H, Anion Gap 8.9, BUN 9, Creatinine 1.20 H, Estimated Creat Clear 43, Estimated GFR 45 L, Est GFR ( Amer) 54 L, Glucose 96, Calcium 8.5, Magnesium 1.9, Total Bilirubin 0.4, AST 33, ALT 41 D, Alkaline Phosphatase 46, NT-Pro-B Natriuret Pep 405 H, Total Protein 5.1 L, Albumin 2.6 L D, Globulin 2.5, Albumin/Globulin Ratio 1.0 L, Triglycerides 170 H, Cholesterol 158, LDL Cholesterol Direct 90.50 L, VLDL Cholesterol 34, HDL Cholesterol 36 L, Cholesterol/HDL Ratio 4.4 H 07/03/24 06:06: POC Glucose 107 07/03/24 10:10: Blood Type O Positive, Antibody Screen Negative, Crossmatch (AHG) See Detail 07/03/24 10:48: POC Glucose 170 H I & O for Labs for Last 24 Hours: Intake & Output 06/30/24 07/01/24 07/02/24 07/03/24 23:59 23:59 23:59 23:59 Intake Total 2030 / 2150 1440 / 1560 960 / 1660 700 / 700 Output Total 2500 / 3100 2150 / 2750 1850 / 2100 900 / 900 Balance -470 / -950 -710 / -1190 -890 / -440 -200 / -200 Weight 265 lb 262 lb 14.4 oz 262 lb 14.384 oz 265 lb 8 oz Microbiology Reports for the Last 24 Hours: Microbiology 06/27/24 13:41 Bone - Right Bone Culture - Final Enterococcus faecalis Staphylococcus epidermidis 06/27/24 13:41 Foot,Right - Abscess Gram Stain - Final 06/27/24 13:41 Foot,Right - Abscess Wound Culture - Preliminary Constitutional: Present no acute distress Findings:: RIGHT LE: dressing intact, foot. CTA: good distal blood flow. Assessment and Plan *Assessment and plan (1) Ankle osteomyelitis, right: Status: Acute Qualifiers: Osteomyelitis type: other chronic Qualified Code(s): M86.671 - Other chronic osteomyelitis, right ankle and foot Category: Medical Code(s): M86.9 - Osteomyelitis, unspecified (2) Immunosuppressed status: Status: Acute Category: Medical Code(s): D84.9 - Immunodeficiency, unspecified (3) Pressure ulcer of right ankle: Status: Acute Qualifiers: Pressure injury stage: unspecified pressure injury stage Qualified Code(s): L89.519 - Pressure ulcer of right ankle, unspecified stage Category: Medical Code(s): L89.519 - Pressure ulcer of right ankle, unspecified stage Plan Rescheudle for tomorrow around noon-1PM PROPOSED SURGERY: Right below the knee amputation the risks and benefits of the proposed surgery were discussed in depth with the patient. Potential complications including inherent risk of anesthesia, infection, neurovascular damage, DVT, need for further surgery, and rare but real potential loss of life were all reviewed. Patient voices understanding and seems to understand to my satisfaction and wishes to proceed with surgery. I gave them adequate time to ask any questions they have pertaining to this surgery and answered all of them to the best of my ability. I gave them no guarantees in regards to outcomes of this surgery.
[2024-07-03] MEDS: ALPRAZolam 1MG TABLET 1 MG PO (15:30)
[2024-07-03 16:31] LABS: Hematocrit 28.9 % (37.0-47.0)
[2024-07-03 16:36] LABS: Hemoglobin 9.1 g/dL (12.2-16.2)
[2024-07-03 16:49] LABS: POC Glucose,Bedside 238 (70-110)
--- NOTE | 2024-07-03 17:43 | PC.NURSE ---
patient is a/o x4 remains on 3.5 LNC. received 1 unit of blood this shift tolerated well, no complaints. RLE dressing changed and reinforced with MODESTA wrap per MD order. patient tolerated well. treated pain per MAR. tolerating diet. PW in place. family at bedside, call light within reach, no further requests at this time.
[2024-07-03 18:04] LABS: Potassium 4.1 mmoL/L (3.5-5.1)
[2024-07-03] MEDS: DAPTOmycin 1,000 MG in 0.9 % SODIUM CHLORIDE 50 ML 100 MG IV (18:11)
[2024-07-03] MEDS: PANTOPRAZOLE 40MG TABLET 40 MG PO (20:47)
[2024-07-03] MEDS: DULOXETINE 30MG CAPSULE.DR 60 MG PO (20:47)
[2024-07-03] MEDS: MONTELUKAST SODIUM 10MG TAB 10 MG PO (20:47)
[2024-07-03] MEDS: ATORVASTATIN 40MG TABLET 80 MG PO (20:48)
[2024-07-03 20:53] LABS: POC Glucose,Bedside 181 (70-110)
--- NOTE | 2024-07-03 21:32 | P.PN_ITS ---
Subjective *Date: 07/13/24 *Time: 13:21 Interval history: Patient doing well this afternoon without acute concerns. Unfortunately surgery/BKA delayed until tomorrow due to hypokalemia 2.9 and anemia 7.9 today. Potassium repleted to 4.1, transfused 1 unit PRBC with improvement to 9.1 today. N.p.o. at midnight for BKA tomorrow. Exam Data for Last 24 hours Vital signs and Labs for Last 24 Hours: Temp Pulse Resp BP Pulse Ox O2 Del Method O2 Flow Rate 97.9 F 97 H 14 129/72 93 L Nasal Cannula 3.5 07/03/24 20:00 07/03/24 20:00 07/03/24 20:00 07/03/24 20:00 07/03/24 20:00 07/03/24 20:00 07/03/24 20:00 Laboratory Results - last 24 hr 07/03/24 05:41: WBC 6.6, RBC 2.54 L, Hgb 7.9 L, Hct 25.0 L, MCV 98.4, MCH 31.1, MCHC 31.6 L, RDW 13.9, Plt Count 210, MPV 10.1, Neut % (Auto) 61.7, Lymph % (Auto) 26.1, [place] % (Auto) 8.9, Eos % (Auto) 1.5, Baso % (Auto) 0.6, Neut # (Auto) 4.1, Lymph # (Auto) 1.7, [place] # (Auto) 0.6, Eos # (Auto) 0.1, Baso # (Auto) 0.0, Sodium 138, Potassium 2.9 L*, Chloride 99, Carbon Dioxide 33 H, Anion Gap 8.9, BUN 9, Creatinine 1.20 H, Estimated Creat Clear 43, Estimated GFR 45 L, Est GFR ( Amer) 54 L, Glucose 96, Calcium 8.5, Magnesium 1.9, Total Bilirubin 0.4, AST 33, ALT 41 D, Alkaline Phosphatase 46, NT-Pro-B Natriuret Pep 405 H, Total Protein 5.1 L, Albumin 2.6 L D, Globulin 2.5, Albumin/Globulin Ratio 1.0 L, Triglycerides 170 H, Cholesterol 158, LDL Cholesterol Direct 90.50 L, VLDL Cholesterol 34, HDL Cholesterol 36 L, Cholesterol/HDL Ratio 4.4 H 07/03/24 06:06: POC Glucose 107 07/03/24 10:10: Blood Type O Positive, Antibody Screen Negative, Crossmatch (AHG) See Detail 07/03/24 10:48: POC Glucose 170 H 07/03/24 16:08: Hgb 9.1 L D, Hct 28.9 L 07/03/24 16:42: POC Glucose 238 H 07/03/24 17:10: Potassium 4.1 D 07/03/24 19:59: POC Glucose 181 H I & O for Last 24 hours: Intake & Output 06/30/24 07/01/24 07/02/24 07/03/24 23:59 23:59 23:59 23:59 Intake Total 2030 / 2150 1440 / 1560 960 / 1660 1490 / 1490 Output Total 2500 / 3100 2150 / 2750 1850 / 2100 1999 / 1999 Balance -470 / -950 -710 / -1190 -890 / -440 -510 / -510 Weight 120.202 kg 119.249 kg 119.249 kg 120.429 kg Microbiology Reports for the Last 24 Hours: Microbiology 06/27/24 13:41 Foot,Right - Abscess Gram Stain - Final 06/27/24 13:41 Foot,Right - Abscess Wound Culture - Final Enterococcus faecalis Staphylococcus epidermidis Constitutional Constitutional: no acute distress *Routine HEENT Exam Head: Present normocephalic Eye: Present EOMI and PERRL ENT: Present mucous membranes moist *Routine Neck Exam Neck: Present supple; Absent lymphadenopathy *Routine Respiratory Exam Respiratory: Present CTA bilaterally *Routine Cardiovascular Exam Cardiovascular: Present RRR *Routine Abdominal Exam Abdominal: Present soft and normoactive bowel sounds; Absent tenderness *Routine Extremities Exam Extremities: Present edema; Absent cyanosis or clubbing Comments: Swollen pale lower extemities but warm. Wrapped in dressing and MODESTA bandage. *Routine Skin Exam Skin: Present warm; Absent rash *Routine Neurological Exam Neurological: Present alert and oriented X3 Assessment and Plan *Assessment and plan (1) Pressure ulcer of right ankle: Status: Resolved Qualifiers: Pressure injury stage: unspecified pressure injury stage Qualified Code(s): L89.519 - Pressure ulcer of right ankle, unspecified stage Category: Medical Code(s): L89.519 - Pressure ulcer of right ankle, unspecified stage (2) Immunosuppressed status: Status: Acute Category: Medical Code(s): D84.9 - Immunodeficiency, unspecified (3) Ankle osteomyelitis, right: Problem Comment: Status post below-knee amputation on 07/04/[address] Garcia Status: Resolved Qualifiers: Osteomyelitis type: other chronic Qualified Code(s): M86.671 - Other chronic osteomyelitis, right ankle and foot Category: Medical Code(s): M86.9 - Osteomyelitis, unspecified (4) Decubitus ulcer, stage III: Problem Comment: Pressure ulcer of right lateral malleolus Status: Resolved Qualifiers: Laterality: unspecified laterality Pressure injury location: buttock Qualified Code(s): L89.303 - Pressure ulcer of unspecified buttock, stage 3 Category: Medical Code(s): L89.93 - Pressure ulcer of unspecified site, stage 3 (5) Necrotizing cellulitis: Status: Resolved Category: Medical Code(s): L03.90 - Cellulitis, unspecified (6) Morbid obesity: Status: Acute Category: Medical Code(s): E66.01 - Morbid (severe) obesity due to excess calories Plan Violetta Corona is a 68-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 Previous necrotizing fasciitis of leg. Admitted for decubitus wound. Debridement performed by podiatry along with resection of distal portion of fibula. Bone and wound cu ltures positive. Has tibial osteomyelitis. Right ankle wound/decubitus wound Osteomyelitis of distal right Fibula - Bone cultures positive for E. faecalis, sensitive to Vanc and daptomycin. Pseudomonas from wound culture positive and sensitive to meropenem but resistant to Levaquin. - White count normal at 7.7, Kidney function normal with BUN 10, creatinine 0.8. Repeat CBC, CMP, magnesium ordered for the morning. - Continue broad-spectrum antibiotics. Daptomycin 1 g IV every 24 hours. Meropenem 1 g IV every 8 hours. - Maintain clean and dry dressing, elevate ankle. Nonweightbearing. - Daily dressing changes. Wound consulted to assist with management. PT and OT consulted to assist with mobility. - Will likely need PICC line placement prior to discharge pending antibiotic course depending on if surgery can achieve source control for osteomyelitis. - Orthopedics evaluated, planning for right BKA tomorrow after correction of hypokalemia and anemia. ? CTA lower extremities with runoff did not reveal occlusive PAD. - Decubitus wound being evaluated by wound care, currently has protective pad. #Hypokalemia ? Potassium 2.9, repleted with IV. Continuous telemetry. #Anemia ? Hemoglobin 7.9 today. Will give 1 unit PRBC to prep for surgery tomorrow. #Lower extremity edema - Pitting 3+, pale but warm. - Follow-up ECHO and BNP. Diabetes, new diagnosis -A1c elevated at 7.9. However, anemic Hgb 8.6 so A1c falsely low. - LDSSI, ACHS glucose checks. Immunocompromised [place]wey's disease: Hypothyroid - Continue hydrocortisone 20 mg nightly and 40 mg in the morning. Complicates her wound healing and immunocompromised state. - Monitor electrolytes daily, CBC, CMP, magnesium ordered for the morning. - Levothyroxine continued at 50 mcg daily, TSH normal. Mood disorder: Continue trazodone 50 mg 3 times a day, Cymbalta 60 mg nightly, Abilify 10 mg daily; continue Xanax 1 mg 3 times a day as needed., Monitor for toxicity. Chronic pain: Continue oxycodone 10 mg every 6 hours as needed for severe pain. Caution with concurrent benzo use Full code Regular diet
[2024-07-03] MEDS: TRAZODONE 50MG TABLET 50 MG PO (23:30)
[2024-07-04] VITALS (19 sets, daily range): BP systolic 103–152; BP diastolic 55–113; PULSE 85–106; RESP 16–18; TEMP 36.4–43; O2SAT 90–100; BMI 41.3
[2024-07-04] MEDS: OXYCODONE 5MG IMMEDIATE RELEASE TABLET 10 MG PO ×2 (01:08→22:06)
--- NOTE | 2024-07-04 03:17 | PC.NURSE ---
Pt resting in bed with eyes closed at this time. Respirations even and unlabored. Bed low, locked, and call light within reach. Pt on O2 at 3.5L NC. Pt has been NPO since 0000 for planned R BKA. Saline locked 20 RAC. Family member at bedside. No significant changes since initial shift biophysical.
[2024-07-04 06:15] LABS: POC Glucose,Bedside 128 (70-110)
[2024-07-04] MEDS: LEVOTHYROXINE 50MCG (0.05MG) TAB 50 MCG PO (06:28)
[2024-07-04] MEDS: ALPRAZolam 1MG TABLET 1 MG PO (06:28)
[2024-07-04] MEDS: TIOTROPIUM 18MCG/PUFF INHALER 1 CAP IH (06:34)
[2024-07-04 06:41] LABS: Alanine Aminotransferase 35 U/L (12-78); Alkaline Phosphatase 65 U/L (38-126); Anion Gap 9.3 mEq/L (5-15); Aspartate Amino Transferase 79 U/L (14-36); Bilirubin,Total 0.7 mg/dl (0.2-1.3); Blood Urea Nitrogen 11 mg/dl (7-17); Calcium 8.1 mg/dl (8.4-10.2); Carbon Dioxide 28 mmol/L (22.0-30.0); Chloride 103 mmol/L (98-107); Creatinine Clearance Estimated 47 mL/min (50-200); Estimated Glomerular Filt Rate 50 ml/min (>60); GFR (African American) 60 ML/MIN (>60); Glucose 123 mg/dl (74-100); Magnesium 2.3 mg/dl (1.6-2.3); Potassium 4.3 mmoL/L (3.5-5.1); Sodium 136 mmol/L (136-145); Total Protein,Serum 5.5 g/dl (6.3-8.2)
[2024-07-04] MEDS: MEROPENEM 1 GM in 0.9 % SODIUM CHLORIDE 100 ML IV ×2 (08:02→18:41)
[2024-07-04] MEDS: ARIPiprazole 10MG TABLET 10 MG PO (08:04)
[2024-07-04] MEDS: ONDANSETRON 4MG/2ML VIAL 4 MG IV (08:07)
--- NOTE | 2024-07-04 08:30 | EXP.PHA.PN ---
Subjective *Date: 07/04/24 *Time: 08:30 Medical Exam Vital signs and Labs for Last 24 Hours: Vital Signs Temp Pulse Pulse Resp BP BP Pulse Ox 07/04/24 08:00 07/04/24 07:46 97.7 F 89 17 107/60 L 100 07/04/24 06:34 92 L 07/04/24 06:17 07/04/24 05:00 07/04/24 04:00 97.6 F 89 16 132/82 98 07/04/24 03:00 07/04/24 01:00 07/04/24 00:00 98.1 F 95 H 16 115/56 L 96 07/03/24 23:00 07/03/24 21:00 07/03/24 20:00 07/03/24 20:00 97.9 F 97 H 14 129/72 93 L 07/03/24 18:18 07/03/24 17:00 07/03/24 16:00 97.7 F 94 H 17 110/62 96 07/03/24 15:01 97.8 F 99 H 20 105/68 L 94 L 07/03/24 15:00 07/03/24 14:01 97.9 F 104 H 16 111/51 L 93 L 07/03/24 13:35 97.8 F 96 H 18 102/69 L 92 L 07/03/24 13:00 07/03/24 12:35 98.0 F 96 H 16 104/49 L 95 07/03/24 12:20 98.1 F 114 H 18 116/55 L 95 07/03/24 12:05 97.9 F 112 H 18 112/57 L 96 07/03/24 11:50 98.9 F 93 H 20 116/71 93 L 07/03/24 11:45 98.9 F 89 18 116/62 94 L 07/03/24 11:40 97.6 F 93 H 16 122/61 96 07/03/24 11:35 97.8 F 95 H 16 126/56 L 96 07/03/24 11:20 97.9 F 95 H 18 137/84 96 07/03/24 11:00 07/03/24 09:00 97.9 F 97 H 14 129/72 93 L 07/03/24 09:00 O2 Del Method O2 Flow Rate 07/04/24 08:00 Nasal Cannula 3.5 07/04/24 07:46 Nasal Cannula 07/04/24 06:34 Nasal Cannula 3.5 07/04/24 06:17 Nasal Cannula 3.5 07/04/24 05:00 Nasal Cannula 3.5 07/04/24 04:00 Nasal Cannula 3.5 07/04/24 03:00 Nasal Cannula 3.5 07/04/24 01:00 Nasal Cannula 3.5 07/04/24 00:00 Nasal Cannula 3.5 07/03/24 23:00 Nasal Cannula 3.5 07/03/24 21:00 Nasal Cannula 3.5 07/03/24 20:00 Nasal Cannula 3.5 07/03/24 20:00 Nasal Cannula 3.5 07/03/24 18:18 Nasal Cannula 3.5 07/03/24 17:00 Nasal Cannula 07/03/24 16:00 Nasal Cannula 07/03/24 15:01 07/03/24 15:00 Nasal Cannula 07/03/24 14:01 07/03/24 13:35 07/03/24 13:00 Nasal Cannula 07/03/24 12:35 07/03/24 12:20 07/03/24 12:05 07/03/24 11:50 07/03/24 11:45 07/03/24 11:40 07/03/24 11:35 07/03/24 11:20 07/03/24 11:00 Nasal Cannula 07/03/24 09:00 Room Air 07/03/24 09:00 Nasal Cannula Intake and Output 07/03/24 07/04/24 07/04/24 23:59 07:59 15:59 Intake Total 270 / 1590 100 / 200 100 / 200 Output Total 800 / 2300 300 / 300 Balance -530 / -710 -200 / -100 100 / -100 Intake: Intake, Oral Amount 270 / 1240 Intake, Total IV Amount 100 / 200 100 / 200 Meropenem 1 gm In 0.9 % Sodium 100 / 200 100 / 200 Chloride 100 ml @ 100 mls/hr IV Q8H [facility] Rx#:[id number] Output: Output, Urine Amount 800 / 2300 300 / 300 Other: Number of Unmeasured Voids 1 0 Weight 119.465 kg Patient Weight 07/04/24 23:59 Weight 119.465 kg Laboratory Results - last 24 hr 07/03/24 05:41: Magnesium 1.9, Triglycerides 170 H, Cholesterol 158, LDL Cholesterol Direct 90.50 L, VLDL Cholesterol 34, HDL Cholesterol 36 L, Cholesterol/HDL Ratio 4.4 H 07/03/24 10:10: Blood Type O Positive, Antibody Screen Negative, Crossmatch (AHG) See Detail 07/03/24 10:48: POC Glucose 170 H 07/03/24 16:08: Hgb 9.1 L D, Hct 28.9 L 07/03/24 16:42: POC Glucose 238 H 07/03/24 17:10: Potassium 4.1 D 07/03/24 19:59: POC Glucose 181 H 07/04/24 05:40: Sodium 136, Potassium 4.3, Chloride 103, Carbon Dioxide 28, Anion Gap 9.3, BUN 11, Creatinine 1.10 H, Estimated Creat Clear 47, Estimated GFR 50 L, Est GFR ( Amer) 60, Glucose 123 H D, Calcium 8.1 L, Magnesium 2.3 D, Total Bilirubin 0.7, AST 79 H D, ALT 35, Alkaline Phosphatase 65, Total Protein 5.5 L 07/04/24 06:05: POC Glucose 128 H I & O for Labs for Last 24 Hours: Intake & Output 07/01/24 07/02/24 07/03/24 07/04/24 23:59 23:59 23:59 23:59 Intake Total 1440 / 1560 960 / 1660 1490 / 1590 200 / 200 Output Total 2150 / 2750 1850 / 2100 2000 / 2300 300 / 300 Balance -710 / -1190 -890 / -440 -510 / -710 -100 / -100 Weight 119.249 kg 119.249 kg 120.429 kg 119.465 kg Microbiology Reports for the Last 24 Hours: Microbiology 06/27/24 13:41 Foot,Right - Abscess Gram Stain - Final 06/27/24 13:41 Foot,Right - Abscess Wound Culture - Final Enterococcus faecalis Staphylococcus epidermidis The patient's infection will respond to the chosen ABx?: Yes (R FOOT CX=PSEUDOMONAS, BONE CX=E FAECALIS, SENSITIVE. AFEBRILE OVER 24HR ) Is the patient receiving the right drug, dose, and route?: Yes Could a more targeted ABx be ordered?: No
[2024-07-04 08:42] LABS: Basophils % 0.4 % (0.1-2.0); Eosinophils # 0.1 K/mm3 (0.0-0.4); Eosinophils % 1.8 % (0.1-12.0); Hematocrit 33.2 % (37.0-47.0); Lymphocytes # 1.2 K/mm3 (0.7-4.5); Lymphocytes % 25.2 % (10-50); Mean Corpuscular HGB Conc 31.6 g/dL (31.8-35.4); Mean Corpuscular Hemoglobin 30.8 pg (27.0-31.2); Mean Corpuscular Volume 97.4 fl (81-99); Mean Platelet Volume 10.1 fl (7.4-10.4); Monocytes # 0.4 K/mm3 (0.1-1.0); Monocytes % 7.7 % (1.7-9.3); Neutrophils # 3.1 K/mm3 (1.8-7.8); Neutrophils % 63.5 % (37.0-80.0); Platelet Count 210 K/mm3 (142-424); Red Blood Count 3.41 M/mm3 (4.20-5.40); Red Cell Distribution Width 14.4 % (11.5-17.5); White Blood Count 4.9 K/mm3 (4.8-10.8)
[2024-07-04 08:51] LABS: Albumin/Globulin Ratio 1.2 (1.1-1.8); Globulin 2.5 g/dL (1.3-3.2)
[2024-07-04 09:03] LABS: Hemoglobin 9.7 g/dL (12.2-16.2)
[2024-07-04 10:14] LABS: POC Glucose,Bedside 119 (70-110)
[2024-07-04] MEDS: CLINDAMYCIN PHOSPHATE/D5W 900 MG/50 ML PIGGYBACK 50 MG (13:30)
--- NOTE | 2024-07-04 14:08 | EXP.ANES.CKL ---
[facility] Disclaimer: The information contained in this section may have been updated after the patient was seen, as this information can be updated by other users. Medical History Post-hysterectomy menopause Thyroid disease Hypokalemia Depression Anxiety COPD (chronic obstructive pulmonary disease) Necrotizing cellulitis Addisons disease Necrotizing fasciitis of ankle and foot Pressure ulcer of left buttock, stage 2 Open ankle wound Non-healing non-surgical wound Family History Other Diabetes Family history of COPD (chronic obstructive pulmonary disease) Heart attack Social History Smoking Status: Former smoker tobacco type: cigarettes packs per day: 2 alcohol intake: never substance use type: denies use current occupational status: disabled Travel in the last 8 weeks: None household members: spouse housing: house caffeine: No Have you lived/traveled outside [place] in past 30 days?: No Contact w/someone who lives/traveled outside US past 30 days?: No Exposure to someone with infectious disease in past 14 days?: No Do you have a fever (greater than 100.4 F or 38 C)?: No Have you tested positive for COVID-19: No Exposed to someone with COVID-19 in past 14 days?: No Do you have a sore throat?: No Do you have a cough?: No Do you have any weakness?: No Do you have any diarrhea?: No Are you experiencing any unusual bleeding?: No Do you have any muscle aches/pain?: No Do you have any abdominal pain?: No Are you experiencing loss of taste or smell?: No [facility] Anesthesia Checklist Patient Identification Patient Identification: Arm Band Structural Data Admitted From: Inpatient Planned Operative Procedure/s: Right Below the Knee Amputation Consent for Planned Operative Procedure(s) Verified: Yes Verified Documents: Surgical Consent and History and Physical NPO Status Verified Time NPO: 00:00 Additional verifications Anesthesia Reactions: No Airway Assessment Mallampati Score:: Class II C-Spine Mobility Assessed: Yes TMJ Mobility Assessed: Yes Dentition: Edentulous Neurological Assessment Level of Consciousness: Awake, Alert and Appropriate Anesthesia Plan Anesthesia Risk discussed: Yes Anesthesia Plan: Verified ASA Class: III Anesthesia Type: General w/block (Right Sciatic/Femoral Nerve Block. Risks/benefits explained. Pt verbalized understanding)
--- NOTE | 2024-07-04 14:56 | PC.NURSE ---
Pt. off floor in surgery for a R BKA, aox 4, turn every two hours, 02-3.5L nc, fsbg achs, 20g r ac sl, PT and OT consulted, purewick in place, bed alarm active.
--- NOTE | 2024-07-04 16:52 | EXP.OP.NOTE ---
Date of procedure: 07/04/24 Pre-op Diagnosis:: Osteomyelitis right ankle open wound right ankle Post-op Diagnosis:: Today Procedure performed:: Right below the knee amputation Surgeon:: Nilo Garcia DO [place] Administrator(s):: Oscar PATTERSON OIL DEVELOPER:: Ky Hughes Anesthesia: GETA and regional Estimated blood loss (mL): 150 Operative findings:: Clean margins healthy appearing flap and skin above the level of the foot Operative note:: Patient identified preoperatively. Right lower extremity marked with yes my initials. Transferred to operative suite after undergoing a block with anesthesia. Then taken the operating room placed upon operating bed. General anesthesia was administered airway secured. Right lower extremity was prepped and draped in normal sterile fashion with Betadine draped. Once prepped and draped final operative timeout performed to identify proper patient procedure and extremity. Everyone involved the case agreed. There is no counter indications to beginning. Did receive preoperative antibiotics with clindamycin. Marking pen was used to ashley the long posterior flap amputation skin incision with the amputation site measured at 10 cm distal to the tibial tubercle. Esmarch was not used to exsanguinate the extremity but pneumatic tourniquet inflated to 300 mmHg. Skin knife was used incise through skin anteriorly. Dissection was taken down in layers through the anterior compartment of the lower extremity. The large vessels were identified and the anterior compartment clamped stick tied followed by hand tied proximally and tied distally and ligated. This was repeated around the lateral aspect with all vessels clamped stick tied followed by hand tied proximally and hand tied distally. Dissection was taken down the anterior compartment then to identify the tibia and fibula Hohmann retractors were placed under the tibia Nicolas was utilized for osteotomy of the tibia. Attention was then brought to the fibula which also cut with a precision saw above the level of the amputation of the tibia. Then amputation knife was utilized to remove soft tissue's off the back surface of the tibia and fibula to allow for a long posterior flap. The posterior flap was adequate for coverage after the amputation was performed irrigation was performed and then the tibial vessels and nerves were identified vessels were clamped and tied stick tied proximally and tied distally and ligated the nerve was placed on stretch and cut and allowed to retract. The tourniquet at that time then was deflated and hemostasis was obtained with hemostats and ties of larger vessels and electrocautery for smaller vessels tourniquet remained deflated while meticulous hemostasis was obtained. Tourniquet was then reinflated and closure began. Irrigation with the Pulsavac was then performed the myodesis was performed with bringing the Achilles flap anteriorly into the tibial periosteum this gave good coverage over the osteotomized bones. Then debulking of the graft was performed this was difficult on the lateral side given the significant scarring that she had from the previous 12 surgeries. Meticulous care was taken to form layers and debulk so that good closure of the skin was performed this was closed on the lateral to medial side. Deep layers closed with 0 Vicryl subcutaneous with 2-0 Vicryl surgical clips in the skin sterile dressing placed patient will be awakened from anesthesia taken recovery in stable condition be placed in a knee immobilizer in recovery room. Condition: stable Disposition: PACU Complications:: None apparent
[2024-07-04] MEDS: DAPTOmycin 1,000 MG in 0.9 % SODIUM CHLORIDE 50 ML 100 MG IV (17:51)
[2024-07-04 18:20] LABS: POC Glucose,Bedside 173 (70-110)
--- NOTE | 2024-07-04 18:26 | PC.NURSE ---
Right BKA robb bandage c/d/i.
--- NOTE | 2024-07-04 21:10 | P.PN_ITS ---
Subjective *Date: 07/04/24 *Time: 21:10 Interval history: Patient tolerated BKA right BKA well today. Exam Data for Last 24 hours Vital signs and Labs for Last 24 Hours: Temp Pulse Resp BP Pulse Ox O2 Del Method O2 Flow Rate 97.9 F 98 H 16 141/68 H 96 Nasal Cannula 3.5 07/04/24 18:40 07/04/24 18:40 07/04/24 18:40 07/04/24 18:40 07/04/24 18:40 07/04/24 18:40 07/04/24 18:40 Laboratory Results - last 24 hr 07/04/24 05:40: Sodium 136, Potassium 4.3, Chloride 103, Carbon Dioxide 28, Anion Gap 9.3, BUN 11, Creatinine 1.10 H, Estimated Creat Clear 47, Estimated GFR 50 L, Est GFR ( Amer) 60, Glucose 123 H D, Calcium 8.1 L, Magnesium 2.3 D, Total Bilirubin 0.7, AST 79 H D, ALT 35, Alkaline Phosphatase 65, Total Protein 5.5 L, Albumin 3.0 L D, Globulin 2.5, Albumin/Globulin Ratio 1.2 07/04/24 06:05: POC Glucose 128 H 07/04/24 08:20: WBC 4.9 D, RBC 3.41 L D, Hgb 9.7 L, Hct 33.2 L, MCV 97.4, MCH 30.8, MCHC 31.6 L, RDW 14.4, Plt Count 210, MPV 10.1, Neut % (Auto) 63.5, Lymph % (Auto) 25.2, [place] % (Auto) 7.7, Eos % (Auto) 1.8, Baso % (Auto) 0.4, Neut # (Auto) 3.1, Lymph # (Auto) 1.2, [place] # (Auto) 0.4, Eos # (Auto) 0.1, Baso # (Auto) 0.0 07/04/24 10:07: POC Glucose 119 H 07/04/24 18:13: POC Glucose 173 H I & O for Last 24 hours: Intake & Output 07/01/24 07/02/24 07/03/24 07/04/24 23:59 23:59 23:59 23:59 Intake Total 1440 / 1560 960 / 1660 1490 / 1590 350 / 350 Output Total 2150 / 2750 1850 / 2100 2000 / 2300 300 / 300 Balance -710 / -1190 -890 / -440 -510 / -710 50 / 50 Weight 119.249 kg 119.249 kg 120.429 kg 119.465 kg Assessment and Plan *Assessment and plan (1) Pressure ulcer of right ankle: Status: Acute Qualifiers: Pressure injury stage: unspecified pressure injury stage Qualified Code(s): L89.519 - Pressure ulcer of right ankle, unspecified stage Category: Medical Code(s): L89.519 - Pressure ulcer of right ankle, unspecified stage (2) Immunosuppressed status: Status: Acute Category: Medical Code(s): D84.9 - Immunodeficiency, unspecified (3) Ankle osteomyelitis, right: Status: Acute Qualifiers: Osteomyelitis type: other chronic Qualified Code(s): M86.671 - Other chronic osteomyelitis, right ankle and foot Category: Medical Code(s): M86.9 - Osteomyelitis, unspecified (4) Decubitus ulcer, stage III: Problem Comment: Pressure ulcer of right lateral malleolus Status: Acute Qualifiers: Pressure injury location: buttock Laterality: unspecified laterality Qualified Code(s): L89.303 - Pressure ulcer of unspecified buttock, stage 3 Category: Medical Code(s): L89.93 - Pressure ulcer of unspecified site, stage 3 (5) Acquired right foot drop: Problem Comment: Subsequent to necrotizing fasciitis and multiple surgeries removing muscles and tendons of the right lower extremity. Status: Chronic Category: Medical Code(s): M21.371 - Foot drop, right foot (6) Necrotizing cellulitis: Status: Resolved Category: Medical Code(s): L03.90 - Cellulitis, unspecified (7) Weakness generalized: Status: Acute Category: Medical Code(s): R53.1 - Weakness (8) Incontinence in female: Status: Acute Category: Medical Code(s): R32 - Unspecified urinary incontinence (9) Elevated blood sugar level: Status: Acute Category: Medical Code(s): R73.9 - Hyperglycemia, unspecified (10) Morbid obesity: Status: Acute Category: Medical Code(s): E66.01 - Morbid (severe) obesity due to excess calories Plan Violetta 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 Previous necrotizing fasciitis of leg. Admitted for decubitus wound. Debridement performed by podiatry along with resection of distal portion of fibula. Bone and wound cultures positive. Has tibial osteomyelitis. Right ankle wound/decubitus wound Osteomyelitis of distal right Fibula - Bone cultures positive for E. faecalis, sensitive to Vanc and daptomycin. Pseudomonas from wound culture positive and sensitive to meropenem but resistant to Levaquin. - White count normal at 7.7, Kidney function normal with BUN 10, creatinine 0.8. Repeat CBC, CMP, magnesium ordered for the morning. - Continue broad-spectrum antibiotics. Daptomycin 1 g IV every 24 hours. Meropenem 1 g IV every 8 hours. - Maintain clean and dry dressing, elevate ankle. Nonweightbearing. - Daily dressing changes. Wound consulted to assist with management. PT and OT consulted to assist with mobility. - Will likely need PICC line placement prior to discharge pending antibiotic course. - Orthopedics evaluated, will obtain CTA lower extremities with runoff for definitive arterial study and surgical planning. - Decubitus wound being evaluated by wound care, currently has protective pad. ? S/p BKA today, patient tolerated procedure well. #Lower extremity edema - Pitting 3+, pale but warm. - Follow-up ECHO and BNP. Diabetes, new diagnosis -A1c elevated at 7.9. However, anemic Hgb 8.6 so A1c falsely low. - LDSSI, ACHS glucose checks. Immunocompromised [place]'s disease: Hypothyroid - Continue hydrocortisone 20 mg nightly and 40 mg in the morning. Complicates her wound healing and immunocompromised state. - Monitor electrolytes daily, CBC, CMP, magnesium ordered for the morning. - Levothyroxine continued at 50 mcg daily, TSH normal. Mood disorder: Continue trazodone 50 mg 3 times a day, Cymbalta 60 mg nightly, Abilify 10 mg daily; continue Xanax 1 mg 3 times a day as needed., Monitor for toxicity. Chronic pain: Continue oxycodone 10 mg every 6 hours as needed for severe pain. Caution with concurrent benzo use Full code Regular diet
[2024-07-04 21:22] LABS: POC Glucose,Bedside 189 (70-110)
[2024-07-04] MEDS: CLINDAMYCIN PHOSPHATE/D5W 900 MG/50 ML PIGGYBACK 100 MG IV (21:27)
[2024-07-04] MEDS: ATORVASTATIN 40MG TABLET 80 MG PO (21:28)
[2024-07-04] MEDS: SENNOSIDES 8.6MG/DOCUSATE 50MG TABLET 1 TAB PO (21:28)
[2024-07-04] MEDS: MONTELUKAST SODIUM 10MG TAB 10 MG PO (21:28)
[2024-07-04] MEDS: DULOXETINE 30MG CAPSULE.DR 60 MG PO (21:28)
[2024-07-04] MEDS: PANTOPRAZOLE 40MG TABLET 40 MG PO (21:28)
[2024-07-04] MEDS: humaLOG 100 UNITS/ML 10ML VIAL (SSI) SUBCUT (21:29)
[2024-07-05] MEDS: MEROPENEM 1 GM in 0.9 % SODIUM CHLORIDE 100 ML IV ×2 (00:24→07:58)
[2024-07-05] MEDS: ALPRAZolam 1MG TABLET 1 MG PO ×2 (03:06→12:57)
[2024-07-05 04:00] VITALS: BMI 41.8
--- NOTE | 2024-07-05 04:22 | PC.NURSE ---
Pt post op R BKA. Alert and oriented, pleasant. Post op vitals stable. Respirations even and unlabored. 20g RAC. NC 3.5L (baseline). Bed is low, locked, and call light is within reach.
[2024-07-05] MEDS: LEVOTHYROXINE 50MCG (0.05MG) TAB 50 MCG PO (05:48)
[2024-07-05 06:02] LABS: POC Glucose,Bedside 118 (70-110)
[2024-07-05] MEDS: TIOTROPIUM 18MCG/PUFF INHALER 1 CAP IH (06:39)
[2024-07-05 07:12] LABS: Basophils % 0.3 % (0.1-2.0); Eosinophils % 0.2 % (0.1-12.0); Hematocrit 28.2 % (37.0-47.0); Lymphocytes # 1.5 K/mm3 (0.7-4.5); Lymphocytes % 16.7 % (10-50); Mean Corpuscular HGB Conc 30.9 g/dL (31.8-35.4); Mean Corpuscular Hemoglobin 30.5 pg (27.0-31.2); Mean Corpuscular Volume 98.9 fl (81-99); Mean Platelet Volume 9.7 fl (7.4-10.4); Monocytes # 0.8 K/mm3 (0.1-1.0); Neutrophils # 6.8 K/mm3 (1.8-7.8); Platelet Count 253 K/mm3 (142-424); Red Blood Count 2.85 M/mm3 (4.20-5.40); Red Cell Distribution Width 13.9 % (11.5-17.5); White Blood Count 9.2 K/mm3 (4.8-10.8)
[2024-07-05 07:29] LABS: Alanine Aminotransferase 39 U/L (12-78); Albumin Level 2.9 g/dl (3.5-5.0); Albumin/Globulin Ratio 1.2 (1.1-1.8); Alkaline Phosphatase 53 U/L (38-126); Anion Gap 5.9 mEq/L (5-15); Aspartate Amino Transferase 42 U/L (14-36); Bilirubin,Total 0.3 mg/dl (0.2-1.3); Blood Urea Nitrogen 11 mg/dl (7-17); Calcium 8.2 mg/dl (8.4-10.2); Carbon Dioxide 39 mmol/L (22.0-30.0); Chloride 97 mmol/L (98-107); Creatinine Clearance Estimated 47 mL/min (50-200); Estimated Glomerular Filt Rate 50 ml/min (>60); GFR (African American) 60 ML/MIN (>60); Globulin 2.5 g/dL (1.3-3.2); Glucose 109 mg/dl (74-100); Potassium 3.9 mmoL/L (3.5-5.1); Sodium 138 mmol/L (136-145); Total Protein,Serum 5.4 g/dl (6.3-8.2)
[2024-07-05] MEDS: POLYETHYLENE GLYCOL 3350 17 GM PACKET PO (07:57)
[2024-07-05] MEDS: ARIPiprazole 10MG TABLET 10 MG PO (07:58)
[2024-07-05] MEDS: ENOXAPARIN 40MG/0.4ML SYRINGE 40 MG SUBCUT (07:58)
[2024-07-05] MEDS: SENNOSIDES 8.6MG/DOCUSATE 50MG TABLET 1 TAB PO (07:58)
[2024-07-05] MEDS: MORPHINE 2MG/ML SYRINGE 2 MG IV (07:58)
[2024-07-05 08:00] VITALS: BP 111/67; PULSE 118; RESP 15; TEMP 36.7; O2SAT 97
--- NOTE | 2024-07-05 08:16 | EXP.ANES.II ---
[facility] Anesthesia Record Part II Anesthesia Record Part II Discharge Time: 17:40 Destination: Medical Surgical Department PACU nurse assessment reviewed?: Yes Patient Condition:: Good Anesthesia Complications:: None Swallowing reflex intact?: Yes Airway Patency: Patent Cyanosis?: No Blood Pressure: 152/83 SaO2: 100 Respiratory Rate: 18 Pulse Rate: 94 Temperature: 98.3 F Mental Status: Alert & Oriented Pain level:: 0 Nausea and/or vomitting:: None Intake, IV Amount: 0 Hydration: Adequate
[2024-07-05 08:17] VITALS: BP 152/83; PULSE 94; RESP 18; TEMP 36.8; O2SAT 100
[2024-07-05 09:08] LABS: Hemoglobin 8.7 g/dL (12.2-16.2)
--- NOTE | 2024-07-05 09:58 | EXP.ORTH.PN ---
Subjective *Date: 07/05/24 *Time: 09:58 Interval history: Patient seen lying in bed comfortably. She states that pain is significant, and makes the differentiation that it is pain at the incision because she is also having some phantom pain and states that her ankle hurts . She denies any headache, dizziness, chest pain, shortness of breath, nausea or vomiting. Her knee immobilizer was removed during the night, and they are waiting for a new one to arrive. Ortho Exam (Inpt) Vital signs and Labs for Last 24 Hours: Temp Pulse Resp BP Pulse Ox O2 Del Method O2 Flow Rate 98.1 F 118 H 18 111/67 97 Nasal Cannula 3.5 07/05/24 08:00 07/05/24 08:00 07/05/24 08:17 07/05/24 08:00 07/05/24 08:00 07/05/24 08:11 07/05/24 08:11 Laboratory Results - last 24 hr 07/04/24 10:07: POC Glucose 119 H 07/04/24 18:13: POC Glucose 173 H 07/04/24 21:15: POC Glucose 189 H 07/05/24 05:46: POC Glucose 118 H 07/05/24 06:55: WBC 9.2 D, RBC 2.85 L, Hgb 8.7 L D, Hct 28.2 L, MCV 98.9, MCH 30.5, MCHC 30.9 L, RDW 13.9, Plt Count 253, MPV 9.7, Neut % (Auto) 73.0, Lymph % (Auto) 16.7, [place] % (Auto) 9.0, Eos % (Auto) 0.2, Baso % (Auto) 0.3, Neut # (Auto) 6.8, Lymph # (Auto) 1.5, [place] # (Auto) 0.8, Eos # (Auto) 0.0, Baso # (Auto) 0.0, Sodium 138, Potassium 3.9, Chloride 97 L, Carbon Dioxide 39 H, Anion Gap 5.9, BUN 11, Creatinine 1.10 H, Estimated Creat Clear 47, Estimated GFR 50 L, Est GFR ( Amer) 60, Glucose 109 H, Calcium 8.2 L, Magnesium 2.0 D, Total Bilirubin 0.3, AST 42 H D, ALT 39, Alkaline Phosphatase 53, Total Protein 5.4 L, Albumin 2.9 L, Globulin 2.5, Albumin/Globulin Ratio 1.2 I & O for Labs for Last 24 Hours: Intake & Output 07/02/24 07/03/24 07/04/24 07/05/24 23:59 23:59 23:59 23:59 Intake Total 960 / 1660 1490 / 1590 350 / 350 0 / 0 Output Total 1850 / 2100 2000 / 2300 300 / 525 225 / 225 Balance -890 / -440 -510 / -710 50 / -175 -225 / -225 Weight 119.249 kg 120.429 kg 119.465 kg 120.854 kg Comment:: Right lower extremity: Song wrap clean dry and intact, no sign of drainage. Pillows placed under stump to patient tolerance, to encourage knee extension. Cap refill acceptable above level of Song wrap, motion intact at knee. Sensation intact at distal stump. Assessment and Plan *Assessment and plan (1) Ankle osteomyelitis, right: Problem Comment: Status post below-knee amputation on 07/04/[address] Garcia Status: Acute Qualifiers: Osteomyelitis type: other chronic Qualified Code(s): M86.671 - Other chronic osteomyelitis, right ankle and foot Category: Medical Code(s): M86.9 - Osteomyelitis, unspecified Plan Non-weightbearing to right lower extremity. Ambulate with devices as needed. DVT ppx: Lovenox 40 mg twice daily, continue DVT ppx for total of 28 days. Ice as needed swelling and pain at incision site. Pain medication as needed. Hgb/Hct: 8.7/28.2 Continue antibiotics per medical team: Currently daptomycin and meropenem. Discharge planning per PT recommendations. F/u 07/18/24 for post-op wound check in clinic.
[2024-07-05] MEDS: humaLOG 100 UNITS/ML 10ML VIAL (SSI) SUBCUT (10:36)
[2024-07-05 10:42] LABS: POC Glucose,Bedside 162 (70-110)
[2024-07-05] MEDS: OXYCODONE 5MG IMMEDIATE RELEASE TABLET 10 MG PO (12:56)
--- NOTE | 2024-07-05 14:00 | EXP.DC.SUM ---
General Admission date:: 06/26/24 HPI HPI HPI: 68-year-old female whose hospital course is outlined below I had a very long history in regards to right lower extremity wound dating back at least to 2020. She had had significant surgery debridements which essentially rendered her right lower extremity unable to bear weight and walk the extreme nature of the necrotizing fasciitis back in 2020 resulted in significant surgery she had secondary wound healing of a wound that went away from her ankle to just below her knee on the lateral aspect of the outside. She was able to get this to heal remarkably but now pressure ulcer on the heel and this recent hospitalization resulted in surgical intervention distal fibula excision bone biopsy concern for osteomyelitis in the distal tibia Ortho consulted in regards to the possibility of below-knee amputation. Patient has been through extensive treatment for the right lower extremity and again she is completely immobile in regards to weightbearing on the right lower extremity she uses a motorized wheelchair for getting around. Most recent surgical intervention with irrigation and sharp debridement noted. Patient came the emergency room for evaluation of right lateral malleolus wound. 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 The patient will be admitted to the floor. With a consult to podiatry 06/27/24: Podiatry consult Patient resting in bed upon entering the room this morning reports some mild pain and discomfort to right lateral ankle, dressing clean dry and intact. Patient was last seen by podiatry in 2021 on a Podiatry consult regarding the same Right ankle ulcer. Patient was made NPO this morning by Podiatry for consult. 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 Right ankle wound/decubitus wound Osteomyelitis of distal right Fibula - Osteomyelitis initially treated with IV antibiotics including daptomycin and meropenem. Then source control was achieved as below so no need for prolonged antibiotics. - Podiatry consulted, performed debridement of wound. ? Orthopedic surgery consulted, s/p right BKA. Patient tolerated procedure well. Recommended nonweightbearing to right lower extremity, ambulate with devices as needed. Aspirin 81 mg twice daily for total of 28 days starting today. ? Arterial studies showed some PAD but no significant occlusions. ? Discharged with clindamycin for 7 more days. ? Will follow-up with orthopedic surgery within 3 weeks. - Decubitus wound being evaluated by wound care, currently has protective pad. #HFpEF #Lower extremity edema ? Continue Lasix 80 mg daily. #Type 2 diabetes - A1c elevated at 7.9. However, anemic Hgb 7.6, but stable, so A1c falsely low. ? Started metformin 500 mg, Jardiance 10 mg. Follow-up response, side effects. ? Consider insulin and/or sliding scale insulin as needed. Immunocompromised Medardo's disease: Hypothyroid - Continue hydrocortisone 20 mg nightly and 40 mg in the morning. Complicates her wound healing and immunocompromised state. - Levothyroxine continued at 50 mcg daily, TSH normal. Mood disorder: Continue trazodone 50 mg 3 times a day, Cymbalta 60 mg nightly, Abilify 10 mg daily; continue Xanax 1 mg 3 times a day as needed. Chronic pain: Continue oxycodone 10 mg every 6 hours as needed for severe pain. Caution with concurrent benzo use Total time spent on discharge: 32 minutes on chart review, counseling, documentation, and direct care with patient. Exam Data for Last 24 hours Vital signs and Labs for Last 24 Hours: Temp Pulse Resp BP Pulse Ox O2 Del Method O2 Flow Rate 98.1 F 118 H 18 111/67 97 Nasal Cannula 3.5 07/05/24 08:00 07/05/24 08:00 07/05/24 08:17 07/05/24 08:00 07/05/24 08:00 07/05/24 13:22 07/05/24 13:22 Laboratory Results - last 24 hr 07/04/24 18:13: POC Glucose 173 H 07/04/24 21:15: POC Glucose 189 H 07/05/24 05:46: POC Glucose 118 H 07/05/24 06:55: WBC 9.2 D, RBC 2.85 L, Hgb 8.7 L D, Hct 28.2 L, MCV 98.9, MCH 30.5, MCHC 30.9 L, RDW 13.9, Plt Count 253, MPV 9.7, Neut % (Auto) 73.0, Lymph % (Auto) 16.7, [place] % (Auto) 9.0, Eos % (Auto) 0.2, Baso % (Auto) 0.3, Neut # (Auto) 6.8, Lymph # (Auto) 1.5, [place] # (Auto) 0.8, Eos # (Auto) 0.0, Baso # (Auto) 0.0, Sodium 138, Potassium 3.9, Chloride 97 L, Carbon Dioxide 39 H, Anion Gap 5.9, BUN 11, Creatinine 1.10 H, Estimated Creat Clear 47, Estimated GFR 50 L, Est GFR ( Amer) 60, Glucose 109 H, Calcium 8.2 L, Magnesium 2.0 D, Total Bilirubin 0.3, AST 42 H D, ALT 39, Alkaline Phosphatase 53, Total Protein 5.4 L, Albumin 2.9 L, Globulin 2.5, Albumin/Globulin Ratio 1.2 07/05/24 10:24: POC Glucose 162 H I & O for Last 24 hours: Intake & Output 07/02/24 07/03/24 07/04/24 07/05/24 23:59 23:59 23:59 23:59 Intake Total 960 / 1660 1490 / 1590 350 / 350 480 / 480 Output Total 1850 / 2100 2000 / 2300 300 / 525 1025 / 1025 Balance -890 / -440 -510 / -710 50 / -175 -545 / -545 Weight 119.249 kg 120.429 kg 119.465 kg 120.854 kg Constitutional Constitutional: no acute distress *Routine HEENT Exam Head: Present normocephalic Eye: Present EOMI and PERRL ENT: Present mucous membranes moist *Routine Neck Exam Neck: Present supple; Absent lymphadenopathy *Routine Respiratory Exam Respiratory: Present CTA bilaterally *Routine Cardiovascular Exam Cardiovascular: Present RRR *Routine Abdominal Exam Abdominal: Present soft and normoactive bowel sounds; Absent tenderness *Routine Extremities Exam Extremities: Present edema; Absent cyanosis or clubbing Comments: S/p right BKA dressed and wrapped. *Routine Skin Exam Skin: Present warm; Absent rash *Routine Neurological Exam Neurological: Present alert and oriented X3 Results Data Completed and Pending Labs on day of discharge: Labs from last 24 hours 07/05/24 07/05/24 07/05/24 10:24 06:55 05:46 WBC 9.2 D RBC 2.85 L Hgb 8.7 L D Hct 28.2 L MCV 98.9 MCH 30.5 MCHC 30.9 L RDW 13.9 Plt Count 253 MPV 9.7 Neut % (Auto) 73.0 Lymph % (Auto) 16.7 [place] % (Auto) 9.0 Eos % (Auto) 0.2 Baso % (Auto) 0.3 Neut # (Auto) 6.8 Lymph # (Auto) 1.5 [place] # (Auto) 0.8 Eos # (Auto) 0.0 Baso # (Auto) 0.0 Sodium 138 Potassium 3.9 Chloride 97 L Carbon Dioxide 39 H Anion Gap 5.9 BUN 11 Creatinine 1.10 H Estimated Creat Clear 47 Estimated GFR 50 L Est GFR ( Amer) 60 Glucose 109 H POC Glucose 162 H 118 H Calcium 8.2 L Magnesium 2.0 D Total Bilirubin 0.3 AST 42 H D ALT 39 Alkaline Phosphatase 53 Total Protein 5.4 L Albumin 2.9 L Globulin 2.5 Albumin/Globulin Ratio 1.2 07/04/24 07/04/24 21:15 18:13 WBC RBC Hgb Hct MCV MCH MCHC RDW Plt Count MPV Neut % (Auto) Lymph % (Auto) [place] % (Auto) Eos % (Auto) Baso % (Auto) Neut # (Auto) Lymph # (Auto) [place] # (Auto) Eos # (Auto) Baso # (Auto) Sodium Potassium Chloride Carbon Dioxide Anion Gap BUN Creatinine Estimated Creat Clear Estimated GFR Est GFR ( Amer) Glucose POC Glucose 189 H 173 H Calcium Magnesium Total Bilirubin AST ALT Alkaline Phosphatase Total Protein Albumin Globulin Albumin/Globulin Ratio DS: Diagnosis Discharge Diagnosis (1) Ankle osteomyelitis, right: Status: Acute Code(s): M86.9 - Osteomyelitis, unspecified Qualifiers: Osteomyelitis type: other chronic Qualified Code(s): M86.671 - Other chronic osteomyelitis, right ankle and foot Problem details: Status post below-knee amputation on 07/04/[address] Garcia (2) Diabetes: Status: Acute Code(s): E11.9 - Type 2 diabetes mellitus without complications Meds Home Medications and Allergies Home Medications ?Medication ?Instructions ?Recorded ?Confirmed ?Type albuterol sulfate 90 mcg/actuation 2 puff inhalation QID Shortness of 07/28/22 06/26/24 History aerosol inhaler air alendronate 70 mg tablet 70 mg PO WEEKLY 07/28/22 06/26/24 History duloxetine 30 mg capsule,delayed 60 mg PO HS 05/27/24 06/26/24 History release linaclotide 290 mcg capsule 290 mcg PO DAILY #90 caps 06/21/24 06/26/24 Rx (Linzess) alprazolam 1 mg tablet (Xanax) 1 - 1.5 mg (1 - 1.5 x 1 mg) PO 06/25/24 06/26/24 Rx TIDP PRN Anxiety #135 tabs aripiprazole 10 mg tablet 10 mg PO DAILY 06/27/24 06/26/24 History furosemide 40 mg tablet 80 mg PO DAILY 06/27/24 06/27/24 History hydrocortisone 10 mg tablet 40 mg (4 x 10 mg) PO DAILY #360 06/27/24 Rx tabs hydrocortisone 5 mg tablet 20 mg PO PM 06/27/24 06/27/24 History levothyroxine 50 mcg tablet 50 mcg PO DAILY 06/27/24 06/27/24 History montelukast 10 mg tablet 10 mg PO HS 06/27/24 06/27/24 History pantoprazole 40 mg tablet,delayed 40 mg PO DAILY 06/27/24 06/27/24 History release potassium chloride 10 mEq 10 meq PO DIRECTED 06/27/24 06/27/24 History capsule,extended release tiotropium bromide 1.25 2 inh inhalation DAILY 06/27/24 06/27/24 History mcg/actuation mist for inhalation (Spiriva Respimat) trazodone 50 mg tablet 50 mg PO TID 06/27/24 06/27/24 History clindamycin HCl 300 mg capsule 300 mg PO TID 7 days #21 caps 07/05/24 Rx empagliflozin 10 mg tablet 10 mg PO DAILY 30 days #30 tabs 07/05/24 Rx (Jardiance) metformin 500 mg tablet 500 mg PO BID #30 tabs 07/05/24 Rx methocarbamol 500 mg tablet 500 mg PO BIDP PRN Muscle Spasm 14 07/05/24 Rx days #30 tabs oxycodone-acetaminophen 10 mg-325 1 tab PO Q6H PRN pain 3 days #12 07/05/24 Rx mg tablet (Percocet) tabs New Prescriptions to Start Prescriptions: clindamycin HCl Tod,Pranav empagliflozin [Jardiance] Tod,Pranav metformin Tod,Pranav methocarbamol Tod,Pranav oxycodone-acetaminophen [Percocet] Tod,Pranav Allergies Allergy/AdvReac Type Severity Reaction Status Date / Time nitrofurantoin Allergy Intermediate Unknown Verified 05/20/24 14:38 allergy reaction Penicillins Allergy Intermediate Swelling Verified 05/20/24 14:38 of Lip/Tongue/Throat Discharge Plan Disposition Patient Disposition: Xfer SNF Condition: Fair Discharge Order Discharge Orders: Discharge Order (Routine); Ordered 07/05/24 Ordered By: Pranav Baron Follow up Plan Follow up with: Nilo Garcia DO [Staff Physician] - 07/22/24 Prescriptions/Medication Reconciliation: New methocarbamol 500 mg Tablet 500 mg PO BIDP PRN (Reason: Muscle Spasm) 14 Days Qty: 30 0RF clindamycin HCl 300 mg capsule 300 mg PO TID 7 Days Qty: 21 0RF oxycodone-acetaminophen [Percocet] 10-325 mg tablet 1 tab PO Q6H PRN (Reason: pain) 3 Days Qty: 12 0RF metformin 500 mg tablet 500 mg PO BID Qty: 30 0RF Jardiance 10 mg tablet 10 mg PO DAILY 30 Days Qty: 30 0RF Continued duloxetine 30 mg capsule,delayed release(DR/EC) 60 mg PO HS Linzess 290 mcg capsule 290 mcg PO DAILY Qty: 90 1RF alprazolam [Xanax] 1 mg tablet 1 - 1.5 mg PO TIDP PRN (Reason: Anxiety) Qty: 135 0RF Rx Instructions: TAKE 1 TO 1 & 1/2 TABLETS BY MOUTH THREE TIMES DAILY NEEDED FOR NERVES hydrocortisone 10 mg tablet 40 mg PO DAILY Qty: 360 1RF Rx Instructions: TAKE 4 TABLETS BY MOUTH IN THE MORNING alendronate 70 mg tablet 70 mg PO WEEKLY Patient Comments: TAKE 1 TABLET BY MOUTH ONCE A WEEK IN THE MORNING WITH WATER NO OTHER FOOD FOR 30 MIN albuterol sulfate 90 mcg/actuation HFA aerosol inhaler 2 puff INHALATION QID Patient Comments: INHALE 2 PUFFS BY MOUTH 4 TIMES DAILY FOR BREATHING hydrocortisone 5 mg tablet 20 mg PO PM Rx Instructions: TAKE 4 TABLETS BY MOUTH WITH DINNER DIRECTED furosemide 40 mg tablet 80 mg PO DAILY Rx Instructions: Take 2 tablets by mouth once daily potassium chloride 10 mEq capsule, extended release 10 meq PO DIRECTED Rx Instructions: TAKE 2 CAPSULES BY MOUTH IN THE MORNING AND 1 IN THE EVENING trazodone 50 mg tablet 50 mg PO TID Rx Instructions: TAKE 1 TABLET BY MOUTH THREE TIMES DAILY FOR 30 DAYS levothyroxine 50 mcg tablet 50 mcg PO DAILY pantoprazole 40 mg tablet,delayed release (DR/EC) 40 mg PO DAILY Rx Instructions: Take 1 tablet by mouth once daily montelukast 10 mg tablet 10 mg PO HS Rx Instructions: TAKE 1 TABLET BY MOUTH AT BEDTIME aripiprazole 10 mg tablet 10 mg PO DAILY Spiriva Respimat 1.25 mcg/actuation mist 2 inh inhalation DAILY Rx Instructions: INHALE 2 SPRAY(S) BY MOUTH ONCE DAILY Discontinued oxycodone 10 mg tablet 10 mg PO QIDP PRN (Reason: pain) Problem Reconciliation Problems Reviewed?: Yes Patient Discharge Instructions Patient Instructions: How to Prevent Pressure Ulcers, Pressure Injuries, Carbohydrate-Counting Diet, DI for Debridement of a Wound, Infection, or Burn, DI for Surgical Site Infection, Using Nutrition Labels: Carbohydrate Diet, High-Protein Diet Foods List, NCM Pressure Injury Diet Print Language: Uzbek Providers Primary Care Provider: Cornelio Chan Admit Provider: Kumar Pinedo Attending Provider: Kumar Pinedo
[2024-07-05] MEDS: FUROSEMIDE 40MG/4ML VIAL 40 MG IV (14:38)
--- NOTE | 2024-07-05 15:26 | PC.NURSE ---
report called to signature nurse Charles.
== END 2024-07-05 16:30 | DRG 474 ==
LOC: ER 21:05 → 2ND 21:16
PROVIDERS: Nurse Practitioner; Nurse Practitioner Family; Orthopaedic Surgery; Physician Assistant; Podiatrist; Student in an Organized Health Care Education/Training Program; Admitting Provider Internal Medicine Adolescent Medicine; Emergency Provider Emergency Medicine; PCP Internal Medicine; Visit Provider Internal Medicine Adolescent Medicine
PROC: 0QBJ0ZZ Excision of Right Fibula, Open Approach (ICD-10-PCS; principal; 2024-06-27 12:00)
PROC: 0Y6H0Z2 Detachment at Right Lower Leg, Mid, Open Approach (ICD-10-PCS; CPT 27880; principal; 2024-07-04 13:00)
DX: M86.161 Other acute osteomyelitis, right tibia and fibula (principal); L89.313 Pressure ulcer of right buttock, stage 3; L89.513 Pressure ulcer of right ankle, stage 3; R53.2 Functional quadriplegia; Z68.42 Body mass index [BMI] 45.0-49.9, adult; E27.1 Primary adrenocortical insufficiency; D84.9 Immunodeficiency, unspecified; I50.30 Unspecified diastolic (congestive) heart failure; I47.10 Supraventricular tachycardia, unspecified; E66.01 Morbid (severe) obesity due to excess calories; J44.9 Chronic obstructive pulmonary disease, unspecified; Z99.81 Dependence on supplemental oxygen; B95.2 Enterococcus as the cause of diseases classified elsewhere; B96.5 Pseudomonas (aeruginosa) (mallei) (pseudomallei) as the cause of diseases classified elsewhere; Z74.01 Bed confinement status; F17.210 Nicotine dependence, cigarettes, uncomplicated; Z79.899 Other long term (current) drug therapy; Z79.51 Long term (current) use of inhaled steroids; G54.6 Phantom limb syndrome with pain; Z79.84 Long term (current) use of oral hypoglycemic drugs; Z88.0 Allergy status to penicillin; Z88.8 Allergy status to other drugs, medicaments and biological substances; F39 Unspecified mood [affective] disorder; E11.69 Type 2 diabetes mellitus with other specified complication
CPT/HCPCS: 36415; 73590; 73701; 73720; 75635; 80048; 80053; 80061; 80202; 82962; 83036; 83605; 83735; 83880; 84132; 84145; 84443; 85014; 85018; 85025; 85651; 86140; 86803; 86850; 87040; 87070; 87075; 87077; 87186; 87205; 87389; 88304; 93005; 93306; 93923; 94640; 97110; 97163; 97166; 97530; 99232; 99291; J3490; A9576; C9144; J0736; J0878; J1100; J1580; J1650; J1940; J1956; J2185; J2250; J2270; J2405; J3010; J3370; J3372; J3475; J7030; J7512; P9016; Q9967

== ENCOUNTER 2024-09-17 14:55 | Outpatient (CLI) | payer BC, MEDICARE, SELFPAY ==
[2024-09-17 17:43] LABS: Basophils # 0.1 K/mm3 (0-0.2); Basophils % 0.6 % (0.1-2.0); Eosinophils # 0.1 Kmm3 (0.0-0.4); Hematocrit 40.2 % (37.0-47.0); Immature Granulocytes # 0.08 10^3uL; Lymphocytes % 26.2 % (10-50); Mean Corpuscular HGB Conc 29.9 g/dL (31.8-35.4); Mean Corpuscular Hemoglobin 28.4 pg (27.0-31.2); Mean Corpuscular Volume 95.3 fl (81-99); Mean Platelet Volume 10.7 fl (7.4-10.4); Monocytes # 0.6 K/mm3 (0.1-1.0); Neutrophils # 4.9 K/mm3 (1.8-7.8); Neutrophils % 63.2 % (37.0-80.0); Nucleated Red Blood Cells # 0 10^3/uL; Nucleated Red Blood Cells % 0 %; Platelet Count 249 K/mm3 (142-424); Red Blood Count 4.22 M/mm3 (4.20-5.40); Red Cell Distribution Width 13.1 % (11.5-17.5); White Blood Count 7.7 K/mm3 (4.8-10.8)
[2024-09-17 18:05] LABS: Alanine Aminotransferase 53 U/L (12-78); Albumin/Globulin Ratio 1.4 (1.1-1.8); Alkaline Phosphatase 64 U/L (38-126); Aspartate Amino Transferase 37 U/L (14-36); Bilirubin,Total 0.3 mg/dl (0.2-1.3); Blood Urea Nitrogen 18 mg/dl (7-17); Calcium 9.1 mg/dl (8.4-10.2); Chloride 93 mmol/L (98-107); Estimated Glomerular Filt Rate 123 ml/min (>60); GFR (African American) 149 ML/MIN (>60); Globulin 2.9 g/dL (1.3-3.2); Glucose 82 mg/dl (74-100); Potassium 4.3 mmoL/L (3.5-5.1); Sodium 137 mmol/L (136-145); Total Protein,Serum 6.9 g/dl (6.3-8.2)
[2024-09-17 18:23] LABS: Anion Gap 7.3 mEq/L (5-15); Carbon Dioxide 41 mmol/L (22.0-30.0)
[2024-09-17 18:27] LABS: Hemoglobin A1C 5.3 % (4.0-6.0)
--- OUTSIDE RECORDS SUMMARY | 2024-09-18 11:05 | XMS_ITS | Clinical Summary ---
Author Organization [facility] Address [address] [place] [address] Care Team Providers Care Windows Systems Architect Name Role Phone Cornelio Chan MD Primary Care Provider [phone] Allergies Active Allergy Reactions Criticality Noted Date Comments Penicillins Hives,Shortness of breath High 11/02/2013 Tolerated cefepime in [facility] ED on 02/03/21. Medications * This document contains information received from the source organization and may not represent a complete record from that organization. traZODone (Desyrel) 50 MG tablet Take 100 mg by mouth every night. Active ALPRAZolam (Xanax) 1 MG tablet Take 1-1.5 mg by mouth every 6 (six) hours if needed. Active nicotine (Nicoderm CQ) 21 MG/24HR patch Place 1 patch on the skin 1 (one) time each day at the same time. Active pantoprazole (ProtoNix) 40 MG EC tablet Take 40 mg by mouth 1 (one) time each day before breakfast. Do not crush, chew, or split. Active ARIPiprazole (Abilify) 10 MG tablet Take 10 mg by mouth every night. Active oxyCODONE (Roxicodone) 10 MG immediate release tablet Take 10 mg by mouth 4 (four) times a day if needed for severe pain. Active DULoxetine (Cymbalta) [address] capsule Take 30 mg by mouth 1 (one) time each day. 1 Active Narcan 4 MG/0.1ML nasal spray Administer 4 mg into affected nostril(s) if needed. 1 Active albuterol 108 (90 Base) MCG/ACT inhaler Inhale 2 puffs every 6 (six) hours if needed. Active montelukast (Singulair) 10 MG tablet Take 10 mg by mouth every night. Active pregabalin (Lyrica) 150 MG capsule Take 150 mg by mouth 2 (two) times a day. Active levothyroxine (Synthroid, Levoxyl) 50 MCG tablet Take 50 mcg by mouth 1 (one) time each day before breakfast. Active ferrous sulfate 325 (65 Fe) MG tablet Take 1 tablet (325 mg total) by mouth every other day. 30 tablet 1 Active hydrocortisone (Cortef) 5 MG tablet Take 6 tablets every morning with breakfast and 2 tablets with dinner Active DICLOFENAC SODIUM ER PO Take 100 mg by mouth 2 (two) times a day. Active Tiotropium [place] Monohydrate (Spiriva Respimat) 2.5 MCG/ACT inhaler Inhale 2 puffs 1 (one) time each day. Active diclofenac sodium (Voltaren XR) 100 mg 24 hr tablet Take 1 tablet by mouth 2 (two) times a day. 1 Active cyanocobalamin 1000 MCG tablet Take 1 tablet by mouth 1 (one) time each day. 1 Active hydrocortisone (Cortef) 10 MG tablet Take 1 tablet by mouth 1 (one) time each day in the morning. 2 Active Active Problems Problem Noted Date Diagnosed Date Wound discharge 02/04/2021 Subacute osteomyelitis of right tibia 02/03/2021 Pulmonary embolus 09/29/2020 Overview (09/29/2020): Diagnosed with PE on CT scan from yesterday, notified about this as late added finding. To be admitted to hospital from clinic for acute desaturation / hypoxia. Plans to start anticoagulation. Assessment & Plan (09/29/2020 11:24 AM EDT): Relevant Hx: Course: Daily Update: Today's Plan: Diagnosed with PE on CT scan from yesterday, notified about this as late added finding. To be admitted to hospital from clinic for acute desaturation / hypoxia. Plans to start anticoagulation. Hypoxia 09/29/2020 Overview (09/29/2020): Secondary to PE, will need transfer to ED and admission for oxygen treatment, and anticoagulation. Assessment & Plan (09/29/2020 11:23 AM EDT): Relevant Hx: Course: Daily Update: Today's Plan: Secondary to PE, will need transfer to ED and admission for oxygen treatment, and anticoagulation. Wound of right leg 09/29/2020 Overview (10/15/2020): Wound with good granulation tissue, no need for further debridement at this time. Continue wound care, and will need plastic surgery evalaution for coverage once improved from acute pulmonary embolus. Assessment & Plan (09/29/2020 11:23 AM EDT): Relevant Hx: Course: Daily Update: Today's Plan: Wound with good granulation tissue, no need for further debridement at this time. Continue wound care, and will need plastic surgery evalaution for coverage once improved from acute pulmonary embolus. 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 Singulair. Monitor respiratory status and vitals Anemia 09/12/2020 Overview (09/13/2020): Monitor, transfuse as needed Anxiety and depression 09/12/2020 Overview (09/13/2020): Abilify, Trazodone, Cymbalta, Xanax Resolved Problems Problem Noted Date Diagnosed Date Resolved Date Hypokalemia 09/12/2020 09/13/2020 Necrotizing fasciitis 09/11/20202020 Overview (09/22/2020): Last debridement of RLE debridement 09/17 Continue Abx per ID recs (stop date 10/17) Orthotic splint to preserve ROM Consider boot for ambulation once foot properly flexed Plastics following for possible coverage BID wet to dry dressing Subacute recs - pending placement, but insurance has denied. Will set up home health. Assessment & Plan (10/15/2020 10:08 AM EDT): - Gram stain was polymicrobial and wound cultures grew MSSA - Started Cefepime 2G IV and Flagyl 500mg po tid and discharged with PICC line on - End date: 10/17/20. PICC line to be removed by home health - Wound dressing changed in clinic - Follow-up PRN Family History Medical History Relation Name Comments Diabetes Mother Heart attack Mother Relation Name Status Comments Mother Social History Tobacco Use Types Packs/Day Years Used Date Smoking Tobacco: Former Cigarettes Smokeless Tobacco: Never Tobacco Cessation:Counseling Given: Not Answered Alcohol Use Standard Drinks/Week Comments Never 0 (1 standard drink = 0.6 oz pur e alcohol) PHQ-2 Answer Date Recorded Patient Health Questionnaire-2 Score 6 11/22/2021 Comments No Sex and Gender Information Value Date Recorded Sex Assigned at Female 01/11/2021 1:25 PM EDT Legal Sex Female 6:39 PM EDT Gender Identity Female 10/03/2020 12:42 PM EDT Sexual Orientation Straight 10/03/2020 12 :42 PM EDT Last Filed Vital Signs Vital Sign Reading Time Taken Comments Blood Pressure 115/81 11/22/2021 10:45 AM EDT Pulse 79 11/22/2021 10:45 AM EDT Temperature 37.4 C (99.3 F) 07/01/2021 2:17 PM EDT Respiratory Rate 20 02/04/2021 11:14 AM EDT Oxygen Saturation 97% 11/22/2021 10:45 AM EDT Inhaled Oxygen Concentration - - Weight 95.3 kg (210 lb) 11/22/2021 10:45 AM EDT Height 172.7 cm (5' 8 ) 11/22/2021 10:45 AM EDT Body Mass Index 31.93 11/22/2021 10:45 AM EDT Plan of Treatment Health Maintenance Due Date Last Done Comments [facility]-Bone Density Scan 1957 [facility]-Infant/Child/Adol SDOH Screenings 1955 [facility]-Obesity Intervention 08/04/1963 [facility]- SDOH Screenings 08/04/1975 [facility]-Adult SDOH Screenings 08/04/1975 [facility]-DTaP,Tdap,and Td Vaccine s (1 - Tdap) 1976 CT Colonography 2002 Colonoscopy 2002 FIT-DNA 2002 FIT 2002 FOBT 2002 Sigmoidoscopy 2002 [facility]-Colorectal Cancer Screening 2002 [facility]-Breast Cancer Screening 08/04/2007 [facility]-Pneumococcal Vaccine: 50 + Years (1 of 1 - PCV) 08/04/2007 [facility]-Zoster Vaccines (1 of 2) 08/04/2007 [facility]-Depression Screening 11/22/2022 11/22/2021 [id number]-[id number]-15 Vaccine (1 - 20 24-25 season) 2023 [facility]-Influenza Vaccine ([place]as[place] n Ended) 2024 [facility]-RSV Vaccine: 60+ Years o r (1 - 1-dose 75+ series) 2032 [facility]-Hepatitis C Screening Completed 11/04/2020 HPV Vaccines Aged Out No longer eligi ble based on patient's age to complete this topic [facility]-HIB Vaccines Aged Out No longer e ligible based on patient's age to complete this topic [facility]-Hepatitis A Vaccines Aged Out No longer eligible based on patient's age to complete this topic [facility]-IPV Vaccines Aged Out No longer e ligible based on patient's age to complete this topic [facility]-Rotavirus Vaccines Aged Out No lo nger eligible based on patient's age to complete this topic Medical Devices Implanted Type Area Finishing Powder Press Operator Device Identifier Shelf Expiration Date Model / Serial / Lot Dressing Wound 4x5 - [id number] Implanted:Qty: 1 on 01/11/2021 by Rodney Rondon MD at [facility] Right: Leg [id number] 06/07/2022 [id number] / / [id number] Procedures Procedure Name Priority Date/Time Associated Diagnosis Comments HEPATITIS C ANTIBODY - ED W/REFLEX TO HCV QUANT PCR STAT 11/04/2020 11:51 AM EDT from Last 3 Months or Most Recently Relevant to Health Maintenance Results * Gantt Hepatitis C Antibody (11/04/2020 11:51 AM EDT) Hepatitis C Antibody Negative Negative 11/04/2020 1:41 PM EDT [facility] Blood Venous blood specimen / Unknown Venipuncture / Unknown 11/04/2020 11:51 AM EDT 11/04/2020 12:13 PM EDT us Mikey Noel MD LAB BLOOD ORDERABLES Final Resu lt [facility] [address] [place] [id number] from Last 3 Months or Most Recently Relevant to Health Maintenance Additional Health Concerns Infection Onset 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 Yes * Full Code Date Activated Date Inactivated Comments 09/29/2020 1:37 PM 10/03/2020 4:15 PM Question Answer Comments Patient has decision-making capacity? Yes * Full Code Date Activated Date Inactivated Comments 09/11/2020 2:16 PM 09/22/2020 5:16 PM Care Teams Windows Systems Architect Relationship Specialty Start Date End Date Cornelio Chan MD [address] [place] [address] [address] [place] [address] PCP - General 08/21/20
== END 2024-09-17 23:59 | disposition home or self-care (01) ==
LOC: LAB.DROPOF 09-18 10:59
PROVIDERS: PCP Internal Medicine; Visit Provider Internal Medicine
DX: E11.59 Type 2 diabetes mellitus with other circulatory complications (principal); I73.9 Peripheral vascular disease, unspecified; E78.5 Hyperlipidemia, unspecified; J44.9 Chronic obstructive pulmonary disease, unspecified
CPT/HCPCS: 80053; 83036; 84443; 85025

== ENCOUNTER 2025-03-19 14:56 | Emergency (ER) | payer BC, MEDICARE, SELFPAY ==
[2025-03-19 14:58] VITALS: BP 166/98; PULSE 106; RESP 18; TEMP 36.8; O2SAT 96; BMI 29.6
[2025-03-19 15:13] VITALS: BP 166/98; PULSE 108; RESP 16; O2SAT 95
--- NOTE | 2025-03-19 15:42 | CT_ITS ---
PROCEDURE INFORMATION: Exam: CT Abdomen And Pelvis With Contrast Exam date and time: 03/19/2025 4:17 PM Age: 69 years old Clinical indication: Abdominal pain TECHNIQUE: Imaging protocol: Computed tomography of the abdomen and pelvis with contrast. Radiation optimization: All CT scans at this facility use at least one of these dose optimization techniques: automated exposure control; mA and/or kV adjustment per patient size (includes targeted exams where dose is matched to clinical indication); or iterative reconstruction. Contrast material: ISOVUE; Contrast volume: 75 ml; Contrast route: IV; COMPARISON: CT ABDOMEN PELVIS WO CON 03/23/2020 12:11 PM FINDINGS: Lungs: [id number] centrilobular emphysema. Mild scarring and atelectasis in the lower lungs. Coronary arteries: Coronary artery calcifications. Liver: There are numerous new hepatic masses compared to prior study. For follow-up purposes, examples include: The largest measures 16.1 cm image 34 series 3 in the left hepatic lobe. There is an 8 cm right hepatic mass image 56 series 3. There is a 3 cm right hepatic mass image 70 series 3. Gallbladder and biliary ducts: Normal. No calcified stones. No ductal dilation. Pancreas: Normal. No ductal dilation. Spleen: There is a new low-attenuation 2.4 cm splenic nodule image 37 series 3. Adrenal glands: Normal. No mass. Kidneys and ureters: Right renal scar with parenchymal calcification. Nonobstructing left renal calculus. Low attenuation renal lesions measuring up to 10 mm in diameter are incompletely characterized, but are likely cysts. No followup imaging is warranted. Stomach and bowel: Mild to moderate sigmoid diverticulosis without diverticulitis. Appendix: Appendix is absent. Intraperitoneal space: Mild ascites, which is worrisome for malignant ascites. Vasculature: Unremarkable. No abdominal aortic aneurysm. Lymph nodes: Abdominal lymph node enlargement worrisome for metastatic disease. Examples include: 14 mm in short axis precaval lymph node image 55 series 3, 11 mm in short axis gastrohepatic ligament lymph node image 40 series 3, and 14 mm in short axis peripancreatic lymph node image 51 series 3. Urinary bladder: Unremarkable as visualized. Reproductive: Status post hysterectomy. Bones/joints: Status post total right hip arthroplasty. The hardware appears intact. Soft tissues: Peripherally enhancing 1.7 cm left breast nodule image 9 series 3 and 1.6 cm left breast nodule image 22 series 3. IMPRESSION: 1. Widespread hepatic metastatic disease. 2. Abdominal lymphadenopathy worrisome for metastatic disease. 3. Mild ascites, which is worrisome for malignant ascites. 4. There is a new low-attenuation 2.4 cm splenic nodule image 37 series 3. This could be local invasion of tumor as this abuts the large left hepatic mass. 5. Nonobstructing left renal calculus. 6. Peripherally enhancing 1.7 cm left breast nodule image 9 series 3 and 1.6 cm left breast nodule image 22 series 3. These are new compared to prior study and are suspicious for malignancy versus metastatic disease. 7. THIS REPORT CONTAINS FINDINGS THAT MAY BE CRITICAL TO PATIENT CARE. The findings were verbally communicated via telephone conference with PENNIE PATE at 4:49 PM EST on 03/19/2025. The findings were acknowledged and understood. COMMENTS: Consistent with the [employer]'s Incidental Findings Committee white paper (J Am Sultana Radiol 2018): Any incidental renal lesion less than 1 cm or classified as too small to characterize, or any incidental cystic renal lesion characterized as simple-appearing, is likely benign. No follow-up imaging is recommended for these lesions per consensus recommendations based on imaging criteria.
--- NOTE | 2025-03-19 15:43 | XR_ITS ---
PROCEDURE INFORMATION: Exam: XR Chest Exam date and time: 03/19/2025 4:22 PM Age: 69 years old Clinical indication: Chest wall pain TECHNIQUE: Imaging protocol: Radiologic exam of the chest. Views: 1 view. COMPARISON: CR XR CHEST 2V 09/16/2022 11:41 AM FINDINGS: Lungs: There is a left upper lung 6.5 cm mass. Mild scarring and atelectasis in the lower lungs. Pleural spaces: Unremarkable. No pleural effusion. No pneumothorax. Heart/Mediastinum: Unremarkable. No cardiomegaly. Vasculature: Vascular calcifications. Bones/joints: Unremarkable. IMPRESSION: There is a left upper lung 6.5 cm mass. In correlation with CT images, this is worrisome for malignancy/metastatic disease.
[2025-03-19 15:48] LABS: Hematocrit 36.7 % (37.0-47.0); Hemoglobin 10.1 g/dL (12.2-16.2); Immature Granulocytes % 1.1 %; Mean Corpuscular HGB Conc 27.5 g/dL (31.8-35.4); Mean Corpuscular Hemoglobin 24.1 pg (27.0-31.2); Mean Corpuscular Volume 87.6 fl (81-99); Nucleated Red Blood Cells % 0 %; Platelet Count 374 K/mm3 (142-424); Red Blood Count 4.19 M/mm3 (4.20-5.40); Red Cell Distribution Width-SD 49.5 fL; White Blood Count 12.9 K/mm3 (4.8-10.8)
--- NOTE | 2025-03-19 15:51 | ECG_ITS ---
APPROVED REPORT Exam: Resting ECG HR:105 bpm ECG Measurements Heart Rate 105 AXES QRSd 84 QRS 70 QT 306 T 69 QTc 367 Conclusion Motion artifact Likely normal sinus rhythm No overt STEMI Electronically signed by : Madhu Brownlee, 03/20/2025 23:18:13
[2025-03-19 15:56] LABS: Alanine Aminotransferase 120 U/L (12-78); Albumin Level 3.2 g/dl (3.5-5.0); Albumin/Globulin Ratio 0.8 (1.1-1.8); Alkaline Phosphatase 428 U/L (38-126); Aspartate Amino Transferase 181 U/L (14-36); Bilirubin,Total 0.4 mg/dl (0.2-1.3); Blood Urea Nitrogen 16 mg/dl (7-17); Calcium 8.4 mg/dl (8.4-10.2); Chloride 94 mmol/L (98-107); Creatinine,Serum 0.50 mg/dl (0.52-1.04); Estimated Glomerular Filt Rate 123 ml/min (>60); GFR (African American) 149 ML/MIN (>60); Globulin 4.0 g/dL (1.3-3.2); Glucose 102 mg/dl (74-100); Lipase 79 U/L (23-300); Potassium 4.5 mmoL/L (3.5-5.1); Sodium 141 mmol/L (136-145); Total Protein,Serum 7.2 g/dl (6.3-8.2)
[2025-03-19 16:00] VITALS: BP 156/94; PULSE 106; RESP 16; O2SAT 95
[2025-03-19 16:03] LABS: Anion Gap 14.5 mEq/L (5-15); Carbon Dioxide 37 mmol/L (22.0-30.0)
--- NOTE | 2025-03-19 16:09 | ED_ITS ---
Discharge Plan Disposition Patient Disposition: Home, Self-Care Condition: Good Prescriptions Prescriptions: No Action Linzess 290 mcg capsule 290 mcg PO DAILY Qty: 90 1RF nystatin 100,000 unit/gram powder 1 applic topical TID Qty: 60 2RF montelukast 10 mg tablet See Rx Instructions .ROUTE .COMPLEX Qty: 90 1RF Dose Instruction: TAKE 1 TABLET BY MOUTH AT BEDTIME Rx Instructions: TAKE 1 TABLET BY MOUTH AT BEDTIME levothyroxine 50 mcg tablet 50 mcg PO DAILY Qty: 90 1RF hydrocortisone 10 mg tablet 40 mg PO DAILY Qty: 360 1RF Rx Instructions: TAKE 4 TABLETS BY MOUTH IN THE MORNING hydrocortisone 5 mg tablet 20 mg PO PM Qty: 360 1RF Rx Instructions: TAKE 4 TABLETS BY MOUTH WITH DINNER DIRECTED ondansetron 4 mg tablet,disintegrating 4 mg PO Q8H PRN (Reason: nausea and vomiting) Qty: 30 1RF Jardiance 10 mg tablet See Rx Instructions .ROUTE .COMPLEX Qty: 90 1RF Dose Instruction: Take 1 tablet by mouth once daily for 30 days Rx Instructions: Take 1 tablet by mouth once daily for 30 days potassium chloride 10 mEq capsule, extended release 10 meq PO DIRECTED Qty: 90 1RF Rx Instructions: TAKE 2 CAPSULES BY MOUTH IN THE MORNING AND 1 IN THE EVENING duloxetine 60 mg capsule,delayed release(DR/EC) See Rx Instructions .ROUTE .COMPLEX Qty: 90 1RF Dose Instruction: Take 1 capsule by mouth once daily Rx Instructions: Take 1 capsule by mouth once daily omeprazole 20 mg capsule,delayed release(DR/EC) 20 mg PO ONCE Qty: 90 1RF metformin 500 mg tablet 500 mg PO BID Qty: 180 1RF aripiprazole 2 mg tablet 2 mg PO ONCE Qty: 90 1RF Spiriva Respimat 1.25 mcg/actuation mist See Rx Instructions .ROUTE .COMPLEX Qty: 4 5RF Dose Instruction: INHALE 2 SPRAY(S) BY MOUTH ONCE DAILY Rx Instructions: INHALE 2 SPRAY(S) BY MOUTH ONCE DAILY trazodone 50 mg tablet See Rx Instructions .ROUTE .COMPLEX Qty: 180 1RF Dose Instruction: TAKE 1 TABLET BY MOUTH THREE TIMES DAILY Rx Instructions: TAKE 1-2 TABLET BY mouth at bedtime pantoprazole 40 mg tablet,delayed release (DR/EC) See Rx Instructions .ROUTE .COMPLEX Qty: 90 1RF Dose Instruction: Take 1 tablet by mouth once daily Rx Instructions: Take 1 tablet by mouth once daily alprazolam [Xanax] 1 mg tablet 1 - 1.5 mg PO TIDP PRN (Reason: Anxiety) Qty: 135 0RF Rx Instructions: TAKE 1 TO 1 & 1/2 TABLETS BY MOUTH THREE TIMES DAILY NEEDED FOR NERVES alendronate 70 mg tablet See Rx Instructions .ROUTE .COMPLEX Qty: 12 1RF Dose Instruction: TAKE 1 TABLET BY MOUTH ONCE A WEEK. TAKE UPON GETTING UP WITH WATER NO OTHER FOOD OR DRINK FOR 30 MINUTES Rx Instructions: TAKE 1 TABLET BY MOUTH ONCE A WEEK. TAKE UPON GETTING UP WITH WATER NO OTHER FOOD OR DRINK FOR 30 MINUTES (DME) Dexcom G7 Sensor Device See Rx Instructions .Route Qty: 9 1RF Rx Instructions: As directed levofloxacin 250 mg tablet 250 mg PO DAILY Qty: 7 0RF oxycodone-acetaminophen [Percocet] 10-325 mg tablet 1 tab PO Q6H PRN (Reason: pain) 30 Days Qty: 120 0RF albuterol sulfate 90 mcg/actuation HFA aerosol inhaler 2 puff INHALATION QID Patient Comments: INHALE 2 PUFFS BY MOUTH 4 TIMES DAILY FOR BREATHING methocarbamol 500 mg Tablet 500 mg PO BIDP PRN (Reason: Muscle Spasm) 14 Days Qty: 30 0RF clindamycin HCl 300 mg capsule 300 mg PO TID 7 Days Qty: 21 0RF aspirin 81 mg capsule 81 mg PO BID 28 Days Qty: 56 0RF furosemide 40 mg tablet 80 mg PO DAILY PRN Rx Instructions: Take 2 tablets by mouth once daily Referrals Follow up/Referrals: Cornelio Chan MD [Primary Care Provider, Medical] - See instructions Surjit Craig MD [Physician, Pulmonology] - See instructions Pranav Bishop MD [Referring, Medical] - See instructions Activity Restrictions/Add. Instructions Additional Instructions/Restrictions: Your workup today is worrisome for cancer in your lung and your liver. There are also some lesions in your breast. I want you to follow up with your primary care doctor, and also call the number provided to seek counselor at law from Dr. Bishop of Oncology and Dr. Craig ([id number]) of the pulmonology group. If you develop jaundice, shortness of breath, or intractable pain please return to the ER for further evaluation. Clinical Impressions Clinical Impression: Multiple lesions of metastatic malignancy, Lesion of liver, Lesion of lung, Breast lesion Instructions Patient Instructions: DI for Acute Abdominal Pain Print Language Print Language: Sami Discharge ED Provider: Madhu Brownlee Adult HPI General Chief complaint: Abdominal Pain Stated complaint: tender stomach to the touch Time Seen by Provider: 03/19/25 15:01 Mode of Arrival: Wheelchair Source of Information: Patient and Spouse Description of Symptoms (Recalled from ER Triage Doc. by RN): pt presents to the ED with abdominal pain for the past 2 weeks. pt reports the pain is very tender and comes and goes. Pain gets worse when she stands up. Denies nausea and vomiting. hx of COPD. pt wears 3.5L NC at baseline. Denies chest pain and shortness of breath. History of Present Illness HPI narrative: This is a 69-year-old female patient, with past medical history of hypertension, type 2 diabetes, COPD on 3 L at home, Long's disease on daily steroids, and peripheral vascular disease status post BKA of the right lower extremity, who is presented to the emergency department today for evaluation of abdominal pain. Patient tells me that she has had abdominal pain over the last 2 weeks. She cannot localize this to 1 specific portion of the abdomen. She states that at rest her abdominal pain is not terrible but anytime her abdomen is palpated she has exquisite abdominal pain. She is not constipated. She denies medic easier, melena, and hematemesis. No vomiting. She is not have any vaginal symptoms. No urinary symptoms. She states that her abdominal pain is worse when she takes a deep breath but she is not feeling dyspneic and is not having chest pain Related Data Home Medications ?Medication ?Instructions ?Recorded ?Confirmed albuterol sulfate 90 mcg/actuation 2 puff inhalation Q ID Shortness of 07/28/22 03/19/25 aerosol inhaler air furosemide 40 mg tablet 80 mg PO DAILY PRN 01/06/25 03/19/25 Previous Rx's ?Medication ?Instructions ?Recorded linaclotide 290 mcg capsule 290 mcg PO DAILY #90 caps 06/21/24 (Linzess) aspirin 81 mg capsule 81 mg PO BID 28 days #56 cap s 07/05/24 clindamycin HCl 300 mg capsule 300 mg PO TID 7 days #2 1 caps 07/05/24 methocarbamol 500 mg tablet 500 mg PO BIDP PRN Muscle Spasm 14 07/05/24 days #30 tabs nystatin 100,000 unit/gram topical 1 applic topical TI D #60 grams 08/02/24 powder montelukast 10 mg tablet See Rx Instructions .Route 0 10/08/24 .COMPLEX #90 tabs levothyroxine 50 mcg tablet 50 mcg PO DAILY #90 tabs 0 10/22/24 hydrocortisone 10 mg tablet 40 mg (4 x 10 mg) PO DAILY #360 11/04/24 tabs hydrocortisone 5 mg tablet 20 mg (4 x 5 mg) PO PM #360 tabs 11/14/24 ondansetron 4 mg disintegrating 4 mg PO Q8H PRN nausea and 12/06/24 tablet vomiting #30 tabs empagliflozin 10 mg tablet See Rx Instructions .Route 12/25/24 (Jardiance) .COMPLEX #90 tabs potassium chloride 10 mEq 10 meq PO DIRECTED #90 ca ps 01/06/25 capsule,extended release duloxetine 60 mg capsule,delayed See Rx Instructions . Route 01/16/25 release .COMPLEX #90 ea metformin 500 mg tablet 500 mg PO BID #180 tabs 01/08 10/02 omeprazole 20 mg capsule,delayed 20 mg PO ONCE #90 cap s 01/23/25 release aripiprazole 2 mg tablet 2 mg PO ONCE #90 tabs tiotropium bromide 1.25 See Rx Instructions .Route 1 mcg/actuation mist for inhalation .COMPLEX #4 grams (Spiriva Respimat) trazodone 50 mg tablet See Rx Instructions .Route 1 .COMPLEX #180 tabs pantoprazole 40 mg tablet,delayed See Rx Instructions .Route 02/17/25 release .COMPLEX #90 tabs alprazolam 1 mg tablet (Xanax) 1 - 1.5 mg (1 - 1.5 x 1 mg) PO 02/21/25 TIDP PRN Anxiety #135 tabs alendronate 70 mg tablet See Rx Instructions .Route 1 04/30/24 .COMPLEX #12 tabs blood-glucose sensor (Dexcom G7 #9 ea 03/03/25 Sensor device) levofloxacin 250 mg tablet 250 mg PO DAILY For UTI #7 tabs 03/10/25 oxycodone-acetaminophen 10 mg-325 1 tab PO Q6H PRN quita n 30 days #120 03/12/25 mg tablet (Percocet) tabs Allergies Allergy/AdvReac Type Severity Reaction Status Date / Time nitrofurantoin Allergy Intermediate Unknown Verified 09/17/24 13:06 allergy reaction Penicillins Allergy Intermediate Swelling Verified 09/17/24 13:06 of Lip/Tongue/Throat PFSH [facility] Disclaimer: The information contained in this section may have been updated after the patient was seen, as this information can be updated by other users. Medical History Acquired right foot drop Subsequent to necrotizing fasciitis and multiple surgeries removing muscles and tendons of the right lower extremity. Weakness generalized Incontinence in female Stage II decubitus ulcer Pressure ulcer of left lateral malleolus areas. This had some redness around it. Elevated blood sugar level Macrocytosis Post-hysterectomy menopause Thyroid disease Hypokalemia Depression Anxiety COPD (chronic obstructive pulmonary disease) Oxygen dependent. Necrotizing cellulitis Addisons disease Necrotizing fasciitis of ankle and foot Pressure ulcer of left buttock, stage 2 Open ankle wound Non-healing non-surgical wound Family History Other Diabetes Family history of COPD (chronic obstructive pulmonary disease) Heart attack Social History Smoking Status: Never smoker alcohol intake: never substance use type: denies use current occupational status: disabled Travel in the last 8 weeks?: None household members: spouse housing: house caffeine: No Have you lived/traveled outside [place] in past 30 days?: No Contact w/someone who lives/traveled outside [place] past 30 days?: No Exposure to someone with infectious disease in past 14 days?: No Do you have a fever (greater than 100.4 F or 38 C)?: No Have you tested positive for COVID-19?: No Exposed to someone with COVID-19 in past 14 days?: No Do you have a sore throat?: No Do you have a cough?: No Do you have any weakness?: No Do you have any diarrhea?: No Are you experiencing any unusual bleeding?: No Do you have any muscle aches/pain?: No Do you have any abdominal pain?: No Are you experiencing loss of taste or smell?: No Other Medical History Have you received the Flu Vaccine for this season: No Have you received the Pneumonia Vaccine: Yes ROS Obtained: Yes Systems reviewed as appropriate & no additional complaints except as documented Physical Exam General General appearance: other (See MDM) Respiratory Respiratory exam: Present other (See MDM) Cardiovascular Cardiovascular exam: Present other (See MDM) Neurological Exam Neurological exam: Present other (See MDM) Medical Decision Making Medical Records Medical records reviewed: Yes I reviewed the patient's medical records. Screening: Per USPSTF and CDC recommendations, given the prevalence of disease in our region, it is our hospital?s policy to screen for HIV and viral Hepatitis for all patients aged 18 and over and those with ongoing risk factors. Steven Inquiry Pt receiving controlled substance: No Steven was queried for this patient: No Vital Signs: 03/19/25 14:58 03/19/25 14:58 03/19/25 15:13 Temperature 98.3 F 98.3 F Temperature Source Oral Oral Pulse Rate 106 H 108 H Pulse Rate [Right] 106 H Respiratory Rate 18 18 16 Blood Pressure 166/98 H 166/98 H Blood Pressure [Right Arm] 166/98 H Blood Pressure Mean 117 Blood Pressure Mean [Right Arm] 120 Blood Pressure Source Automatic Cuff Blood Pressure Source [Right Arm] Automatic Cuff Blood Pressure Position Supine Blood Pressure Position [Right Arm] Supine 02 Sat by Pulse Oximetry 96 96 95 Oxygen Delivery Method Room Air Room Air Nasal Cannula Oxygen Flow Rate (LPM) 3.5 03/19/25 16:00 03/19/25 17:05 Temperature Temperature Source Pulse Rate 106 H 97 H Pulse Rate [Right] Respiratory Rate 16 Blood Pressure 156/94 H 143/78 H Blood Pressure [Right Arm] Blood Pressure Mean 107 Blood Pressure Mean [Right Arm] Blood Pressure Source Blood Pressure Source [Right Arm] Blood Pressure Position Blood Pressure Position [Right Arm] 02 Sat by Pulse Oximetry 95 94 L Oxygen Delivery Method Nasal Cannula Room Air Oxygen Flow Rate (LPM) 3.5 Lab Data Lab Results 03/19/25 15:40: WBC 12.9 H, RBC 4.19 L, Hgb 10.1 L, Hct 36.7 L, MCV 87.6, MCH 24.1 L, MCHC 27.5 L, RDW 15.6, Plt Count 374, MPV 9.5, Neut % (Auto) 83.6 H, L ymph % (Auto) 7.8 L, [place] % (Auto) 7.2, Eos % (Auto) 0.0 L, Baso % (Auto) 0.3, N eut # (Auto) 10.8 H, Lymph # (Auto) 1.0, [place] # (Auto) 0.9, Eos # (Auto) 0.0, Baso # (Auto) 0.0, Sodium 141, Potassium 4.5, Chloride 94 L, Carbon Dioxide 37 H , Anion Gap 14.5, BUN 16, Creatinine 0.50 L, Estimated GFR 123, Est GFR ( Amer) 149, Glucose 102 H, Calcium 8.4, Total Bilirubin 0.4, AST 181 H, ALT 120 H , Alkaline Phosphatase 428 H, Troponin I < 0.01, Total Protein 7.2, Albumin 3.2 L, Globulin 4.0 H, Albumin/Globulin Ratio 0.8 L, Lipase 79 03/19/25 15:49: Lactate 2.9 H 03/19/25 15:40 03/19/25 15:40 Orders (Tests/Meds): ED MEDICATIONS Discontinued Medications Generic Name Dose Route Start Last Admin Trade Name Freq PRN Reason Stop Dose Admin Iopamidol 75 ml 03/19/25 16:18 03/19/25 16:19 Iopamidol-370 (76%);100ml Bottle IV 03/19/25 16:19 75 ml ONCE ONE Administration Morphine Sulfate 4 mg 03/19/25 17:32 Morphine 4mg/Ml Syringe IV 03/19/25 17:33 ONCE ONE Sodium Chloride 10 ml 03/19/25 16:18 03/19/25 16:19 Sodium Chloride 0.9% 10ml Syr (Rad Only) IV 03/19/25 16:19 10 ml ONCE ONE Administration ORDERS Category Date Time Status CT abdomen pelvis w con Stat Cat Scan 03/19/25 15:42 Completed CXR --portable [XR chest portable] Stat Exams 03/19/25 15:43 Completed CBC w/Auto Diff [Complete Blood Count Auto Diff] Stat Lab 03/19/25 15:40 Completed CMP [Comprehensive Metabolic Panel] Stat Lab 03/19/25 15:40 Completed HIV Combo Stat Lab 03/19/25 16:04 Ordered Hepatitis C Ab Qual. W/ RFX Stat Lab 03/19/25 16:04 Ordered Lactic Acid Stat Lab 03/19/25 15:49 Completed Lipase Stat Lab 03/19/25 15:40 Completed Troponin I Q3H Lab 03/19/25 18:45 Ordered Troponin I Q3H Lab 03/19/25 21:45 Ordered Troponin I Stat Lab 03/19/25 15:40 Completed Urinalysis and Microscopic Stat Lab 03/19/25 15:42 Ordered EKG Request [ECG Request] Stat Y 03/19/25 15:42 Ordered ECG Data Tracing #1: I reviewed this ECG and interpreted as documented below: EKG was personally turbid by me and demonstrates sinus tachycardia rate of 105 bpm, normal axis, no [place] prolongation, narrow QRS, no QTc prolongation. No ST elevation or depression. No overt signs of ischemia or arrhythmia. There is baseline artifact secondary to tremulousness of the patient Medical Decision Narrative: In summary, this is a 69-year-old female patient who is presenting to the emergency punt today for evaluation of abdominal pain that has persisted over the course the last 2 weeks. It is not localized to 1 specific portion of the abdomen. She states it is significantly worse with palpation but is not exquisite at rest. Comorbidities include hypertension, diabetes, peripheral vascular disease status post right lower extremity BKA, COPD on 3 L, and Long's disease for which she is on daily steroids. On initial evaluation of the patient they were resting comfortably in no acute distress and nontoxic in appearance. They are hemodynamically stable, saturating well on her baseline 3 L ox requirement, and she is neurologically intact. On physical examination her heart and lungs are clear to oscillation bilaterally. She has diffuse abdominal tenderness palpation. She has no edema of the left lower extremity. No edema of the upper extremities. Differential diagnosis includes ACS/NV, pneumonia, pancreatitis, cholecystitis, appendicitis, diverticulitis, intra-abdominal abscess, colitis, among others Workup is initiated hematologic labs as well as chest x-ray, urinalysis, and CT scan of the abdomen pelvis. Labs were personally turbid by me and demonstrate a mild leukocytosis of 12.9, anemia with a hemoglobin of 10.1 and hematocrit of 36.7. She has no correctable electrolyte derangements. No acute kidney injury. Her lactate is mildly elevated at 2.9. She has a transaminitis with alkaline phosphatase of 428, ALT of 120, and AST of 181. Troponin is less than 0.01 and she is not experiencing any chest pain, so we will not obtain a delta. CT scan of the abdomen and pelvis was personally turbid by me and demonstrates a moth-eaten appearance of the liver consistent with metastatic disease. Official radiology read is in agreement and also notes that the patient has mild ascites, abdominal lymphadenopathy, as well as nodules present in the breast which may also be malignant in nature. Additionally, did obtain a chest x-ray that was personally turbid by me and demonstrates a solitary mass in the left upper lung field. Official radiology read states that this is a 6.5 cm mass Overall this patient's presentation is worrisome for metastatic malignancy which could be primary breast or primary lung in nature. The patient does not meet any hard criteria for admission as she is on her baseline oxygen requirement, is not experiencing evidence of obstructive jaundice, and her pain is controlled. I had a long conversation with the patient about our next steps moving forward. We discussed potential transfer to the [facility], following up with our oncologist and it architecture analyst here, as well as her goals of care. She tells me that at this particular moment in time she would not wish to have a biopsy and would not wish to pursue aggressive treatment. She would like to go home and follow-up with her primary care physician and also seek the counselor at law of our oncologist and it architecture analyst in the outpatient setting to obtain their formal recommendations as well. I have given her the information for the oncology and pulmonology clinic. At this time all questions have been answered and all parties are agreeable with discharge home Critical Care Critical Care Time Critical Care Time: No
[2025-03-19 16:16] LABS: Troponin I < 0.01 ng/ml (0.00-0.034)
[2025-03-19] MEDS: SODIUM CHLORIDE 0.9% 10ML SYR (RAD ONLY) 10 ML IV (16:19)
[2025-03-19] MEDS: IOPAMIDOL-370 (76%);100ML BOTTLE 75 ML IV (16:19)
[2025-03-19 17:05] VITALS: BP 143/78; PULSE 97; O2SAT 94
--- NOTE | 2025-03-19 17:27 | PC.NURSE ---
pt asked about getting pain meds. DEEPTI Mcdonough was made aware.
[2025-03-19 18:00] VITALS: BP 166/88; PULSE 96; O2SAT 98
[2025-03-19] MEDS: MORPHINE 4MG/ML SYRINGE 4 MG IV (18:05)
[2025-03-19 18:10] VITALS: BP 166/88; PULSE 100; RESP 18; TEMP 36.9; O2SAT 94
[2025-03-19 19:53] LABS: Reflex Lactic Add Lactic Reflex
[2025-03-19 19:56] LABS: Hepatitis C Ab Qual. W/ RFX NEGATIVE (Negative)
== END 2025-03-19 18:33 | disposition home or self-care (01) ==
PROVIDERS: Emergency Provider Student in an Organized Health Care Education/Training Program; PCP Internal Medicine
DX: C34.90 Malignant neoplasm of unspecified part of unspecified bronchus or lung (principal); C78.7 Secondary malignant neoplasm of liver and intrahepatic bile duct; C79.81 Secondary malignant neoplasm of breast; R10.9 Unspecified abdominal pain; I10 Essential (primary) hypertension; E11.9 Type 2 diabetes mellitus without complications; J44.9 Chronic obstructive pulmonary disease, unspecified; E27.1 Primary adrenocortical insufficiency; F32.A Depression, unspecified; Z99.81 Dependence on supplemental oxygen; Z79.82 Long term (current) use of aspirin; Z79.84 Long term (current) use of oral hypoglycemic drugs; Z79.899 Other long term (current) drug therapy; Z88.0 Allergy status to penicillin; Z88.8 Allergy status to other drugs, medicaments and biological substances
CPT/HCPCS: 71045; 74177; 80053; 83605; 83690; 84484; 85025; 86803; 87389; 93005; 96374; 99285; J2270; Q9967